=== PATIENT | female | born 1930 | race Caucasian/White ===

== ENCOUNTER 2017-06-13 07:33 | Inpatient (IN) | payer MEDICARE ==
[~2017-06-13] VITALS: Ht 144.8 cm; Wt 52.4 kg
[2017-06-13] VITALS (9 sets, daily range): BP systolic 106–204; BP diastolic 58–97
--- NOTE | 2017-06-13 07:41 | PHYS DOC ---
Adult General Chief Complaint Chief Complaint: short of breath HPI HPI Patient is a 86 year old female who presents with shortness of breath. She states it started couple days ago is been getting worse. She states she intermittently has a productive cough but denies any fevers chills nausea or vomiting. She denies a history of COPD. She states she doesn't know the names of her medicines she takes. Based on these a paper those in her wallet she 's had coronary disease with a bypass and pneumothorax in the past. It appears she is taking Benicar, Norvasc, simvastatin in addition to omeprazole isosorbide , metoprolol, levothyroxine and alprazolam when necessary. She states she does wear oxygen just at nighttime when she sleeps. She does have a note specialist Dr. Garcia on [facility] in her primary care physician is Dr. Jenny Jiménez. Review of Systems Review of Systems Constitutional: Denies fever or chills [] Eyes: Denies change in visual acuity, redness, or eye pain [] HENT: Denies nasal congestion or sore throat [] Respiratory: Positive for cough and shortness of breath [] Cardiovascular: No additional information not addressed in HPI [] GI: Denies abdominal pain, nausea, vomiting, bloody stools or diarrhea [] : Denies dysuria or hematuria [] Musculoskeletal: Denies back pain or joint pain [] Integument: Denies rash or skin lesions [] Neurologic: Denies headache, focal weakness or sensory changes [] Endocrine: Denies polyuria or polydipsia [] Current Medications Current Medications Current Medications Medications (Trade) Dose Ordered Sig/Raheel Start Time Stop Time Status Last Admin Dose Admin Albuterol/ Ipratropium (Duoneb) 3 ml 1X ONCE 06/13/17 08:15 06/13/17 08:20 DC 06/13/17 08:15 3 ML Aspirin (Children'S Aspirin) 324 mg 1X ONCE 06/13/17 08:45 06/13/17 08:46 Diltiazem HCl (Cardizem) 10 mg 1X ONCE 06/13/17 08:15 06/13/17 08:16 Cancel Diltiazem HCl 125 mg/Dextrose 125 ml @ 0 mls/hr 1X ONCE 06/13/17 08:15 06/13/17 08:29 DC Methylprednisolone Sodium Succinate (SOLU-Medrol 125MG VIAL) 125 mg 1X ONCE 06/13/17 08:15 06/13/17 08:20 DC 06/13/17 08:22 125 MG Allergies Allergies Allergies Coded Allergies Type Severity Reaction Last Updated Verified Penicillins Allergy Intermediate 06/13/17 Yes Sulfa (Sulfonamide Antibiotics) Allergy Intermediate 06/13/17 Yes amoxicillin Allergy Intermediate 06/13/17 Yes clopidogrel Allergy Intermediate 06/13/17 Yes pantoprazole Allergy Intermediate 06/13/17 Yes Physical Exam Physical Exam Constitutional: Well developed, well nourished, no acute distress, non-toxic appearance. [] HENT: Normocephalic, atraumatic, bilateral external ears normal, oropharynx moist, no oral exudates, nose normal. [] Eyes: PERRLA, EOMI, conjunctiva normal, no discharge. [] Neck: Normal range of motion, no tenderness, supple, no stridor. [] Cardiovascular:Heart rate regular rhythm, no murmur [] Lungs & Thorax: Bilateral breath sounds decreased at the bases with moderate expiratory wheezes Abdomen: Bowel sounds normal, soft, no tenderness, no masses, no pulsatile masses. [] Skin: Warm, dry, no erythema, no rash. [] Back: No tenderness, no CVA tenderness. [] Extremities: No tenderness, no cyanosis, no clubbing, ROM intact, no edema. [] Neurologic: Alert and oriented X 3, normal motor function, normal sensory function, no focal deficits noted. [] Psychologic: Affect normal, judgement normal, mood normal. [] Current Patient Data Vital Signs Vital Signs Date Time Temp Pulse Resp B/P (MAP) Pulse Ox O2 Delivery O2 Flow Rate FiO2 06/13/17 08:31 128 177/102 06/13/17 08:14 97 Nasal Cannula 2.0 06/13/17 07:46 98.3 24 98.3 Lab Values Laboratory Tests Test 06/13/17 07:41 06/13/17 07:45 O2 Saturation 96 % (92-99) Arterial Blood pH 7.37 (7.35-7.45) Arterial Blood pCO2 at Patient Temp 45 mmHg (35-46) Arterial Blood pO2 at Patient Temp 84 mmHg (65-108) Arterial Blood HCO3 25 mmol/L (21-28) Arterial Blood Base Excess 0 mmol/L (-3-3) Oxyhemoglobin 95.4 % Methemoglobin 0.7 % (0.0-1.9) Carbon Monoxide, Quantitative 0.3 % (0.0-1.9) FiO2 .28 White Blood Count 14.5 x10^3/uL (4.0-11.0) H Red Blood Count 4.06 x10^6/uL (3.50-5.40) Hemoglobin 13.1 g/dL (12.0-15.5) Hematocrit 40.7 % (36.0-47.0) Mean Corpuscular Volume 100 fL (79-100) Mean Corpuscular Hemoglobin 32 pg (25-35) Mean Corpuscular Hemoglobin Concent 32 g/dL (31-37) Red Cell Distribution Width 15.2 % (11.5-14.5) H Platelet Count 241 x10^3/uL (140-400) Neutrophils (%) (Auto) 81 % (31-73) H Lymphocytes (%) (Auto) 4 % (24-48) L Monocytes (%) (Auto) 7 % (0-9) Eosinophils (%) (Auto) 7 % (0-3) H Basophils (%) (Auto) 1 % (0-3) Neutrophils # (Auto) 11.7 x10^3uL (1.8-7.7) H Lymphocytes # (Auto) 0.6 x10^3/uL (1.0-4.8) L Monocytes # (Auto) 1.1 x10^3/uL (0.0-1.1) Eosinophils # (Auto) 1.0 x10^3/uL (0.0-0.7) H Basophils # (Auto) 0.1 x10^3/uL (0.0-0.2) Platelet Estimate Pending Sodium Level 135 mmol/L (136-145) L Potassium Level 3.6 mmol/L (3.5-5.1) Chloride Level 97 mmol/L (98-107) L Carbon Dioxide Level 28 mmol/L (21-32) Anion Gap 10 (6-14) Blood Urea Nitrogen 16 mg/dL (7-20) Creatinine 1.3 mg/dL (0.6-1.0) H Estimated GFR (Cockcroft-Gault) 38.7 Glucose Level 138 mg/dL (70-99) H Lactic Acid Level 1.3 mmol/L (0.4-2.0) Calcium Level 9.7 mg/dL (8.5-10.1) Magnesium Level 1.9 mg/dL (1.8-2.4) Total Bilirubin 0.9 mg/dL (0.2-1.0) Direct Bilirubin 0.1 mg/dL (0.0-0.2) Aspartate Amino Transferase (AST) 51 U/L (15-37) H Alanine Aminotransferase (ALT) 59 U/L (14-59) Alkaline Phosphatase 122 U/L (46-116) H Creatine Kinase 276 U/L (26-192) H Creatine Kinase MB (Mass) 7.8 ng/mL (0.0-3.6) H Creatine Kinase MB Relative Index 2.8 % (0-4) Troponin I Quantitative 0.084 ng/mL (0.000-0.055) OV-Wwx-E-Type Natriuretic Peptide 2609 pg/mL (0-449) H Total Protein 8.0 g/dL (6.4-8.2) Albumin 3.9 g/dL (3.4-5.0) Lipase 135 U/L (73-393) Thyroid Stimulating Hormone (TSH) 0.505 uIU/mL (0.358-3.74) Laboratory Tests 06/13/17 07:45 Laboratory Tests 06/13/17 07:45 EKG EKG EKG shows A. fib with rate of [address] elevations, no T-wave inversions appreciated, QTC 403 ms, left axis deviation noted, as interpreted by me. Radiology/Procedures Radiology/Procedures [facility] [address] [place] [address] IMAGING REPORT Signed PATIENT: KIRAN JOHNSON ACCOUNT: [id number] : 1930 LOCATION: ER AGE: 86 SEX: F EXAM STATUS: PRE ER ORD. PHYSICIAN: JEFFERY URIARTE MD REASON: soa PROCEDURE: PORTABLE CHEST 1V Indication shortness of air. A single view of the chest was obtained. Comparison is made to an examination just over 7 years earlier. Postoperative changes are noted. Heart size is within normal limits and unchanged. There is no consolidated pneumonia. There is some minimal volume loss at the left costophrenic angle which may reflect atelectasis and a small amount of pleural fluid. There is no pneumothorax. IMPRESSION: No definite acute finding in the chest. Minimal volume loss at the left costophrenic angle. DICTATED and SIGNED BY: JULY DENT MD DATE: 06/13/17 0807 CC: JEFFERY URIARTE MD ~ Impressions: A. fib with RVR Dyspnea Elevated troponin Course & Med Decision Making Course & Med Decision Making Pertinent Labs and Imaging studies reviewed. (See chart for details) EKG shows A. fib with RVR, chest x-ray is nonfocal with COPD findings. Her BNP is elevated addition to her troponin at 0.08. She was given aspirin. She started on a Cardizem bolus and then a drip to slow her heart rate down. She is receiving breathing treatments. She is in stable condition being admitted to the [facility] on a Cardene drip with cardiology and pulmonary consultations. Interim orders have been written. Critical care time 45 minutes of critical care time was used on this patient excluding procedures. Dragon Disclaimer Dragon Disclaimer This electronic medical record was generated, in whole or in part, using a voice recognition dictation system. Departure Departure Impression: Primary Impression: Atrial fibrillation with RVR Disposition: ADMITTED INPATIENT Admitting Physician: Nicole Robbins Condition: GUARDED JEFFERY URIARTE MD Jun 13, 2017 07:41
[2017-06-13 08:04] LABS: CALCIUM 9.7 mg/dL (8.5-10.1); CREATININE 1.3 mg/dL (0.6-1.0); GFR 38.7; POTASSIUM 3.6 mmol/L (3.5-5.1)
[2017-06-13 08:10] LABS: ALBUMIN 3.9 g/dL (3.4-5.0); DIRECT BILIRUBIN 0.1 mg/dL (0.0-0.2); MAGNESIUM 1.9 mg/dL (1.8-2.4); TOTAL BILIRUBIN 0.9 mg/dL (0.2-1.0)
[2017-06-13] MEDS ORDERED: IPRATRPIUM/ALBUTEROL 0.5/2.5MG 3 ML NEBU. ONE (08:12)
--- NOTE | 2017-06-13 08:12 | RAD ---
Indication shortness of air. A single view of the chest was obtained. Comparison is made to an examination just over 7 years earlier. Postoperative changes are noted. Heart size is within normal limits and unchanged. There is no consolidated pneumonia. There is some minimal volume loss at the left costophrenic angle which may reflect atelectasis and a small amount of pleural fluid. There is no pneumothorax. IMPRESSION: No definite acute finding in the chest. Minimal volume loss at the left costophrenic angle.
[2017-06-13] MEDS ORDERED: IPRATRPIUM/ALBUTEROL 0.5/2.5MG 3 ML NEBU. NEB ONE (08:15)
[2017-06-13] MEDS ORDERED: dilTIAZem IV PUSH 25 MG/5 ML VIAL IVP ONE ×2 (08:15)
[2017-06-13] MEDS ORDERED: methylPREDNISolone SOD SUCC PF 125 MG/2 ML VIAL. IV ONE (08:15)
[2017-06-13 08:18] LABS: CKMB MASS 7.8 ng/mL (0.0-3.6)
[2017-06-13 08:18] LABS: BASE EXCESS COOX 0 mmol/L (-3-3); CARBON MONOXIDE 0.3 % (0.0-1.9); HCO3 COOX 25 mmol/L (21-28); METHEMOGLOBIN 0.7 % (0.0-1.9); OXYHEMOGLOBIN 95.4 %; PCO2 COOX 45 mmHg (35-46); PH COOX 7.37 (7.35-7.45); PO2 COOX 84 mmHg (65-108); SAT O2 COOX 96 % (92-99); TOTAL HEMOGLOBIN 13.9 g/dL
[2017-06-13 08:19] LABS: BASO # 0.1 x10^3/uL (0.0-0.2); BASO % 1 % (0-3); EOS % 7 % (0-3); HEMATOCRIT 40.7 % (36.0-47.0); HEMOGLOBIN 13.1 g/dL (12.0-15.5); LYMPH # 0.6 x10^3/uL (1.0-4.8); LYMPH % 4 % (24-48); MEAN CORPUSCULAR HEMOGLOBIN 32 pg (25-35); MEAN CORPUSCULAR HGB CONC 32 g/dL (31-37); MEAN CORPUSCULAR VOLUME 100 fL (79-100); MONO % 7 % (0-9); NEUT % 81 % (31-73); PLATELET COUNT 241 x10^3/uL (140-400); RED BLOOD COUNT 4.06 x10^6/uL (3.50-5.40); RED CELL DISTRIBUTION WIDTH 15.2 % (11.5-14.5); WHITE BLOOD COUNT 14.5 x10^3/uL (4.0-11.0)
--- NOTE | 2017-06-13 08:33 | EKG ---
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
[2017-06-13 08:42] LABS: INR 0.9 (0.8-1.1); PROTHROMBIN TIME PATIENT 11.8 SEC (11.7-14.0)
[2017-06-13] MEDS ORDERED: ASPIRIN CHEWABLE 81 MG TABLET. PO ONE (08:45)
[2017-06-13] MEDS ORDERED: ONDANSETRON PF 4 MG/2 ML VIAL. IV PRN ×2 (08:45→10:30)
[2017-06-13 08:55] LABS: BILIRUBIN,URINE NEGATIVE (NEG); GLUCOSE,URINE NEGATIVE (NEG); PROTEIN,URINE >=300 mg/dL (NEG-TRACE)
[2017-06-13 08:56] LABS: BACTERIA,URINE 0 /HPF (0-FEW); NITRITE,URINE NEGATIVE (NEG); UROBILINOGEN,URINE 0.2 mg/dL (0.2 mg/dL); WBC,URINE 0 /HPF (0-4)
[2017-06-13] MEDS: guaiFENesin DM 200MG/20MG 10 ML SYRUP PO PRN ×2 (10:08→17:46)
[2017-06-13] MEDS ORDERED: FUROSEMIDE 20 MG/2 ML VIAL. IVP ONE ×2 (10:15→20:00)
[2017-06-13] MEDS ORDERED: ACETAMINOPHEN 500 MG TABLET PO PRN (10:30)
[2017-06-13] MEDS ORDERED: DIGOXIN IV 500 MCG/2 ML AMPUL. IV ONE (10:30)
--- NOTE | 2017-06-13 10:33 | PDOC2 ---
CARDIAC CONSULT DATE OF CONSULT Date of Consult DATE: 06/13/17 TIME: 10:01 REASON FOR CONSULT Reason for Consult: AFIB RVR REFERRING PHYSICIAN Referring Physician: Claudia SOURCE Source: Chart review, Patient HISTORY OF PRESENT ILLNESS HISTORY OF PRESENT ILLNESS This is a pleasant 86 yo female admitted for complains of SOA. Reports that she has been having white mucousy sputum more than usual. Reports no fever or chills. She has been coughing more. Positive for orthopnea and noted her legs were more swollen yesterday but better today. Reports palpitations but no dizziness or syncope. No CP but positive for palpitations. Notable for bloating and decreased appetite. Duration of symptoms about 2-3 days. No prior exposure to somebody who has respiratory infections. She has been using oxygen at hs but mainly for her comfort and denies any COPD, KRYSTLE, second hand chronic exposure. She is positive for CAD but no CVA, VTE, falls or any recent injury or any GI bleed. Upon admission she was noted with AFIB RVR which does not have a history of. PAST MEDICAL HISTORY Cardiovascular: CAD, HTN, Hyperlipidemia Pulmonary: COPD (uses O2 at hs), Other (pneumothorax) CENTRAL NERVOUS SYSTEM: Other (No pertinent history) GI: No pertinent hx Heme/Onc: No pertinent hx, Cancer (breast?) Hepatobiliary: No pertinent hx Psych: Anxiety Musculoskeletal: Osteoarthritis Rheumatologic: No pertinent hx Infectious disease: No pertinent hx ENT: Other ([place]) Renal/: Chronic renal insuff Endocrine: Hypothyroidism Dermatology: No pertinent hx PAST SURGICAL HISTORY Past Surgical History: CABG, Mastectomy (right), Total knee replacement (right) , Other (PCI/stents; right hip repair from fall 5 yrs ago) FAMILY HISTORY Family History: Coronary Artery Disease SOCIAL HISTORY Smoke: No ALCOHOL: none Drugs: None Lives: Alone CURRENT MEDICATIONS CURRENT MEDICATIONS Current Medications Medications (Trade) Dose Ordered Sig/Raheel Route PRN Reason Start Time Stop Time Status Last Admin Dose Admin Albuterol/ Ipratropium (Duoneb) 3 ml 1X ONCE NEB 06/13/17 08:15 06/13/17 08:20 DC 06/13/17 08:15 Methylprednisolone Sodium Succinate (SOLU-Medrol 125MG VIAL) 125 mg 1X ONCE IV 06/13/17 08:15 06/13/17 08:20 DC 06/13/17 08:22 Diltiazem HCl (Cardizem) 10 mg 1X ONCE IVP 06/13/17 08:15 06/13/17 08:29 DC 06/13/17 08:31 Diltiazem HCl 125 mg/Dextrose 125 ml @ 0 mls/hr 1X ONCE IV 06/13/17 08:15 06/13/17 08:29 DC 06/13/17 08:43 Aspirin (Children'S Aspirin) 324 mg 1X ONCE PO 06/13/17 08:45 06/13/17 08:46 DC 06/13/17 08:47 ALLERGIES ALLERGIES: Coded Allergies: Penicillins (Verified Allergy, Intermediate, 06/13/17) Sulfa (Sulfonamide Antibiotics) (Verified Allergy, Intermediate, 06/13/17) amoxicillin (Verified Allergy, Intermediate, 06/13/17) clopidogrel (Verified Allergy, Intermediate, 06/13/17) pantoprazole (Verified Allergy, Intermediate, 06/13/17) ROS Review of System 14 point ROS evaluated with pertinent positives noted per HPI PHYSICAL EXAM General: Alert, Oriented X3, Cooperative, No acute distress HEENT: Atraumatic, Mucous membr. moist/pink Lungs: Other (diffuse wheeze) Heart: Other (AFIB RVR; 2/6 systolic murmur to LLS border) Abdomen: Soft, No tenderness Extremities: No cyanosis, Other (trace LE edema) Skin: No breakdown, No significant lesion Neuro: Normal speech, Sensation intact Psych/Mental Status: Mental status NL, Mood NL MUSCULOSKELETAL: Osteoarthritic changes both hands VITALS VITALS Vital Signs Date Time Temp Pulse Resp B/P (MAP) Pulse Ox O2 Delivery O2 Flow Rate FiO2 06/13/17 09:00 97.9 114 20 175/80 (111) 96 Nasal Cannula 2.0 97.9 LABS Lab: Laboratory Tests Test 06/13/17 07:41 06/13/17 07:45 06/13/17 08:44 O2 Saturation 96 % (92-99) Arterial Blood pH 7.37 (7.35-7.45) Arterial Blood pCO2 at Patient Temp 45 mmHg (35-46) Arterial Blood pO2 at Patient Temp 84 mmHg (65-108) Arterial Blood HCO3 25 mmol/L (21-28) Arterial Blood Base Excess 0 mmol/L (-3-3) Oxyhemoglobin 95.4 % Methemoglobin 0.7 % (0.0-1.9) Carbon Monoxide, Quantitative 0.3 % (0.0-1.9) FiO2 .28 White Blood Count 14.5 x10^3/uL (4.0-11.0) Red Blood Count 4.06 x10^6/uL (3.50-5.40) Hemoglobin 13.1 g/dL (12.0-15.5) Hematocrit 40.7 % (36.0-47.0) Mean Corpuscular Volume 100 fL (79-100) Mean Corpuscular Hemoglobin 32 pg (25-35) Mean Corpuscular Hemoglobin Concent 32 g/dL (31-37) Red Cell Distribution Width 15.2 % (11.5-14.5) Platelet Count 241 x10^3/uL (140-400) Neutrophils (%) (Auto) 81 % (31-73) Lymphocytes (%) (Auto) 4 % (24-48) Monocytes (%) (Auto) 7 % (0-9) Eosinophils (%) (Auto) 7 % (0-3) Basophils (%) (Auto) 1 % (0-3) Neutrophils # (Auto) 11.7 x10^3uL (1.8-7.7) Lymphocytes # (Auto) 0.6 x10^3/uL (1.0-4.8) Monocytes # (Auto) 1.1 x10^3/uL (0.0-1.1) Eosinophils # (Auto) 1.0 x10^3/uL (0.0-0.7) Basophils # (Auto) 0.1 x10^3/uL (0.0-0.2) Prothrombin Time 11.8 SEC (11.7-14.0) Prothromb Time International Ratio 0.9 (0.8-1.1) Sodium Level 135 mmol/L (136-145) Potassium Level 3.6 mmol/L (3.5-5.1) Chloride Level 97 mmol/L (98-107) Carbon Dioxide Level 28 mmol/L (21-32) Anion Gap 10 (6-14) Blood Urea Nitrogen 16 mg/dL (7-20) Creatinine 1.3 mg/dL (0.6-1.0) Estimated GFR (Cockcroft-Gault) 38.7 Glucose Level 138 mg/dL (70-99) Lactic Acid Level 1.3 mmol/L (0.4-2.0) Calcium Level 9.7 mg/dL (8.5-10.1) Magnesium Level 1.9 mg/dL (1.8-2.4) Total Bilirubin 0.9 mg/dL (0.2-1.0) Direct Bilirubin 0.1 mg/dL (0.0-0.2) Aspartate Amino Transf (AST/SGOT) 51 U/L (15-37) Alanine Aminotransferase (ALT/SGPT) 59 U/L (14-59) Alkaline Phosphatase 122 U/L (46-116) Creatine Kinase 276 U/L (26-192) Creatine Kinase MB (Mass) 7.8 ng/mL (0.0-3.6) Creatine Kinase MB Relative Index 2.8 % (0-4) Troponin I Quantitative 0.084 ng/mL (0.000-0.055) BD-Trp-O-Type Natriuretic Peptide 2609 pg/mL (0-449) Total Protein 8.0 g/dL (6.4-8.2) Albumin 3.9 g/dL (3.4-5.0) Lipase 135 U/L (73-393) Thyroid Stimulating Hormone (TSH) 0.505 uIU/mL (0.358-3.74) Urine Collection Type U cath Urine Color Straw Urine Clarity Clear Urine pH 7.0 Urine Specific [place] 1.025 Urine Protein >=300 mg/dL (NEG-TRACE) Urine Glucose (UA) Negative mg/dL (NEG) Urine Ketones (Stick) Negative mg/dL (NEG) Urine Blood Small (NEG) Urine Nitrite Negative (NEG) Urine Bilirubin Negative (NEG) Urine Urobilinogen Dipstick 0.2 mg/dL (0.2 mg/dL) Urine Leukocyte Esterase Negative (NEG) Urine RBC 1-2 /HPF (0-2) Urine WBC 0 /HPF (0-4) Urine Bacteria 0 /HPF (0-FEW) ASSESSMENT/PLAN ASSESSMENT/PLAN 1. AFIB RVR: new onset. 2. Acute on chronic diastolic CHF 3. Dyspnea: likely from above. no known COPD, tobaccoism, KRYSTLE. Uses O2 at hs mainly for comfort as reported. 4. CAD: CABG in 1980s and C with 3 stents with last PCI 5 yrs ago. CP free. 5. Hx of pneumonia: 03/2017 6. HTN: labile 7. HLP 8. Hypothyroidism: TSH on goal Recommendations 1. Obtain records from Dr. Nelson at [facility]. 2. TTE, lipid panel 3. Continue with cardizem upritrate per response. x1 Dig. ASA for now will reevaluate for NOAC once records are obtained. 4. Will obtain home med list and will resume cardiac meds as appropriate 5. 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
[2017-06-13] MEDS ORDERED: GABA-585 PO (10:49)
[2017-06-13] MEDS ORDERED: FAMO-63 PO (10:49)
[2017-06-13] MEDS ORDERED: ALPR0.25 PO (10:49)
[2017-06-13] MEDS ORDERED: FURO20TA3 PO (10:49)
[2017-06-13] MEDS ORDERED: ASPI-482 PO (10:49)
[2017-06-13] MEDS ORDERED: ALLO300T PO (10:49)
[2017-06-13] MEDS ORDERED: HYDR500C16 PO (10:49)
[2017-06-13] MEDS ORDERED: LEVO75TA5 PO (10:49)
[2017-06-13] MEDS: ASPIRIN ENTERIC COATED 81 MG TABLET.DR. PO SCH (11:03)
[2017-06-13 11:10] LABS: CHOLESTEROL/HDL RATIO 2.3
--- NOTE | 2017-06-13 11:42 | ACF ---
Admit Criteria Forms Admit Criteria Forms Admit Criteria Forms ATRIAL FIBRILLATION Clinical Indications for Admission to Inpatient Care ([place]/check or initial the applicable condition/criteria) Admission is indicated for ANY ONE of the following(1)(2)(3)(4)(5)(6)(7)(8): [ ]I. Myocardial ischemia that persists despite outpatient and observation care treatment (13) [ ]II. Myocardial infarction [ ]III. Hemodynamic instability [ ]IV. Heart failure (e.g., pulmonary edema) (14) [ ]V. Altered mental status that is severe or persistent complications secondary to comorbidities (eg, symptomatic heart failure) [ ]. Syncope [ ]VII. Patient has implantable cardioverter defibrillator that has fired more than once within past 24hror needs immediate adjustment of settings that cannot be done other than in inpatient setting. (15) [ ]VIII. Suspected accessory pathway (e.g., Zmmwg-Okbjwrcbn-Aezfi syndrome) on ECG [ ]IX. Medication toxicity (e.g., digitalis) causing arrhythmia(16) [ ]X. Underlying medical condition that necessitates inpatient care(e.g., thyrotoxicosis, pneumonia)(17) [ ]XI. Continuous ECG monitoring is required for condition causing arrhythmia (e.g., severe hyperkalemia, hypokalemia, acid-base disturbance)(18)(19)(20) [ ]XII. Initiation of antiarrhythmic drug therapy is needed in patient at high risk of adverse effects as indicated by ANY ONE of the following: [ ]a) Significant structural heart disease (e.g., reduced ejection fraction, congenital heart disease, valvular heart disease) [ ]b) Prolonged QT interval [ ]c) Underlying sinus node or atrioventricular conduction disturbances [ ]d) Need for treatment with antiarrhythmic drugs that have significant proarrhythmic potential (e.g., dofetilide, sotalol, procainamide) [ ]e) Patient whose sinus rhythm has never been observed on ECG [X]XIII. Persistent symptomatic tachycardia (rate > 100 bpm) despite outpatient and observation level of care (eg, rate cannot be sufficiently controlled [ ]XIV. Elective or urgent cardioversion that cannot be performed on outpatient basis or during observation care. [A] (Use also A Fib: Observation Care ) as appropriate.(21)(22)(23) Extended stay beyond goal length of stay may be needed for (1)(43)(44): [ ]a) Unstable comorbidities (eg, heart failure, COPD, renal insuffciency) [ ]b) Persistently uncontrolled atrial fibrillation or other arrhythmias (45) [ ]c) Acute thromboembolic event (e.g., stroke, limb ischemia) [ ]d) Need for inpatient attainment of full anticoagulation(28)(46)(47) The original [facility] content created by [facility] [employer] has been revised. The portions of the content which have been revised are identified through the use of italic text, and [facility] has neither reviewed nor approved the modified material. All other unmodified content is copyright [facility] [employer]. Please see references footnoted in the original [facility] MD.Voice edition 2014 SYBIL VOGT Jun 13, 2017 11:41
[2017-06-13] MEDS ORDERED: ALPRAZolam 0.5 MG TABLET PO PRN (11:45)
--- NOTE | 2017-06-13 11:50 | CARD ---
APPROVED REPORT EXAM: Two-dimensional and M-mode echocardiogram with Doppler and color Doppler. INDICATION Atrial Fibrillation 2D DIMENSIONS RVDd2.5 (2.9-3.5cm)Left Atrium(2D)2.6 (1.6-4.0cm) IVSd1.0 (0.7-1.1cm)Aortic Root(2D)2.4 (2.0-3.7cm) LVDd3.4 (3.9-5.9cm)LVOT Diameter1.9 (1.8-2.4cm) PWd1.0 (0.7-1.1cm)LVDs2.1 (2.5-4.0cm) FS (%) 30.0 %SV35.2 ml LVEF(%)60.0 (>50%) Aortic Valve AoV Peak Benito.96.1cm/Beena Peak GR.3.7mmHg Mitral Valve MV E Vaatwcaq712.9cm/sMV DECEL [id number] MV A Awcazflu69.4cm/sE/A Ratio1.3 TDI Lateral E' P. V8.17cm/sMedial E' P. V4.83cm/s E/Lateral E'14.4E/Medial E'24.4 Pulmonary Vein S1 Eevnntgl57.1cm/sS2 Oypxcply09.16cm/s D2 Rbsvrtdb24.2cm/s LEFT VENTRICLE The left ventricle is normal size. There is normal left ventricular wall thickness. The left ventricu lar systolic function is normal and the ejection fraction is within normal range. The Ejection Fracti on is 55-60%. Technically difficult images preclude accurate wall motion assessment but grossly karissa l wall motion. Tissue Doppler imaging reveals mild left ventricular diastolic dysfunction. RIGHT VENTRICLE The right ventricle is normal size. The right ventricular systolic function is normal. ATRIA The left atrium size is normal. The right atrium size is normal. The interatrial septum is intact wit h no evidence for an atrial septal defect or patent foramen ovale as noted on 2-D or Doppler imaging. AORTIC VALVE The aortic valve is mildly thickened. Doppler and Color Flow revealed no significant aortic regurgita tion. There is no significant aortic valvular stenosis. MITRAL VALVE The mitral valve is calcified but opens well. There is no evidence of mitral valve prolapse. There is no mitral valve stenosis. Doppler and Color-flow revealed trace to mild mitral regurgitation. TRICUSPID VALVE The tricuspid valve is normal in structure and function. Doppler and Color Flow revealed mild tricusp id regurgitation. There is no tricuspid valve stenosis. PULMONIC VALVE Doppler and Color Flow revealed trace to mild pulmonic valvular regurgitation. There is no pulmonic v alvular stenosis. GREAT VESSELS The aortic root is normal in size. The ascending aorta is normal in size. The IVC was not visualized. PERICARDIAL EFFUSION There is no evidence of significant pericardial effusion. Critical Notification Critical Value: No <Conclusion> The left ventricular systolic function is normal and the ejection fraction is within normal range. Th e Ejection Fraction is 55-60%. Technically difficult images preclude accurate wall motion assessment but grossly normal wall motion.
[2017-06-13] MEDS: IPRATRPIUM/ALBUTEROL 0.5/2.5MG 3 ML NEBU. NEB SCH ×3 (11:54→19:57)
[2017-06-13 11:57] LABS: % EOS 10 % (0-5); PLT ESTIMATE ADEQUATE (ADEQUATE)
[2017-06-13] MEDS ORDERED: INFLUENZA VAX SCREEN BY RX. MC ONE (13:15)
[2017-06-13] MEDS ORDERED: UBIQ75CA PO (13:57)
[2017-06-13] MEDS ORDERED: ISOS60TA2 PO (13:57)
[2017-06-13] MEDS ORDERED: CHOL100016 PO (13:57)
[2017-06-13] MEDS ORDERED: OMEG100T PO (13:57)
--- NOTE | 2017-06-13 14:12 | PDOC1 ---
History and Physical Date of Admission Date of Admission DATE: 06/13/17 TIME: 14:07 Identification/Chief Complaint Chief Complaint SOA Problems: Source Source: Caregiver, Chart review, Patient History of Present Illness History of Present Illness 66 y.o Female accompanied by family today,. SOA, NO weight gain, no leg edema, claims hx stents in past, Found to be in atrial fib RVR needing cardziem gtt at CVC, heart rate now at rest 10mcg is 100 bpm, denies presyncopal sxs or CP, NOn smoker, non drinker, LAbs BNP 7K, CXR trace pleural effusion. Admitted with cards on board, Hx hypothyroidism, anxiety, gout? 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 and neuropathy on gabapentin Past Medical History Cardiovascular: CAD, HTN, Hyperlipidemia Pulmonary: COPD (uses O2 at hs), Other (pneumothorax) CENTRAL NERVOUS SYSTEM: Other (No pertinent history) GI: No pertinent hx Heme/Onc: No pertinent hx, Cancer (breast?) Hepatobiliary: No pertinent hx Psych: Anxiety Musculoskeletal: Osteoarthritis Rheumatologic: No pertinent hx Infectious disease: No pertinent hx ENT: Other ([place]) Renal/: Chronic renal insuff Endocrine: Hypothyroidism Dermatology: No pertinent hx Past Surgical History Past Surgical History: CABG, Mastectomy (right), Total knee replacement (right) , Other (PCI/stents; right hip repair from fall 5 yrs ago) Family History Family History: Coronary Artery Disease Social History Smoke: No ALCOHOL: none Drugs: None Current Problem List Problem List Problems Medical Problems: (1) Atrial fibrillation with RVR Status: Acute Problems: Current Medications Current Medications Current Medications Albuterol/ Ipratropium (Duoneb) 3 ml STK-MED ONCE .ROUTE ; Start 06/13/17 at 08: 12; Stop 06/13/17 at 08:13; Status DC Albuterol/ Ipratropium (Duoneb) 3 ml 1X ONCE NEB Last administered on 08:15; Start 06/13/17 at 08:15; Stop 06/13/17 at 08:20; Status DC Methylprednisolone Sodium Succinate (SOLU-Medrol 125MG VIAL) 125 mg 1X ONCE IV Last administered on 06/13/17 08:22; Start 06/13/17 at 08:15; Stop 06/13/17 at 08:20; Status DC Diltiazem HCl (Cardizem) 10 mg 1X ONCE IVP Last administered on 06/13/17 08: 31; Start 06/13/17 at 08:15; Stop 06/13/17 at 08:29; Status DC Diltiazem HCl (Cardizem) 10 mg 1X ONCE IVP ; Start 06/13/17 at 08:15; Stop at 08:16; Status Cancel Diltiazem HCl 125 mg/Dextrose 125 ml @ 0 mls/hr 1X ONCE IV Last administered on 06/13/17 08:43; Start 06/13/17 at 08:15; Stop 06/13/17 at 08:29; Status DC Aspirin (Children'S Aspirin) 324 mg 1X ONCE PO Last administered on 06/13/17 08:47; Start 06/13/17 at 08:45; Stop 06/13/17 at 08:46; Status DC Ondansetron HCl (Zofran) 4 mg PRN Q8HRS PRN IV NAUSEA/VOMITING; Start 06/13/17 at 08:45; Stop 06/13/17 at 10:18; Status DC Guaifenesin (Robitussin Dm) 10 ml PRN Q6HRS PRN PO COUGH Last administered on 10:08; Start 06/13/17 at 10:00 Albuterol/ Ipratropium (Duoneb) 3 ml RTQID NEB Last administered on 06/13/17 11:54; Start 06/13/17 at 12:00 Ondansetron HCl (Zofran) 4 mg PRN Q6HRS PRN IV NAUSEA/VOMITING; Start 06/13/17 at 10:30; Stop 06/14/17 at 10:29 Acetaminophen (Tylenol) 500 mg PRN Q6HRS PRN PO MILD PAIN / TEMP; Start at 10:30 Furosemide (Lasix) 20 mg 1X ONCE IVP Last administered on 06/13/17 11:03; Start 06/13/17 at 10:15; Stop 06/13/17 at 10:22; Status DC Digoxin (Lanoxin) 250 mcg 1X ONCE IV Last administered on 06/13/17 11:03; Start 06/13/17 at 10:30; Stop 9/15/17 at 10:31; Status DC Aspirin (Ecotrin) 81 mg DAILYWBKFT PO Last administered on 06/13/17 11:03; Start 06/13/17 at 12:00 Alprazolam (Xanax) 0.5 mg PRN Q8HRS PRN PO ANXIETY / AGITATION Last administered on 06/13/17 11:47; Start 06/13/17 at 11:45 Info (Do NOT chart on this placeholder) 1 each 1X ONCE MC ; Start 06/13/17 at 13:15; Stop 06/13/17 at 13:16; Status UNV Active Scripts Active Reported Ultra Coq10 (Ubiquinone) 75 Mg Capsule 100 Mg PO DAILY [place]-3 ([place]-3 Fatty Acids) 100 Mg Tab.chew 350 Mg PO HS Isosorbide Mononitrate Er (Isosorbide Mononitrate) 60 Mg Tab.er.24h 1 Tab PO DAILY Vitamin D3 (Cholecalciferol (Vitamin D3)) 1,000 Unit Tab.chew 1,000 Unit PO DAILY Aspir 81 (Aspirin) 81 Mg Tablet.dr 1 Tab PO DAILY Xanax (Alprazolam) 0.25 Mg Tablet 1 Tab PO TID PRN Allopurinol 300 Mg Tablet 1 Tab PO QODAY Pepcid (Famotidine) 20 Mg Tablet 20 Mg PO DAILY Levothyroxine Sodium 75 Mcg Tablet 1 Tab PO DAILY Hydroxyurea 500 Mg Capsule 500 Mg PO QODAY Gabapentin 100 Mg Capsule 100 Mg PO TID Furosemide 20 Mg Tablet 1 Tab PO DAILY Allergies Allergies: Coded Allergies: Penicillins (Verified Allergy, Intermediate, 06/13/17) Sulfa (Sulfonamide Antibiotics) (Verified Allergy, Intermediate, 06/13/17) amoxicillin (Verified Allergy, Intermediate, 06/13/17) clopidogrel (Verified Allergy, Intermediate, 06/13/17) pantoprazole (Verified Allergy, Intermediate, 06/13/17) ROS Review of System as per HPI, only SOA Physical Exam General: Alert, Oriented X3, Cooperative, No acute distress HEENT: Atraumatic, PERRLA Lungs: Clear to auscultation Heart: S1S2, no thrills, no rubs, no jug vein distention, irregularly irregular Breasts: Normal, Rt breast nml w/o mass, Lt breast nml w/o mass, Nipples normal Abdomen: Normal bowel sounds, Soft, No tenderness, No hepatosplenomegaly, No masses Rectal Exam: not examined PELVIC: Nml ext genitalia Extremities: No clubbing, No cyanosis, No edema, Normal pulses, No tenderness/ swelling Skin: No rashes, No breakdown, No significant lesion Neuro: Normal gait, Normal speech, Strength at 5/5 X4 ext, Normal tone, Sensation intact, Cranial nerves 3-12 NL, Reflexes 2+ Psych/Mental Status: Mental status NL, Mood NL Vitals Vitals Vital Signs Date Time Temp Pulse Resp B/P (MAP) Pulse Ox O2 Delivery O2 Flow Rate FiO2 06/13/17 11:57 98 Nasal Cannula 2.0 06/13/17 11:03 96 149/59 06/13/17 11:00 97.1 20 97.1 Labs Labs Laboratory Tests Test 06/13/17 07:41 06/13/17 07:45 06/13/17 08:44 06/13/17 10:51 O2 Saturation 96 % (92-99) Arterial Blood pH 7.37 (7.35-7.45) Arterial Blood pCO2 at Patient Temp 45 mmHg (35-46) Arterial Blood pO2 at Patient Temp 84 mmHg (65-108) Arterial Blood HCO3 25 mmol/L (21-28) Arterial Blood Base Excess 0 mmol/L (-3-3) Oxyhemoglobin 95.4 % Methemoglobin 0.7 % (0.0-1.9) Carbon Monoxide, Quantitative 0.3 % (0.0-1.9) FiO2 .28 White Blood Count 14.5 x10^3/uL (4.0-11.0) Red Blood Count 4.06 x10^6/uL (3.50-5.40) Hemoglobin 13.1 g/dL (12.0-15.5) Hematocrit 40.7 % (36.0-47.0) Mean Corpuscular Volume 100 fL (79-100) Mean Corpuscular Hemoglobin 32 pg (25-35) Mean Corpuscular Hemoglobin Concent 32 g/dL (31-37) Red Cell Distribution Width 15.2 % (11.5-14.5) Platelet Count 241 x10^3/uL (140-400) Neutrophils (%) (Auto) 81 % (31-73) Lymphocytes (%) (Auto) 4 % (24-48) Monocytes (%) (Auto) 7 % (0-9) Eosinophils (%) (Auto) 7 % (0-3) Basophils (%) (Auto) 1 % (0-3) Neutrophils # (Auto) 11.7 x10^3uL (1.8-7.7) Lymphocytes # (Auto) 0.6 x10^3/uL (1.0-4.8) Monocytes # (Auto) 1.1 x10^3/uL (0.0-1.1) Eosinophils # (Auto) 1.0 x10^3/uL (0.0-0.7) Basophils # (Auto) 0.1 x10^3/uL (0.0-0.2) Segmented Neutrophils % 77 % (35-66) Lymphocytes % 4 % (24-48) Monocytes % 9 % (0-10) Eosinophils % 10 % (0-5) Platelet Estimate Adequate (ADEQUATE) Prothrombin Time 11.8 SEC (11.7-14.0) Prothromb Time International Ratio 0.9 (0.8-1.1) Sodium Level 135 mmol/L (136-145) Potassium Level 3.6 mmol/L (3.5-5.1) Chloride Level 97 mmol/L (98-107) Carbon Dioxide Level 28 mmol/L (21-32) Anion Gap 10 (6-14) Blood Urea Nitrogen 16 mg/dL (7-20) Creatinine 1.3 mg/dL (0.6-1.0) Estimated GFR (Cockcroft-Gault) 38.7 Glucose Level 138 mg/dL (70-99) Lactic Acid Level 1.3 mmol/L (0.4-2.0) Calcium Level 9.7 mg/dL (8.5-10.1) Magnesium Level 1.9 mg/dL (1.8-2.4) Total Bilirubin 0.9 mg/dL (0.2-1.0) Direct Bilirubin 0.1 mg/dL (0.0-0.2) Aspartate Amino Transf (AST/SGOT) 51 U/L (15-37) Alanine Aminotransferase (ALT/SGPT) 59 U/L (14-59) Alkaline Phosphatase 122 U/L (46-116) Creatine Kinase 276 U/L (26-192) Creatine Kinase MB (Mass) 7.8 ng/mL (0.0-3.6) Creatine Kinase MB Relative Index 2.8 % (0-4) Troponin I Quantitative 0.084 ng/mL (0.000-0.055) 0.076 ng/mL (0.000-0.055) DJ-Ztv-A-Type Natriuretic Peptide 2609 pg/mL (0-449) Total Protein 8.0 g/dL (6.4-8.2) Albumin 3.9 g/dL (3.4-5.0) Triglycerides Level 78 mg/dL (0-150) Cholesterol Level 229 mg/dL (0-200) LDL Cholesterol, Calculated 113 mg/dL (0-100) VLDL Cholesterol, Calculated 16 mg/dL (0-40) Non-HDL Cholesterol Calculated 129 mg/dL (0-129) HDL Cholesterol 100 mg/dL (40-60) Cholesterol/HDL Ratio 2.3 Lipase 135 U/L (73-393) Thyroid Stimulating Hormone (TSH) 0.505 uIU/mL (0.358-3.74) Urine Collection Type U cath Urine Color Straw Urine Clarity Clear Urine pH 7.0 Urine Specific [place] 1.025 Urine Protein >=300 mg/dL (NEG-TRACE) Urine Glucose (UA) Negative mg/dL (NEG) Urine Ketones (Stick) Negative mg/dL (NEG) Urine Blood Small (NEG) Urine Nitrite Negative (NEG) Urine Bilirubin Negative (NEG) Urine Urobilinogen Dipstick 0.2 mg/dL (0.2 mg/dL) Urine Leukocyte Esterase Negative (NEG) Urine RBC 1-2 /HPF (0-2) Urine WBC 0 /HPF (0-4) Urine Bacteria 0 /HPF (0-FEW) Laboratory Tests Test 06/13/17 07:41 06/13/17 07:45 06/13/17 08:44 06/13/17 10:51 O2 Saturation 96 % (92-99) Arterial Blood pH 7.37 (7.35-7.45) Arterial Blood pCO2 at Patient Temp 45 mmHg (35-46) Arterial Blood pO2 at Patient Temp 84 mmHg (65-108) Arterial Blood HCO3 25 mmol/L (21-28) Arterial Blood Base Excess 0 mmol/L (-3-3) Oxyhemoglobin 95.4 % Methemoglobin 0.7 % (0.0-1.9) Carbon Monoxide, Quantitative 0.3 % (0.0-1.9) FiO2 .28 White Blood Count 14.5 x10^3/uL (4.0-11.0) Red Blood Count 4.06 x10^6/uL (3.50-5.40) Hemoglobin 13.1 g/dL (12.0-15.5) Hematocrit 40.7 % (36.0-47.0) Mean Corpuscular Volume 100 fL (79-100) Mean Corpuscular Hemoglobin 32 pg (25-35) Mean Corpuscular Hemoglobin Concent 32 g/dL (31-37) Red Cell Distribution Width 15.2 % (11.5-14.5) Platelet Count 241 x10^3/uL (140-400) Neutrophils (%) (Auto) 81 % (31-73) Lymphocytes (%) (Auto) 4 % (24-48) Monocytes (%) (Auto) 7 % (0-9) Eosinophils (%) (Auto) 7 % (0-3) Basophils (%) (Auto) 1 % (0-3) Neutrophils # (Auto) 11.7 x10^3uL (1.8-7.7) Lymphocytes # (Auto) 0.6 x10^3/uL (1.0-4.8) Monocytes # (Auto) 1.1 x10^3/uL (0.0-1.1) Eosinophils # (Auto) 1.0 x10^3/uL (0.0-0.7) Basophils # (Auto) 0.1 x10^3/uL (0.0-0.2) Segmented Neutrophils % 77 % (35-66) Lymphocytes % 4 % (24-48) Monocytes % 9 % (0-10) Eosinophils % 10 % (0-5) Platelet Estimate Adequate (ADEQUATE) Prothrombin Time 11.8 SEC (11.7-14.0) Prothromb Time International Ratio 0.9 (0.8-1.1) Sodium Level 135 mmol/L (136-145) Potassium Level 3.6 mmol/L (3.5-5.1) Chloride Level 97 mmol/L (98-107) Carbon Dioxide Level 28 mmol/L (21-32) Anion Gap 10 (6-14) Blood Urea Nitrogen 16 mg/dL (7-20) Creatinine 1.3 mg/dL (0.6-1.0) Estimated GFR (Cockcroft-Gault) 38.7 Glucose Level 138 mg/dL (70-99) Lactic Acid Level 1.3 mmol/L (0.4-2.0) Calcium Level 9.7 mg/dL (8.5-10.1) Magnesium Level 1.9 mg/dL (1.8-2.4) Total Bilirubin 0.9 mg/dL (0.2-1.0) Direct Bilirubin 0.1 mg/dL (0.0-0.2) Aspartate Amino Transf (AST/SGOT) 51 U/L (15-37) Alanine Aminotransferase (ALT/SGPT) 59 U/L (14-59) Alkaline Phosphatase 122 U/L (46-116) Creatine Kinase 276 U/L (26-192) Creatine Kinase MB (Mass) 7.8 ng/mL (0.0-3.6) Creatine Kinase MB Relative Index 2.8 % (0-4) Troponin I Quantitative 0.084 ng/mL (0.000-0.055) 0.076 ng/mL (0.000-0.055) QK-Wym-U-Type Natriuretic Peptide 2609 pg/mL (0-449) Total Protein 8.0 g/dL (6.4-8.2) Albumin 3.9 g/dL (3.4-5.0) Triglycerides Level 78 mg/dL (0-150) Cholesterol Level 229 mg/dL (0-200) LDL Cholesterol, Calculated 113 mg/dL (0-100) VLDL Cholesterol, Calculated 16 mg/dL (0-40) Non-HDL Cholesterol Calculated 129 mg/dL (0-129) HDL Cholesterol 100 mg/dL (40-60) Cholesterol/HDL Ratio 2.3 Lipase 135 U/L (73-393) Thyroid Stimulating Hormone (TSH) 0.505 uIU/mL (0.358-3.74) Urine Collection Type U cath Urine Color Straw Urine Clarity Clear Urine pH 7.0 Urine Specific [place] 1.025 Urine Protein >=300 mg/dL (NEG-TRACE) Urine Glucose (UA) Negative mg/dL (NEG) Urine Ketones (Stick) Negative mg/dL (NEG) Urine Blood Small (NEG) Urine Nitrite Negative (NEG) Urine Bilirubin Negative (NEG) Urine Urobilinogen Dipstick 0.2 mg/dL (0.2 mg/dL) Urine Leukocyte Esterase Negative (NEG) Urine RBC 1-2 /HPF (0-2) Urine WBC 0 /HPF (0-4) Urine Bacteria 0 /HPF (0-FEW) VTE Prophylaxis Ordered VTE Prophylaxis Devices: Yes VTE Pharmacological Prophylaxi: Yes Assessment/Plan Assessment/Plan 1. New onset atrial fib RVR 2. Hx CAD, HTN 3, Hx elevated uric acid 4, Hypothryodism on synthroid 5. Anxiety NOS PLAN: CVC admit RAte control CHADS - 2 - will defer AC to cards if needed PT.OT Check TSH and T3 T4 Supprotive meds COnt home meds Cycle CE Cards consult - likely echo Dw family REESE ZEPEDA Y Jun 13, 2017 14:12
[2017-06-13] MEDS ORDERED: ALPRAZolam 0.25 MG TABLET PO PRN (14:15)
[2017-06-13] MEDS: GABAPENTIN 100 MG CAPSULE. PO SCH ×2 (16:02→21:00)
[2017-06-13] MEDS: METOPROLOL TART IMMED RELEASE 50 MG TABLET. PO SCH ×2 (16:03→21:00)
[2017-06-13] MEDS ORDERED: FLU VACC QS2017-18 (36MOS+)/PF 0.5 ML SYRINGE. VAX IM ONE (17:00)
[2017-06-13] MEDS ORDERED: ALBUTEROL SULFATE 2.5 MG/3 ML NEBU. NEB PRN (18:15)
--- NOTE | 2017-06-13 18:22 | PDOC ---
PULMONARY PROGRESS NOTES Vitals Vital Signs Date Time Temp Pulse Resp B/P (MAP) Pulse Ox O2 Delivery O2 Flow Rate FiO2 06/13/17 16:03 91 159/79 06/13/17 15:48 99 Nasal Cannula 2.0 06/13/17 15:00 98.2 18 98.2 Labs Laboratory Tests Test 06/13/17 07:41 06/13/17 07:45 06/13/17 08:44 06/13/17 10:51 O2 Saturation 96 % (92-99) Arterial Blood pH 7.37 (7.35-7.45) Arterial Blood pCO2 at Patient Temp 45 mmHg (35-46) Arterial Blood pO2 at Patient Temp 84 mmHg (65-108) Arterial Blood HCO3 25 mmol/L (21-28) Arterial Blood Base Excess 0 mmol/L (-3-3) Oxyhemoglobin 95.4 % Methemoglobin 0.7 % (0.0-1.9) Carbon Monoxide, Quantitative 0.3 % (0.0-1.9) FiO2 .28 White Blood Count 14.5 x10^3/uL (4.0-11.0) Red Blood Count 4.06 x10^6/uL (3.50-5.40) Hemoglobin 13.1 g/dL (12.0-15.5) Hematocrit 40.7 % (36.0-47.0) Mean Corpuscular Volume 100 fL (79-100) Mean Corpuscular Hemoglobin 32 pg (25-35) Mean Corpuscular Hemoglobin Concent 32 g/dL (31-37) Red Cell Distribution Width 15.2 % (11.5-14.5) Platelet Count 241 x10^3/uL (140-400) Neutrophils (%) (Auto) 81 % (31-73) Lymphocytes (%) (Auto) 4 % (24-48) Monocytes (%) (Auto) 7 % (0-9) Eosinophils (%) (Auto) 7 % (0-3) Basophils (%) (Auto) 1 % (0-3) Neutrophils # (Auto) 11.7 x10^3uL (1.8-7.7) Lymphocytes # (Auto) 0.6 x10^3/uL (1.0-4.8) Monocytes # (Auto) 1.1 x10^3/uL (0.0-1.1) Eosinophils # (Auto) 1.0 x10^3/uL (0.0-0.7) Basophils # (Auto) 0.1 x10^3/uL (0.0-0.2) Segmented Neutrophils % 77 % (35-66) Lymphocytes % 4 % (24-48) Monocytes % 9 % (0-10) Eosinophils % 10 % (0-5) Platelet Estimate Adequate (ADEQUATE) Prothrombin Time 11.8 SEC (11.7-14.0) Prothromb Time International Ratio 0.9 (0.8-1.1) Sodium Level 135 mmol/L (136-145) Potassium Level 3.6 mmol/L (3.5-5.1) Chloride Level 97 mmol/L (98-107) Carbon Dioxide Level 28 mmol/L (21-32) Anion Gap 10 (6-14) Blood Urea Nitrogen 16 mg/dL (7-20) Creatinine 1.3 mg/dL (0.6-1.0) Estimated GFR (Cockcroft-Gault) 38.7 Glucose Level 138 mg/dL (70-99) Lactic Acid Level 1.3 mmol/L (0.4-2.0) Calcium Level 9.7 mg/dL (8.5-10.1) Magnesium Level 1.9 mg/dL (1.8-2.4) Total Bilirubin 0.9 mg/dL (0.2-1.0) Direct Bilirubin 0.1 mg/dL (0.0-0.2) Aspartate Amino Transf (AST/SGOT) 51 U/L (15-37) Alanine Aminotransferase (ALT/SGPT) 59 U/L (14-59) Alkaline Phosphatase 122 U/L (46-116) Creatine Kinase 276 U/L (26-192) Creatine Kinase MB (Mass) 7.8 ng/mL (0.0-3.6) Creatine Kinase MB Relative Index 2.8 % (0-4) Troponin I Quantitative 0.084 ng/mL (0.000-0.055) 0.076 ng/mL (0.000-0.055) MQ-Unq-Y-Type Natriuretic Peptide 2609 pg/mL (0-449) Total Protein 8.0 g/dL (6.4-8.2) Albumin 3.9 g/dL (3.4-5.0) Triglycerides Level 78 mg/dL (0-150) Cholesterol Level 229 mg/dL (0-200) LDL Cholesterol, Calculated 113 mg/dL (0-100) VLDL Cholesterol, Calculated 16 mg/dL (0-40) Non-HDL Cholesterol Calculated 129 mg/dL (0-129) HDL Cholesterol 100 mg/dL (40-60) Cholesterol/HDL Ratio 2.3 Lipase 135 U/L (73-393) Thyroid Stimulating Hormone (TSH) 0.505 uIU/mL (0.358-3.74) Urine Collection Type U cath Urine Color Straw Urine Clarity Clear Urine pH 7.0 Urine Specific [place] 1.025 Urine Protein >=300 mg/dL (NEG-TRACE) Urine Glucose (UA) Negative mg/dL (NEG) Urine Ketones (Stick) Negative mg/dL (NEG) Urine Blood Small (NEG) Urine Nitrite Negative (NEG) Urine Bilirubin Negative (NEG) Urine Urobilinogen Dipstick 0.2 mg/dL (0.2 mg/dL) Urine Leukocyte Esterase Negative (NEG) Urine RBC 1-2 /HPF (0-2) Urine WBC 0 /HPF (0-4) Urine Bacteria 0 /HPF (0-FEW) Test 06/13/17 14:40 Troponin I Quantitative 0.089 ng/mL (0.000-0.055) Laboratory Tests Test 06/13/17 07:41 06/13/17 07:45 06/13/17 08:44 06/13/17 10:51 O2 Saturation 96 % (92-99) Arterial Blood pH 7.37 (7.35-7.45) Arterial Blood pCO2 at Patient Temp 45 mmHg (35-46) Arterial Blood pO2 at Patient Temp 84 mmHg (65-108) Arterial Blood HCO3 25 mmol/L (21-28) Arterial Blood Base Excess 0 mmol/L (-3-3) Oxyhemoglobin 95.4 % Methemoglobin 0.7 % (0.0-1.9) Carbon Monoxide, Quantitative 0.3 % (0.0-1.9) FiO2 .28 White Blood Count 14.5 x10^3/uL (4.0-11.0) Red Blood Count 4.06 x10^6/uL (3.50-5.40) Hemoglobin 13.1 g/dL (12.0-15.5) Hematocrit 40.7 % (36.0-47.0) Mean Corpuscular Volume 100 fL (79-100) Mean Corpuscular Hemoglobin 32 pg (25-35) Mean Corpuscular Hemoglobin Concent 32 g/dL (31-37) Red Cell Distribution Width 15.2 % (11.5-14.5) Platelet Count 241 x10^3/uL (140-400) Neutrophils (%) (Auto) 81 % (31-73) Lymphocytes (%) (Auto) 4 % (24-48) Monocytes (%) (Auto) 7 % (0-9) Eosinophils (%) (Auto) 7 % (0-3) Basophils (%) (Auto) 1 % (0-3) Neutrophils # (Auto) 11.7 x10^3uL (1.8-7.7) Lymphocytes # (Auto) 0.6 x10^3/uL (1.0-4.8) Monocytes # (Auto) 1.1 x10^3/uL (0.0-1.1) Eosinophils # (Auto) 1.0 x10^3/uL (0.0-0.7) Basophils # (Auto) 0.1 x10^3/uL (0.0-0.2) Segmented Neutrophils % 77 % (35-66) Lymphocytes % 4 % (24-48) Monocytes % 9 % (0-10) Eosinophils % 10 % (0-5) Platelet Estimate Adequate (ADEQUATE) Prothrombin Time 11.8 SEC (11.7-14.0) Prothromb Time International Ratio 0.9 (0.8-1.1) Sodium Level 135 mmol/L (136-145) Potassium Level 3.6 mmol/L (3.5-5.1) Chloride Level 97 mmol/L (98-107) Carbon Dioxide Level 28 mmol/L (21-32) Anion Gap 10 (6-14) Blood Urea Nitrogen 16 mg/dL (7-20) Creatinine 1.3 mg/dL (0.6-1.0) Estimated GFR (Cockcroft-Gault) 38.7 Glucose Level 138 mg/dL (70-99) Lactic Acid Level 1.3 mmol/L (0.4-2.0) Calcium Level 9.7 mg/dL (8.5-10.1) Magnesium Level 1.9 mg/dL (1.8-2.4) Total Bilirubin 0.9 mg/dL (0.2-1.0) Direct Bilirubin 0.1 mg/dL (0.0-0.2) Aspartate Amino Transf (AST/SGOT) 51 U/L (15-37) Alanine Aminotransferase (ALT/SGPT) 59 U/L (14-59) Alkaline Phosphatase 122 U/L (46-116) Creatine Kinase 276 U/L (26-192) Creatine Kinase MB (Mass) 7.8 ng/mL (0.0-3.6) Creatine Kinase MB Relative Index 2.8 % (0-4) Troponin I Quantitative 0.084 ng/mL (0.000-0.055) 0.076 ng/mL (0.000-0.055) NH-Lbe-M-Type Natriuretic Peptide 2609 pg/mL (0-449) Total Protein 8.0 g/dL (6.4-8.2) Albumin 3.9 g/dL (3.4-5.0) Triglycerides Level 78 mg/dL (0-150) Cholesterol Level 229 mg/dL (0-200) LDL Cholesterol, Calculated 113 mg/dL (0-100) VLDL Cholesterol, Calculated 16 mg/dL (0-40) Non-HDL Cholesterol Calculated 129 mg/dL (0-129) HDL Cholesterol 100 mg/dL (40-60) Cholesterol/HDL Ratio 2.3 Lipase 135 U/L (73-393) Thyroid Stimulating Hormone (TSH) 0.505 uIU/mL (0.358-3.74) Urine Collection Type U cath Urine Color Straw Urine Clarity Clear Urine pH 7.0 Urine Specific [place] 1.025 Urine Protein >=300 mg/dL (NEG-TRACE) Urine Glucose (UA) Negative mg/dL (NEG) Urine Ketones (Stick) Negative mg/dL (NEG) Urine Blood Small (NEG) Urine Nitrite Negative (NEG) Urine Bilirubin Negative (NEG) Urine Urobilinogen Dipstick 0.2 mg/dL (0.2 mg/dL) Urine Leukocyte Esterase Negative (NEG) Urine RBC 1-2 /HPF (0-2) Urine WBC 0 /HPF (0-4) Urine Bacteria 0 /HPF (0-FEW) Test 06/13/17 14:40 Troponin I Quantitative 0.089 ng/mL (0.000-0.055) Medications Active Scripts Medications Dose Route/Sig Max Daily Dose Days Date Category Ultra Coq10 (Ubiquinone) 75 Mg Capsule 100 Mg PO DAILY 06/13/17 Reported [place]-3 ([place]-3 Fatty Acids) 100 Mg Tab.chew 350 Mg PO HS 06/13/17 Reported Isosorbide Mononitrate Er (Isosorbide Mononitrate) 60 Mg Tab.er.24h 1 Tab PO DAILY 06/13/17 Reported Vitamin D3 (Cholecalciferol (Vitamin D3)) 1,000 Unit Tab.chew 1,000 Unit PO DAILY 06/13/17 Reported Aspir 81 (Aspirin) 81 Mg Tablet.dr 1 Tab PO DAILY 06/13/17 Reported Xanax (Alprazolam) 0.25 Mg Tablet 1 Tab PO TID PRN 06/13/17 Reported Allopurinol 300 Mg Tablet 1 Tab PO QODAY 06/13/17 Reported Pepcid (Famotidine) 20 Mg Tablet 20 Mg PO DAILY 06/13/17 Reported Levothyroxine Sodium 75 Mcg Tablet 1 Tab PO DAILY 06/13/17 Reported Hydroxyurea 500 Mg Capsule 500 Mg PO QODAY 06/13/17 Reported Gabapentin 100 Mg Capsule 100 Mg PO TID 06/13/17 Reported Furosemide 20 Mg Tablet 1 Tab PO DAILY 06/13/17 Reported Impression . CONSULT DICTATED SEE ORDERS DYSPNEA MULTIFACTORIAL POSSIBLE SILENT ASPIRATION, AECOPD/ ANXIETY COUGH MULTIFACTORIAL THANKS KRISTAL AVILEZ MD Jun 13, 2017 18:22
[2017-06-13] MEDS: LABETALOL 20 MG/4 ML DISP.SYRIN. IVP PRN (18:40)
--- NOTE | 2017-06-13 19:14 | EKG ---
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
[2017-06-13] MEDS: BENZONATATE 100 MG CAPSULE. PO SCH (21:00)
[2017-06-13] MEDS: OMEGA-3 FATTY ACIDS/FISH OIL 1,000 MG CAPSULE. PO SCH (21:00)
[2017-06-13 22:40] LABS: HCO3 ABG 30 mmol/L (21-28); PH ABG 7.26 (7.35-7.45); PO2 ABG 76 mmHg (65-108); SAT O2 ABG 93 % (92-99)
[2017-06-13 22:42] LABS: FIO2 ABG 40; PCO2 ABG 67 mmHg (35-46)
[2017-06-14] VITALS (25 sets, daily range): BP systolic 99–198; BP diastolic 44–110
--- NOTE | 2017-06-14 00:04 | CONS ---
DATE OF CONSULTATION: 06/13/2017 ATTENDING PHYSICIAN: Dr. Nicole Robbins. REASON FOR CONSULTATION: The patient is seen in pulmonary consultation at the request of Dr. Robbins for cough and wheeze. HISTORY OF PRESENT ILLNESS: The patient is an 86-year-old that lives with family. She was hospitalized at [facility] 3 weeks ago. She tells me that she was treated for pneumonia. She presents with shortness of breath and cough, mostly nonproductive. She has been short of breath now for 2 weeks. She normally does not utilize metered dose inhalers at home. She is a lifetime nonsmoker, though COPD is listed as one of her diagnosis. She underwent chest x-ray, which I personally reviewed. There was some left lower lobe volume loss, but there was no significant consolidation. The patient denies fever or chills. No hemoptysis. I specifically asked the patient if she thought that some of her dyspnea may be related to anxiety, she states yes. PAST MEDICAL HISTORY: Otherwise remarkable for coronary artery disease with previous coronary artery bypass grafting, hypertension, hyperlipidemia, suspected COPD, breast cancer status post mastectomy. She has also had some diverticulitis, chronic renal insufficiency. She has generalized anxiety. PAST SURGICAL HISTORY: Status post coronary artery bypass grafting, right mastectomy, total knee replacement, previous stent placement. FAMILY HISTORY: Coronary artery disease. SOCIAL HISTORY: She denies any alcohol or tobacco. ALLERGIES: LISTED TO PENICILLIN, SULFA, AMOXICILLIN, CLOPIDOGREL AND PANTOPRAZOLE. REVIEW OF SYSTEMS: As indicated above. Otherwise, a 10-point system was reviewed and negative. CURRENT MEDICATION: List was reviewed. PHYSICAL EXAMINATION: VITAL SIGNS: Stable. O2 saturation was greater than 92% on 2 liters. HEENT: Eyes: The sclerae were nonicteric. NECK: Jugular venous distention was not elevated. No lymphadenopathy. CHEST: Full expansion. LUNGS: She had expiratory wheeze, mostly from upper airway, is almost as if she had some bronchomalacia. The lung parenchyma itself was not wheezing. CARDIOVASCULAR: Regular rate and rhythm with S1 and S2, no S3. ABDOMEN: Significant abdominal distention related to hernia or the patient states diverticulosis. EXTREMITIES: No clubbing, cyanosis or pitting edema. NEUROLOGIC: The patient was awake, alert, following commands, appeared to be anxious. LABORATORY DATA: Reviewed. White count is slightly elevated. Hemoglobin and hematocrit were noted. Electrolytes were noted. Troponin was elevated. Arterial blood gas; pH of 7.37, PaCO2 of 45, pO2 of 84 on 28%. IMPRESSION: 1. Acute on chronic respiratory failure, multifactorial. 2. Acute exacerbation of chronic obstructive pulmonary disease in a patient who has never smoked, but certainly gives the impression that she has some sort of obstructive lung disease. 3. Acute nonspecific bronchitis. 4. New onset atrial fibrillation with rapid ventricular response. 5. Coronary artery disease. 6. Hyperthyroidism. 7. Generalized anxiety. 8. Suspect silent aspiration leading to cough. PLAN: 1. See orders, I discussed the case with the nurse she had her Xanax increased. 2. Speech evaluation. 3. P.r.n. albuterol. 4. Lortab for pain. I do appreciate the privilege in sharing in this woman's care. KRISTAL AVILEZ MD DR: ALLIE/eusebia JOB#: [id number] / [id number]
[2017-06-14] MEDS: HALOPERIDOL LACTATE 5 MG/ML VIAL. IVP PRN ×2 (04:19→14:09)
[2017-06-14 05:16] LABS: BASO % 0 % (0-3); EOS % 0 % (0-3); HEMATOCRIT 37.8 % (36.0-47.0); HEMOGLOBIN 12.8 g/dL (12.0-15.5); LYMPH # 0.4 x10^3/uL (1.0-4.8); LYMPH % 5 % (24-48); MEAN CORPUSCULAR HEMOGLOBIN 33 pg (25-35); MEAN CORPUSCULAR HGB CONC 34 g/dL (31-37); MEAN CORPUSCULAR VOLUME 99 fL (79-100); MONO % 7 % (0-9); NEUT % 88 % (31-73); PLATELET COUNT 205 x10^3/uL (140-400); RED BLOOD COUNT 3.83 x10^6/uL (3.50-5.40); WHITE BLOOD COUNT 7.7 x10^3/uL (4.0-11.0)
[2017-06-14 06:10] LABS: CALCIUM 9.2 mg/dL (8.5-10.1); CREATININE 1.3 mg/dL (0.6-1.0); GFR 38.7; POTASSIUM 4.3 mmol/L (3.5-5.1)
[2017-06-14] MEDS: LEVOTHYROXINE 75 MCG TABLET PO SCH (07:00)
[2017-06-14] MEDS: LABETALOL 20 MG/4 ML DISP.SYRIN. IVP PRN (07:19)
[2017-06-14] MEDS: IPRATRPIUM/ALBUTEROL 0.5/2.5MG 3 ML NEBU. NEB SCH ×4 (07:22→20:31)
[2017-06-14 07:29] LABS: HCO3 ABG 28 mmol/L (21-28); PO2 ABG 75 mmHg (65-108); SAT O2 ABG 94 % (92-99)
[2017-06-14 07:59] LABS: PCO2 ABG 58 mmHg (35-46)
[2017-06-14 08:00] LABS: FIO2 ABG 40
[2017-06-14] MEDS ORDERED: ASPIRIN ENTERIC COATED 81 MG TABLET.DR. PO SCH (08:00)
[2017-06-14] MEDS: ASPIRIN ENTERIC COATED 81 MG TABLET.DR. PO SCH (08:00)
--- NOTE | 2017-06-14 08:11 | PDOC ---
PULMONARY PROGRESS NOTES Subjective transfered to icu, on bipap, had ativan, not following commands. bf ativan she was agitated. Vitals Vital Signs Date Time Temp Pulse Resp B/P (MAP) Pulse Ox O2 Delivery O2 Flow Rate FiO2 06/14/17 07:38 Bi-pap 06/14/17 07:22 95 06/14/17 07:19 110 202/84 06/14/17 06:00 20 06/14/17 04:00 99.4 99.4 06/13/17 19:10 15.0 Comments ros, as mentioned as above, discussed w rn, other sys otherwise neg HEENT: Other (nc at perrl, bipap mask on, neck, no lap, thyromegaly) Lungs: Wheezing Cardiovascular: S1, S2 Abdomen: Soft, Non-tender, Other (no mass) Extremities: No Edema Skin: Warm Labs Laboratory Tests Test 06/13/17 07:41 06/13/17 07:45 06/13/17 08:44 06/13/17 10:51 O2 Saturation 96 % (92-99) Arterial Blood pH 7.37 (7.35-7.45) Arterial Blood pCO2 at Patient Temp 45 mmHg (35-46) Arterial Blood pO2 at Patient Temp 84 mmHg (65-108) Arterial Blood HCO3 25 mmol/L (21-28) Arterial Blood Base Excess 0 mmol/L (-3-3) Oxyhemoglobin 95.4 % Methemoglobin 0.7 % (0.0-1.9) Carbon Monoxide, Quantitative 0.3 % (0.0-1.9) FiO2 .28 White Blood Count 14.5 x10^3/uL (4.0-11.0) Red Blood Count 4.06 x10^6/uL (3.50-5.40) Hemoglobin 13.1 g/dL (12.0-15.5) Hematocrit 40.7 % (36.0-47.0) Mean Corpuscular Volume 100 fL (79-100) Mean Corpuscular Hemoglobin 32 pg (25-35) Mean Corpuscular Hemoglobin Concent 32 g/dL (31-37) Red Cell Distribution Width 15.2 % (11.5-14.5) Platelet Count 241 x10^3/uL (140-400) Neutrophils (%) (Auto) 81 % (31-73) Lymphocytes (%) (Auto) 4 % (24-48) Monocytes (%) (Auto) 7 % (0-9) Eosinophils (%) (Auto) 7 % (0-3) Basophils (%) (Auto) 1 % (0-3) Neutrophils # (Auto) 11.7 x10^3uL (1.8-7.7) Lymphocytes # (Auto) 0.6 x10^3/uL (1.0-4.8) Monocytes # (Auto) 1.1 x10^3/uL (0.0-1.1) Eosinophils # (Auto) 1.0 x10^3/uL (0.0-0.7) Basophils # (Auto) 0.1 x10^3/uL (0.0-0.2) Segmented Neutrophils % 77 % (35-66) Lymphocytes % 4 % (24-48) Monocytes % 9 % (0-10) Eosinophils % 10 % (0-5) Platelet Estimate Adequate (ADEQUATE) Prothrombin Time 11.8 SEC (11.7-14.0) Prothromb Time International Ratio 0.9 (0.8-1.1) Sodium Level 135 mmol/L (136-145) Potassium Level 3.6 mmol/L (3.5-5.1) Chloride Level 97 mmol/L (98-107) Carbon Dioxide Level 28 mmol/L (21-32) Anion Gap 10 (6-14) Blood Urea Nitrogen 16 mg/dL (7-20) Creatinine 1.3 mg/dL (0.6-1.0) Estimated GFR (Cockcroft-Gault) 38.7 Glucose Level 138 mg/dL (70-99) Lactic Acid Level 1.3 mmol/L (0.4-2.0) Calcium Level 9.7 mg/dL (8.5-10.1) Magnesium Level 1.9 mg/dL (1.8-2.4) Total Bilirubin 0.9 mg/dL (0.2-1.0) Direct Bilirubin 0.1 mg/dL (0.0-0.2) Aspartate Amino Transf (AST/SGOT) 51 U/L (15-37) Alanine Aminotransferase (ALT/SGPT) 59 U/L (14-59) Alkaline Phosphatase 122 U/L (46-116) Creatine Kinase 276 U/L (26-192) Creatine Kinase MB (Mass) 7.8 ng/mL (0.0-3.6) Creatine Kinase MB Relative Index 2.8 % (0-4) Troponin I Quantitative 0.084 ng/mL (0.000-0.055) 0.076 ng/mL (0.000-0.055) BF-Nud-H-Type Natriuretic Peptide 2609 pg/mL (0-449) Total Protein 8.0 g/dL (6.4-8.2) Albumin 3.9 g/dL (3.4-5.0) Triglycerides Level 78 mg/dL (0-150) Cholesterol Level 229 mg/dL (0-200) LDL Cholesterol, Calculated 113 mg/dL (0-100) VLDL Cholesterol, Calculated 16 mg/dL (0-40) Non-HDL Cholesterol Calculated 129 mg/dL (0-129) HDL Cholesterol 100 mg/dL (40-60) Cholesterol/HDL Ratio 2.3 Lipase 135 U/L (73-393) Thyroid Stimulating Hormone (TSH) 0.505 uIU/mL (0.358-3.74) Urine Collection Type U cath Urine Color Straw Urine Clarity Clear Urine pH 7.0 Urine Specific Royal 1.025 Urine Protein >=300 mg/dL (NEG-TRACE) Urine Glucose (UA) Negative mg/dL (NEG) Urine Ketones (Stick) Negative mg/dL (NEG) Urine Blood Small (NEG) Urine Nitrite Negative (NEG) Urine Bilirubin Negative (NEG) Urine Urobilinogen Dipstick 0.2 mg/dL (0.2 mg/dL) Urine Leukocyte Esterase Negative (NEG) Urine RBC 1-2 /HPF (0-2) Urine WBC 0 /HPF (0-4) Urine Bacteria 0 /HPF (0-FEW) Test 06/13/17 14:40 06/13/17 19:03 06/14/17 04:45 06/14/17 07:25 Troponin I Quantitative 0.089 ng/mL (0.000-0.055) 0.049 ng/mL (0.000-0.055) O2 Saturation 93 % (92-99) 94 % (92-99) Arterial Blood pH 7.26 (7.35-7.45) 7.30 (7.35-7.45) Arterial Blood pCO2 at Patient Temp 67 mmHg (35-46) 58 mmHg (35-46) Arterial Blood pO2 at Patient Temp 76 mmHg (65-108) 75 mmHg (65-108) Arterial Blood HCO3 30 mmol/L (21-28) 28 mmol/L (21-28) Arterial Blood Base Excess 1 mmol/L (-3-3) 0 mmol/L (-3-3) FiO2 40 40 White Blood Count 7.7 x10^3/uL (4.0-11.0) Red Blood Count 3.83 x10^6/uL (3.50-5.40) Hemoglobin 12.8 g/dL (12.0-15.5) Hematocrit 37.8 % (36.0-47.0) Mean Corpuscular Volume 99 fL (79-100) Mean Corpuscular Hemoglobin 33 pg (25-35) Mean Corpuscular Hemoglobin Concent 34 g/dL (31-37) Red Cell Distribution Width 15.0 % (11.5-14.5) Platelet Count 205 x10^3/uL (140-400) Neutrophils (%) (Auto) 88 % (31-73) Lymphocytes (%) (Auto) 5 % (24-48) Monocytes (%) (Auto) 7 % (0-9) Eosinophils (%) (Auto) 0 % (0-3) Basophils (%) (Auto) 0 % (0-3) Neutrophils # (Auto) 6.7 x10^3uL (1.8-7.7) Lymphocytes # (Auto) 0.4 x10^3/uL (1.0-4.8) Monocytes # (Auto) 0.5 x10^3/uL (0.0-1.1) Eosinophils # (Auto) 0.0 x10^3/uL (0.0-0.7) Basophils # (Auto) 0.0 x10^3/uL (0.0-0.2) Sodium Level 131 mmol/L (136-145) Potassium Level 4.3 mmol/L (3.5-5.1) Chloride Level 95 mmol/L (98-107) Carbon Dioxide Level 25 mmol/L (21-32) Anion Gap 11 (6-14) Blood Urea Nitrogen 26 mg/dL (7-20) Creatinine 1.3 mg/dL (0.6-1.0) Estimated GFR (Cockcroft-Gault) 38.7 Glucose Level 155 mg/dL (70-99) Calcium Level 9.2 mg/dL (8.5-10.1) Magnesium Level 1.9 mg/dL (1.8-2.4) Laboratory Tests Test 06/13/17 08:44 06/13/17 10:51 06/13/17 14:40 06/13/17 19:03 Urine Collection Type U cath Urine Color Straw Urine Clarity Clear Urine pH 7.0 Urine Specific Royal 1.025 Urine Protein >=300 mg/dL (NEG-TRACE) Urine Glucose (UA) Negative mg/dL (NEG) Urine Ketones (Stick) Negative mg/dL (NEG) Urine Blood Small (NEG) Urine Nitrite Negative (NEG) Urine Bilirubin Negative (NEG) Urine Urobilinogen Dipstick 0.2 mg/dL (0.2 mg/dL) Urine Leukocyte Esterase Negative (NEG) Urine RBC 1-2 /HPF (0-2) Urine WBC 0 /HPF (0-4) Urine Bacteria 0 /HPF (0-FEW) Troponin I Quantitative 0.076 ng/mL (0.000-0.055) 0.089 ng/mL (0.000-0.055) O2 Saturation 93 % (92-99) Arterial Blood pH 7.26 (7.35-7.45) Arterial Blood pCO2 at Patient Temp 67 mmHg (35-46) Arterial Blood pO2 at Patient Temp 76 mmHg (65-108) Arterial Blood HCO3 30 mmol/L (21-28) Arterial Blood Base Excess 1 mmol/L (-3-3) FiO2 40 Test 06/14/17 04:45 06/14/17 07:25 White Blood Count 7.7 x10^3/uL (4.0-11.0) Red Blood Count 3.83 x10^6/uL (3.50-5.40) Hemoglobin 12.8 g/dL (12.0-15.5) Hematocrit 37.8 % (36.0-47.0) Mean Corpuscular Volume 99 fL (79-100) Mean Corpuscular Hemoglobin 33 pg (25-35) Mean Corpuscular Hemoglobin Concent 34 g/dL (31-37) Red Cell Distribution Width 15.0 % (11.5-14.5) Platelet Count 205 x10^3/uL (140-400) Neutrophils (%) (Auto) 88 % (31-73) Lymphocytes (%) (Auto) 5 % (24-48) Monocytes (%) (Auto) 7 % (0-9) Eosinophils (%) (Auto) 0 % (0-3) Basophils (%) (Auto) 0 % (0-3) Neutrophils # (Auto) 6.7 x10^3uL (1.8-7.7) Lymphocytes # (Auto) 0.4 x10^3/uL (1.0-4.8) Monocytes # (Auto) 0.5 x10^3/uL (0.0-1.1) Eosinophils # (Auto) 0.0 x10^3/uL (0.0-0.7) Basophils # (Auto) 0.0 x10^3/uL (0.0-0.2) Sodium Level 131 mmol/L (136-145) Potassium Level 4.3 mmol/L (3.5-5.1) Chloride Level 95 mmol/L (98-107) Carbon Dioxide Level 25 mmol/L (21-32) Anion Gap 11 (6-14) Blood Urea Nitrogen 26 mg/dL (7-20) Creatinine 1.3 mg/dL (0.6-1.0) Estimated GFR (Cockcroft-Gault) 38.7 Glucose Level 155 mg/dL (70-99) Calcium Level 9.2 mg/dL (8.5-10.1) Magnesium Level 1.9 mg/dL (1.8-2.4) Troponin I Quantitative 0.049 ng/mL (0.000-0.055) O2 Saturation 94 % (92-99) Arterial Blood pH 7.30 (7.35-7.45) Arterial Blood pCO2 at Patient Temp 58 mmHg (35-46) Arterial Blood pO2 at Patient Temp 75 mmHg (65-108) Arterial Blood HCO3 28 mmol/L (21-28) Arterial Blood Base Excess 0 mmol/L (-3-3) FiO2 40 Medications Active Scripts Medications Dose Route/Sig Max Daily Dose Days Date Category Ultra Coq10 (Ubiquinone) 75 Mg Capsule 100 Mg PO DAILY 06/13/17 Reported Thurmond-3 (Thurmond-3 Fatty Acids) 100 Mg Tab.chew 350 Mg PO HS 06/13/17 Reported Isosorbide Mononitrate Er (Isosorbide Mononitrate) 60 Mg Tab.er.24h 1 Tab PO DAILY 06/13/17 Reported Vitamin D3 (Cholecalciferol (Vitamin D3)) 1,000 Unit Tab.chew 1,000 Unit PO DAILY 06/13/17 Reported Aspir 81 (Aspirin) 81 Mg Tablet.dr 1 Tab PO DAILY 06/13/17 Reported Xanax (Alprazolam) 0.25 Mg Tablet 1 Tab PO TID PRN 06/13/17 Reported Allopurinol 300 Mg Tablet 1 Tab PO QODAY 06/13/17 Reported Pepcid (Famotidine) 20 Mg Tablet 20 Mg PO DAILY 06/13/17 Reported Levothyroxine Sodium 75 Mcg Tablet 1 Tab PO DAILY 06/13/17 Reported Hydroxyurea 500 Mg Capsule 500 Mg PO QODAY 06/13/17 Reported Gabapentin 100 Mg Capsule 100 Mg PO TID 06/13/17 Reported Furosemide 20 Mg Tablet 1 Tab PO DAILY 06/13/17 Reported Comments cxr reviewed, atelectasis Impression . 1. Acute on chronic respiratory failure, multifactorial. 2. Acute exacerbation of chronic obstructive pulmonary disease in a patient who has never smoked, but certainly gives the impression that she has some sort of obstructive lung disease. 3. Acute nonspecific bronchitis. 4. New onset atrial fibrillation with rapid ventricular response, no in sr. 5. Coronary artery disease. 6. Hyperthyroidism. 7. Generalized anxiety. 8. Suspect silent aspiration leading to cough. Plan . PLAN: 1. cxr done reviewed, add steroid, add pulmicort, cont bipap, setting reviewed , titrate fio2 to keep sat 91% 2. Speech evaluation when resp status more stable. 3. cont bronchodilators. 4. avoid over sedation discussed w rn, rt JODIE HERNANDEZ MD Jun 14, 2017 08:11
[2017-06-14] MEDS: methylPREDNISolone SOD SUCC PF 40 MG/ML VIAL. IV SCH ×3 (08:46→21:30)
[2017-06-14] MEDS: BUDESONIDE 0.5 MG/2 ML NEBU. NEB SCH ×2 (08:46→20:30)
[2017-06-14] MEDS: CHOLECALCIFEROL (VITAMIN D3) 1,000 UNIT TABLET PO SCH (09:00)
[2017-06-14] MEDS: FAMOTIDINE 20 MG TABLET. PO SCH (09:00)
[2017-06-14] MEDS: BENZONATATE 100 MG CAPSULE. PO SCH ×3 (09:00→21:00)
[2017-06-14] MEDS: METOPROLOL TART IMMED RELEASE 50 MG TABLET. PO SCH ×2 (09:00→21:00)
[2017-06-14] MEDS ORDERED: FUROSEMIDE 20 MG TABLET PO SCH (09:00)
[2017-06-14] MEDS: ALLOPURINOL 300 MG TABLET. PO SCH (09:00)
[2017-06-14] MEDS ORDERED: UBIQUINONE 100 MG PO SCH (09:00)
[2017-06-14] MEDS: HYDROXYUREA 500 MG CAPSULE PO SCH (09:00)
[2017-06-14] MEDS: GABAPENTIN 100 MG CAPSULE. PO SCH ×3 (09:00→21:00)
[2017-06-14] MEDS ORDERED: ISOSORBIDE MONONITRATE ER 30 MG TAB.ER.24H PO SCH ×2 (09:00)
--- NOTE | 2017-06-14 09:45 | PDOC ---
CARDIO Progress Notes Date and Time Date of Service 06/14/2017 Time of Evaluation 0920 Subjective Subjective: Other (drowsy) Vitals Vitals Vital Signs Date Time Temp Pulse Resp B/P (MAP) Pulse Ox O2 Delivery O2 Flow Rate FiO2 06/14/17 09:07 91 BiPAP/CPAP 06/14/17 07:19 110 202/84 06/14/17 06:00 20 06/14/17 04:00 99.4 99.4 06/13/17 19:10 15.0 Weight Weight [ ] Laboratory Labs Laboratory Tests Test 06/13/17 10:51 06/13/17 14:40 06/13/17 19:03 06/14/17 04:45 Troponin I Quantitative 0.076 ng/mL (0.000-0.055) 0.089 ng/mL (0.000-0.055) 0.049 ng/mL (0.000-0.055) O2 Saturation 93 % (92-99) Arterial Blood pH 7.26 (7.35-7.45) Arterial Blood pCO2 at Patient Temp 67 mmHg (35-46) Arterial Blood pO2 at Patient Temp 76 mmHg (65-108) Arterial Blood HCO3 30 mmol/L (21-28) Arterial Blood Base Excess 1 mmol/L (-3-3) FiO2 40 White Blood Count 7.7 x10^3/uL (4.0-11.0) Red Blood Count 3.83 x10^6/uL (3.50-5.40) Hemoglobin 12.8 g/dL (12.0-15.5) Hematocrit 37.8 % (36.0-47.0) Mean Corpuscular Volume 99 fL (79-100) Mean Corpuscular Hemoglobin 33 pg (25-35) Mean Corpuscular Hemoglobin Concent 34 g/dL (31-37) Red Cell Distribution Width 15.0 % (11.5-14.5) Platelet Count 205 x10^3/uL (140-400) Neutrophils (%) (Auto) 88 % (31-73) Lymphocytes (%) (Auto) 5 % (24-48) Monocytes (%) (Auto) 7 % (0-9) Eosinophils (%) (Auto) 0 % (0-3) Basophils (%) (Auto) 0 % (0-3) Neutrophils # (Auto) 6.7 x10^3uL (1.8-7.7) Lymphocytes # (Auto) 0.4 x10^3/uL (1.0-4.8) Monocytes # (Auto) 0.5 x10^3/uL (0.0-1.1) Eosinophils # (Auto) 0.0 x10^3/uL (0.0-0.7) Basophils # (Auto) 0.0 x10^3/uL (0.0-0.2) Sodium Level 131 mmol/L (136-145) Potassium Level 4.3 mmol/L (3.5-5.1) Chloride Level 95 mmol/L (98-107) Carbon Dioxide Level 25 mmol/L (21-32) Anion Gap 11 (6-14) Blood Urea Nitrogen 26 mg/dL (7-20) Creatinine 1.3 mg/dL (0.6-1.0) Estimated GFR (Cockcroft-Gault) 38.7 Glucose Level 155 mg/dL (70-99) Calcium Level 9.2 mg/dL (8.5-10.1) Magnesium Level 1.9 mg/dL (1.8-2.4) Test 06/14/17 07:25 O2 Saturation 94 % (92-99) Arterial Blood pH 7.30 (7.35-7.45) Arterial Blood pCO2 at Patient Temp 58 mmHg (35-46) Arterial Blood pO2 at Patient Temp 75 mmHg (65-108) Arterial Blood HCO3 28 mmol/L (21-28) Arterial Blood Base Excess 0 mmol/L (-3-3) FiO2 40 Physical Exam HEENT: Neck Supple W Full Motion Chest: Symmetric LUNGS: Other (basilar crackles; with diffuse wheeze; bipap) Heart: S1S2, no thrills, no rubs, no jug vein distention, irregularly irregular Abdomen: Soft N/T Extremities: No Calf Tenderness, Other (trace LE edema) Neurology: other (drowsy recently with haldol) Assessment Assessment 1. AFIB RVR: new onset. Now on SR. 2. Acute on chronic diastolic CHF 3. Acute respiratory failure: transferred to ICU with noted restlessness, anxiety, agitation and SOA. pulmonary following 4. CAD: CABG in 1980s and LHC with 3 stents with last PCI 5 yrs ago. CP free. 5. Hx of pneumonia: 03/2017 6. HTN: likely lability from anxiety 7. HLP 8. Hypothyroidism: TSH on goal 9. Significant anxiety Recommendations 1. [facility] records pending and will review when available 2. Continue wth Bipap 3. Continue with metoprolol. If PO is not possible then will convert to IV. 4. Will obtain home med list and will resume cardiac meds as appropriate 5. Overall good diurese overnight, lasix PRN. 6. Continue with ASA, will reevaluate for NOAC once records from [facility] is reviewed, likely a poor candidate. 7. MPI when respiratory status is better. Likely Friday. YESSI WISE APRN Jun 14, 2017 09:45
--- NOTE | 2017-06-14 09:54 | RAD ---
Chest radiograph 06/14/2017 10:07 AM Indication: Respiratory failure Comparison: Chest radiograph 06/13/2017, 07/06/2007 Technique: Single portable upright frontal view of the chest is provided. Findings: Median sternotomy changes are identified. Vertebral spinal augmentation changes are identified in the mid to upper thoracic spine. Cardiomediastinal silhouette is within normal limits. Similar appearance of left basilar subsegmental atelectasis and volume loss. Possible trace left pleural effusion. No pulmonary vascular congestion or pneumothorax. Impression: No significant interval change involving the chest.
--- NOTE | 2017-06-14 12:09 | PDOC ---
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 Pt fatigued which limited the exam Vitals Vitals Vital Signs Date Time Temp Pulse Resp B/P (MAP) Pulse Ox O2 Delivery O2 Flow Rate FiO2 06/14/17 11:41 97 BiPAP/CPAP 06/14/17 07:19 110 202/84 06/14/17 06:00 20 06/14/17 04:00 99.4 99.4 06/13/17 19:10 15.0 Physical Exam General: No acute distress, Other (Fatigued) Heart: Other (AFIB RVR; 2/6 systolic murmur to LLS border) Lungs: Wheezing, Other (No acute distress noted) Abdomen: Normal bowel sounds, Soft, No tenderness, No hepatosplenomegaly, No masses Extremities: No clubbing, No cyanosis, No edema, Normal pulses, No tenderness/ swelling Skin: No rashes, No breakdown, No significant lesion Labs LABS Laboratory Tests Test 06/13/17 14:40 06/13/17 19:03 06/14/17 04:45 06/14/17 07:25 Troponin I Quantitative 0.089 ng/mL (0.000-0.055) 0.049 ng/mL (0.000-0.055) O2 Saturation 93 % (92-99) 94 % (92-99) Arterial Blood pH 7.26 (7.35-7.45) 7.30 (7.35-7.45) Arterial Blood pCO2 at Patient Temp 67 mmHg (35-46) 58 mmHg (35-46) Arterial Blood pO2 at Patient Temp 76 mmHg (65-108) 75 mmHg (65-108) Arterial Blood HCO3 30 mmol/L (21-28) 28 mmol/L (21-28) Arterial Blood Base Excess 1 mmol/L (-3-3) 0 mmol/L (-3-3) FiO2 40 40 White Blood Count 7.7 x10^3/uL (4.0-11.0) Red Blood Count 3.83 x10^6/uL (3.50-5.40) Hemoglobin 12.8 g/dL (12.0-15.5) Hematocrit 37.8 % (36.0-47.0) Mean Corpuscular Volume 99 fL (79-100) Mean Corpuscular Hemoglobin 33 pg (25-35) Mean Corpuscular Hemoglobin Concent 34 g/dL (31-37) Red Cell Distribution Width 15.0 % (11.5-14.5) Platelet Count 205 x10^3/uL (140-400) Neutrophils (%) (Auto) 88 % (31-73) Lymphocytes (%) (Auto) 5 % (24-48) Monocytes (%) (Auto) 7 % (0-9) Eosinophils (%) (Auto) 0 % (0-3) Basophils (%) (Auto) 0 % (0-3) Neutrophils # (Auto) 6.7 x10^3uL (1.8-7.7) Lymphocytes # (Auto) 0.4 x10^3/uL (1.0-4.8) Monocytes # (Auto) 0.5 x10^3/uL (0.0-1.1) Eosinophils # (Auto) 0.0 x10^3/uL (0.0-0.7) Basophils # (Auto) 0.0 x10^3/uL (0.0-0.2) Sodium Level 131 mmol/L (136-145) Potassium Level 4.3 mmol/L (3.5-5.1) Chloride Level 95 mmol/L (98-107) Carbon Dioxide Level 25 mmol/L (21-32) Anion Gap 11 (6-14) Blood Urea Nitrogen 26 mg/dL (7-20) Creatinine 1.3 mg/dL (0.6-1.0) Estimated GFR (Cockcroft-Gault) 38.7 Glucose Level 155 mg/dL (70-99) Calcium Level 9.2 mg/dL (8.5-10.1) Magnesium Level 1.9 mg/dL (1.8-2.4) Review of Systems Review of Systems Exam limited due to pt fatigue Assessment and Plan Assessmemt and Plan Pt seen in ICU Vent settings: AC//40% 97% sat PEEP: 5 New onset A-fb RVR Hx CAD, HTN Hx elevated uric acid 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 Labs Laboratory Tests Test 06/13/17 07:41 06/13/17 07:45 06/13/17 08:44 06/13/17 10:51 O2 Saturation 96 % (92-99) Arterial Blood pH 7.37 (7.35-7.45) Arterial Blood pCO2 at Patient Temp 45 mmHg (35-46) Arterial Blood pO2 at Patient Temp 84 mmHg (65-108) Arterial Blood HCO3 25 mmol/L (21-28) Arterial Blood Base Excess 0 mmol/L (-3-3) Oxyhemoglobin 95.4 % Methemoglobin 0.7 % (0.0-1.9) Carbon Monoxide, Quantitative 0.3 % (0.0-1.9) FiO2 .28 White Blood Count 14.5 x10^3/uL (4.0-11.0) Red Blood Count 4.06 x10^6/uL (3.50-5.40) Hemoglobin 13.1 g/dL (12.0-15.5) Hematocrit 40.7 % (36.0-47.0) Mean Corpuscular Volume 100 fL (79-100) Mean Corpuscular Hemoglobin 32 pg (25-35) Mean Corpuscular Hemoglobin Concent 32 g/dL (31-37) Red Cell Distribution Width 15.2 % (11.5-14.5) Platelet Count 241 x10^3/uL (140-400) Neutrophils (%) (Auto) 81 % (31-73) Lymphocytes (%) (Auto) 4 % (24-48) Monocytes (%) (Auto) 7 % (0-9) Eosinophils (%) (Auto) 7 % (0-3) Basophils (%) (Auto) 1 % (0-3) Neutrophils # (Auto) 11.7 x10^3uL (1.8-7.7) Lymphocytes # (Auto) 0.6 x10^3/uL (1.0-4.8) Monocytes # (Auto) 1.1 x10^3/uL (0.0-1.1) Eosinophils # (Auto) 1.0 x10^3/uL (0.0-0.7) Basophils # (Auto) 0.1 x10^3/uL (0.0-0.2) Segmented Neutrophils % 77 % (35-66) Lymphocytes % 4 % (24-48) Monocytes % 9 % (0-10) Eosinophils % 10 % (0-5) Platelet Estimate Adequate (ADEQUATE) Prothrombin Time 11.8 SEC (11.7-14.0) Prothromb Time International Ratio 0.9 (0.8-1.1) Sodium Level 135 mmol/L (136-145) Potassium Level 3.6 mmol/L (3.5-5.1) Chloride Level 97 mmol/L (98-107) Carbon Dioxide Level 28 mmol/L (21-32) Anion Gap 10 (6-14) Blood Urea Nitrogen 16 mg/dL (7-20) Creatinine 1.3 mg/dL (0.6-1.0) Estimated GFR (Cockcroft-Gault) 38.7 Glucose Level 138 mg/dL (70-99) Lactic Acid Level 1.3 mmol/L (0.4-2.0) Calcium Level 9.7 mg/dL (8.5-10.1) Magnesium Level 1.9 mg/dL (1.8-2.4) Total Bilirubin 0.9 mg/dL (0.2-1.0) Direct Bilirubin 0.1 mg/dL (0.0-0.2) Aspartate Amino Transf (AST/SGOT) 51 U/L (15-37) Alanine Aminotransferase (ALT/SGPT) 59 U/L (14-59) Alkaline Phosphatase 122 U/L (46-116) Creatine Kinase 276 U/L (26-192) Creatine Kinase MB (Mass) 7.8 ng/mL (0.0-3.6) Creatine Kinase MB Relative Index 2.8 % (0-4) Troponin I Quantitative 0.084 ng/mL (0.000-0.055) 0.076 ng/mL (0.000-0.055) RM-Luy-U-Type Natriuretic Peptide 2609 pg/mL (0-449) Total Protein 8.0 g/dL (6.4-8.2) Albumin 3.9 g/dL (3.4-5.0) Triglycerides Level 78 mg/dL (0-150) Cholesterol Level 229 mg/dL (0-200) LDL Cholesterol, Calculated 113 mg/dL (0-100) VLDL Cholesterol, Calculated 16 mg/dL (0-40) Non-HDL Cholesterol Calculated 129 mg/dL (0-129) HDL Cholesterol 100 mg/dL (40-60) Cholesterol/HDL Ratio 2.3 Lipase 135 U/L (73-393) Thyroid Stimulating Hormone (TSH) 0.505 uIU/mL (0.358-3.74) Urine Collection Type U cath Urine Color Straw Urine Clarity Clear Urine pH 7.0 Urine Specific [place] 1.025 Urine Protein >=300 mg/dL (NEG-TRACE) Urine Glucose (UA) Negative mg/dL (NEG) Urine Ketones (Stick) Negative mg/dL (NEG) Urine Blood Small (NEG) Urine Nitrite Negative (NEG) Urine Bilirubin Negative (NEG) Urine Urobilinogen Dipstick 0.2 mg/dL (0.2 mg/dL) Urine Leukocyte Esterase Negative (NEG) Urine RBC 1-2 /HPF (0-2) Urine WBC 0 /HPF (0-4) Urine Bacteria 0 /HPF (0-FEW) Test 06/13/17 14:40 06/13/17 19:03 06/14/17 04:45 06/14/17 07:25 Troponin I Quantitative 0.089 ng/mL (0.000-0.055) 0.049 ng/mL (0.000-0.055) O2 Saturation 93 % (92-99) 94 % (92-99) Arterial Blood pH 7.26 (7.35-7.45) 7.30 (7.35-7.45) Arterial Blood pCO2 at Patient Temp 67 mmHg (35-46) 58 mmHg (35-46) Arterial Blood pO2 at Patient Temp 76 mmHg (65-108) 75 mmHg (65-108) Arterial Blood HCO3 30 mmol/L (21-28) 28 mmol/L (21-28) Arterial Blood Base Excess 1 mmol/L (-3-3) 0 mmol/L (-3-3) FiO2 40 40 White Blood Count 7.7 x10^3/uL (4.0-11.0) Red Blood Count 3.83 x10^6/uL (3.50-5.40) Hemoglobin 12.8 g/dL (12.0-15.5) Hematocrit 37.8 % (36.0-47.0) Mean Corpuscular Volume 99 fL (79-100) Mean Corpuscular Hemoglobin 33 pg (25-35) Mean Corpuscular Hemoglobin Concent 34 g/dL (31-37) Red Cell Distribution Width 15.0 % (11.5-14.5) Platelet Count 205 x10^3/uL (140-400) Neutrophils (%) (Auto) 88 % (31-73) Lymphocytes (%) (Auto) 5 % (24-48) Monocytes (%) (Auto) 7 % (0-9) Eosinophils (%) (Auto) 0 % (0-3) Basophils (%) (Auto) 0 % (0-3) Neutrophils # (Auto) 6.7 x10^3uL (1.8-7.7) Lymphocytes # (Auto) 0.4 x10^3/uL (1.0-4.8) Monocytes # (Auto) 0.5 x10^3/uL (0.0-1.1) Eosinophils # (Auto) 0.0 x10^3/uL (0.0-0.7) Basophils # (Auto) 0.0 x10^3/uL (0.0-0.2) Sodium Level 131 mmol/L (136-145) Potassium Level 4.3 mmol/L (3.5-5.1) Chloride Level 95 mmol/L (98-107) Carbon Dioxide Level 25 mmol/L (21-32) Anion Gap 11 (6-14) Blood Urea Nitrogen 26 mg/dL (7-20) Creatinine 1.3 mg/dL (0.6-1.0) Estimated GFR (Cockcroft-Gault) 38.7 Glucose Level 155 mg/dL (70-99) Calcium Level 9.2 mg/dL (8.5-10.1) Magnesium Level 1.9 mg/dL (1.8-2.4) Laboratory Tests Test 06/13/17 14:40 06/13/17 19:03 06/14/17 04:45 06/14/17 07:25 Troponin I Quantitative 0.089 ng/mL (0.000-0.055) 0.049 ng/mL (0.000-0.055) O2 Saturation 93 % (92-99) 94 % (92-99) Arterial Blood pH 7.26 (7.35-7.45) 7.30 (7.35-7.45) Arterial Blood pCO2 at Patient Temp 67 mmHg (35-46) 58 mmHg (35-46) Arterial Blood pO2 at Patient Temp 76 mmHg (65-108) 75 mmHg (65-108) Arterial Blood HCO3 30 mmol/L (21-28) 28 mmol/L (21-28) Arterial Blood Base Excess 1 mmol/L (-3-3) 0 mmol/L (-3-3) FiO2 40 40 White Blood Count 7.7 x10^3/uL (4.0-11.0) Red Blood Count 3.83 x10^6/uL (3.50-5.40) Hemoglobin 12.8 g/dL (12.0-15.5) Hematocrit 37.8 % (36.0-47.0) Mean Corpuscular Volume 99 fL (79-100) Mean Corpuscular Hemoglobin 33 pg (25-35) Mean Corpuscular Hemoglobin Concent 34 g/dL (31-37) Red Cell Distribution Width 15.0 % (11.5-14.5) Platelet Count 205 x10^3/uL (140-400) Neutrophils (%) (Auto) 88 % (31-73) Lymphocytes (%) (Auto) 5 % (24-48) Monocytes (%) (Auto) 7 % (0-9) Eosinophils (%) (Auto) 0 % (0-3) Basophils (%) (Auto) 0 % (0-3) Neutrophils # (Auto) 6.7 x10^3uL (1.8-7.7) Lymphocytes # (Auto) 0.4 x10^3/uL (1.0-4.8) Monocytes # (Auto) 0.5 x10^3/uL (0.0-1.1) Eosinophils # (Auto) 0.0 x10^3/uL (0.0-0.7) Basophils # (Auto) 0.0 x10^3/uL (0.0-0.2) Sodium Level 131 mmol/L (136-145) Potassium Level 4.3 mmol/L (3.5-5.1) Chloride Level 95 mmol/L (98-107) Carbon Dioxide Level 25 mmol/L (21-32) Anion Gap 11 (6-14) Blood Urea Nitrogen 26 mg/dL (7-20) Creatinine 1.3 mg/dL (0.6-1.0) Estimated GFR (Cockcroft-Gault) 38.7 Glucose Level 155 mg/dL (70-99) Calcium Level 9.2 mg/dL (8.5-10.1) Magnesium Level 1.9 mg/dL (1.8-2.4) Medications Current Medications Albuterol/ Ipratropium (Duoneb) 3 ml STK-MED ONCE .ROUTE ; Start 06/13/17 at 08: 12; Stop 06/13/17 at 08:13; Status DC Albuterol/ Ipratropium (Duoneb) 3 ml 1X ONCE NEB Last administered on 08:15; Start 06/13/17 at 08:15; Stop 06/13/17 at 08:20; Status DC Methylprednisolone Sodium Succinate (SOLU-Medrol 125MG VIAL) 125 mg 1X ONCE IV Last administered on 06/13/17 08:22; Start 06/13/17 at 08:15; Stop 06/13/17 at 08:20; Status DC Diltiazem HCl (Cardizem) 10 mg 1X ONCE IVP Last administered on 06/13/17 08: 31; Start 06/13/17 at 08:15; Stop 06/13/17 at 08:29; Status DC Diltiazem HCl (Cardizem) 10 mg 1X ONCE IVP ; Start 06/13/17 at 08:15; Stop at 08:16; Status Cancel Diltiazem HCl 125 mg/Dextrose 125 ml @ 0 mls/hr 1X ONCE IV Last administered on 06/13/17 08:43; Start 06/13/17 at 08:15; Stop 06/13/17 at 14:48; Status DC Aspirin (Children'S Aspirin) 324 mg 1X ONCE PO Last administered on 06/13/17 08:47; Start 06/13/17 at 08:45; Stop 06/13/17 at 08:46; Status DC Ondansetron HCl (Zofran) 4 mg PRN Q8HRS PRN IV NAUSEA/VOMITING; Start 06/13/17 at 08:45; Stop 06/13/17 at 10:18; Status DC Guaifenesin (Robitussin Dm) 10 ml PRN Q6HRS PRN PO COUGH Last administered on 17:46; Start 06/13/17 at 10:00 Albuterol/ Ipratropium (Duoneb) 3 ml RTQID NEB Last administered on 06/14/17 11:41; Start 06/13/17 at 12:00 Ondansetron HCl (Zofran) 4 mg PRN Q6HRS PRN IV NAUSEA/VOMITING Last administered on 06/13/17 17:45; Start 06/13/17 at 10:30; Stop 06/14/17 at 10:29 ; Status DC Acetaminophen (Tylenol) 500 mg PRN Q6HRS PRN PO MILD PAIN / TEMP Last administered on 06/13/17 16:02; Start 06/13/17 at 10:30 Furosemide (Lasix) 20 mg 1X ONCE IVP Last administered on 06/13/17 11:03; Start 06/13/17 at 10:15; Stop 06/13/17 at 10:22; Status DC Digoxin (Lanoxin) 250 mcg 1X ONCE IV Last administered on 06/13/17 11:03; Start 06/13/17 at 10:30; Stop 06/13/17 at 10:31; Status DC Aspirin (Ecotrin) 81 mg DAILYWBKFT PO Last administered on 06/13/17 11:03; Start 06/13/17 at 12:00 Alprazolam (Xanax) 0.5 mg PRN Q8HRS PRN PO ANXIETY / AGITATION Last administered on 06/13/17 11:47; Start 06/13/17 at 11:45 Info (Do NOT chart on this placeholder) 1 each 1X ONCE MC ; Start 06/13/17 at 13:15; Stop 06/13/17 at 13:16; Status UNV Allopurinol (Zyloprim) 300 mg QODAY PO ; Start 06/14/17 at 09:00 Alprazolam (Xanax) 0.25 mg TID PRN PO ANXIETY / AGITATION; Start 06/13/17 at 14 :15; Status UNV Aspirin (Ecotrin) 81 mg DAILYWBKFT PO ; Start 06/14/17 at 08:00; Status UNV Famotidine (Pepcid) 20 mg DAILY PO ; Start 06/14/17 at 09:00 Furosemide (Lasix) 20 mg DAILY PO ; Start 06/14/17 at 09:00; Stop 06/14/17 at 09 :00; Status DC Gabapentin (Neurontin) 100 mg TID PO Last administered on 06/13/17 16:02; Start 06/13/17 at 15:30 Hydroxyurea (Hydrea) 500 mg QODAY PO ; Start 06/14/17 at 09:00 Levothyroxine Sodium (Synthroid) 75 mcg DAILY07 PO ; Start 06/14/17 at 07:00 Vitamin D (Vitamin D3) 1,000 unit DAILY PO ; Start 06/14/17 at 09:00 Isosorbide Mononitrate (Imdur) 60 mg DAILY PO ; Start 06/14/17 at 09:00; Stop at 09:00; Status DC Fish Oil (Fish Oil) 1,000 mg QHS PO ; Start 06/13/17 at 21:00 Non-Formulary Medication 100 mg DAILY PO ; Start 06/14/17 at 09:00; Status UNV Metoprolol Tartrate (Lopressor) 50 mg BID PO Last administered on 06/13/17 16: 03; Start 06/13/17 at 16:00 Isosorbide Mononitrate (Imdur) 30 mg DAILY PO ; Start 06/14/17 at 09:00 Labetalol HCl (Normodyne) 20 mg PRN Q2HR PRN IVP HYPERTENSION, SEE COMMENTS Last administered on 06/14/17 07:19; Start 06/13/17 at 17:45 Benzonatate (Tessalon Perle) 100 mg [id number] PO ; Start 06/13/17 at 21:00 Albuterol Sulfate (Ventolin Neb Soln) 2.5 mg PRN Q2HR PRN NEB [id number] Last administered on 06/13/17 20:05; Start 06/13/17 at 18:15 Acetaminophen/ Hydrocodone Bitart (Lortab 5/325) 1 tab PRN Q4HRS PRN PO MODERATE - SEVERE PAIN; Start 06/13/17 at 18:15 Furosemide (Lasix) 20 mg 1X ONCE IVP Last administered on 06/13/17 20:10; Start 06/13/17 at 20:00; Stop 06/13/17 at 20:02; Status DC Lorazepam (Ativan) 1 mg PRN Q4HRS PRN IV ANXIETY / AGITATION Last administered on 06/14/17 11:43; Start 06/13/17 at 20:00 Lorazepam (Ativan) 2 mg PRN Q4HRS PRN IV ANXIETY / AGITATION Last administered on 06/14/17 06:51; Start 06/13/17 at 20:00 Morphine Sulfate 2 mg PRN Q2HR PRN IV SEVERE PAIN; Start 06/14/17 at 04:15 Haloperidol Lactate (Haldol) 5 mg PRN Q6HRS PRN IVP AGITATION Last administered on 06/14/17 04:19; Start 06/14/17 at 04:15 Methylprednisolone Sodium Succinate (SOLU-Medrol 40MG VIAL) 40 mg Q8HRS IV Last administered on 06/14/17 08:46; Start 06/14/17 at 08:15 Budesonide (Pulmicort) 0.5 mg RTBID NEB Last administered on 06/14/17 08:46; Start 06/14/17 at 09:00 Atorvastatin Calcium (Lipitor) 20 mg QHS PO ; Start 06/14/17 at 21:00 Active Scripts Active Reported Ultra Coq10 (Ubiquinone) 75 Mg Capsule 100 Mg PO DAILY Upham-3 (Upham-3 Fatty Acids) 100 Mg Tab.chew 350 Mg PO HS Isosorbide Mononitrate Er (Isosorbide Mononitrate) 60 Mg Tab.er.24h 1 Tab PO DAILY Vitamin D3 (Cholecalciferol (Vitamin D3)) 1,000 Unit Tab.chew 1,000 Unit PO DAILY Aspir 81 (Aspirin) 81 Mg Tablet.dr 1 Tab PO DAILY Xanax (Alprazolam) 0.25 Mg Tablet 1 Tab PO TID PRN Allopurinol 300 Mg Tablet 1 Tab PO QODAY Pepcid (Famotidine) 20 Mg Tablet 20 Mg PO DAILY Levothyroxine Sodium 75 Mcg Tablet 1 Tab PO DAILY Hydroxyurea 500 Mg Capsule 500 Mg PO QODAY Gabapentin 100 Mg Capsule 100 Mg PO TID Furosemide 20 Mg Tablet 1 Tab PO DAILY Vitals/I & O Vital Sign - Last 24 Hours 06/13/17 06/13/17 06/13/17 06/13/17 15:00 15:48 16:03 18:40 Temp 98.2 98.2 Pulse 89 91 72 Resp 18 B/P (MAP) 199/97 (131) 159/79 194/77 Pulse Ox 99 99 O2 Delivery Nasal Cannula Nasal Cannula O2 Flow Rate 2.0 2.0 06/13/17 06/13/17 06/13/17 06/13/17 18:43 19:10 19:54 20:00 Temp 98.1 98.1 Pulse 74 Resp 24 B/P (MAP) 194/77 (116) Pulse Ox 95 99 O2 Delivery Nasal Cannula NonRebreather Mask BiPAP/CPAP Bi-pap O2 Flow Rate 4.0 15.0 06/13/17 06/13/17 06/13/17 06/13/17 20:04 20:40 21:00 21:00 Temp 97.8 97.8 Pulse 76 60 60 Resp 26 20 B/P (MAP) 204/82 (122) 108/60 106/58 (74) Pulse Ox 99 97 100 O2 Delivery BiPAP/CPAP BiPAP/CPAP BiPAP/CPAP 06/13/17 06/13/17 06/13/17 06/13/17 21:30 22:00 22:44 23:00 Pulse 70 71 72 Resp 20 20 20 B/P (MAP) 140/60 (86) 139/70 (93) 138/71 (93) Pulse Ox 100 99 99 100 O2 Delivery BiPAP/CPAP BiPAP/CPAP BiPAP/CPAP BiPAP/CPAP 06/14/17 06/14/17 06/14/17 06/14/17 00:00 00:01 01:00 01:42 Temp 98.1 98.1 Pulse 88 85 Resp 22 20 B/P (MAP) 122/71 (88) 112/70 (84) Pulse Ox 98 98 97 O2 Delivery Bi-pap BiPAP/CPAP BiPAP/CPAP BiPAP/CPAP 06/14/17 06/14/17 06/14/17 06/14/17 02:00 03:00 03:33 04:00 Temp 99.4 99.4 Pulse 85 89 110 Resp 20 20 30 B/P (MAP) 105/67 (80) 110/67 (81) 180/110 (133) Pulse Ox 98 98 97 94 O2 Delivery BiPAP/CPAP BiPAP/CPAP BiPAP/CPAP BiPAP/CPAP 06/14/17 06/14/17 06/14/1717 04:00 04:27 05:00 05:40 Pulse 99 95 Resp 24 22 B/P (MAP) 160/59 (92) 110/66 (81) Pulse Ox 97 97 97 O2 Delivery Bi-pap BiPAP/CPAP BiPAP/CPAP BiPAP/CPAP 06/14/17 06/14/17 06/14/17 06/14/17 06:00 07:19 07:22 07:38 Pulse 85 110 Resp 20 B/P (MAP) 99/49 (66) 202/84 Pulse Ox 98 95 O2 Delivery BiPAP/CPAP BiPAP/CPAP Bi-pap 06/14/17 06/14/17 09:07 11:41 Pulse Ox 91 97 O2 Delivery BiPAP/CPAP BiPAP/CPAP BLANCA GENAO III DO Jun 14, 2017 12:09
[2017-06-14] MEDS: MORPHINE SULFATE 2 MG/ML DISP.SYRIN. IV PRN ×2 (20:14→22:51)
[2017-06-14] MEDS: ATORVASTATIN CALCIUM 20 MG TABLET PO SCH (21:00)
[2017-06-14] MEDS: OMEGA-3 FATTY ACIDS/FISH OIL 1,000 MG CAPSULE. PO SCH (21:00)
[2017-06-15] VITALS (28 sets, daily range): BP systolic 107–222; BP diastolic 46–110
[2017-06-15] MEDS: MORPHINE SULFATE 2 MG/ML DISP.SYRIN. IV PRN ×3 (02:37→19:06)
[2017-06-15] MEDS: methylPREDNISolone SOD SUCC PF 40 MG/ML VIAL. IV SCH ×3 (05:39→21:56)
[2017-06-15 05:50] LABS: CALCIUM 9.6 mg/dL (8.5-10.1); CREATININE 1.1 mg/dL (0.6-1.0); POTASSIUM 4.4 mmol/L (3.5-5.1)
[2017-06-15] MEDS: LEVOTHYROXINE 75 MCG TABLET PO SCH (07:00)
[2017-06-15] MEDS: LABETALOL 20 MG/4 ML DISP.SYRIN. IVP PRN ×2 (07:17→19:06)
[2017-06-15] MEDS: ASPIRIN ENTERIC COATED 81 MG TABLET.DR. PO SCH (08:00)
--- NOTE | 2017-06-15 08:20 | PDOC ---
PULMONARY PROGRESS NOTES Subjective on bipap, agitated, has cough Vitals Vital Signs Date Time Temp Pulse Resp B/P (MAP) Pulse Ox O2 Delivery O2 Flow Rate FiO2 06/15/17 07:17 106 217/107 06/15/17 06:28 23 97 BiPAP/CPAP 06/15/17 04:00 97.0 97.0 06/15/17 04:00 4.0 Comments ros, as mentioned as above, discussed w rn, other sys otherwise neg HEENT: Other (nc at perrl, bipap mask on, neck, no lap, thyromegaly) Lungs: Wheezing, Other (No acute distress noted) Cardiovascular: S1, S2 Abdomen: Soft, Non-tender, Other (no mass) Extremities: No Edema Skin: Warm Labs Laboratory Tests Test 06/13/17 08:44 06/13/17 10:51 06/13/17 14:40 06/13/17 19:03 Urine Collection Type U cath Urine Color Straw Urine Clarity Clear Urine pH 7.0 Urine Specific [place] 1.025 Urine Protein >=300 mg/dL (NEG-TRACE) Urine Glucose (UA) Negative mg/dL (NEG) Urine Ketones (Stick) Negative mg/dL (NEG) Urine Blood Small (NEG) Urine Nitrite Negative (NEG) Urine Bilirubin Negative (NEG) Urine Urobilinogen Dipstick 0.2 mg/dL (0.2 mg/dL) Urine Leukocyte Esterase Negative (NEG) Urine RBC 1-2 /HPF (0-2) Urine WBC 0 /HPF (0-4) Urine Bacteria 0 /HPF (0-FEW) Troponin I Quantitative 0.076 ng/mL (0.000-0.055) 0.089 ng/mL (0.000-0.055) O2 Saturation 93 % (92-99) Arterial Blood pH 7.26 (7.35-7.45) Arterial Blood pCO2 at Patient Temp 67 mmHg (35-46) Arterial Blood pO2 at Patient Temp 76 mmHg (65-108) Arterial Blood HCO3 30 mmol/L (21-28) Arterial Blood Base Excess 1 mmol/L (-3-3) FiO2 40 Test 06/13/17 22:00 06/14/17 04:45 06/14/17 07:25 06/15/17 04:00 Nasal Screen MRSA (PCR) Positive (Negative) White Blood Count 7.7 x10^3/uL (4.0-11.0) Red Blood Count 3.83 x10^6/uL (3.50-5.40) Hemoglobin 12.8 g/dL (12.0-15.5) Hematocrit 37.8 % (36.0-47.0) Mean Corpuscular Volume 99 fL (79-100) Mean Corpuscular Hemoglobin 33 pg (25-35) Mean Corpuscular Hemoglobin Concent 34 g/dL (31-37) Red Cell Distribution Width 15.0 % (11.5-14.5) Platelet Count 205 x10^3/uL (140-400) Neutrophils (%) (Auto) 88 % (31-73) Lymphocytes (%) (Auto) 5 % (24-48) Monocytes (%) (Auto) 7 % (0-9) Eosinophils (%) (Auto) 0 % (0-3) Basophils (%) (Auto) 0 % (0-3) Neutrophils # (Auto) 6.7 x10^3uL (1.8-7.7) Lymphocytes # (Auto) 0.4 x10^3/uL (1.0-4.8) Monocytes # (Auto) 0.5 x10^3/uL (0.0-1.1) Eosinophils # (Auto) 0.0 x10^3/uL (0.0-0.7) Basophils # (Auto) 0.0 x10^3/uL (0.0-0.2) Sodium Level 131 mmol/L (136-145) 137 mmol/L (136-145) Potassium Level 4.3 mmol/L (3.5-5.1) 4.4 mmol/L (3.5-5.1) Chloride Level 95 mmol/L (98-107) 99 mmol/L (98-107) Carbon Dioxide Level 25 mmol/L (21-32) 29 mmol/L (21-32) Anion Gap 11 (6-14) 9 (6-14) Blood Urea Nitrogen 26 mg/dL (7-20) 38 mg/dL (7-20) Creatinine 1.3 mg/dL (0.6-1.0) 1.1 mg/dL (0.6-1.0) Estimated GFR (Cockcroft-Gault) 38.7 47.0 Glucose Level 155 mg/dL (70-99) 130 mg/dL (70-99) Calcium Level 9.2 mg/dL (8.5-10.1) 9.6 mg/dL (8.5-10.1) Magnesium Level 1.9 mg/dL (1.8-2.4) Troponin I Quantitative 0.049 ng/mL (0.000-0.055) O2 Saturation 94 % (92-99) Arterial Blood pH 7.30 (7.35-7.45) Arterial Blood pCO2 at Patient Temp 58 mmHg (35-46) Arterial Blood pO2 at Patient Temp 75 mmHg (65-108) Arterial Blood HCO3 28 mmol/L (21-28) Arterial Blood Base Excess 0 mmol/L (-3-3) FiO2 40 Laboratory Tests Test 06/15/17 04:00 Sodium Level 137 mmol/L (136-145) Potassium Level 4.4 mmol/L (3.5-5.1) Chloride Level 99 mmol/L (98-107) Carbon Dioxide Level 29 mmol/L (21-32) Anion Gap 9 (6-14) Blood Urea Nitrogen 38 mg/dL (7-20) Creatinine 1.1 mg/dL (0.6-1.0) Estimated GFR (Cockcroft-Gault) 47.0 Glucose Level 130 mg/dL (70-99) Calcium Level 9.6 mg/dL (8.5-10.1) Medications Active Scripts Medications Dose Route/Sig Max Daily Dose Days Date Category Ultra Coq10 (Ubiquinone) 75 Mg Capsule 100 Mg PO DAILY 06/13/17 Reported Crimora-3 (Crimora-3 Fatty Acids) 100 Mg Tab.chew 350 Mg PO HS 06/13/17 Reported Isosorbide Mononitrate Er (Isosorbide Mononitrate) 60 Mg Tab.er.24h 1 Tab PO DAILY 06/13/17 Reported Vitamin D3 (Cholecalciferol (Vitamin D3)) 1,000 Unit Tab.chew 1,000 Unit PO DAILY 06/13/17 Reported Aspir 81 (Aspirin) 81 Mg Tablet.dr 1 Tab PO DAILY 06/13/17 Reported Xanax (Alprazolam) 0.25 Mg Tablet 1 Tab PO TID PRN 06/13/17 Reported Allopurinol 300 Mg Tablet 1 Tab PO QODAY 06/13/17 Reported Pepcid (Famotidine) 20 Mg Tablet 20 Mg PO DAILY 06/13/17 Reported Levothyroxine Sodium 75 Mcg Tablet 1 Tab PO DAILY 06/13/17 Reported Hydroxyurea 500 Mg Capsule 500 Mg PO QODAY 06/13/17 Reported Gabapentin 100 Mg Capsule 100 Mg PO TID 06/13/17 Reported Furosemide 20 Mg Tablet 1 Tab PO DAILY 06/13/17 Reported Comments cxr reviewed, atelectasis Impression . 1. Acute on chronic respiratory failure, multifactorial. 2. Acute exacerbation of chronic obstructive pulmonary disease in a patient who has never smoked, but certainly gives the impression that she has some sort of obstructive lung disease. 3. Acute nonspecific bronchitis. 4. New onset atrial fibrillation with rapid ventricular response, no in sr. 5. Coronary artery disease. 6. Hyperthyroidism. 7. Generalized anxiety. 8. Suspect silent aspiration leading to cough. Plan . PLAN: 1. cont steroid no dose change, cont pulmicort, cont bipap, setting reviewed, titrate fio2 to keep sat 91%, abg reviewed, try to give her short bipap break, monitor resp status closely 2. Speech evaluation when resp status more stable. 3. cont bronchodilators. 4. avoid over sedation discussed w rn, rt JODIE HERNANDEZ MD Jun 15, 2017 08:20
[2017-06-15] MEDS: IPRATRPIUM/ALBUTEROL 0.5/2.5MG 3 ML NEBU. NEB SCH ×4 (08:27→19:29)
[2017-06-15] MEDS: BUDESONIDE 0.5 MG/2 ML NEBU. NEB SCH ×2 (08:27→19:29)
[2017-06-15 08:32] LABS: BASO % 0 % (0-3); EOS % 0 % (0-3); HEMATOCRIT 47.8 % (36.0-47.0); HEMOGLOBIN 15.4 g/dL (12.0-15.5); LYMPH # 0.4 x10^3/uL (1.0-4.8); LYMPH % 3 % (24-48); MEAN CORPUSCULAR HEMOGLOBIN 33 pg (25-35); MEAN CORPUSCULAR HGB CONC 32 g/dL (31-37); MEAN CORPUSCULAR VOLUME 102 fL (79-100); MONO % 6 % (0-9); NEUT % 91 % (31-73); PLATELET COUNT 240 x10^3/uL (140-400); RED CELL DISTRIBUTION WIDTH 15.4 % (11.5-14.5); WHITE BLOOD COUNT 15.5 x10^3/uL (4.0-11.0)
[2017-06-15 08:39] LABS: HCO3 ABG 26 mmol/L (21-28); PCO2 ABG 48 mmHg (35-46); PH ABG 7.36 (7.35-7.45); PO2 ABG 68 mmHg (65-108); SAT O2 ABG 93 % (92-99)
[2017-06-15 08:42] LABS: FIO2 ABG 25
[2017-06-15] MEDS: FAMOTIDINE 20 MG TABLET. PO SCH (09:00)
[2017-06-15] MEDS: BENZONATATE 100 MG CAPSULE. PO SCH ×3 (09:00→21:00)
[2017-06-15] MEDS: CHOLECALCIFEROL (VITAMIN D3) 1,000 UNIT TABLET PO SCH (09:00)
[2017-06-15] MEDS: GABAPENTIN 100 MG CAPSULE. PO SCH ×3 (09:00→21:00)
[2017-06-15] MEDS: METOPROLOL TART IMMED RELEASE 50 MG TABLET. PO SCH ×2 (09:00→21:00)
[2017-06-15] MEDS: amLODIPine BESYLATE 5 MG TABLET PO SCH (09:45)
--- NOTE | 2017-06-15 09:45 | PDOC ---
PROGRESS NOTES Subjective Subjective The patient remains short of breath. Objective Objective Vital Signs Date Time Temp Pulse Resp B/P (MAP) Pulse Ox O2 Delivery O2 Flow Rate FiO2 06/15/17 08:28 97 BiPAP/CPAP 06/15/17 07:17 106 217/107 06/15/17 06:28 23 06/15/17 04:00 97.0 97.0 06/15/17 04:00 4.0 Physical Exam Abdomen: Normal bowel sounds Heart: Regular rate General: mild distress Lungs: Other (decreased breath sounds) Assessment Assessment Problems Medical Problems: (1) Atrial fibrillation with RVR Status: Acute Assessment 1. AFIB RVR: new onset. Now on SR. 2. Acute on chronic diastolic CHF. Continuing medical treatment. Better control of hypertension. 3. Acute respiratory failure: Continue short of breath but somewhat improved. pulmonary following 4. CAD: CABG in 1980s and C with 3 stents with last PCI 5 yrs ago. CP free. Future ischemia testing. 5. Hx of pneumonia: 03/2017 6. HTN: Increasing medications. - 7. HLP 8. Hypothyroidism: TSH on goal 9. Significant anxiety Comment Review of Relevant I have reviewed the following items viktor (where applicable) has been applied. 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) Test 06/14/17 04:45 06/14/17 07:25 06/15/17 04:00 06/15/17 08:00 White Blood Count 7.7 x10^3/uL (4.0-11.0) 15.5 x10^3/uL (4.0-11.0) Red Blood Count 3.83 x10^6/uL (3.50-5.40) 4.70 x10^6/uL (3.50-5.40) Hemoglobin 12.8 g/dL (12.0-15.5) 15.4 g/dL (12.0-15.5) Hematocrit 37.8 % (36.0-47.0) 47.8 % (36.0-47.0) Mean Corpuscular Volume 99 fL (79-100) 102 fL (79-100) Mean Corpuscular Hemoglobin 33 pg (25-35) 33 pg (25-35) Mean Corpuscular Hemoglobin Concent 34 g/dL (31-37) 32 g/dL (31-37) Red Cell Distribution Width 15.0 % (11.5-14.5) 15.4 % (11.5-14.5) Platelet Count 205 x10^3/uL (140-400) 240 x10^3/uL (140-400) Neutrophils (%) (Auto) 88 % (31-73) 91 % (31-73) Lymphocytes (%) (Auto) 5 % (24-48) 3 % (24-48) Monocytes (%) (Auto) 7 % (0-9) 6 % (0-9) Eosinophils (%) (Auto) 0 % (0-3) 0 % (0-3) Basophils (%) (Auto) 0 % (0-3) 0 % (0-3) Neutrophils # (Auto) 6.7 x10^3uL (1.8-7.7) 14.1 x10^3uL (1.8-7.7) Lymphocytes # (Auto) 0.4 x10^3/uL (1.0-4.8) 0.4 x10^3/uL (1.0-4.8) Monocytes # (Auto) 0.5 x10^3/uL (0.0-1.1) 0.9 x10^3/uL (0.0-1.1) Eosinophils # (Auto) 0.0 x10^3/uL (0.0-0.7) 0.0 x10^3/uL (0.0-0.7) Basophils # (Auto) 0.0 x10^3/uL (0.0-0.2) 0.0 x10^3/uL (0.0-0.2) Sodium Level 131 mmol/L (136-145) 137 mmol/L (136-145) Potassium Level 4.3 mmol/L (3.5-5.1) 4.4 mmol/L (3.5-5.1) Chloride Level 95 mmol/L (98-107) 99 mmol/L (98-107) Carbon Dioxide Level 25 mmol/L (21-32) 29 mmol/L (21-32) Anion Gap 11 (6-14) 9 (6-14) Blood Urea Nitrogen 26 mg/dL (7-20) 38 mg/dL (7-20) Creatinine 1.3 mg/dL (0.6-1.0) 1.1 mg/dL (0.6-1.0) Estimated GFR (Cockcroft-Gault) 38.7 47.0 Glucose Level 155 mg/dL (70-99) 130 mg/dL (70-99) Calcium Level 9.2 mg/dL (8.5-10.1) 9.6 mg/dL (8.5-10.1) Magnesium Level 1.9 mg/dL (1.8-2.4) Troponin I Quantitative 0.049 ng/mL (0.000-0.055) O2 Saturation 94 % (92-99) 93 % (92-99) Arterial Blood pH 7.30 (7.35-7.45) 7.36 (7.35-7.45) Arterial Blood pCO2 at Patient Temp 58 mmHg (35-46) 48 mmHg (35-46) Arterial Blood pO2 at Patient Temp 75 mmHg (65-108) 68 mmHg (65-108) Arterial Blood HCO3 28 mmol/L (21-28) 26 mmol/L (21-28) Arterial Blood Base Excess 0 mmol/L (-3-3) 0 mmol/L (-3-3) FiO2 40 25 Laboratory Tests Test 06/15/17 04:00 06/15/17 08:00 Sodium Level 137 mmol/L (136-145) Potassium Level 4.4 mmol/L (3.5-5.1) Chloride Level 99 mmol/L (98-107) Carbon Dioxide Level 29 mmol/L (21-32) Anion Gap 9 (6-14) Blood Urea Nitrogen 38 mg/dL (7-20) Creatinine 1.1 mg/dL (0.6-1.0) Estimated GFR (Cockcroft-Gault) 47.0 Glucose Level 130 mg/dL (70-99) Calcium Level 9.6 mg/dL (8.5-10.1) White Blood Count 15.5 x10^3/uL (4.0-11.0) Red Blood Count 4.70 x10^6/uL (3.50-5.40) Hemoglobin 15.4 g/dL (12.0-15.5) Hematocrit 47.8 % (36.0-47.0) Mean Corpuscular Volume 102 fL (79-100) Mean Corpuscular Hemoglobin 33 pg (25-35) Mean Corpuscular Hemoglobin Concent 32 g/dL (31-37) Red Cell Distribution Width 15.4 % (11.5-14.5) Platelet Count 240 x10^3/uL (140-400) Neutrophils (%) (Auto) 91 % (31-73) Lymphocytes (%) (Auto) 3 % (24-48) Monocytes (%) (Auto) 6 % (0-9) Eosinophils (%) (Auto) 0 % (0-3) Basophils (%) (Auto) 0 % (0-3) Neutrophils # (Auto) 14.1 x10^3uL (1.8-7.7) Lymphocytes # (Auto) 0.4 x10^3/uL (1.0-4.8) Monocytes # (Auto) 0.9 x10^3/uL (0.0-1.1) Eosinophils # (Auto) 0.0 x10^3/uL (0.0-0.7) Basophils # (Auto) 0.0 x10^3/uL (0.0-0.2) O2 Saturation 93 % (92-99) Arterial Blood pH 7.36 (7.35-7.45) Arterial Blood pCO2 at Patient Temp 48 mmHg (35-46) Arterial Blood pO2 at Patient Temp 68 mmHg (65-108) Arterial Blood HCO3 26 mmol/L (21-28) Arterial Blood Base Excess 0 mmol/L (-3-3) FiO2 25 Medications Current Medications Albuterol/ Ipratropium (Duoneb) 3 ml Q-Layer-MED ONCE .ROUTE ; Start 06/13/17 at 08: 12; Stop 06/13/17 at 08:13; Status DC Albuterol/ Ipratropium (Duoneb) 3 ml 1X ONCE NEB Last administered on 08:15; Start 06/13/17 at 08:15; Stop 06/13/17 at 08:20; Status DC Methylprednisolone Sodium Succinate (SOLU-Medrol 125MG VIAL) 125 mg 1X ONCE IV Last administered on 06/13/17 08:22; Start 06/13/17 at 08:15; Stop 06/13/17 at 08:20; Status DC Diltiazem HCl (Cardizem) 10 mg 1X ONCE IVP Last administered on 06/13/17 08: 31; Start 06/13/17 at 08:15; Stop 06/13/17 at 08:29; Status DC Diltiazem HCl (Cardizem) 10 mg 1X ONCE IVP ; Start 06/13/17 at 08:15; Stop at 08:16; Status Cancel Diltiazem HCl 125 mg/Dextrose 125 ml @ 0 mls/hr 1X ONCE IV Last administered on 06/13/17 08:43; Start 06/13/17 at 08:15; Stop 06/13/17 at 14:48; Status DC Aspirin (Children'S Aspirin) 324 mg 1X ONCE PO Last administered on 06/13/17 08:47; Start 06/13/17 at 08:45; Stop 06/13/17 at 08:46; Status DC Ondansetron HCl (Zofran) 4 mg PRN Q8HRS PRN IV NAUSEA/VOMITING; Start 06/13/17 at 08:45; Stop 06/13/17 at 10:18; Status DC Guaifenesin (Robitussin Dm) 10 ml PRN Q6HRS PRN PO COUGH Last administered on 17:46; Start 06/13/17 at 10:00 Albuterol/ Ipratropium (Duoneb) 3 ml RTQID NEB Last administered on 06/15/17 08:27; Start 06/13/17 at 12:00 Ondansetron HCl (Zofran) 4 mg PRN Q6HRS PRN IV NAUSEA/VOMITING Last administered on 06/13/17 17:45; Start 06/13/17 at 10:30; Stop 06/14/17 at 10:29 ; Status DC Acetaminophen (Tylenol) 500 mg PRN Q6HRS PRN PO MILD PAIN / TEMP Last administered on 06/13/17 16:02; Start 06/13/17 at 10:30 Furosemide (Lasix) 20 mg 1X ONCE IVP Last administered on 06/13/17 11:03; Start 06/13/17 at 10:15; Stop 06/13/17 at 10:22; Status DC Digoxin (Lanoxin) 250 mcg 1X ONCE IV Last administered on 06/13/17 11:03; Start 06/13/17 at 10:30; Stop 06/13/17 at 10:31; Status DC Aspirin (Ecotrin) 81 mg DAILYWBKFT PO Last administered on 06/13/17 11:03; Start 06/13/17 at 12:00 Alprazolam (Xanax) 0.5 mg PRN Q8HRS PRN PO ANXIETY / AGITATION Last administered on 06/13/17 11:47; Start 06/13/17 at 11:45 Info (Do NOT chart on this placeholder) 1 each 1X ONCE MC ; Start 06/13/17 at 13:15; Stop 06/13/17 at 13:16; Status UNV Allopurinol (Zyloprim) 300 mg QODAY PO ; Start 06/14/17 at 09:00 Alprazolam (Xanax) 0.25 mg TID PRN PO ANXIETY / AGITATION; Start 06/13/17 at 14 :15; Status UNV Aspirin (Ecotrin) 81 mg DAILYWBKFT PO ; Start 06/14/17 at 08:00; Status UNV Famotidine (Pepcid) 20 mg DAILY PO ; Start 06/14/17 at 09:00 Furosemide (Lasix) 20 mg DAILY PO ; Start 06/14/17 at 09:00; Stop 06/14/17 at 09 :00; Status DC Gabapentin (Neurontin) 100 mg TID PO Last administered on 06/13/17 16:02; Start 06/13/17 at 15:30 Hydroxyurea (Hydrea) 500 mg QODAY PO ; Start 06/14/17 at 09:00 Levothyroxine Sodium (Synthroid) 75 mcg DAILY07 PO ; Start 06/14/17 at 07:00 Vitamin D (Vitamin D3) 1,000 unit DAILY PO ; Start 06/14/17 at 09:00 Isosorbide Mononitrate (Imdur) 60 mg DAILY PO ; Start 06/14/17 at 09:00; Stop at 09:00; Status DC Fish Oil (Fish Oil) 1,000 mg QHS PO ; Start 06/13/17 at 21:00 Non-Formulary Medication 100 mg DAILY PO ; Start 06/14/17 at 09:00; Status UNV Metoprolol Tartrate (Lopressor) 50 mg BID PO Last administered on 06/13/17 16: 03; Start 06/13/17 at 16:00 Isosorbide Mononitrate (Imdur) 30 mg DAILY PO ; Start 06/14/17 at 09:00 Labetalol HCl (Normodyne) 20 mg PRN Q2HR PRN IVP HYPERTENSION, SEE COMMENTS Last administered on 06/15/17 07:17; Start 06/13/17 at 17:45 Benzonatate (Tessalon Perle) 100 mg [id number] PO ; Start 06/13/17 at 21:00 Albuterol Sulfate (Ventolin Neb Soln) 2.5 mg PRN Q2HR PRN NEB [id number] Last administered on 06/13/17 20:05; Start 06/13/17 at 18:15 Acetaminophen/ Hydrocodone Bitart (Lortab 5/325) 1 tab PRN Q4HRS PRN PO MODERATE - SEVERE PAIN; Start 06/13/17 at 18:15 Furosemide (Lasix) 20 mg 1X ONCE IVP Last administered on 06/13/17 20:10; Start 06/13/17 at 20:00; Stop 06/13/17 at 20:02; Status DC Lorazepam (Ativan) 1 mg PRN Q4HRS PRN IV ANXIETY / AGITATION Last administered on 06/14/17 11:43; Start 06/13/17 at 20:00 Lorazepam (Ativan) 2 mg PRN Q4HRS PRN IV ANXIETY / AGITATION Last administered on 06/15/17 04:07; Start 06/13/17 at 20:00 Morphine Sulfate 2 mg PRN Q2HR PRN IV SEVERE PAIN Last administered on 06:28; Start 06/14/17 at 04:15 Haloperidol Lactate (Haldol) 5 mg PRN Q6HRS PRN IVP AGITATION Last administered on 06/14/17 14:09; Start 06/14/17 at 04:15 Methylprednisolone Sodium Succinate (SOLU-Medrol 40MG VIAL) 40 mg Q8HRS IV Last administered on 06/15/17 05:39; Start 06/14/17 at 08:15 Budesonide (Pulmicort) 0.5 mg RTBID NEB Last administered on 06/15/17 08:27; Start 06/14/17 at 09:00 Atorvastatin Calcium (Lipitor) 20 mg QHS PO ; Start 06/14/17 at 21:00 Active Scripts Active Reported Ultra Coq10 (Ubiquinone) 75 Mg Capsule 100 Mg PO DAILY [place]-3 ([place]-3 Fatty Acids) 100 Mg Tab.chew 350 Mg PO HS Isosorbide Mononitrate Er (Isosorbide Mononitrate) 60 Mg Tab.er.24h 1 Tab PO DAILY Vitamin D3 (Cholecalciferol (Vitamin D3)) 1,000 Unit Tab.chew 1,000 Unit PO DAILY Aspir 81 (Aspirin) 81 Mg Tablet.dr 1 Tab PO DAILY Xanax (Alprazolam) 0.25 Mg Tablet 1 Tab PO TID PRN Allopurinol 300 Mg Tablet 1 Tab PO QODAY Pepcid (Famotidine) 20 Mg Tablet 20 Mg PO DAILY Levothyroxine Sodium 75 Mcg Tablet 1 Tab PO DAILY Hydroxyurea 500 Mg Capsule 500 Mg PO QODAY Gabapentin 100 Mg Capsule 100 Mg PO TID Furosemide 20 Mg Tablet 1 Tab PO DAILY Vitals/I & O Vital Sign - Last 24 Hours 06/14/17 06/14/17 06/14/17 06/14/17 10:00 11:00 11:41 12:00 Temp 98.1 98.1 Pulse 96 104 100 Resp 23 25 23 B/P (MAP) 140/59 (86) 173/84 (113) 156/75 (102) Pulse Ox 94 93 97 97 O2 Delivery BiPAP/CPAP BiPAP/CPAP BiPAP/CPAP BiPAP/CPAP 06/14/17 06/14/17 06/14/17 06/14/17 12:00 12:56 13:00 14:00 Pulse 102 99 Resp 23 21 B/P (MAP) 139/56 (83) 159/87 (111) Pulse Ox 96 94 99 O2 Delivery Bi-pap BiPAP/CPAP BiPAP/CPAP Nasal Cannula O2 Flow Rate 4.0 06/14/17 06/14/17 06/14/17 06/14/17 15:00 15:11 16:00 16:00 Temp 98.5 98.5 Pulse 99 100 Resp 24 22 B/P (MAP) 119/49 (72) 145/64 (91) Pulse Ox 95 93 96 O2 Delivery Nasal Cannula Nasal Cannula Nasal Cannula Nasal Cannula O2 Flow Rate 4.0 5.0 4.0 4.0 06/14/17 06/14/17 06/14/17 06/14/17 17:00 17:19 18:00 19:00 Pulse 102 110 106 Resp 20 22 29 B/P (MAP) 135/56 (82) 156/73 (100) 120/55 (76) Pulse Ox 96 93 98 98 O2 Delivery BiPAP/CPAP BiPAP/CPAP BiPAP/CPAP BiPAP/CPAP 06/14/17 06/14/17 06/14/17 06/14/17 20:00 20:00 20:14 20:31 Temp 97.6 97.6 Pulse 123 Resp 29 38 B/P (MAP) 147/74 (98) Pulse Ox 98 94 93 O2 Delivery BiPAP/CPAP Bi-pap BiPAP/CPAP BiPAP/CPAP 06/14/17 06/14/17 06/14/17 06/14/17 21:00 21:37 22:00 22:51 Pulse 97 99 Resp 31 20 26 B/P (MAP) 104/49 (67) 111/51 (71) Pulse Ox 98 100 98 21 O2 Delivery BiPAP/CPAP BiPAP/CPAP BiPAP/CPAP BiPAP/CPAP 06/14/17 06/14/17 06/15/17 06/15/17 23:00 23:50 00:00 00:00 Temp 97.6 97.6 Pulse 94 94 Resp 20 19 B/P (MAP) 142/58 (86) 107/46 (66) Pulse Ox 100 99 98 O2 Delivery BiPAP/CPAP BiPAP/CPAP Bi-pap BiPAP/CPAP 06/15/17 06/15/17 06/15/17 06/15/17 01:00 01:45 02:00 02:30 Pulse 87 89 Resp 20 20 B/P (MAP) 122/55 (77) 123/51 (75) Pulse Ox 100 99 100 O2 Delivery BiPAP/CPAP BiPAP/CPAP BiPAP/CPAP Bi-pap 06/15/17 06/15/17 06/15/17 06/15/17 02:37 03:00 03:07 03:40 Pulse 101 Resp 21 29 19 B/P (MAP) 172/60 (97) Pulse Ox 93 100 99 99 O2 Delivery BiPAP/CPAP BiPAP/CPAP BiPAP/CPAP BiPAP/CPAP 06/15/17 06/15/17 06/15/17 06/15/17 04:00 04:00 05:00 06:00 Temp 97.0 97.0 Pulse 102 98 129 Resp 20 20 30 B/P (MAP) 196/91 (126) 154/65 (94) 222/79 (126) Pulse Ox 99 97 97 O2 Delivery BiPAP/CPAP BiPAP/CPAP BiPAP/CPAP O2 Flow Rate 4.0 06/15/17 06/15/17 06/15/17 06/15/17 06:17 06:28 07:17 08:28 Pulse 106 Resp 23 B/P (MAP) 217/107 Pulse Ox 97 97 97 O2 Delivery BiPAP/CPAP BiPAP/CPAP BiPAP/CPAP TEE TAMAYO MD Jun 15, 2017 09:45
[2017-06-15] MEDS: NITROGLYCERIN OINT 1 GM PACKET. TP SCH ×2 (12:00→18:05)
--- NOTE | 2017-06-15 16:01 | PDOC ---
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 Pt sedated, on bipap. PICC being placed Vitals Vitals Vital Signs Date Time Temp Pulse Resp B/P (MAP) Pulse Ox O2 Delivery O2 Flow Rate FiO2 06/15/17 15:34 98 BiPAP/CPAP 06/15/17 12:00 97.7 104 22 191/89 (123) 97.7 06/15/17 04:00 4.0 Physical Exam General: mild distress Heart: Regular rate Lungs: Wheezing, Other (No acute distress noted) Abdomen: Normal bowel sounds Extremities: No clubbing, No cyanosis, No edema, Normal pulses, No tenderness/ swelling Skin: No rashes, No breakdown, No significant lesion Labs LABS Laboratory Tests Test 06/15/17 04:00 06/15/17 08:00 Sodium Level 137 mmol/L (136-145) Potassium Level 4.4 mmol/L (3.5-5.1) Chloride Level 99 mmol/L (98-107) Carbon Dioxide Level 29 mmol/L (21-32) Anion Gap 9 (6-14) Blood Urea Nitrogen 38 mg/dL (7-20) Creatinine 1.1 mg/dL (0.6-1.0) Estimated GFR (Cockcroft-Gault) 47.0 Glucose Level 130 mg/dL (70-99) Calcium Level 9.6 mg/dL (8.5-10.1) White Blood Count 15.5 x10^3/uL (4.0-11.0) Red Blood Count 4.70 x10^6/uL (3.50-5.40) Hemoglobin 15.4 g/dL (12.0-15.5) Hematocrit 47.8 % (36.0-47.0) Mean Corpuscular Volume 102 fL (79-100) Mean Corpuscular Hemoglobin 33 pg (25-35) Mean Corpuscular Hemoglobin Concent 32 g/dL (31-37) Red Cell Distribution Width 15.4 % (11.5-14.5) Platelet Count 240 x10^3/uL (140-400) Neutrophils (%) (Auto) 91 % (31-73) Lymphocytes (%) (Auto) 3 % (24-48) Monocytes (%) (Auto) 6 % (0-9) Eosinophils (%) (Auto) 0 % (0-3) Basophils (%) (Auto) 0 % (0-3) Neutrophils # (Auto) 14.1 x10^3uL (1.8-7.7) Lymphocytes # (Auto) 0.4 x10^3/uL (1.0-4.8) Monocytes # (Auto) 0.9 x10^3/uL (0.0-1.1) Eosinophils # (Auto) 0.0 x10^3/uL (0.0-0.7) Basophils # (Auto) 0.0 x10^3/uL (0.0-0.2) O2 Saturation 93 % (92-99) Arterial Blood pH 7.36 (7.35-7.45) Arterial Blood pCO2 at Patient Temp 48 mmHg (35-46) Arterial Blood pO2 at Patient Temp 68 mmHg (65-108) Arterial Blood HCO3 26 mmol/L (21-28) Arterial Blood Base Excess 0 mmol/L (-3-3) FiO2 25 Review of Systems Review of Systems Pt sedated, unable to obtain ROS Assessment and Plan Assessmemt and Plan Problems Medical Problems: (1) Atrial fibrillation with RVR Status: Acute New onset A-fb RVR Hx CAD, HTN Hx elevated uric acid 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 Supportive meds 3. Cont home meds 4. Continue to monitor labs 5. Continue to follow subspecialty input & plan Problems: Comment Review of Relevant I have reviewed the following items viktor (where applicable) has been applied. Labs Laboratory Tests Test 06/13/17 19:03 06/13/17 22:00 06/14/17 04:45 06/14/17 07:25 O2 Saturation 93 % (92-99) 94 % (92-99) Arterial Blood pH 7.26 (7.35-7.45) 7.30 (7.35-7.45) Arterial Blood pCO2 at Patient Temp 67 mmHg (35-46) 58 mmHg (35-46) Arterial Blood pO2 at Patient Temp 76 mmHg (65-108) 75 mmHg (65-108) Arterial Blood HCO3 30 mmol/L (21-28) 28 mmol/L (21-28) Arterial Blood Base Excess 1 mmol/L (-3-3) 0 mmol/L (-3-3) FiO2 40 40 Nasal Screen MRSA (PCR) Positive (Negative) White Blood Count 7.7 x10^3/uL (4.0-11.0) Red Blood Count 3.83 x10^6/uL (3.50-5.40) Hemoglobin 12.8 g/dL (12.0-15.5) Hematocrit 37.8 % (36.0-47.0) Mean Corpuscular Volume 99 fL (79-100) Mean Corpuscular Hemoglobin 33 pg (25-35) Mean Corpuscular Hemoglobin Concent 34 g/dL (31-37) Red Cell Distribution Width 15.0 % (11.5-14.5) Platelet Count 205 x10^3/uL (140-400) Neutrophils (%) (Auto) 88 % (31-73) Lymphocytes (%) (Auto) 5 % (24-48) Monocytes (%) (Auto) 7 % (0-9) Eosinophils (%) (Auto) 0 % (0-3) Basophils (%) (Auto) 0 % (0-3) Neutrophils # (Auto) 6.7 x10^3uL (1.8-7.7) Lymphocytes # (Auto) 0.4 x10^3/uL (1.0-4.8) Monocytes # (Auto) 0.5 x10^3/uL (0.0-1.1) Eosinophils # (Auto) 0.0 x10^3/uL (0.0-0.7) Basophils # (Auto) 0.0 x10^3/uL (0.0-0.2) Sodium Level 131 mmol/L (136-145) Potassium Level 4.3 mmol/L (3.5-5.1) Chloride Level 95 mmol/L (98-107) Carbon Dioxide Level 25 mmol/L (21-32) Anion Gap 11 (6-14) Blood Urea Nitrogen 26 mg/dL (7-20) Creatinine 1.3 mg/dL (0.6-1.0) Estimated GFR (Cockcroft-Gault) 38.7 Glucose Level 155 mg/dL (70-99) Calcium Level 9.2 mg/dL (8.5-10.1) Magnesium Level 1.9 mg/dL (1.8-2.4) Troponin I Quantitative 0.049 ng/mL (0.000-0.055) Test 06/15/17 04:00 06/15/17 08:00 Sodium Level 137 mmol/L (136-145) Potassium Level 4.4 mmol/L (3.5-5.1) Chloride Level 99 mmol/L (98-107) Carbon Dioxide Level 29 mmol/L (21-32) Anion Gap 9 (6-14) Blood Urea Nitrogen 38 mg/dL (7-20) Creatinine 1.1 mg/dL (0.6-1.0) Estimated GFR (Cockcroft-Gault) 47.0 Glucose Level 130 mg/dL (70-99) Calcium Level 9.6 mg/dL (8.5-10.1) White Blood Count 15.5 x10^3/uL (4.0-11.0) Red Blood Count 4.70 x10^6/uL (3.50-5.40) Hemoglobin 15.4 g/dL (12.0-15.5) Hematocrit 47.8 % (36.0-47.0) Mean Corpuscular Volume 102 fL (79-100) Mean Corpuscular Hemoglobin 33 pg (25-35) Mean Corpuscular Hemoglobin Concent 32 g/dL (31-37) Red Cell Distribution Width 15.4 % (11.5-14.5) Platelet Count 240 x10^3/uL (140-400) Neutrophils (%) (Auto) 91 % (31-73) Lymphocytes (%) (Auto) 3 % (24-48) Monocytes (%) (Auto) 6 % (0-9) Eosinophils (%) (Auto) 0 % (0-3) Basophils (%) (Auto) 0 % (0-3) Neutrophils # (Auto) 14.1 x10^3uL (1.8-7.7) Lymphocytes # (Auto) 0.4 x10^3/uL (1.0-4.8) Monocytes # (Auto) 0.9 x10^3/uL (0.0-1.1) Eosinophils # (Auto) 0.0 x10^3/uL (0.0-0.7) Basophils # (Auto) 0.0 x10^3/uL (0.0-0.2) O2 Saturation 93 % (92-99) Arterial Blood pH 7.36 (7.35-7.45) Arterial Blood pCO2 at Patient Temp 48 mmHg (35-46) Arterial Blood pO2 at Patient Temp 68 mmHg (65-108) Arterial Blood HCO3 26 mmol/L (21-28) Arterial Blood Base Excess 0 mmol/L (-3-3) FiO2 25 Laboratory Tests Test 06/15/17 04:00 06/15/17 08:00 Sodium Level 137 mmol/L (136-145) Potassium Level 4.4 mmol/L (3.5-5.1) Chloride Level 99 mmol/L (98-107) Carbon Dioxide Level 29 mmol/L (21-32) Anion Gap 9 (6-14) Blood Urea Nitrogen 38 mg/dL (7-20) Creatinine 1.1 mg/dL (0.6-1.0) Estimated GFR (Cockcroft-Gault) 47.0 Glucose Level 130 mg/dL (70-99) Calcium Level 9.6 mg/dL (8.5-10.1) White Blood Count 15.5 x10^3/uL (4.0-11.0) Red Blood Count 4.70 x10^6/uL (3.50-5.40) Hemoglobin 15.4 g/dL (12.0-15.5) Hematocrit 47.8 % (36.0-47.0) Mean Corpuscular Volume 102 fL (79-100) Mean Corpuscular Hemoglobin 33 pg (25-35) Mean Corpuscular Hemoglobin Concent 32 g/dL (31-37) Red Cell Distribution Width 15.4 % (11.5-14.5) Platelet Count 240 x10^3/uL (140-400) Neutrophils (%) (Auto) 91 % (31-73) Lymphocytes (%) (Auto) 3 % (24-48) Monocytes (%) (Auto) 6 % (0-9) Eosinophils (%) (Auto) 0 % (0-3) Basophils (%) (Auto) 0 % (0-3) Neutrophils # (Auto) 14.1 x10^3uL (1.8-7.7) Lymphocytes # (Auto) 0.4 x10^3/uL (1.0-4.8) Monocytes # (Auto) 0.9 x10^3/uL (0.0-1.1) Eosinophils # (Auto) 0.0 x10^3/uL (0.0-0.7) Basophils # (Auto) 0.0 x10^3/uL (0.0-0.2) O2 Saturation 93 % (92-99) Arterial Blood pH 7.36 (7.35-7.45) Arterial Blood pCO2 at Patient Temp 48 mmHg (35-46) Arterial Blood pO2 at Patient Temp 68 mmHg (65-108) Arterial Blood HCO3 26 mmol/L (21-28) Arterial Blood Base Excess 0 mmol/L (-3-3) FiO2 25 Medications Current Medications Albuterol/ Ipratropium (Duoneb) 3 ml STK-MED ONCE .ROUTE ; Start 06/13/17 at 08: 12; Stop 06/13/17 at 08:13; Status DC Albuterol/ Ipratropium (Duoneb) 3 ml 1X ONCE NEB Last administered on 08:15; Start 06/13/17 at 08:15; Stop 06/13/17 at 08:20; Status DC Methylprednisolone Sodium Succinate (SOLU-Medrol 125MG VIAL) 125 mg 1X ONCE IV Last administered on 06/13/17 08:22; Start 06/13/17 at 08:15; Stop 06/13/17 at 08:20; Status DC Diltiazem HCl (Cardizem) 10 mg 1X ONCE IVP Last administered on 06/13/17 08: 31; Start 06/13/17 at 08:15; Stop 06/13/17 at 08:29; Status DC Diltiazem HCl (Cardizem) 10 mg 1X ONCE IVP ; Start 06/13/17 at 08:15; Stop at 08:16; Status Cancel Diltiazem HCl 125 mg/Dextrose 125 ml @ 0 mls/hr 1X ONCE IV Last administered on 06/13/17 08:43; Start 06/13/17 at 08:15; Stop 06/13/17 at 14:48; Status DC Aspirin (Children'S Aspirin) 324 mg 1X ONCE PO Last administered on 06/13/17 08:47; Start 06/13/17 at 08:45; Stop 06/13/17 at 08:46; Status DC Ondansetron HCl (Zofran) 4 mg PRN Q8HRS PRN IV NAUSEA/VOMITING; Start 06/13/17 at 08:45; Stop 06/13/17 at 10:18; Status DC Guaifenesin (Robitussin Dm) 10 ml PRN Q6HRS PRN PO COUGH Last administered on 17:46; Start 06/13/17 at 10:00 Albuterol/ Ipratropium (Duoneb) 3 ml RTQID NEB Last administered on 06/15/17 15:34; Start 06/13/17 at 12:00 Ondansetron HCl (Zofran) 4 mg PRN Q6HRS PRN IV NAUSEA/VOMITING Last administered on 06/13/17 17:45; Start 06/13/17 at 10:30; Stop 06/14/17 at 10:29 ; Status DC Acetaminophen (Tylenol) 500 mg PRN Q6HRS PRN PO MILD PAIN / TEMP Last administered on 06/13/17 16:02; Start 06/13/17 at 10:30 Furosemide (Lasix) 20 mg 1X ONCE IVP Last administered on 06/13/17 11:03; Start 06/13/17 at 10:15; Stop 06/13/17 at 10:22; Status DC Digoxin (Lanoxin) 250 mcg 1X ONCE IV Last administered on 06/13/17 11:03; Start 06/13/17 at 10:30; Stop 06/13/17 at 10:31; Status DC Aspirin (Ecotrin) 81 mg DAILYWBKFT PO Last administered on 06/13/17 11:03; Start 06/13/17 at 12:00 Alprazolam (Xanax) 0.5 mg PRN Q8HRS PRN PO ANXIETY / AGITATION Last administered on 06/13/17 11:47; Start 06/13/17 at 11:45 Info (Do NOT chart on this placeholder) 1 each 1X ONCE MC ; Start 06/13/17 at 13:15; Stop 06/13/17 at 13:16; Status UNV Allopurinol (Zyloprim) 300 mg QODAY PO ; Start 06/14/17 at 09:00 Alprazolam (Xanax) 0.25 mg TID PRN PO ANXIETY / AGITATION; Start 06/13/17 at 14 :15; Status UNV Aspirin (Ecotrin) 81 mg DAILYWBKFT PO ; Start 06/14/17 at 08:00; Status UNV Famotidine (Pepcid) 20 mg DAILY PO ; Start 06/14/17 at 09:00 Furosemide (Lasix) 20 mg DAILY PO ; Start 06/14/17 at 09:00; Stop 06/14/17 at 09 :00; Status DC Gabapentin (Neurontin) 100 mg TID PO Last administered on 06/13/17 16:02; Start 06/13/17 at 15:30 Hydroxyurea (Hydrea) 500 mg QODAY PO ; Start 06/14/17 at 09:00 Levothyroxine Sodium (Synthroid) 75 mcg DAILY07 PO ; Start 06/14/17 at 07:00 Vitamin D (Vitamin D3) 1,000 unit DAILY PO ; Start 06/14/17 at 09:00 Isosorbide Mononitrate (Imdur) 60 mg DAILY PO ; Start 06/14/17 at 09:00; Stop at 09:00; Status DC Fish Oil (Fish Oil) 1,000 mg QHS PO ; Start 06/13/17 at 21:00 Non-Formulary Medication 100 mg DAILY PO ; Start 06/14/17 at 09:00; Status UNV Metoprolol Tartrate (Lopressor) 50 mg BID PO Last administered on 06/13/17 16: 03; Start 06/13/17 at 16:00 Isosorbide Mononitrate (Imdur) 30 mg DAILY PO ; Start 06/14/17 at 09:00; Stop at 09:48; Status DC Labetalol HCl (Normodyne) 20 mg PRN Q2HR PRN IVP HYPERTENSION, SEE COMMENTS Last administered on 06/15/17 07:17; Start 06/13/17 at 17:45 Benzonatate (Tessalon Perle) 100 mg [id number] PO ; Start 06/13/17 at 21:00 Albuterol Sulfate (Ventolin Neb Soln) 2.5 mg PRN Q2HR PRN NEB [id number] Last administered on 06/13/17 20:05; Start 06/13/17 at 18:15 Acetaminophen/ Hydrocodone Bitart (Lortab 5/325) 1 tab PRN Q4HRS PRN PO MODERATE - SEVERE PAIN; Start 06/13/17 at 18:15 Furosemide (Lasix) 20 mg 1X ONCE IVP Last administered on 06/13/17 20:10; Start 06/13/17 at 20:00; Stop 06/13/17 at 20:02; Status DC Lorazepam (Ativan) 1 mg PRN Q4HRS PRN IV ANXIETY / AGITATION Last administered on 06/14/17 11:43; Start 06/13/17 at 20:00 Lorazepam (Ativan) 2 mg PRN Q4HRS PRN IV ANXIETY / AGITATION Last administered on 06/15/17 04:07; Start 06/13/17 at 20:00 Morphine Sulfate 2 mg PRN Q2HR PRN IV SEVERE PAIN Last administered on 06:28; Start 06/14/17 at 04:15 Haloperidol Lactate (Haldol) 5 mg PRN Q6HRS PRN IVP AGITATION Last administered on 06/14/17 14:09; Start 06/14/17 at 04:15 Methylprednisolone Sodium Succinate (SOLU-Medrol 40MG VIAL) 40 mg Q8HRS IV Last administered on 06/15/17 05:39; Start 06/14/17 at 08:15 Budesonide (Pulmicort) 0.5 mg RTBID NEB Last administered on 06/15/17 08:27; Start 06/14/17 at 09:00 Atorvastatin Calcium (Lipitor) 20 mg QHS PO ; Start 06/14/17 at 21:00 Isosorbide Mononitrate (Imdur) 60 mg DAILY PO ; Start 06/16/17 at 09:00; Stop at 09:00; Status DC Amlodipine Besylate (Norvasc) 5 mg DAILY PO ; Start 06/15/17 at 09:45 Nitroglycerin (Nitro-Bid Oint) 1 inch Q6HRS TP ; Start 06/15/17 at 12:00 Active Scripts Active Reported Ultra Coq10 (Ubiquinone) 75 Mg Capsule 100 Mg PO DAILY [place]-3 ([place]-3 Fatty Acids) 100 Mg Tab.chew 350 Mg PO HS Isosorbide Mononitrate Er (Isosorbide Mononitrate) 60 Mg Tab.er.24h 1 Tab PO DAILY Vitamin D3 (Cholecalciferol (Vitamin D3)) 1,000 Unit Tab.chew 1,000 Unit PO DAILY Aspir 81 (Aspirin) 81 Mg Tablet.dr 1 Tab PO DAILY Xanax (Alprazolam) 0.25 Mg Tablet 1 Tab PO TID PRN Allopurinol 300 Mg Tablet 1 Tab PO QODAY Pepcid (Famotidine) 20 Mg Tablet 20 Mg PO DAILY Levothyroxine Sodium 75 Mcg Tablet 1 Tab PO DAILY Hydroxyurea 500 Mg Capsule 500 Mg PO QODAY Gabapentin 100 Mg Capsule 100 Mg PO TID Furosemide 20 Mg Tablet 1 Tab PO DAILY Vitals/I & O Vital Sign - Last 24 Hours 06/14/17 06/14/17 06/14/17 06/14/17 16:00 16:00 17:00 17:19 Temp 98.5 98.5 Pulse 100 102 Resp 22 20 B/P (MAP) 145/64 (91) 135/56 (82) Pulse Ox 96 96 93 O2 Delivery Nasal Cannula Nasal Cannula BiPAP/CPAP BiPAP/CPAP O2 Flow Rate 4.0 4.0 06/14/17 06/14/17 06/14/17 06/14/17 18:00 19:00 20:00 20:00 Temp 97.6 97.6 Pulse 110 106 123 Resp 22 29 29 B/P (MAP) 156/73 (100) 120/55 (76) 147/74 (98) Pulse Ox 98 98 98 O2 Delivery BiPAP/CPAP BiPAP/CPAP BiPAP/CPAP Bi-pap 06/14/17 06/14/17 06/14/17 06/14/17 20:14 20:31 21:00 21:37 Pulse 97 Resp 38 31 B/P (MAP) 104/49 (67) Pulse Ox 94 93 98 100 O2 Delivery BiPAP/CPAP BiPAP/CPAP BiPAP/CPAP BiPAP/CPAP 06/14/17 06/14/17 06/14/17 06/14/17 22:00 22:51 23:00 23:50 Pulse 99 94 Resp 20 26 20 B/P (MAP) 111/51 (71) 142/58 (86) Pulse Ox 98 21 100 99 O2 Delivery BiPAP/CPAP BiPAP/CPAP BiPAP/CPAP BiPAP/CPAP 906/15/17 06/15/17 06/15/17 00:00 00:00 01:00 01:45 Temp 97.6 97.6 Pulse 94 87 Resp 19 20 B/P (MAP) 107/46 (66) 122/55 (77) Pulse Ox 98 100 99 O2 Delivery Bi-pap BiPAP/CPAP BiPAP/CPAP BiPAP/CPAP 06/15/17 06/15/17 06/15/17 06/15/17 02:00 02:30 02:37 03:00 Pulse 89 101 Resp 20 21 29 B/P (MAP) 123/51 (75) 172/60 (97) Pulse Ox 100 93 100 O2 Delivery BiPAP/CPAP Bi-pap BiPAP/CPAP BiPAP/CPAP 06/15/17 06/15/17 06/15/17 06/15/17 03:07 03:40 04:00 04:00 Temp 97.0 97.0 Pulse 102 Resp 19 20 B/P (MAP) 196/91 (126) Pulse Ox 99 99 99 O2 Delivery BiPAP/CPAP BiPAP/CPAP BiPAP/CPAP O2 Flow Rate 4.0 06/15/17 06/15/17 06/15/17 06/15/17 05:00 06:00 06:17 06:28 Pulse 98 129 Resp 20 30 23 B/P (MAP) 154/65 (94) 222/79 (126) Pulse Ox 97 97 97 97 O2 Delivery BiPAP/CPAP BiPAP/CPAP BiPAP/CPAP BiPAP/CPAP 06/15/17 06/15/17 06/15/17 06/15/17 07:00 07:17 07:30 08:00 Pulse 116 106 96 Resp 28 21 B/P (MAP) 217/107 (143) 217/107 157/75 (102) Pulse Ox 98 98 O2 Delivery BiPAP/CPAP BiPAP/CPAP Bi-pap 06/15/17 06/15/17 06/15/17 06/15/17 08:00 08:28 09:00 10:00 Temp 97.6 97.6 Pulse 100 104 94 Resp 22 31 31 B/P (MAP) 204/92 (129) 211/95 (133) 150/75 (100) Pulse Ox 97 97 93 97 O2 Delivery BiPAP/CPAP BiPAP/CPAP BiPAP/CPAP BiPAP/CPAP 06/15/17 06/15/17 06/15/17 06/15/17 10:07 11:00 11:30 12:00 Pulse 93 Resp 18 B/P (MAP) 140/60 (86) Pulse Ox 97 100 97 O2 Delivery BiPAP/CPAP BiPAP/CPAP BiPAP/CPAP Bi-pap 06/15/17 06/15/17 12:00 15:34 Temp 97.7 97.7 Pulse 104 Resp 22 B/P (MAP) 191/89 (123) Pulse Ox 100 98 O2 Delivery BiPAP/CPAP BiPAP/CPAP Intake and Output 06/15/17 06/15/17 06/16/17 15:00 23:00 07:00 Output Total 250 ml Balance -250 ml BLANCA GENAO III DO Jun 15, 2017 16:01
--- NOTE | 2017-06-15 16:25 | PDOC4 ---
PROCEDURE Procedure PROCEDURE NOTE I WAS CALLED BY THE RN THAT THEY NEEDED IV ACCESS WITH A CENTRAL LINE FOR THIS PT IN THE ICU. MULTIPLE PEOPLE HAD TRIED FOR IV ACCESS AND A PICC LINE BUT UNABLE TO GET A LINE IN. THE OTHER ATTENDINGS IN THE CASE OKAYED FOR INSERTION OF A CENTRAL LINE. CONSENT WAS OBTAINED FROM THE FAMILY OVER THE PHONE BY RN. USING POWER REGULATOR. AND WITH A SELDINGER APPROACH A TRIPLE LUMEN CATHETER WAS INSERTED IN THE LEFT SUBCLAVIAN VEIN. ALL 3 LUMENS ASPIRATE AND FLUSH WELL. CXR WAS CHECKED AND THE LINE IS IN GOOD POSITION, NO PNEUMOTHORAX SEEN. PT TOLERATED THE PROCEDURE WELL. THIS WAS DONE IN THE ICU AT THE BEDSIDE. KENTRELL HAMMOND MD Jun 15, 2017 16:25
--- NOTE | 2017-06-15 16:30 | RAD ---
Chest radiograph 06/15/2017 3:59 PM Indication: Central line placement Comparison: Chest radiograph 06/14/2017 Technique: Single portable upright frontal view of the chest is provided. Findings: A left subclavian approach central venous catheter is identified with the distal tip projecting over the superior vena cava, curved cephalad, likely within the azygos vein. Median sternotomy changes are present. Cardiomediastinal silhouette is similar in appearance. There is a left basilar airspace disease, unchanged. Possible trace right pleural effusion. No pulmonary vascular congestion or pneumothorax. Impression: Left subclavian approach central venous catheter is identified with the distal tip projecting over the superior vena cava, curved and likely within the azygos vein. No pneumothorax. Critical results were discussed with Dr. Henry on 06/15/2017 at 4:27 PM.
[2017-06-15] MEDS: OMEGA-3 FATTY ACIDS/FISH OIL 1,000 MG CAPSULE. PO SCH (21:00)
[2017-06-15] MEDS: ATORVASTATIN CALCIUM 20 MG TABLET PO SCH (21:00)
[2017-06-15] MEDS: HALOPERIDOL LACTATE 5 MG/ML VIAL. IVP PRN (21:55)
[2017-06-16] VITALS (23 sets, daily range): BP systolic 90–163; BP diastolic 55–95
[2017-06-16] MEDS: methylPREDNISolone SOD SUCC PF 40 MG/ML VIAL. IV SCH (05:08)
[2017-06-16 05:30] LABS: BASO % 0 % (0-3); EOS % 0 % (0-3); HEMATOCRIT 38.2 % (36.0-47.0); HEMOGLOBIN 12.9 g/dL (12.0-15.5); LYMPH # 0.5 x10^3/uL (1.0-4.8); LYMPH % 4 % (24-48); MEAN CORPUSCULAR HEMOGLOBIN 33 pg (25-35); MEAN CORPUSCULAR HGB CONC 34 g/dL (31-37); MEAN CORPUSCULAR VOLUME 98 fL (79-100); MONO % 7 % (0-9); NEUT % 89 % (31-73); PLATELET COUNT 270 x10^3/uL (140-400); RED BLOOD COUNT 3.88 x10^6/uL (3.50-5.40); RED CELL DISTRIBUTION WIDTH 15.2 % (11.5-14.5); WHITE BLOOD COUNT 12.4 x10^3/uL (4.0-11.0)
[2017-06-16 05:52] LABS: CALCIUM 9.8 mg/dL (8.5-10.1); CREATININE 1.1 mg/dL (0.6-1.0); POTASSIUM 3.8 mmol/L (3.5-5.1)
[2017-06-16] MEDS: LEVOTHYROXINE 75 MCG TABLET PO SCH (06:12)
[2017-06-16] MEDS: ASPIRIN ENTERIC COATED 81 MG TABLET.DR. PO SCH (08:00)
[2017-06-16] MEDS: ALLOPURINOL 300 MG TABLET. PO SCH (08:29)
[2017-06-16] MEDS: HYDROXYUREA 500 MG CAPSULE PO SCH (08:29)
[2017-06-16] MEDS: amLODIPine BESYLATE 5 MG TABLET PO SCH (08:29)
[2017-06-16] MEDS: METOPROLOL TART IMMED RELEASE 50 MG TABLET. PO SCH ×2 (08:29→20:56)
[2017-06-16] MEDS: FAMOTIDINE 20 MG TABLET. PO SCH (08:29)
[2017-06-16] MEDS: CHOLECALCIFEROL (VITAMIN D3) 1,000 UNIT TABLET PO SCH (08:29)
[2017-06-16] MEDS: GABAPENTIN 100 MG CAPSULE. PO SCH ×3 (08:29→20:56)
[2017-06-16] MEDS: BENZONATATE 100 MG CAPSULE. PO SCH ×3 (08:29→20:56)
[2017-06-16] MEDS: BUDESONIDE 0.5 MG/2 ML NEBU. NEB SCH ×2 (08:53→19:05)
[2017-06-16] MEDS: IPRATRPIUM/ALBUTEROL 0.5/2.5MG 3 ML NEBU. NEB SCH ×4 (08:53→19:04)
[2017-06-16] MEDS ORDERED: ISOSORBIDE MONONITRATE ER 30 MG TAB.ER.24H PO SCH (09:00)
[2017-06-16 09:08] LABS: HCO3 ABG 24 mmol/L (21-28); PCO2 ABG 37 mmHg (35-46); PH ABG 7.43 (7.35-7.45); PO2 ABG 63 mmHg (65-108); SAT O2 ABG 92 % (92-99)
--- NOTE | 2017-06-16 11:13 | PDOC ---
PULMONARY PROGRESS NOTES Subjective off BIPAP lethargic, arousable Vitals Vital Signs Date Time Temp Pulse Resp B/P (MAP) Pulse Ox O2 Delivery O2 Flow Rate FiO2 06/16/17 09:00 96 Nasal Cannula 3.0 06/16/17 06:00 106 22 127/70 (89) 06/16/17 05:20 98.0 98.0 Comments ros, as mentioned as above, discussed w rn, other sys otherwise neg General: Lethargic HEENT: Other (nc at perrl, bipap mask on, neck, no lap, thyromegaly) Lungs: Other (clear) Cardiovascular: S1, S2 Abdomen: Soft, Non-tender, Other (no mass) Extremities: No Edema Skin: Warm Labs Laboratory Tests Test 06/15/17 04:00 06/15/17 08:00 06/16/17 05:20 06/16/17 09:00 Sodium Level 137 mmol/L (136-145) 140 mmol/L (136-145) Potassium Level 4.4 mmol/L (3.5-5.1) 3.8 mmol/L (3.5-5.1) Chloride Level 99 mmol/L (98-107) 103 mmol/L (98-107) Carbon Dioxide Level 29 mmol/L (21-32) 27 mmol/L (21-32) Anion Gap 9 (6-14) 10 (6-14) Blood Urea Nitrogen 38 mg/dL (7-20) 53 mg/dL (7-20) Creatinine 1.1 mg/dL (0.6-1.0) 1.1 mg/dL (0.6-1.0) Estimated GFR (Cockcroft-Gault) 47.0 47.0 Glucose Level 130 mg/dL (70-99) 166 mg/dL (70-99) Calcium Level 9.6 mg/dL (8.5-10.1) 9.8 mg/dL (8.5-10.1) White Blood Count 15.5 x10^3/uL (4.0-11.0) 12.4 x10^3/uL (4.0-11.0) Red Blood Count 4.70 x10^6/uL (3.50-5.40) 3.88 x10^6/uL (3.50-5.40) Hemoglobin 15.4 g/dL (12.0-15.5) 12.9 g/dL (12.0-15.5) Hematocrit 47.8 % (36.0-47.0) 38.2 % (36.0-47.0) Mean Corpuscular Volume 102 fL (79-100) 98 fL (79-100) Mean Corpuscular Hemoglobin 33 pg (25-35) 33 pg (25-35) Mean Corpuscular Hemoglobin Concent 32 g/dL (31-37) 34 g/dL (31-37) Red Cell Distribution Width 15.4 % (11.5-14.5) 15.2 % (11.5-14.5) Platelet Count 240 x10^3/uL (140-400) 270 x10^3/uL (140-400) Neutrophils (%) (Auto) 91 % (31-73) 89 % (31-73) Lymphocytes (%) (Auto) 3 % (24-48) 4 % (24-48) Monocytes (%) (Auto) 6 % (0-9) 7 % (0-9) Eosinophils (%) (Auto) 0 % (0-3) 0 % (0-3) Basophils (%) (Auto) 0 % (0-3) 0 % (0-3) Neutrophils # (Auto) 14.1 x10^3uL (1.8-7.7) 11.0 x10^3uL (1.8-7.7) Lymphocytes # (Auto) 0.4 x10^3/uL (1.0-4.8) 0.5 x10^3/uL (1.0-4.8) Monocytes # (Auto) 0.9 x10^3/uL (0.0-1.1) 0.9 x10^3/uL (0.0-1.1) Eosinophils # (Auto) 0.0 x10^3/uL (0.0-0.7) 0.0 x10^3/uL (0.0-0.7) Basophils # (Auto) 0.0 x10^3/uL (0.0-0.2) 0.0 x10^3/uL (0.0-0.2) O2 Saturation 93 % (92-99) 92 % (92-99) Arterial Blood pH 7.36 (7.35-7.45) 7.43 (7.35-7.45) Arterial Blood pCO2 at Patient Temp 48 mmHg (35-46) 37 mmHg (35-46) Arterial Blood pO2 at Patient Temp 68 mmHg (65-108) 63 mmHg (65-108) Arterial Blood HCO3 26 mmol/L (21-28) 24 mmol/L (21-28) Arterial Blood Base Excess 0 mmol/L (-3-3) 0 mmol/L (-3-3) FiO2 25 3 lpm nc Magnesium Level 2.4 mg/dL (1.8-2.4) Laboratory Tests Test 06/16/17 05:20 06/16/17 09:00 White Blood Count 12.4 x10^3/uL (4.0-11.0) Red Blood Count 3.88 x10^6/uL (3.50-5.40) Hemoglobin 12.9 g/dL (12.0-15.5) Hematocrit 38.2 % (36.0-47.0) Mean Corpuscular Volume 98 fL (79-100) Mean Corpuscular Hemoglobin 33 pg (25-35) Mean Corpuscular Hemoglobin Concent 34 g/dL (31-37) Red Cell Distribution Width 15.2 % (11.5-14.5) Platelet Count 270 x10^3/uL (140-400) Neutrophils (%) (Auto) 89 % (31-73) Lymphocytes (%) (Auto) 4 % (24-48) Monocytes (%) (Auto) 7 % (0-9) Eosinophils (%) (Auto) 0 % (0-3) Basophils (%) (Auto) 0 % (0-3) Neutrophils # (Auto) 11.0 x10^3uL (1.8-7.7) Lymphocytes # (Auto) 0.5 x10^3/uL (1.0-4.8) Monocytes # (Auto) 0.9 x10^3/uL (0.0-1.1) Eosinophils # (Auto) 0.0 x10^3/uL (0.0-0.7) Basophils # (Auto) 0.0 x10^3/uL (0.0-0.2) Sodium Level 140 mmol/L (136-145) Potassium Level 3.8 mmol/L (3.5-5.1) Chloride Level 103 mmol/L (98-107) Carbon Dioxide Level 27 mmol/L (21-32) Anion Gap 10 (6-14) Blood Urea Nitrogen 53 mg/dL (7-20) Creatinine 1.1 mg/dL (0.6-1.0) Estimated GFR (Cockcroft-Gault) 47.0 Glucose Level 166 mg/dL (70-99) Calcium Level 9.8 mg/dL (8.5-10.1) Magnesium Level 2.4 mg/dL (1.8-2.4) O2 Saturation 92 % (92-99) Arterial Blood pH 7.43 (7.35-7.45) Arterial Blood pCO2 at Patient Temp 37 mmHg (35-46) Arterial Blood pO2 at Patient Temp 63 mmHg (65-108) Arterial Blood HCO3 24 mmol/L (21-28) Arterial Blood Base Excess 0 mmol/L (-3-3) FiO2 3 lpm nc Medications Active Scripts Medications Dose Route/Sig Max Daily Dose Days Date Category Ultra Coq10 (Ubiquinone) 75 Mg Capsule 100 Mg PO DAILY 06/13/17 Reported [place]-3 ([place]-3 Fatty Acids) 100 Mg Tab.chew 350 Mg PO HS 06/13/17 Reported Isosorbide Mononitrate Er (Isosorbide Mononitrate) 60 Mg Tab.er.24h 1 Tab PO DAILY 06/13/17 Reported Vitamin D3 (Cholecalciferol (Vitamin D3)) 1,000 Unit Tab.chew 1,000 Unit PO DAILY 06/13/17 Reported Aspir 81 (Aspirin) 81 Mg Tablet.dr 1 Tab PO DAILY 06/13/17 Reported Xanax (Alprazolam) 0.25 Mg Tablet 1 Tab PO TID PRN 06/13/17 Reported Allopurinol 300 Mg Tablet 1 Tab PO QODAY 06/13/17 Reported Pepcid (Famotidine) 20 Mg Tablet 20 Mg PO DAILY 06/13/17 Reported Levothyroxine Sodium 75 Mcg Tablet 1 Tab PO DAILY 06/13/17 Reported Hydroxyurea 500 Mg Capsule 500 Mg PO QODAY 06/13/17 Reported Gabapentin 100 Mg Capsule 100 Mg PO TID 06/13/17 Reported Furosemide 20 Mg Tablet 1 Tab PO DAILY 06/13/17 Reported Comments cxr reviewed, atelectasis Impression . 1. Acute hypercapnic respiratory failure, multifactorial. 2. Acute exacerbation of chronic obstructive pulmonary disease in a patient who has never smoked, 3. Acute nonspecific bronchitis. 4. New onset atrial fibrillation with rapid ventricular response, 5. Coronary artery disease. 6. Hyperthyroidism. 7. Generalized anxiety. 8. Suspect silent aspiration leading to cough. 9. Abnormal CXR with left subclavian catheter in azygous vein, Dr Henry aware Plan . 1. d/w daughter. she attributes her confusion to steroids. will dc today.not wheezing 2. prn BIPAP 3. Mionimize sedatives and narcotics 4. start enteral nutrition, not able to eat. azotemia increased 5. Speech evaluation when resp status more stable. 6. cont bronchodilators. 7. monitor cxr as needed 8. f/u BUN/ IVF today 9. discussed w RN/daughter CORNELLENRIQUE VASQUEZPEDRO Bishop MD Jun 16, 2017 11:13
[2017-06-16] MEDS ORDERED: IV NORMAL SALINE 500ML BAG 500 ML IV ONE (11:45)
--- NOTE | 2017-06-16 12:02 | PDOC ---
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 Triple lumen catheter present in left subclavian vein. SCD present on R leg. Blood pressure cuff on left thigh because of bruising in left arm. Patient occasionally moves arms but is not otherwise communicative. Vitals Vitals Vital Signs Date Time Temp Pulse Resp B/P (MAP) Pulse Ox O2 Delivery O2 Flow Rate FiO2 06/16/17 11:30 96 Nasal Cannula 3.0 06/16/17 06:00 106 22 127/70 (89) 06/16/17 05:20 98.0 98.0 Physical Exam General: No acute distress, mild distress Heart: Regular rate Lungs: Other (clear) Abdomen: Normal bowel sounds Extremities: No clubbing, No cyanosis, No edema, Normal pulses, No tenderness/ swelling Skin: No rashes, No breakdown, No significant lesion Labs LABS Laboratory Tests Test 06/16/17 05:20 06/16/17 09:00 White Blood Count 12.4 x10^3/uL (4.0-11.0) Red Blood Count 3.88 x10^6/uL (3.50-5.40) Hemoglobin 12.9 g/dL (12.0-15.5) Hematocrit 38.2 % (36.0-47.0) Mean Corpuscular Volume 98 fL (79-100) Mean Corpuscular Hemoglobin 33 pg (25-35) Mean Corpuscular Hemoglobin Concent 34 g/dL (31-37) Red Cell Distribution Width 15.2 % (11.5-14.5) Platelet Count 270 x10^3/uL (140-400) Neutrophils (%) (Auto) 89 % (31-73) Lymphocytes (%) (Auto) 4 % (24-48) Monocytes (%) (Auto) 7 % (0-9) Eosinophils (%) (Auto) 0 % (0-3) Basophils (%) (Auto) 0 % (0-3) Neutrophils # (Auto) 11.0 x10^3uL (1.8-7.7) Lymphocytes # (Auto) 0.5 x10^3/uL (1.0-4.8) Monocytes # (Auto) 0.9 x10^3/uL (0.0-1.1) Eosinophils # (Auto) 0.0 x10^3/uL (0.0-0.7) Basophils # (Auto) 0.0 x10^3/uL (0.0-0.2) Sodium Level 140 mmol/L (136-145) Potassium Level 3.8 mmol/L (3.5-5.1) Chloride Level 103 mmol/L (98-107) Carbon Dioxide Level 27 mmol/L (21-32) Anion Gap 10 (6-14) Blood Urea Nitrogen 53 mg/dL (7-20) Creatinine 1.1 mg/dL (0.6-1.0) Estimated GFR (Cockcroft-Gault) 47.0 Glucose Level 166 mg/dL (70-99) Calcium Level 9.8 mg/dL (8.5-10.1) Magnesium Level 2.4 mg/dL (1.8-2.4) O2 Saturation 92 % (92-99) Arterial Blood pH 7.43 (7.35-7.45) Arterial Blood pCO2 at Patient Temp 37 mmHg (35-46) Arterial Blood pO2 at Patient Temp 63 mmHg (65-108) Arterial Blood HCO3 24 mmol/L (21-28) Arterial Blood Base Excess 0 mmol/L (-3-3) FiO2 3 lpm nc Review of Systems Review of Systems ROS unable to be obtained because of patients altered mental status. 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 Continue with hand mitts 2. begin procalamine 50cc/hr 3. begin IV metoprolol 4. Consult palliative care 5. monitor left arm for resolution of bruising Problems: Comment Review of Relevant I have reviewed the following items viktor (where applicable) has been applied. Labs Laboratory Tests Test 06/15/17 04:00 06/15/17 08:00 06/16/17 05:20 06/16/17 09:00 Sodium Level 137 mmol/L (136-145) 140 mmol/L (136-145) Potassium Level 4.4 mmol/L (3.5-5.1) 3.8 mmol/L (3.5-5.1) Chloride Level 99 mmol/L (98-107) 103 mmol/L (98-107) Carbon Dioxide Level 29 mmol/L (21-32) 27 mmol/L (21-32) Anion Gap 9 (6-14) 10 (6-14) Blood Urea Nitrogen 38 mg/dL (7-20) 53 mg/dL (7-20) Creatinine 1.1 mg/dL (0.6-1.0) 1.1 mg/dL (0.6-1.0) Estimated GFR (Cockcroft-Gault) 47.0 47.0 Glucose Level 130 mg/dL (70-99) 166 mg/dL (70-99) Calcium Level 9.6 mg/dL (8.5-10.1) 9.8 mg/dL (8.5-10.1) White Blood Count 15.5 x10^3/uL (4.0-11.0) 12.4 x10^3/uL (4.0-11.0) Red Blood Count 4.70 x10^6/uL (3.50-5.40) 3.88 x10^6/uL (3.50-5.40) Hemoglobin 15.4 g/dL (12.0-15.5) 12.9 g/dL (12.0-15.5) Hematocrit 47.8 % (36.0-47.0) 38.2 % (36.0-47.0) Mean Corpuscular Volume 102 fL (79-100) 98 fL (79-100) Mean Corpuscular Hemoglobin 33 pg (25-35) 33 pg (25-35) Mean Corpuscular Hemoglobin Concent 32 g/dL (31-37) 34 g/dL (31-37) Red Cell Distribution Width 15.4 % (11.5-14.5) 15.2 % (11.5-14.5) Platelet Count 240 x10^3/uL (140-400) 270 x10^3/uL (140-400) Neutrophils (%) (Auto) 91 % (31-73) 89 % (31-73) Lymphocytes (%) (Auto) 3 % (24-48) 4 % (24-48) Monocytes (%) (Auto) 6 % (0-9) 7 % (0-9) Eosinophils (%) (Auto) 0 % (0-3) 0 % (0-3) Basophils (%) (Auto) 0 % (0-3) 0 % (0-3) Neutrophils # (Auto) 14.1 x10^3uL (1.8-7.7) 11.0 x10^3uL (1.8-7.7) Lymphocytes # (Auto) 0.4 x10^3/uL (1.0-4.8) 0.5 x10^3/uL (1.0-4.8) Monocytes # (Auto) 0.9 x10^3/uL (0.0-1.1) 0.9 x10^3/uL (0.0-1.1) Eosinophils # (Auto) 0.0 x10^3/uL (0.0-0.7) 0.0 x10^3/uL (0.0-0.7) Basophils # (Auto) 0.0 x10^3/uL (0.0-0.2) 0.0 x10^3/uL (0.0-0.2) O2 Saturation 93 % (92-99) 92 % (92-99) Arterial Blood pH 7.36 (7.35-7.45) 7.43 (7.35-7.45) Arterial Blood pCO2 at Patient Temp 48 mmHg (35-46) 37 mmHg (35-46) Arterial Blood pO2 at Patient Temp 68 mmHg (65-108) 63 mmHg (65-108) Arterial Blood HCO3 26 mmol/L (21-28) 24 mmol/L (21-28) Arterial Blood Base Excess 0 mmol/L (-3-3) 0 mmol/L (-3-3) FiO2 25 3 lpm nc Magnesium Level 2.4 mg/dL (1.8-2.4) Laboratory Tests Test 06/16/17 05:20 06/16/17 09:00 White Blood Count 12.4 x10^3/uL (4.0-11.0) Red Blood Count 3.88 x10^6/uL (3.50-5.40) Hemoglobin 12.9 g/dL (12.0-15.5) Hematocrit 38.2 % (36.0-47.0) Mean Corpuscular Volume 98 fL (79-100) Mean Corpuscular Hemoglobin 33 pg (25-35) Mean Corpuscular Hemoglobin Concent 34 g/dL (31-37) Red Cell Distribution Width 15.2 % (11.5-14.5) Platelet Count 270 x10^3/uL (140-400) Neutrophils (%) (Auto) 89 % (31-73) Lymphocytes (%) (Auto) 4 % (24-48) Monocytes (%) (Auto) 7 % (0-9) Eosinophils (%) (Auto) 0 % (0-3) Basophils (%) (Auto) 0 % (0-3) Neutrophils # (Auto) 11.0 x10^3uL (1.8-7.7) Lymphocytes # (Auto) 0.5 x10^3/uL (1.0-4.8) Monocytes # (Auto) 0.9 x10^3/uL (0.0-1.1) Eosinophils # (Auto) 0.0 x10^3/uL (0.0-0.7) Basophils # (Auto) 0.0 x10^3/uL (0.0-0.2) Sodium Level 140 mmol/L (136-145) Potassium Level 3.8 mmol/L (3.5-5.1) Chloride Level 103 mmol/L (98-107) Carbon Dioxide Level 27 mmol/L (21-32) Anion Gap 10 (6-14) Blood Urea Nitrogen 53 mg/dL (7-20) Creatinine 1.1 mg/dL (0.6-1.0) Estimated GFR (Cockcroft-Gault) 47.0 Glucose Level 166 mg/dL (70-99) Calcium Level 9.8 mg/dL (8.5-10.1) Magnesium Level 2.4 mg/dL (1.8-2.4) O2 Saturation 92 % (92-99) Arterial Blood pH 7.43 (7.35-7.45) Arterial Blood pCO2 at Patient Temp 37 mmHg (35-46) Arterial Blood pO2 at Patient Temp 63 mmHg (65-108) Arterial Blood HCO3 24 mmol/L (21-28) Arterial Blood Base Excess 0 mmol/L (-3-3) FiO2 3 lpm nc Medications Current Medications Albuterol/ Ipratropium (Duoneb) 3 ml STK-MED ONCE .ROUTE ; Start 9/15/17 at 08: 12; Stop 06/13/17 at 08:13; Status DC Albuterol/ Ipratropium (Duoneb) 3 ml 1X ONCE NEB Last administered on 08:15; Start 06/13/17 at 08:15; Stop 06/13/17 at 08:20; Status DC Methylprednisolone Sodium Succinate (SOLU-Medrol 125MG VIAL) 125 mg 1X ONCE IV Last administered on 06/13/17 08:22; Start 06/13/17 at 08:15; Stop 06/13/17 at 08:20; Status DC Diltiazem HCl (Cardizem) 10 mg 1X ONCE IVP Last administered on 06/13/17 08: 31; Start 06/13/17 at 08:15; Stop 06/13/17 at 08:29; Status DC Diltiazem HCl (Cardizem) 10 mg 1X ONCE IVP ; Start 06/13/17 at 08:15; Stop at 08:16; Status Cancel Diltiazem HCl 125 mg/Dextrose 125 ml @ 0 mls/hr 1X ONCE IV Last administered on 06/13/17 08:43; Start 06/13/17 at 08:15; Stop 06/13/17 at 14:48; Status DC Aspirin (Children'S Aspirin) 324 mg 1X ONCE PO Last administered on 06/13/17 08:47; Start 06/13/17 at 08:45; Stop 06/13/17 at 08:46; Status DC Ondansetron HCl (Zofran) 4 mg PRN Q8HRS PRN IV NAUSEA/VOMITING; Start 06/13/17 at 08:45; Stop 06/13/17 at 10:18; Status DC Guaifenesin (Robitussin Dm) 10 ml PRN Q6HRS PRN PO COUGH Last administered on 17:46; Start 06/13/17 at 10:00 Albuterol/ Ipratropium (Duoneb) 3 ml RTQID NEB Last administered on 06/16/17 11:23; Start 06/13/17 at 12:00 Ondansetron HCl (Zofran) 4 mg PRN Q6HRS PRN IV NAUSEA/VOMITING Last administered on 06/13/17 17:45; Start 06/13/17 at 10:30; Stop 06/14/17 at 10:29 ; Status DC Acetaminophen (Tylenol) 500 mg PRN Q6HRS PRN PO MILD PAIN / TEMP Last administered on 06/13/17 16:02; Start 06/13/17 at 10:30 Furosemide (Lasix) 20 mg 1X ONCE IVP Last administered on 06/13/17 11:03; Start 06/13/17 at 10:15; Stop 06/13/17 at 10:22; Status DC Digoxin (Lanoxin) 250 mcg 1X ONCE IV Last administered on 06/13/17 11:03; Start 06/13/17 at 10:30; Stop 06/13/17 at 10:31; Status DC Aspirin (Ecotrin) 81 mg DAILYWBKFT PO Last administered on 06/13/17 11:03; Start 06/13/17 at 12:00 Alprazolam (Xanax) 0.5 mg PRN Q8HRS PRN PO ANXIETY / AGITATION Last administered on 06/13/17 11:47; Start 06/13/17 at 11:45 Info (Do NOT chart on this placeholder) 1 each 1X ONCE MC ; Start 06/13/17 at 13:15; Stop 06/13/17 at 13:16; Status UNV Allopurinol (Zyloprim) 300 mg QODAY PO ; Start 06/14/17 at 09:00 Alprazolam (Xanax) 0.25 mg TID PRN PO ANXIETY / AGITATION; Start 06/13/17 at 14 :15; Status UNV Aspirin (Ecotrin) 81 mg DAILYWBKFT PO ; Start 06/14/17 at 08:00; Status UNV Famotidine (Pepcid) 20 mg DAILY PO ; Start 06/14/17 at 09:00 Furosemide (Lasix) 20 mg DAILY PO ; Start 06/14/17 at 09:00; Stop 06/14/17 at 09 :00; Status DC Gabapentin (Neurontin) 100 mg TID PO Last administered on 06/13/17 16:02; Start 06/13/17 at 15:30 Hydroxyurea (Hydrea) 500 mg QODAY PO ; Start 06/14/17 at 09:00 Levothyroxine Sodium (Synthroid) 75 mcg DAILY07 PO ; Start 06/14/17 at 07:00 Vitamin D (Vitamin D3) 1,000 unit DAILY PO ; Start 06/14/17 at 09:00 Isosorbide Mononitrate (Imdur) 60 mg DAILY PO ; Start 06/14/17 at 09:00; Stop at 09:00; Status DC Fish Oil (Fish Oil) 1,000 mg QHS PO ; Start 06/13/17 at 21:00 Non-Formulary Medication 100 mg DAILY PO ; Start 06/14/17 at 09:00; Status UNV Metoprolol Tartrate (Lopressor) 50 mg BID PO Last administered on 06/13/17 16: 03; Start 06/13/17 at 16:00 Isosorbide Mononitrate (Imdur) 30 mg DAILY PO ; Start 06/14/17 at 09:00; Stop at 09:48; Status DC Labetalol HCl (Normodyne) 20 mg PRN Q2HR PRN IVP HYPERTENSION, SEE COMMENTS Last administered on 06/15/17 19:06; Start 06/13/17 at 17:45 Benzonatate (Tessalon Perle) 100 mg [id number] PO ; Start 06/13/17 at 21:00 Albuterol Sulfate (Ventolin Neb Soln) 2.5 mg PRN Q2HR PRN NEB [id number] Last administered on 06/13/17 20:05; Start 06/13/17 at 18:15 Acetaminophen/ Hydrocodone Bitart (Lortab 5/325) 1 tab PRN Q4HRS PRN PO MODERATE - SEVERE PAIN; Start 06/13/17 at 18:15 Furosemide (Lasix) 20 mg 1X ONCE IVP Last administered on 06/13/17 20:10; Start 06/13/17 at 20:00; Stop 06/13/17 at 20:02; Status DC Lorazepam (Ativan) 1 mg PRN Q4HRS PRN IV ANXIETY / AGITATION Last administered on 06/14/17 11:43; Start 06/13/17 at 20:00 Lorazepam (Ativan) 2 mg PRN Q4HRS PRN IV ANXIETY / AGITATION Last administered on 06/16/17 05:08; Start 06/13/17 at 20:00 Morphine Sulfate 2 mg PRN Q2HR PRN IV SEVERE PAIN Last administered on 19:06; Start 06/14/17 at 04:15 Haloperidol Lactate (Haldol) 5 mg PRN Q6HRS PRN IVP AGITATION Last administered on 06/15/17 21:55; Start 06/14/17 at 04:15 Methylprednisolone Sodium Succinate (SOLU-Medrol 40MG VIAL) 40 mg Q8HRS IV Last administered on 06/16/17 05:08; Start 06/14/17 at 08:15 Budesonide (Pulmicort) 0.5 mg RTBID NEB Last administered on 06/16/17 08:53; Start 06/14/17 at 09:00 Atorvastatin Calcium (Lipitor) 20 mg QHS PO ; Start 06/14/17 at 21:00 Isosorbide Mononitrate (Imdur) 60 mg DAILY PO ; Start 06/16/17 at 09:00; Stop at 09:00; Status DC Amlodipine Besylate (Norvasc) 5 mg DAILY PO ; Start 06/15/17 at 09:45 Nitroglycerin (Nitro-Bid Oint) 1 inch Q6HRS TP Last administered on 06/15/17 18:05; Start 06/15/17 at 12:00; Stop 06/15/17 at 22:56; Status DC Nicardipine HCl 50 mg/Sodium Chloride 270 ml @ 0 mls/hr CONT PRN IV SEE I/O RECORD Last administered on 06/16/17 08:32; Start 06/15/17 at 19:45 Sodium Chloride 500 ml @ 500 mls/hr 1X ONCE IV Last administered on 11:45; Start 06/16/17 at 11:45; Stop 06/16/17 at 12:44 Active Scripts Active Reported Ultra Coq10 (Ubiquinone) 75 Mg Capsule 100 Mg PO DAILY Kellogg-3 (Kellogg-3 Fatty Acids) 100 Mg Tab.chew 350 Mg PO HS Isosorbide Mononitrate Er (Isosorbide Mononitrate) 60 Mg Tab.er.24h 1 Tab PO DAILY Vitamin D3 (Cholecalciferol (Vitamin D3)) 1,000 Unit Tab.chew 1,000 Unit PO DAILY Aspir 81 (Aspirin) 81 Mg Tablet. 1 Tab PO DAILY Xanax (Alprazolam) 0.25 Mg Tablet 1 Tab PO TID PRN Allopurinol 300 Mg Tablet 1 Tab PO QODAY Pepcid (Famotidine) 20 Mg Tablet 20 Mg PO DAILY Levothyroxine Sodium 75 Mcg Tablet 1 Tab PO DAILY Hydroxyurea 500 Mg Capsule 500 Mg PO QODAY Gabapentin 100 Mg Capsule 100 Mg PO TID Furosemide 20 Mg Tablet 1 Tab PO DAILY Vitals/I & O Vital Sign - Last 24 Hours 06/15/17 06/15/17 06/15/17 06/15/17 12:00 12:00 13:00 14:00 Temp 97.7 97.7 Pulse 104 114 120 Resp 22 25 28 B/P (MAP) 191/89 (123) 194/91 (125) 201/99 (133) Pulse Ox 100 97 97 O2 Delivery Bi-pap BiPAP/CPAP BiPAP/CPAP BiPAP/CPAP 06/15/17 06/15/17 06/15/17 06/15/17 15:00 15:34 16:00 16:00 Temp 97.6 97.6 Pulse 112 122 Resp 19 24 B/P (MAP) 190/87 (121) 212/99 (136) Pulse Ox 97 98 97 O2 Delivery BiPAP/CPAP BiPAP/CPAP BiPAP/CPAP Bi-pap 06/15/17 06/15/17 06/15/17 06/15/17 16:30 17:00 17:52 18:00 Pulse 106 106 120 Resp 19 20 24 B/P (MAP) 147/67 (93) 169/93 (118) 217/89 (131) Pulse Ox 97 98 97 97 O2 Delivery BiPAP/CPAP BiPAP/CPAP BiPAP/CPAP BiPAP/CPAP 06/15/17 06/15/17 06/15/17 06/15/17 18:05 18:30 19:00 19:06 Pulse 123 120 100 128 Resp 28 22 B/P (MAP) 223/97 146/67 (93) 218/110 (146) 218/126 Pulse Ox 98 99 O2 Delivery BiPAP/CPAP BiPAP/CPAP 06/15/17 06/15/17 06/15/17 06/15/17 19:06 19:31 19:36 19:59 Resp 24 22 Pulse Ox 96 O2 Delivery BiPAP/CPAP BiPAP/CPAP BiPAP/CPAP Bi-pap 06/15/17 06/15/17 06/15/17 06/15/17 20:00 20:42 22:00 22:36 Temp 97.0 97.0 Pulse 91 94 103 Resp 22 20 20 B/P (MAP) 146/67 (93) 137/67 (90) 186/89 (121) Pulse Ox 98 98 98 93 O2 Delivery BiPAP/CPAP BiPAP/CPAP BiPAP/CPAP BiPAP/CPAP 06/15/17 06/15/17 06/15/17 06/16/17 23:00 23:56 23:58 00:32 Temp 97.5 97.5 Pulse 96 93 Resp 20 20 B/P (MAP) 123/72 (89) 145/77 (99) Pulse Ox 98 98 94 O2 Delivery BiPAP/CPAP Bi-pap BiPAP/CPAP BiPAP/CPAP 06/16/17 06/16/17 06/16/17 06/16/17 01:00 02:00 02:31 03:00 Pulse 89 118 98 Resp 20 26 24 B/P (MAP) 110/72 (85) 139/72 (94) 132/70 (90) Pulse Ox 98 94 93 95 O2 Delivery BiPAP/CPAP BiPAP/CPAP BiPAP/CPAP BiPAP/CPAP 06/16/17 06/16/17 06/16/17 06/16/17 03:57 03:58 05:12 05:20 Temp 98.0 98.0 Pulse 107 122 Resp 24 24 B/P (MAP) 136/70 (92) 137/70 (92) Pulse Ox 95 95 95 O2 Delivery Bi-pap BiPAP/CPAP BiPAP/CPAP BiPAP/CPAP 06/16/17 06/16/17 06/16/17 06:00 09:00 11:30 Pulse 106 Resp 22 B/P (MAP) 127/70 (89) Pulse Ox 96 96 96 O2 Delivery BiPAP/CPAP Nasal Cannula Nasal Cannula O2 Flow Rate 3.0 3.0 Intake and Output 06/16/17 06/16/17 06/17/17 15:00 23:00 07:00 Output Total 150 ml Balance -150 ml CASTLE,NIAL K III DO Jun 16, 2017 12:02
--- NOTE | 2017-06-16 14:55 | PDOC ---
CARDIO Progress Notes Date and Time Date of Service 06/16/2017 Time of Evaluation 1250 Subjective Subjective: No Palpitations, Other (drowsy) Vitals Vitals Vital Signs Date Time Temp Pulse Resp B/P (MAP) Pulse Ox O2 Delivery O2 Flow Rate FiO2 06/16/17 11:30 96 Nasal Cannula 3.0 06/16/17 06:00 106 22 127/70 (89) 06/16/17 05:20 98.0 98.0 Weight Weight [ ] Input and Output Intake and Output Intake and Output 06/17/17 07:00 Output Total 150 ml Balance -150 ml Output Urine Total 150 ml Laboratory Labs Laboratory Tests Test 06/16/17 05:20 06/16/17 09:00 White Blood Count 12.4 x10^3/uL (4.0-11.0) Red Blood Count 3.88 x10^6/uL (3.50-5.40) Hemoglobin 12.9 g/dL (12.0-15.5) Hematocrit 38.2 % (36.0-47.0) Mean Corpuscular Volume 98 fL (79-100) Mean Corpuscular Hemoglobin 33 pg (25-35) Mean Corpuscular Hemoglobin Concent 34 g/dL (31-37) Red Cell Distribution Width 15.2 % (11.5-14.5) Platelet Count 270 x10^3/uL (140-400) Neutrophils (%) (Auto) 89 % (31-73) Lymphocytes (%) (Auto) 4 % (24-48) Monocytes (%) (Auto) 7 % (0-9) Eosinophils (%) (Auto) 0 % (0-3) Basophils (%) (Auto) 0 % (0-3) Neutrophils # (Auto) 11.0 x10^3uL (1.8-7.7) Lymphocytes # (Auto) 0.5 x10^3/uL (1.0-4.8) Monocytes # (Auto) 0.9 x10^3/uL (0.0-1.1) Eosinophils # (Auto) 0.0 x10^3/uL (0.0-0.7) Basophils # (Auto) 0.0 x10^3/uL (0.0-0.2) Sodium Level 140 mmol/L (136-145) Potassium Level 3.8 mmol/L (3.5-5.1) Chloride Level 103 mmol/L (98-107) Carbon Dioxide Level 27 mmol/L (21-32) Anion Gap 10 (6-14) Blood Urea Nitrogen 53 mg/dL (7-20) Creatinine 1.1 mg/dL (0.6-1.0) Estimated GFR (Cockcroft-Gault) 47.0 Glucose Level 166 mg/dL (70-99) Calcium Level 9.8 mg/dL (8.5-10.1) Magnesium Level 2.4 mg/dL (1.8-2.4) O2 Saturation 92 % (92-99) Arterial Blood pH 7.43 (7.35-7.45) Arterial Blood pCO2 at Patient Temp 37 mmHg (35-46) Arterial Blood pO2 at Patient Temp 63 mmHg (65-108) Arterial Blood HCO3 24 mmol/L (21-28) Arterial Blood Base Excess 0 mmol/L (-3-3) FiO2 3 lpm nc Physical Exam HEENT: Neck Supple W Full Motion Chest: Symmetric LUNGS: Other (basilar crackles) Heart: S1S2, irregularly irregular (AFIB) Abdomen: Soft N/T Extremities: No Calf Tenderness, Other (trace LE edema) Neurology: other (drowsy) Assessment Assessment 1. AFIB RVR: new onset. Was Sr and reverted back to AFIB RVR 2. Acute on chronic diastolic CHF 3. Acute respiratory failure: off bipap, presently on NC. Pulmonary following 4. CAD: CABG in 1980s and C with 3 stents with last PCI 5 yrs ago. CP free. 5. Hx of pneumonia: 03/2017 6. HTN: improved 7. HLP 8. Hypothyroidism: TSH on goal 9. Significant anxiety: post ativan Recommendations 1. Bipap PRN 2. Change cardene to cardizem 3. Presently NPO with potential aspiration. Will hold off lopressor for now while on cardizem gtt. 4. DC norvasc. labetolol IV PRN, lasix PRN 5. Overall good diurese overnight, lasix PRN. 6. Continue with ASA, Will consider for NOAC once po is allowed. 7. Will consider for MPI once acute issues are better and able to swallow. YESSI [employer] Jun 16, 2017 14:55
--- NOTE | 2017-06-16 15:13 | RAD ---
Portable abdomen, 06/16/2017: History: Check Dobbhoff tube placement A supine view the upper abdomen demonstrates a Dobbhoff tube doubled back upon itself in the distal esophagus. There is a moderate amount of gas in large and small bowel loops in the abdomen and pelvis. The gas appears to extend down to the rectal level. Extensive arterial calcifications are present. The lung bases appear clear. An internal fixation device is present in the left hip. IMPRESSION: 1. 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 The tube should be advanced. 2. Increased large and small bowel gas may reflect a generalized ileus or atonic colon.
[2017-06-16] MEDS: AMINO AC 3%/ELECTROLYTE/GLYCER 1,000 ML IV SCH (15:59)
[2017-06-16] MEDS: OMEGA-3 FATTY ACIDS/FISH OIL 1,000 MG CAPSULE. PO SCH (20:55)
[2017-06-16] MEDS: ATORVASTATIN CALCIUM 20 MG TABLET PO SCH (20:56)
[2017-06-17] VITALS (29 sets, daily range): BP systolic 101–198; BP diastolic 59–121
[2017-06-17 06:20] LABS: BASO % 0 % (0-3); EOS % 0 % (0-3); HEMATOCRIT 35.7 % (36.0-47.0); LYMPH # 0.4 x10^3/uL (1.0-4.8); LYMPH % 3 % (24-48); MEAN CORPUSCULAR HEMOGLOBIN 33 pg (25-35); MEAN CORPUSCULAR HGB CONC 34 g/dL (31-37); MEAN CORPUSCULAR VOLUME 98 fL (79-100); MONO % 13 % (0-9); NEUT % 84 % (31-73); PLATELET COUNT 243 x10^3/uL (140-400); RED BLOOD COUNT 3.63 x10^6/uL (3.50-5.40); RED CELL DISTRIBUTION WIDTH 15.6 % (11.5-14.5); WHITE BLOOD COUNT 14.4 x10^3/uL (4.0-11.0)
[2017-06-17 06:35] LABS: CALCIUM 10.1 mg/dL (8.5-10.1); CREATININE 0.9 mg/dL (0.6-1.0); GFR 59.2; POTASSIUM 3.4 mmol/L (3.5-5.1)
[2017-06-17] MEDS: LEVOTHYROXINE 75 MCG TABLET PO SCH (07:00)
[2017-06-17] MEDS: ASPIRIN ENTERIC COATED 81 MG TABLET.DR. PO SCH (08:00)
[2017-06-17] MEDS: IPRATRPIUM/ALBUTEROL 0.5/2.5MG 3 ML NEBU. NEB SCH ×4 (08:47→19:34)
[2017-06-17] MEDS: BUDESONIDE 0.5 MG/2 ML NEBU. NEB SCH ×2 (08:47→19:34)
[2017-06-17] MEDS: FAMOTIDINE 20 MG TABLET. PO SCH (09:00)
[2017-06-17] MEDS: GABAPENTIN 100 MG CAPSULE. PO SCH ×3 (09:00→21:00)
[2017-06-17] MEDS: METOPROLOL TART IMMED RELEASE 50 MG TABLET. PO SCH ×2 (09:00→21:00)
[2017-06-17] MEDS: CHOLECALCIFEROL (VITAMIN D3) 1,000 UNIT TABLET PO SCH (09:00)
[2017-06-17] MEDS: BENZONATATE 100 MG CAPSULE. PO SCH ×3 (09:00→21:00)
[2017-06-17 09:08] LABS: HCO3 ABG 26 mmol/L (21-28); PCO2 ABG 35 mmHg (35-46); PH ABG 7.49 (7.35-7.45); PO2 ABG 59 mmHg (65-108); SAT O2 ABG 91 % (92-99)
[2017-06-17 09:11] LABS: FIO2 ABG 30
[2017-06-17] MEDS: AMINO AC 3%/ELECTROLYTE/GLYCER 1,000 ML IV SCH (10:28)
--- NOTE | 2017-06-17 11:04 | PDOC ---
PULMONARY PROGRESS NOTES Subjective off BIPAP lethargic, arousable . ABG adequate had agitation last night, received ativan Vitals Vital Signs Date Time Temp Pulse Resp B/P (MAP) Pulse Ox O2 Delivery O2 Flow Rate FiO2 06/17/17 08:46 93 BiPAP/CPAP 06/17/17 06:00 94 29 153/85 (107) 06/17/17 05:00 3.0 06/17/17 04:00 98.3 98.3 Comments ros, as mentioned as above, discussed w rn, other sys otherwise neg General: Lethargic HEENT: Other (nc at perrl, bipap mask on, neck, no lap, thyromegaly) Lungs: Other (rhonchi LLL/rub) Cardiovascular: S1, S2 Abdomen: Soft, Non-tender, Other (no mass) Extremities: No Edema Skin: Warm Labs Laboratory Tests Test 06/16/17 05:20 06/16/17 09:00 06/17/17 06:00 06/17/17 08:46 White Blood Count 12.4 x10^3/uL (4.0-11.0) 14.4 x10^3/uL (4.0-11.0) Red Blood Count 3.88 x10^6/uL (3.50-5.40) 3.63 x10^6/uL (3.50-5.40) Hemoglobin 12.9 g/dL (12.0-15.5) 12.0 g/dL (12.0-15.5) Hematocrit 38.2 % (36.0-47.0) 35.7 % (36.0-47.0) Mean Corpuscular Volume 98 fL (79-100) 98 fL (79-100) Mean Corpuscular Hemoglobin 33 pg (25-35) 33 pg (25-35) Mean Corpuscular Hemoglobin Concent 34 g/dL (31-37) 34 g/dL (31-37) Red Cell Distribution Width 15.2 % (11.5-14.5) 15.6 % (11.5-14.5) Platelet Count 270 x10^3/uL (140-400) 243 x10^3/uL (140-400) Neutrophils (%) (Auto) 89 % (31-73) 84 % (31-73) Lymphocytes (%) (Auto) 4 % (24-48) 3 % (24-48) Monocytes (%) (Auto) 7 % (0-9) 13 % (0-9) Eosinophils (%) (Auto) 0 % (0-3) 0 % (0-3) Basophils (%) (Auto) 0 % (0-3) 0 % (0-3) Neutrophils # (Auto) 11.0 x10^3uL (1.8-7.7) 12.2 x10^3uL (1.8-7.7) Lymphocytes # (Auto) 0.5 x10^3/uL (1.0-4.8) 0.4 x10^3/uL (1.0-4.8) Monocytes # (Auto) 0.9 x10^3/uL (0.0-1.1) 1.8 x10^3/uL (0.0-1.1) Eosinophils # (Auto) 0.0 x10^3/uL (0.0-0.7) 0.0 x10^3/uL (0.0-0.7) Basophils # (Auto) 0.0 x10^3/uL (0.0-0.2) 0.0 x10^3/uL (0.0-0.2) Sodium Level 140 mmol/L (136-145) 146 mmol/L (136-145) Potassium Level 3.8 mmol/L (3.5-5.1) 3.4 mmol/L (3.5-5.1) Chloride Level 103 mmol/L (98-107) 109 mmol/L (98-107) Carbon Dioxide Level 27 mmol/L (21-32) 28 mmol/L (21-32) Anion Gap 10 (6-14) 9 (6-14) Blood Urea Nitrogen 53 mg/dL (7-20) 50 mg/dL (7-20) Creatinine 1.1 mg/dL (0.6-1.0) 0.9 mg/dL (0.6-1.0) Estimated GFR (Cockcroft-Gault) 47.0 59.2 Glucose Level 166 mg/dL (70-99) 164 mg/dL (70-99) Calcium Level 9.8 mg/dL (8.5-10.1) 10.1 mg/dL (8.5-10.1) Magnesium Level 2.4 mg/dL (1.8-2.4) O2 Saturation 92 % (92-99) 91 % (92-99) Arterial Blood pH 7.43 (7.35-7.45) 7.49 (7.35-7.45) Arterial Blood pCO2 at Patient Temp 37 mmHg (35-46) 35 mmHg (35-46) Arterial Blood pO2 at Patient Temp 63 mmHg (65-108) 59 mmHg (65-108) Arterial Blood HCO3 24 mmol/L (21-28) 26 mmol/L (21-28) Arterial Blood Base Excess 0 mmol/L (-3-3) 3 mmol/L (-3-3) FiO2 3 lpm nc 30 Laboratory Tests Test 06/17/17 06:00 06/17/17 08:46 White Blood Count 14.4 x10^3/uL (4.0-11.0) Red Blood Count 3.63 x10^6/uL (3.50-5.40) Hemoglobin 12.0 g/dL (12.0-15.5) Hematocrit 35.7 % (36.0-47.0) Mean Corpuscular Volume 98 fL (79-100) Mean Corpuscular Hemoglobin 33 pg (25-35) Mean Corpuscular Hemoglobin Concent 34 g/dL (31-37) Red Cell Distribution Width 15.6 % (11.5-14.5) Platelet Count 243 x10^3/uL (140-400) Neutrophils (%) (Auto) 84 % (31-73) Lymphocytes (%) (Auto) 3 % (24-48) Monocytes (%) (Auto) 13 % (0-9) Eosinophils (%) (Auto) 0 % (0-3) Basophils (%) (Auto) 0 % (0-3) Neutrophils # (Auto) 12.2 x10^3uL (1.8-7.7) Lymphocytes # (Auto) 0.4 x10^3/uL (1.0-4.8) Monocytes # (Auto) 1.8 x10^3/uL (0.0-1.1) Eosinophils # (Auto) 0.0 x10^3/uL (0.0-0.7) Basophils # (Auto) 0.0 x10^3/uL (0.0-0.2) Sodium Level 146 mmol/L (136-145) Potassium Level 3.4 mmol/L (3.5-5.1) Chloride Level 109 mmol/L (98-107) Carbon Dioxide Level 28 mmol/L (21-32) Anion Gap 9 (6-14) Blood Urea Nitrogen 50 mg/dL (7-20) Creatinine 0.9 mg/dL (0.6-1.0) Estimated GFR (Cockcroft-Gault) 59.2 Glucose Level 164 mg/dL (70-99) Calcium Level 10.1 mg/dL (8.5-10.1) O2 Saturation 91 % (92-99) Arterial Blood pH 7.49 (7.35-7.45) Arterial Blood pCO2 at Patient Temp 35 mmHg (35-46) Arterial Blood pO2 at Patient Temp 59 mmHg (65-108) Arterial Blood HCO3 26 mmol/L (21-28) Arterial Blood Base Excess 3 mmol/L (-3-3) FiO2 30 Medications Active Scripts Medications Dose Route/Sig Max Daily Dose Days Date Category Ultra Coq10 (Ubiquinone) 75 Mg Capsule 100 Mg PO DAILY 06/13/17 Reported [place]-3 ([place]-3 Fatty Acids) 100 Mg Tab.chew 350 Mg PO HS 06/13/17 Reported Isosorbide Mononitrate Er (Isosorbide Mononitrate) 60 Mg Tab.er.24h 1 Tab PO DAILY 06/13/17 Reported Vitamin D3 (Cholecalciferol (Vitamin D3)) 1,000 Unit Tab.chew 1,000 Unit PO DAILY 06/13/17 Reported Aspir 81 (Aspirin) 81 Mg Tablet.dr 1 Tab PO DAILY 06/13/17 Reported Xanax (Alprazolam) 0.25 Mg Tablet 1 Tab PO TID PRN 06/13/17 Reported Allopurinol 300 Mg Tablet 1 Tab PO QODAY 06/13/17 Reported Pepcid (Famotidine) 20 Mg Tablet 20 Mg PO DAILY 06/13/17 Reported Levothyroxine Sodium 75 Mcg Tablet 1 Tab PO DAILY 06/13/17 Reported Hydroxyurea 500 Mg Capsule 500 Mg PO QODAY 06/13/17 Reported Gabapentin 100 Mg Capsule 100 Mg PO TID 06/13/17 Reported Furosemide 20 Mg Tablet 1 Tab PO DAILY 06/13/17 Reported Comments cxr reviewed, atelectasis Impression . 1. Acute hypercapnic respiratory failure, multifactorial. 2. Acute exacerbation of chronic obstructive pulmonary disease 3. Acute nonspecific bronchitis. 4. New onset atrial fibrillation with rapid ventricular response, 5. Coronary artery disease. 6. Hyperthyroidism. 7. Generalized anxiety. 8. Suspect silent aspiration leading to cough. 9. Abnormal CXR with left subclavian catheter in azygous vein, Dr Henry aware 10. suspect ICU delirium Plan . 1. steroids dc. 2. prn BIPAP 3. Mionimize sedatives and narcotics 4. PPN 5. Speech evaluation when resp status more stable. 6. cont bronchodilators. 7. cxr today 8. f/u BUN/ IVF prn 9. discussed w ANNEMARIE SERNA MD Jun 17, 2017 11:04
--- NOTE | 2017-06-17 12:13 | PDOC ---
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 Triple lumen catheter present in left subclavian vein. SCD present on R leg. Blood pressure cuff on left thigh because of bruising in left arm. Bruising also present in right arm. Patient minimally responsive to physical and verbal stimulation. Patient placed on bipap overnight. Daughter expressed concern about patient's altered mental status. Per daughter's request steroids were discontinued. Focal rhonchi present in left lung sounds. Rhonchi absent on neck auscultation. Discussed rhonchi with [employer] specialist. Prognosis is guarded. Vitals Vitals Vital Signs Date Time Temp Pulse Resp B/P (MAP) Pulse Ox O2 Delivery O2 Flow Rate FiO2 06/17/17 08:46 93 BiPAP/CPAP 06/17/17 06:00 94 29 153/85 (107) 06/17/17 05:00 3.0 06/17/17 04:00 98.3 98.3 Physical Exam General: No acute distress, mild distress Heart: Regular rate Lungs: Other (rhonchi LLL/rub; no concerning sounds with neck auscultation. ) Abdomen: Normal bowel sounds Extremities: No clubbing, No cyanosis, No edema, Normal pulses, No tenderness/ swelling Skin: No rashes, No breakdown, No significant lesion Labs LABS Laboratory Tests Test 06/17/17 06:00 06/17/17 08:46 White Blood Count 14.4 x10^3/uL (4.0-11.0) Red Blood Count 3.63 x10^6/uL (3.50-5.40) Hemoglobin 12.0 g/dL (12.0-15.5) Hematocrit 35.7 % (36.0-47.0) Mean Corpuscular Volume 98 fL (79-100) Mean Corpuscular Hemoglobin 33 pg (25-35) Mean Corpuscular Hemoglobin Concent 34 g/dL (31-37) Red Cell Distribution Width 15.6 % (11.5-14.5) Platelet Count 243 x10^3/uL (140-400) Neutrophils (%) (Auto) 84 % (31-73) Lymphocytes (%) (Auto) 3 % (24-48) Monocytes (%) (Auto) 13 % (0-9) Eosinophils (%) (Auto) 0 % (0-3) Basophils (%) (Auto) 0 % (0-3) Neutrophils # (Auto) 12.2 x10^3uL (1.8-7.7) Lymphocytes # (Auto) 0.4 x10^3/uL (1.0-4.8) Monocytes # (Auto) 1.8 x10^3/uL (0.0-1.1) Eosinophils # (Auto) 0.0 x10^3/uL (0.0-0.7) Basophils # (Auto) 0.0 x10^3/uL (0.0-0.2) Sodium Level 146 mmol/L (136-145) Potassium Level 3.4 mmol/L (3.5-5.1) Chloride Level 109 mmol/L (98-107) Carbon Dioxide Level 28 mmol/L (21-32) Anion Gap 9 (6-14) Blood Urea Nitrogen 50 mg/dL (7-20) Creatinine 0.9 mg/dL (0.6-1.0) Estimated GFR (Cockcroft-Gault) 59.2 Glucose Level 164 mg/dL (70-99) Calcium Level 10.1 mg/dL (8.5-10.1) O2 Saturation 91 % (92-99) Arterial Blood pH 7.49 (7.35-7.45) Arterial Blood pCO2 at Patient Temp 35 mmHg (35-46) Arterial Blood pO2 at Patient Temp 59 mmHg (65-108) Arterial Blood HCO3 26 mmol/L (21-28) Arterial Blood Base Excess 3 mmol/L (-3-3) FiO2 30 Review of Systems Review of Systems skin: bilateral bruising on both arms. Neuro: patient minimally responsive to verbal and physical stimulation. Patient lethargic. 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 Continue ICU monitoring 2. Recheck labs. 3. Continue procalamine nutrition 4. Continue with SCDs 5. Monitor upper extremities for resolution of bruising. Problems: Comment Review of Relevant I have reviewed the following items viktor (where applicable) has been applied. Labs Laboratory Tests Test 06/16/17 05:20 06/16/17 09:00 06/17/17 06:00 06/17/17 08:46 White Blood Count 12.4 x10^3/uL (4.0-11.0) 14.4 x10^3/uL (4.0-11.0) Red Blood Count 3.88 x10^6/uL (3.50-5.40) 3.63 x10^6/uL (3.50-5.40) Hemoglobin 12.9 g/dL (12.0-15.5) 12.0 g/dL (12.0-15.5) Hematocrit 38.2 % (36.0-47.0) 35.7 % (36.0-47.0) Mean Corpuscular Volume 98 fL (79-100) 98 fL (79-100) Mean Corpuscular Hemoglobin 33 pg (25-35) 33 pg (25-35) Mean Corpuscular Hemoglobin Concent 34 g/dL (31-37) 34 g/dL (31-37) Red Cell Distribution Width 15.2 % (11.5-14.5) 15.6 % (11.5-14.5) Platelet Count 270 x10^3/uL (140-400) 243 x10^3/uL (140-400) Neutrophils (%) (Auto) 89 % (31-73) 84 % (31-73) Lymphocytes (%) (Auto) 4 % (24-48) 3 % (24-48) Monocytes (%) (Auto) 7 % (0-9) 13 % (0-9) Eosinophils (%) (Auto) 0 % (0-3) 0 % (0-3) Basophils (%) (Auto) 0 % (0-3) 0 % (0-3) Neutrophils # (Auto) 11.0 x10^3uL (1.8-7.7) 12.2 x10^3uL (1.8-7.7) Lymphocytes # (Auto) 0.5 x10^3/uL (1.0-4.8) 0.4 x10^3/uL (1.0-4.8) Monocytes # (Auto) 0.9 x10^3/uL (0.0-1.1) 1.8 x10^3/uL (0.0-1.1) Eosinophils # (Auto) 0.0 x10^3/uL (0.0-0.7) 0.0 x10^3/uL (0.0-0.7) Basophils # (Auto) 0.0 x10^3/uL (0.0-0.2) 0.0 x10^3/uL (0.0-0.2) Sodium Level 140 mmol/L (136-145) 146 mmol/L (136-145) Potassium Level 3.8 mmol/L (3.5-5.1) 3.4 mmol/L (3.5-5.1) Chloride Level 103 mmol/L (98-107) 109 mmol/L (98-107) Carbon Dioxide Level 27 mmol/L (21-32) 28 mmol/L (21-32) Anion Gap 10 (6-14) 9 (6-14) Blood Urea Nitrogen 53 mg/dL (7-20) 50 mg/dL (7-20) Creatinine 1.1 mg/dL (0.6-1.0) 0.9 mg/dL (0.6-1.0) Estimated GFR (Cockcroft-Gault) 47.0 59.2 Glucose Level 166 mg/dL (70-99) 164 mg/dL (70-99) Calcium Level 9.8 mg/dL (8.5-10.1) 10.1 mg/dL (8.5-10.1) Magnesium Level 2.4 mg/dL (1.8-2.4) O2 Saturation 92 % (92-99) 91 % (92-99) Arterial Blood pH 7.43 (7.35-7.45) 7.49 (7.35-7.45) Arterial Blood pCO2 at Patient Temp 37 mmHg (35-46) 35 mmHg (35-46) Arterial Blood pO2 at Patient Temp 63 mmHg (65-108) 59 mmHg (65-108) Arterial Blood HCO3 24 mmol/L (21-28) 26 mmol/L (21-28) Arterial Blood Base Excess 0 mmol/L (-3-3) 3 mmol/L (-3-3) FiO2 3 lpm nc 30 Laboratory Tests Test 06/17/17 06:00 06/17/17 08:46 White Blood Count 14.4 x10^3/uL (4.0-11.0) Red Blood Count 3.63 x10^6/uL (3.50-5.40) Hemoglobin 12.0 g/dL (12.0-15.5) Hematocrit 35.7 % (36.0-47.0) Mean Corpuscular Volume 98 fL (79-100) Mean Corpuscular Hemoglobin 33 pg (25-35) Mean Corpuscular Hemoglobin Concent 34 g/dL (31-37) Red Cell Distribution Width 15.6 % (11.5-14.5) Platelet Count 243 x10^3/uL (140-400) Neutrophils (%) (Auto) 84 % (31-73) Lymphocytes (%) (Auto) 3 % (24-48) Monocytes (%) (Auto) 13 % (0-9) Eosinophils (%) (Auto) 0 % (0-3) Basophils (%) (Auto) 0 % (0-3) Neutrophils # (Auto) 12.2 x10^3uL (1.8-7.7) Lymphocytes # (Auto) 0.4 x10^3/uL (1.0-4.8) Monocytes # (Auto) 1.8 x10^3/uL (0.0-1.1) Eosinophils # (Auto) 0.0 x10^3/uL (0.0-0.7) Basophils # (Auto) 0.0 x10^3/uL (0.0-0.2) Sodium Level 146 mmol/L (136-145) Potassium Level 3.4 mmol/L (3.5-5.1) Chloride Level 109 mmol/L (98-107) Carbon Dioxide Level 28 mmol/L (21-32) Anion Gap 9 (6-14) Blood Urea Nitrogen 50 mg/dL (7-20) Creatinine 0.9 mg/dL (0.6-1.0) Estimated GFR (Cockcroft-Gault) 59.2 Glucose Level 164 mg/dL (70-99) Calcium Level 10.1 mg/dL (8.5-10.1) O2 Saturation 91 % (92-99) Arterial Blood pH 7.49 (7.35-7.45) Arterial Blood pCO2 at Patient Temp 35 mmHg (35-46) Arterial Blood pO2 at Patient Temp 59 mmHg (65-108) Arterial Blood HCO3 26 mmol/L (21-28) Arterial Blood Base Excess 3 mmol/L (-3-3) FiO2 30 Medications Current Medications Albuterol/ Ipratropium (Duoneb) 3 ml STK-MED ONCE .ROUTE ; Start 06/13/17 at 08: 12; Stop 06/13/17 at 08:13; Status DC Albuterol/ Ipratropium (Duoneb) 3 ml 1X ONCE NEB Last administered on 08:15; Start 06/13/17 at 08:15; Stop 06/13/17 at 08:20; Status DC Methylprednisolone Sodium Succinate (SOLU-Medrol 125MG VIAL) 125 mg 1X ONCE IV Last administered on 06/13/17 08:22; Start 06/13/17 at 08:15; Stop 06/13/17 at 08:20; Status DC Diltiazem HCl (Cardizem) 10 mg 1X ONCE IVP Last administered on 06/13/17 08: 31; Start 06/13/17 at 08:15; Stop 06/13/17 at 08:29; Status DC Diltiazem HCl (Cardizem) 10 mg 1X ONCE IVP ; Start 06/13/17 at 08:15; Stop at 08:16; Status Cancel Diltiazem HCl 125 mg/Dextrose 125 ml @ 0 mls/hr 1X ONCE IV Last administered on 06/13/17 08:43; Start 06/13/17 at 08:15; Stop 06/13/17 at 14:48; Status DC Aspirin (Children'S Aspirin) 324 mg 1X ONCE PO Last administered on 06/13/17 08:47; Start 06/13/17 at 08:45; Stop 06/13/17 at 08:46; Status DC Ondansetron HCl (Zofran) 4 mg PRN Q8HRS PRN IV NAUSEA/VOMITING; Start 06/13/17 at 08:45; Stop 06/13/17 at 10:18; Status DC Guaifenesin (Robitussin Dm) 10 ml PRN Q6HRS PRN PO COUGH Last administered on 17:46; Start 06/13/17 at 10:00 Albuterol/ Ipratropium (Duoneb) 3 ml RTQID NEB Last administered on 06/17/17 08:47; Start 06/13/17 at 12:00 Ondansetron HCl (Zofran) 4 mg PRN Q6HRS PRN IV NAUSEA/VOMITING Last administered on 06/13/17 17:45; Start 06/13/17 at 10:30; Stop 06/14/17 at 10:29 ; Status DC Acetaminophen (Tylenol) 500 mg PRN Q6HRS PRN PO MILD PAIN / TEMP Last administered on 06/13/17 16:02; Start 06/13/17 at 10:30 Furosemide (Lasix) 20 mg 1X ONCE IVP Last administered on 06/13/17 11:03; Start 06/13/17 at 10:15; Stop 06/13/17 at 10:22; Status DC Digoxin (Lanoxin) 250 mcg 1X ONCE IV Last administered on 06/13/17 11:03; Start 06/13/17 at 10:30; Stop 06/13/17 at 10:31; Status DC Aspirin (Ecotrin) 81 mg DAILYWBKFT PO Last administered on 06/13/17 11:03; Start 06/13/17 at 12:00 Alprazolam (Xanax) 0.5 mg PRN Q8HRS PRN PO ANXIETY / AGITATION Last administered on 06/13/17 11:47; Start 06/13/17 at 11:45 Info (Do NOT chart on this placeholder) 1 each 1X ONCE MC ; Start 06/13/17 at 13:15; Stop 06/13/17 at 13:16; Status UNV Allopurinol (Zyloprim) 300 mg QODAY PO ; Start 06/14/17 at 09:00 Alprazolam (Xanax) 0.25 mg TID PRN PO ANXIETY / AGITATION; Start 06/13/17 at 14 :15; Status UNV Aspirin (Ecotrin) 81 mg DAILYWBKFT PO ; Start 06/14/17 at 08:00; Status UNV Famotidine (Pepcid) 20 mg DAILY PO ; Start 06/14/17 at 09:00 Furosemide (Lasix) 20 mg DAILY PO ; Start 06/14/17 at 09:00; Stop 06/14/17 at 09 :00; Status DC Gabapentin (Neurontin) 100 mg TID PO Last administered on 06/13/17 16:02; Start 06/13/17 at 15:30 Hydroxyurea (Hydrea) 500 mg QODAY PO ; Start 06/14/17 at 09:00 Levothyroxine Sodium (Synthroid) 75 mcg DAILY07 PO ; Start 06/14/17 at 07:00 Vitamin D (Vitamin D3) 1,000 unit DAILY PO ; Start 06/14/17 at 09:00 Isosorbide Mononitrate (Imdur) 60 mg DAILY PO ; Start 06/14/17 at 09:00; Stop at 09:00; Status DC Fish Oil (Fish Oil) 1,000 mg QHS PO ; Start 06/13/17 at 21:00 Non-Formulary Medication 100 mg DAILY PO ; Start 06/14/17 at 09:00; Status UNV Metoprolol Tartrate (Lopressor) 50 mg BID PO Last administered on 06/13/17 16: 03; Start 06/13/17 at 16:00 Isosorbide Mononitrate (Imdur) 30 mg DAILY PO ; Start 06/14/17 at 09:00; Stop at 09:48; Status DC Labetalol HCl (Normodyne) 20 mg PRN Q2HR PRN IVP HYPERTENSION, SEE COMMENTS Last administered on 06/15/17 19:06; Start 06/13/17 at 17:45 Benzonatate (Tessalon Perle) 100 mg [id number] PO ; Start 06/13/17 at 21:00 Albuterol Sulfate (Ventolin Neb Soln) 2.5 mg PRN Q2HR PRN NEB [id number] Last administered on 06/13/17 20:05; Start 06/13/17 at 18:15 Acetaminophen/ Hydrocodone Bitart (Lortab 5/325) 1 tab PRN Q4HRS PRN PO MODERATE - SEVERE PAIN; Start 06/13/17 at 18:15 Furosemide (Lasix) 20 mg 1X ONCE IVP Last administered on 06/13/17 20:10; Start 06/13/17 at 20:00; Stop 06/13/17 at 20:02; Status DC Lorazepam (Ativan) 1 mg PRN Q4HRS PRN IV ANXIETY / AGITATION Last administered on 06/16/17 22:39; Start 06/13/17 at 20:00 Lorazepam (Ativan) 2 mg PRN Q4HRS PRN IV ANXIETY / AGITATION Last administered on 06/17/17 03:48; Start 06/13/17 at 20:00 Morphine Sulfate 2 mg PRN Q2HR PRN IV SEVERE PAIN Last administered on 19:06; Start 06/14/17 at 04:15 Haloperidol Lactate (Haldol) 5 mg PRN Q6HRS PRN IVP AGITATION Last administered on 06/15/17 21:55; Start 06/14/17 at 04:15 Methylprednisolone Sodium Succinate (SOLU-Medrol 40MG VIAL) 40 mg Q8HRS IV Last administered on 06/16/17 05:08; Start 06/14/17 at 08:15; Stop 06/16/17 at 14:13; Status DC Budesonide (Pulmicort) 0.5 mg RTBID NEB Last administered on 06/17/17 08:47; Start 06/14/17 at 09:00 Atorvastatin Calcium (Lipitor) 20 mg QHS PO ; Start 06/14/17 at 21:00 Isosorbide Mononitrate (Imdur) 60 mg DAILY PO ; Start 06/16/17 at 09:00; Stop at 09:00; Status DC Amlodipine Besylate (Norvasc) 5 mg DAILY PO ; Start 06/15/17 at 09:45; Stop at 14:52; Status DC Nitroglycerin (Nitro-Bid Oint) 1 inch Q6HRS TP Last administered on 06/15/17 18:05; Start 06/15/17 at 12:00; Stop 06/15/17 at 22:56; Status DC Nicardipine HCl 50 mg/Sodium Chloride 270 ml @ 0 mls/hr CONT PRN IV SEE I/O RECORD Last administered on 06/16/17 08:32; Start 06/15/17 at 19:45; Stop 06/16 at 14:25; Status DC Sodium Chloride 500 ml @ 500 mls/hr 1X ONCE IV Last administered on 11:45; Start 06/16/17 at 11:45; Stop 06/16/17 at 12:44; Status DC Amino Acids/ Glycerin/ Electrolytes 1,000 ml @ 50 mls/hr Q20H IV Last administered on 06/17/17 10:28; Start 06/16/17 at 12:30 Diltiazem HCl 125 mg/Dextrose 125 ml @ 0 mls/hr CONT PRN IV SEE I/O RECORD Last administered on 06/17/17 01:19; Start 06/16/17 at 14:30 Active Scripts Active Reported Ultra Coq10 (Ubiquinone) 75 Mg Capsule 100 Mg PO DAILY [place]-3 ([place]-3 Fatty Acids) 100 Mg Tab.chew 350 Mg PO HS Isosorbide Mononitrate Er (Isosorbide Mononitrate) 60 Mg Tab.er.24h 1 Tab PO DAILY Vitamin D3 (Cholecalciferol (Vitamin D3)) 1,000 Unit Tab.chew 1,000 Unit PO DAILY Aspir 81 (Aspirin) 81 Mg Tablet.dr 1 Tab PO DAILY Xanax (Alprazolam) 0.25 Mg Tablet 1 Tab PO TID PRN Allopurinol 300 Mg Tablet 1 Tab PO QODAY Pepcid (Famotidine) 20 Mg Tablet 20 Mg PO DAILY Levothyroxine Sodium 75 Mcg Tablet 1 Tab PO DAILY Hydroxyurea 500 Mg Capsule 500 Mg PO QODAY Gabapentin 100 Mg Capsule 100 Mg PO TID Furosemide 20 Mg Tablet 1 Tab PO DAILY Vitals/I & O Vital Sign - Last 24 Hours 06/16/17 06/16/17 06/16/17 06/16/17 13:00 14:00 15:00 15:14 Pulse 126 122 134 Resp 26 30 33 B/P (MAP) 119/77 (91) 134/60 (84) 159/76 (103) Pulse Ox 94 94 94 95 O2 Delivery Nasal Cannula Nasal Cannula Nasal Cannula BiPAP/CPAP O2 Flow Rate 3.0 3.0 3.0 06/16/17 06/16/17 06/16/17 06/16/17 16:00 16:00 17:00 18:00 Temp 98.2 98.2 Pulse 114 94 112 Resp 34 26 33 B/P (MAP) 136/88 (104) 153/69 (97) 136/79 (98) Pulse Ox 94 97 93 O2 Delivery Nasal Cannula Nasal Cannula Nasal Cannula Nasal Cannula O2 Flow Rate 3.0 3.0 3.0 3.0 06/16/17 06/16/17 06/16/17 06/16/17 19:00 19:05 20:00 20:00 Temp 98.1 98.1 Pulse 101 105 Resp 26 29 B/P (MAP) 146/81 (102) 159/61 (93) Pulse Ox 93 94 93 O2 Delivery Nasal Cannula Nasal Cannula Nasal Cannula Nasal Cannula O2 Flow Rate 3.0 3.0 3.0 3.0 06/16/17 06/16/17 06/16/17 06/16/17 20:00 20:56 21:00 22:00 Pulse 106 100 95 Resp 28 35 B/P (MAP) 123/80 135/78 (97) 152/80 (104) Pulse Ox 92 88 O2 Delivery Nasal Cannula Nasal Cannula O2 Flow Rate 3.0 3.0 3.0 06/16/17 06/16/17 06/17/17 06/17/17 23:00 23:40 00:00 00:01 Temp 98.5 98.5 Pulse 98 79 Resp 33 28 B/P (MAP) 131/88 (102) 156/59 (91) Pulse Ox 90 91 94 O2 Delivery BiPAP/CPAP BiPAP/CPAP Bi-pap BiPAP/CPAP 06/17/17 06/17/17 06/17/17 06/17/17 01:00 01:25 02:00 03:00 Pulse 87 104 73 Resp 27 35 25 B/P (MAP) 170/71 (104) 159/93 (115) 120/67 (84) Pulse Ox 91 91 92 94 O2 Delivery BiPAP/CPAP BiPAP/CPAP BiPAP/CPAP BiPAP/CPAP 06/17/17 06/17/17 06/17/17 06/17/17 03:45 04:00 04:00 05:00 Temp 98.3 98.3 Pulse 84 85 Resp 33 34 B/P (MAP) 135/91 (106) 134/95 (108) Pulse Ox 94 93 95 O2 Delivery BiPAP/CPAP BiPAP/CPAP Bi-pap Nasal Cannula O2 Flow Rate 3.0 06/17/17 06/17/17 06:00 08:46 Pulse 94 Resp 29 B/P (MAP) 153/85 (107) Pulse Ox 94 93 O2 Delivery BiPAP/CPAP BiPAP/CPAP CASTLE,NIAL K III DO Jun 17, 2017 12:13
--- NOTE | 2017-06-17 13:06 | PDOC ---
CARDIO Progress Notes Date and Time Date of Service 06/17/2017 Time of Evaluation 1200 Subjective Subjective: Other (opens eyes but does not speak, lethargic) Vitals Vitals Vital Signs Date Time Temp Pulse Resp B/P (MAP) Pulse Ox O2 Delivery O2 Flow Rate FiO2 06/17/17 12:23 95 Nasal Cannula 4.0 06/17/17 06:00 94 29 153/85 (107) 06/17/17 04:00 98.3 98.3 Weight Weight [ ] Laboratory Labs Laboratory Tests Test 06/17/17 06:00 06/17/17 08:46 White Blood Count 14.4 x10^3/uL (4.0-11.0) Red Blood Count 3.63 x10^6/uL (3.50-5.40) Hemoglobin 12.0 g/dL (12.0-15.5) Hematocrit 35.7 % (36.0-47.0) Mean Corpuscular Volume 98 fL (79-100) Mean Corpuscular Hemoglobin 33 pg (25-35) Mean Corpuscular Hemoglobin Concent 34 g/dL (31-37) Red Cell Distribution Width 15.6 % (11.5-14.5) Platelet Count 243 x10^3/uL (140-400) Neutrophils (%) (Auto) 84 % (31-73) Lymphocytes (%) (Auto) 3 % (24-48) Monocytes (%) (Auto) 13 % (0-9) Eosinophils (%) (Auto) 0 % (0-3) Basophils (%) (Auto) 0 % (0-3) Neutrophils # (Auto) 12.2 x10^3uL (1.8-7.7) Lymphocytes # (Auto) 0.4 x10^3/uL (1.0-4.8) Monocytes # (Auto) 1.8 x10^3/uL (0.0-1.1) Eosinophils # (Auto) 0.0 x10^3/uL (0.0-0.7) Basophils # (Auto) 0.0 x10^3/uL (0.0-0.2) Sodium Level 146 mmol/L (136-145) Potassium Level 3.4 mmol/L (3.5-5.1) Chloride Level 109 mmol/L (98-107) Carbon Dioxide Level 28 mmol/L (21-32) Anion Gap 9 (6-14) Blood Urea Nitrogen 50 mg/dL (7-20) Creatinine 0.9 mg/dL (0.6-1.0) Estimated GFR (Cockcroft-Gault) 59.2 Glucose Level 164 mg/dL (70-99) Calcium Level 10.1 mg/dL (8.5-10.1) O2 Saturation 91 % (92-99) Arterial Blood pH 7.49 (7.35-7.45) Arterial Blood pCO2 at Patient Temp 35 mmHg (35-46) Arterial Blood pO2 at Patient Temp 59 mmHg (65-108) Arterial Blood HCO3 26 mmol/L (21-28) Arterial Blood Base Excess 3 mmol/L (-3-3) FiO2 30 Physical Exam HEENT: Neck Supple W Full Motion Chest: Symmetric LUNGS: Other (basilar crackles) Heart: S1S2, RRR (SR) Abdomen: Soft N/T Extremities: No Edema Neurology: other (drowsy) Assessment Assessment 1. PAFIB RVR: new onset. Now SR/ST. EF and wall motion normal. 2. Acute on chronic diastolic CHF: appears compensated 3. Acute respiratory failure: off bipap, presently on NC. Pulmonary following 4. CAD: CABG in 1980s and [facility] with 3 stents with last PCI 5 yrs ago. stable 5. Hx of pneumonia: 03/2017 6. HTN: improved 7. HLP 8. Hypothyroidism: TSH on goal 9. Generalized anxiety disorder 10. Encephalopathy: has been getting haldol and ativan Recommendations 1. Bipap PRN 2. Continue cardizem drip and titrate as warranted. Once PO allowed resume PO lopressor 3. Labetolol IV PRN, lasix PRN 4. Rectal ASA for now till po route is established 5. Pt will likely be a poor candidate for anticoagulation, will reevaluate once mental status is better, 6. Will consider for MPI once acute issues are better and able to swallow. 7. Supportive care at this time. YESSI WISE APRN Jun 17, 2017 13:06
--- NOTE | 2017-06-17 13:16 | RAD ---
Indication cough. A single view of the chest was obtained. Comparison is made to a study 2 days previously. There is now, in contrast to the previous examination, volume loss in the left lower lobe compatible with atelectasis and pleural fluid. Underlying pneumonia is not excluded. The right lung is clear. Extensive vascular calcification is noted. A left Port-A-Cath is again noted, unchanged in position, as well as postoperative changes. Heart and pulmonary vessels are similar. IMPRESSION: New volume loss in the left lower lobe compatible with atelectasis and pleural fluid. Underlying pneumonia is not excluded.
[2017-06-17] MEDS: ASPIRIN 300 MG SUPP.RECT PR SCH (15:45)
[2017-06-17] MEDS ORDERED: BISACODYL 10 MG SUPP.RECT. PR PRN (19:15)
[2017-06-17] MEDS: POTASSIUM CHLORIDE 20MEQ 50 ML IV SCH ×2 (19:47→22:02)
[2017-06-17] MEDS: ATORVASTATIN CALCIUM 20 MG TABLET PO SCH (21:00)
[2017-06-17] MEDS: OMEGA-3 FATTY ACIDS/FISH OIL 1,000 MG CAPSULE. PO SCH (21:00)
[2017-06-17] MEDS: LABETALOL 20 MG/4 ML DISP.SYRIN. IVP PRN (22:13)
[2017-06-18] VITALS (16 sets, daily range): BP systolic 142–206; BP diastolic 49–93
[2017-06-18] MEDS: LABETALOL 20 MG/4 ML DISP.SYRIN. IVP PRN ×2 (03:18→11:06)
[2017-06-18] MEDS: AMINO AC 3%/ELECTROLYTE/GLYCER 1,000 ML IV SCH (05:07)
[2017-06-18] MEDS: MORPHINE SULFATE 2 MG/ML DISP.SYRIN. IV PRN ×5 (05:08→23:14)
[2017-06-18 06:02] LABS: CALCIUM 9.5 mg/dL (8.5-10.1); CREATININE 0.8 mg/dL (0.6-1.0); GFR 67.8; POTASSIUM 4.2 mmol/L (3.5-5.1)
[2017-06-18 06:07] LABS: BASO % 0 % (0-3); EOS % 0 % (0-3); HEMATOCRIT 32.9 % (36.0-47.0); HEMOGLOBIN 11.1 g/dL (12.0-15.5); LYMPH # 0.9 x10^3/uL (1.0-4.8); LYMPH % 5 % (24-48); MEAN CORPUSCULAR HEMOGLOBIN 33 pg (25-35); MEAN CORPUSCULAR HGB CONC 34 g/dL (31-37); MEAN CORPUSCULAR VOLUME 99 fL (79-100); MONO % 13 % (0-9); NEUT % 82 % (31-73); PLATELET COUNT 187 x10^3/uL (140-400); RED BLOOD COUNT 3.33 x10^6/uL (3.50-5.40); RED CELL DISTRIBUTION WIDTH 15.3 % (11.5-14.5); WHITE BLOOD COUNT 17.7 x10^3/uL (4.0-11.0)
[2017-06-18] MEDS: LEVOTHYROXINE 75 MCG TABLET PO SCH (06:29)
[2017-06-18] MEDS: IPRATRPIUM/ALBUTEROL 0.5/2.5MG 3 ML NEBU. NEB SCH ×4 (07:39→19:44)
[2017-06-18] MEDS: BUDESONIDE 0.5 MG/2 ML NEBU. NEB SCH ×2 (07:39→19:44)
[2017-06-18] MEDS: ASPIRIN ENTERIC COATED 81 MG TABLET.DR. PO SCH (08:00)
[2017-06-18] MEDS: METOPROLOL TART IMMED RELEASE 50 MG TABLET. PO SCH (08:10)
[2017-06-18] MEDS: HYDROXYUREA 500 MG CAPSULE PO SCH (08:10)
[2017-06-18] MEDS: GABAPENTIN 100 MG CAPSULE. PO SCH ×3 (08:10→20:53)
[2017-06-18] MEDS: FAMOTIDINE 20 MG TABLET. PO SCH (08:10)
[2017-06-18] MEDS: CHOLECALCIFEROL (VITAMIN D3) 1,000 UNIT TABLET PO SCH (08:10)
[2017-06-18] MEDS: BENZONATATE 100 MG CAPSULE. PO SCH ×3 (08:10→20:53)
[2017-06-18] MEDS: ALLOPURINOL 300 MG TABLET. PO SCH (08:11)
[2017-06-18] MEDS: ASPIRIN 300 MG SUPP.RECT PR SCH (10:31)
--- NOTE | 2017-06-18 11:39 | PDOC ---
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 Triple lumen catheter present in left subclavian vein. SCD present on R leg. Blood pressure cuff on left thigh because of bruising in left arm. Bruising also present in right arm. Patient minimally responsive to physical and verbal stimulation. She is currently reaching her arms toward the fritz. Patient placed on bipap overnight. D/w RN, prognosis is guarded. Vitals Vitals Vital Signs Date Time Temp Pulse Resp B/P (MAP) Pulse Ox O2 Delivery O2 Flow Rate FiO2 06/18/17 11:14 96 Nasal Cannula 2.0 06/18/17 11:06 87 215/71 06/18/17 10:12 27 06/18/17 08:00 98.0 98.0 Physical Exam General: No acute distress, mild distress Heart: Regular rate Lungs: Other (rhonchi LLL/rub; no concerning sounds with neck auscultation. ) Abdomen: Normal bowel sounds Extremities: No clubbing, No cyanosis, No edema, Normal pulses, No tenderness/ swelling Skin: No rashes, No breakdown, No significant lesion Labs LABS Laboratory Tests Test 06/18/17 05:30 White Blood Count 17.7 x10^3/uL (4.0-11.0) Red Blood Count 3.33 x10^6/uL (3.50-5.40) Hemoglobin 11.1 g/dL (12.0-15.5) Hematocrit 32.9 % (36.0-47.0) Mean Corpuscular Volume 99 fL (79-100) Mean Corpuscular Hemoglobin 33 pg (25-35) Mean Corpuscular Hemoglobin Concent 34 g/dL (31-37) Red Cell Distribution Width 15.3 % (11.5-14.5) Platelet Count 187 x10^3/uL (140-400) Neutrophils (%) (Auto) 82 % (31-73) Lymphocytes (%) (Auto) 5 % (24-48) Monocytes (%) (Auto) 13 % (0-9) Eosinophils (%) (Auto) 0 % (0-3) Basophils (%) (Auto) 0 % (0-3) Neutrophils # (Auto) 14.4 x10^3uL (1.8-7.7) Lymphocytes # (Auto) 0.9 x10^3/uL (1.0-4.8) Monocytes # (Auto) 2.4 x10^3/uL (0.0-1.1) Eosinophils # (Auto) 0.0 x10^3/uL (0.0-0.7) Basophils # (Auto) 0.0 x10^3/uL (0.0-0.2) Sodium Level 149 mmol/L (136-145) Potassium Level 4.2 mmol/L (3.5-5.1) Chloride Level 115 mmol/L (98-107) Carbon Dioxide Level 28 mmol/L (21-32) Anion Gap 6 (6-14) Blood Urea Nitrogen 38 mg/dL (7-20) Creatinine 0.8 mg/dL (0.6-1.0) Estimated GFR (Cockcroft-Gault) 67.8 Glucose Level 118 mg/dL (70-99) Calcium Level 9.5 mg/dL (8.5-10.1) Review of Systems Review of Systems ROS is unattainable secondary to AMS Assessment and Plan Assessmemt and Plan Problems Medical Problems: (1) Atrial fibrillation with RVR Status: Acute Assessment: -New onset A-fb RVR -Hx CAD, HTN -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 Rothman (pulm) in the ICU - D/w COMPUTER ARCHITECT, prognosis is gaurded Problems: Comment Review of Relevant I have reviewed the following items viktor (where applicable) has been applied. Labs Laboratory Tests Test 06/17/17 06:00 06/17/17 08:46 06/18/17 05:30 White Blood Count 14.4 x10^3/uL (4.0-11.0) 17.7 x10^3/uL (4.0-11.0) Red Blood Count 3.63 x10^6/uL (3.50-5.40) 3.33 x10^6/uL (3.50-5.40) Hemoglobin 12.0 g/dL (12.0-15.5) 11.1 g/dL (12.0-15.5) Hematocrit 35.7 % (36.0-47.0) 32.9 % (36.0-47.0) Mean Corpuscular Volume 98 fL (79-100) 99 fL (79-100) Mean Corpuscular Hemoglobin 33 pg (25-35) 33 pg (25-35) Mean Corpuscular Hemoglobin Concent 34 g/dL (31-37) 34 g/dL (31-37) Red Cell Distribution Width 15.6 % (11.5-14.5) 15.3 % (11.5-14.5) Platelet Count 243 x10^3/uL (140-400) 187 x10^3/uL (140-400) Neutrophils (%) (Auto) 84 % (31-73) 82 % (31-73) Lymphocytes (%) (Auto) 3 % (24-48) 5 % (24-48) Monocytes (%) (Auto) 13 % (0-9) 13 % (0-9) Eosinophils (%) (Auto) 0 % (0-3) 0 % (0-3) Basophils (%) (Auto) 0 % (0-3) 0 % (0-3) Neutrophils # (Auto) 12.2 x10^3uL (1.8-7.7) 14.4 x10^3uL (1.8-7.7) Lymphocytes # (Auto) 0.4 x10^3/uL (1.0-4.8) 0.9 x10^3/uL (1.0-4.8) Monocytes # (Auto) 1.8 x10^3/uL (0.0-1.1) 2.4 x10^3/uL (0.0-1.1) Eosinophils # (Auto) 0.0 x10^3/uL (0.0-0.7) 0.0 x10^3/uL (0.0-0.7) Basophils # (Auto) 0.0 x10^3/uL (0.0-0.2) 0.0 x10^3/uL (0.0-0.2) Sodium Level 146 mmol/L (136-145) 149 mmol/L (136-145) Potassium Level 3.4 mmol/L (3.5-5.1) 4.2 mmol/L (3.5-5.1) Chloride Level 109 mmol/L (98-107) 115 mmol/L (98-107) Carbon Dioxide Level 28 mmol/L (21-32) 28 mmol/L (21-32) Anion Gap 9 (6-14) 6 (6-14) Blood Urea Nitrogen 50 mg/dL (7-20) 38 mg/dL (7-20) Creatinine 0.9 mg/dL (0.6-1.0) 0.8 mg/dL (0.6-1.0) Estimated GFR (Cockcroft-Gault) 59.2 67.8 Glucose Level 164 mg/dL (70-99) 118 mg/dL (70-99) Calcium Level 10.1 mg/dL (8.5-10.1) 9.5 mg/dL (8.5-10.1) O2 Saturation 91 % (92-99) Arterial Blood pH 7.49 (7.35-7.45) Arterial Blood pCO2 at Patient Temp 35 mmHg (35-46) Arterial Blood pO2 at Patient Temp 59 mmHg (65-108) Arterial Blood HCO3 26 mmol/L (21-28) Arterial Blood Base Excess 3 mmol/L (-3-3) FiO2 30 Laboratory Tests Test 06/18/17 05:30 White Blood Count 17.7 x10^3/uL (4.0-11.0) Red Blood Count 3.33 x10^6/uL (3.50-5.40) Hemoglobin 11.1 g/dL (12.0-15.5) Hematocrit 32.9 % (36.0-47.0) Mean Corpuscular Volume 99 fL (79-100) Mean Corpuscular Hemoglobin 33 pg (25-35) Mean Corpuscular Hemoglobin Concent 34 g/dL (31-37) Red Cell Distribution Width 15.3 % (11.5-14.5) Platelet Count 187 x10^3/uL (140-400) Neutrophils (%) (Auto) 82 % (31-73) Lymphocytes (%) (Auto) 5 % (24-48) Monocytes (%) (Auto) 13 % (0-9) Eosinophils (%) (Auto) 0 % (0-3) Basophils (%) (Auto) 0 % (0-3) Neutrophils # (Auto) 14.4 x10^3uL (1.8-7.7) Lymphocytes # (Auto) 0.9 x10^3/uL (1.0-4.8) Monocytes # (Auto) 2.4 x10^3/uL (0.0-1.1) Eosinophils # (Auto) 0.0 x10^3/uL (0.0-0.7) Basophils # (Auto) 0.0 x10^3/uL (0.0-0.2) Sodium Level 149 mmol/L (136-145) Potassium Level 4.2 mmol/L (3.5-5.1) Chloride Level 115 mmol/L (98-107) Carbon Dioxide Level 28 mmol/L (21-32) Anion Gap 6 (6-14) Blood Urea Nitrogen 38 mg/dL (7-20) Creatinine 0.8 mg/dL (0.6-1.0) Estimated GFR (Cockcroft-Gault) 67.8 Glucose Level 118 mg/dL (70-99) Calcium Level 9.5 mg/dL (8.5-10.1) Medications Current Medications Albuterol/ Ipratropium (Duoneb) 3 ml STK-MED ONCE .ROUTE ; Start 06/13/17 at 08: 12; Stop 06/13/17 at 08:13; Status DC Albuterol/ Ipratropium (Duoneb) 3 ml 1X ONCE NEB Last administered on 08:15; Start 06/13/17 at 08:15; Stop 06/13/17 at 08:20; Status DC Methylprednisolone Sodium Succinate (SOLU-Medrol 125MG VIAL) 125 mg 1X ONCE IV Last administered on 06/13/17 08:22; Start 06/13/17 at 08:15; Stop 06/13/17 at 08:20; Status DC Diltiazem HCl (Cardizem) 10 mg 1X ONCE IVP Last administered on 06/13/17 08: 31; Start 06/13/17 at 08:15; Stop 06/13/17 at 08:29; Status DC Diltiazem HCl (Cardizem) 10 mg 1X ONCE IVP ; Start 06/13/17 at 08:15; Stop at 08:16; Status Cancel Diltiazem HCl 125 mg/Dextrose 125 ml @ 0 mls/hr 1X ONCE IV Last administered on 06/13/17 08:43; Start 06/13/17 at 08:15; Stop 06/13/17 at 14:48; Status DC Aspirin (Children'S Aspirin) 324 mg 1X ONCE PO Last administered on 06/13/17 08:47; Start 06/13/17 at 08:45; Stop 06/13/17 at 08:46; Status DC Ondansetron HCl (Zofran) 4 mg PRN Q8HRS PRN IV NAUSEA/VOMITING; Start 06/13/17 at 08:45; Stop 06/13/17 at 10:18; Status DC Guaifenesin (Robitussin Dm) 10 ml PRN Q6HRS PRN PO COUGH Last administered on 17:46; Start 06/13/17 at 10:00 Albuterol/ Ipratropium (Duoneb) 3 ml RTQID NEB Last administered on 06/18/17 11:13; Start 06/13/17 at 12:00 Ondansetron HCl (Zofran) 4 mg PRN Q6HRS PRN IV NAUSEA/VOMITING Last administered on 06/13/17 17:45; Start 06/13/17 at 10:30; Stop 06/14/17 at 10:29 ; Status DC Acetaminophen (Tylenol) 500 mg PRN Q6HRS PRN PO MILD PAIN / TEMP Last administered on 06/13/17 16:02; Start 06/13/17 at 10:30 Furosemide (Lasix) 20 mg 1X ONCE IVP Last administered on 06/13/17 11:03; Start 06/13/17 at 10:15; Stop 06/13/17 at 10:22; Status DC Digoxin (Lanoxin) 250 mcg 1X ONCE IV Last administered on 06/13/17 11:03; Start 06/13/17 at 10:30; Stop 06/13/17 at 10:31; Status DC Aspirin (Ecotrin) 81 mg DAILYWBKFT PO Last administered on 06/13/17 11:03; Start 06/13/17 at 12:00 Alprazolam (Xanax) 0.5 mg PRN Q8HRS PRN PO ANXIETY / AGITATION Last administered on 06/13/17 11:47; Start 06/13/17 at 11:45 Info (Do NOT chart on this placeholder) 1 each 1X ONCE MC ; Start 06/13/17 at 13:15; Stop 06/13/17 at 13:16; Status UNV Allopurinol (Zyloprim) 300 mg QODAY PO ; Start 06/14/17 at 09:00 Alprazolam (Xanax) 0.25 mg TID PRN PO ANXIETY / AGITATION; Start 06/13/17 at 14 :15; Status UNV Aspirin (Ecotrin) 81 mg DAILYWBKFT PO ; Start 06/14/17 at 08:00; Status UNV Famotidine (Pepcid) 20 mg DAILY PO ; Start 06/14/17 at 09:00 Furosemide (Lasix) 20 mg DAILY PO ; Start 06/14/17 at 09:00; Stop 06/14/17 at 09 :00; Status DC Gabapentin (Neurontin) 100 mg TID PO Last administered on 06/13/17 16:02; Start 06/13/17 at 15:30 Hydroxyurea (Hydrea) 500 mg QODAY PO ; Start 06/14/17 at 09:00 Levothyroxine Sodium (Synthroid) 75 mcg DAILY07 PO ; Start 06/14/17 at 07:00 Vitamin D (Vitamin D3) 1,000 unit DAILY PO ; Start 06/14/17 at 09:00 Isosorbide Mononitrate (Imdur) 60 mg DAILY PO ; Start 06/14/17 at 09:00; Stop at 09:00; Status DC Fish Oil (Fish Oil) 1,000 mg QHS PO ; Start 06/13/17 at 21:00 Non-Formulary Medication 100 mg DAILY PO ; Start 06/14/17 at 09:00; Status UNV Metoprolol Tartrate (Lopressor) 50 mg BID PO Last administered on 06/13/17 16: 03; Start 06/13/17 at 16:00 Isosorbide Mononitrate (Imdur) 30 mg DAILY PO ; Start 06/14/17 at 09:00; Stop at 09:48; Status DC Labetalol HCl (Normodyne) 20 mg PRN Q2HR PRN IVP HYPERTENSION, SEE COMMENTS Last administered on 06/18/17 11:06; Start 06/13/17 at 17:45 Benzonatate (Tessalon Perle) 100 mg [id number] PO ; Start 06/13/17 at 21:00 Albuterol Sulfate (Ventolin Neb Soln) 2.5 mg PRN Q2HR PRN NEB DYSPNEA Last administered on 06/13/17 20:05; Start 06/13/17 at 18:15 Acetaminophen/ Hydrocodone Bitart (Lortab 5/325) 1 tab PRN Q4HRS PRN PO MODERATE - SEVERE PAIN; Start 06/13/17 at 18:15 Furosemide (Lasix) 20 mg 1X ONCE IVP Last administered on 06/13/17 20:10; Start 06/13/17 at 20:00; Stop 06/13/17 at 20:02; Status DC Lorazepam (Ativan) 1 mg PRN Q4HRS PRN IV ANXIETY / AGITATION Last administered on 06/16/17 22:39; Start 06/13/17 at 20:00 Lorazepam (Ativan) 2 mg PRN Q4HRS PRN IV ANXIETY / AGITATION Last administered on 06/17/17 03:48; Start 06/13/17 at 20:00 Morphine Sulfate 2 mg PRN Q2HR PRN IV SEVERE PAIN Last administered on 09:47; Start 06/14/17 at 04:15 Haloperidol Lactate (Haldol) 5 mg PRN Q6HRS PRN IVP AGITATION Last administered on 06/15/17 21:55; Start 06/14/17 at 04:15 Methylprednisolone Sodium Succinate (SOLU-Medrol 40MG VIAL) 40 mg Q8HRS IV Last administered on 06/16/17 05:08; Start 06/14/17 at 08:15; Stop 06/16/17 at 14:13; Status DC Budesonide (Pulmicort) 0.5 mg RTBID NEB Last administered on 06/18/17 07:39; Start 06/14/17 at 09:00 Atorvastatin Calcium (Lipitor) 20 mg QHS PO ; Start 06/14/17 at 21:00 Isosorbide Mononitrate (Imdur) 60 mg DAILY PO ; Start 06/16/17 at 09:00; Stop at 09:00; Status DC Amlodipine Besylate (Norvasc) 5 mg DAILY PO ; Start 06/15/17 at 09:45; Stop at 14:52; Status DC Nitroglycerin (Nitro-Bid Oint) 1 inch Q6HRS TP Last administered on 06/15/17 18:05; Start 06/15/17 at 12:00; Stop 06/15/17 at 22:56; Status DC Nicardipine HCl 50 mg/Sodium Chloride 270 ml @ 0 mls/hr CONT PRN IV SEE I/O RECORD Last administered on 06/16/17 08:32; Start 06/15/17 at 19:45; Stop 06/16 at 14:25; Status DC Sodium Chloride 500 ml @ 500 mls/hr 1X ONCE IV Last administered on 11:45; Start 06/16/17 at 11:45; Stop 06/16/17 at 12:44; Status DC Amino Acids/ Glycerin/ Electrolytes 1,000 ml @ 50 mls/hr Q20H IV Last administered on 06/18/17 05:07; Start 06/16/17 at 12:30 Diltiazem HCl 125 mg/Dextrose 125 ml @ 0 mls/hr CONT PRN IV SEE I/O RECORD Last administered on 06/18/17 03:18; Start 06/16/17 at 14:30 Aspirin (Aspirin) 150 mg DAILY [place] Last administered on 06/18/17 10:31; Start 06/17/17 at 15:45 Potassium Chloride 50 ml @ 25 mls/hr Q2H IV Last administered on 06/17/17 22: 02; Start 06/17/17 at 19:30; Stop 06/17/17 at 23:29; Status DC Bisacodyl (Dulcolax Supp) 10 mg PRN DAILY PRN [place] CONSTIPATION Last administered on 06/17/17 19:47; Start 06/17/17 at 19:15 Active Scripts Active Reported Ultra Coq10 (Ubiquinone) 75 Mg Capsule 100 Mg PO DAILY [place]-3 ([place]-3 Fatty Acids) 100 Mg Tab.chew 350 Mg PO HS Isosorbide Mononitrate Er (Isosorbide Mononitrate) 60 Mg Tab.er.24h 1 Tab PO DAILY Vitamin D3 (Cholecalciferol (Vitamin D3)) 1,000 Unit Tab.chew 1,000 Unit PO DAILY Aspir 81 (Aspirin) 81 Mg Tablet.dr 1 Tab PO DAILY Xanax (Alprazolam) 0.25 Mg Tablet 1 Tab PO TID PRN Allopurinol 300 Mg Tablet 1 Tab PO QODAY Pepcid (Famotidine) 20 Mg Tablet 20 Mg PO DAILY Levothyroxine Sodium 75 Mcg Tablet 1 Tab PO DAILY Hydroxyurea 500 Mg Capsule 500 Mg PO QODAY Gabapentin 100 Mg Capsule 100 Mg PO TID Furosemide 20 Mg Tablet 1 Tab PO DAILY Vitals/I & O Vital Sign - Last 24 Hours 06/17/17 06/17/17 06/17/17 06/17/17 12:00 12:00 12:23 13:00 Temp 98.0 98.0 Pulse 104 108 Resp 36 36 B/P (MAP) 101/61 (74) 186/121 (142) Pulse Ox 94 95 94 O2 Delivery Nasal Cannula Nasal Cannula Nasal Cannula Nasal Cannula O2 Flow Rate 3.0 3.0 4.0 3.0 06/17/17 06/17/17 06/17/17 06/17/17 13:30 14:00 15:00 15:30 Pulse 106 104 104 102 Resp 32 37 30 32 B/P (MAP) 142/98 (113) 179/98 (125) 180/66 (104) 172/75 (107) Pulse Ox 92 94 97 98 O2 Delivery Nasal Cannula Nasal Cannula Nasal Cannula Nasal Cannula O2 Flow Rate 3.0 3.0 3.0 3.0 06/17/17 06/17/17 06/17/17 06/17/17 16:00 16:00 16:30 17:00 Temp 98.2 98.2 Pulse 102 100 102 Resp 30 30 30 B/P (MAP) 193/114 (140) 128/63 (84) 171/66 (101) Pulse Ox 98 98 100 O2 Delivery Nasal Cannula Nasal Cannula Nasal Cannula Nasal Cannula O2 Flow Rate 3.0 3.0 3.0 3.0 06/17/17 06/17/17 06/17/17 06/17/17 17:12 18:00 19:00 19:34 Pulse 100 103 Resp 26 30 B/P (MAP) 143/88 (106) 167/79 (108) Pulse Ox 98 97 97 95 O2 Delivery Nasal Cannula Nasal Cannula Nasal Cannula Nasal Cannula O2 Flow Rate 4.0 3.0 3.0 4.0 06/17/17 06/17/17 06/17/17 06/17/17 19:36 20:00 20:00 21:00 Temp 99.1 99.1 Pulse 84 99 Resp 28 30 B/P (MAP) 142/67 (92) 158/59 (92) Pulse Ox 100 97 O2 Delivery Nasal Cannula Nasal Cannula Nasal Cannula Nasal Cannula O2 Flow Rate 4.0 3.0 3.0 3.0 06/17/17 06/17/17 06/17/17 06/17/17 22:00 22:13 22:30 22:45 Pulse 102 103 Resp 32 B/P (MAP) 198/68 (111) 198/68 148/62 (90) Pulse Ox 97 96 O2 Delivery Nasal Cannula BiPAP/CPAP O2 Flow Rate 3.0 06/17/17 06/17/17 06/18/17 06/18/17 23:00 23:47 00:00 01:00 Temp 98.8 98.8 Pulse 67 74 76 Resp 29 32 30 B/P (MAP) 162/66 (98) 154/62 (92) 168/68 (101) Pulse Ox 97 97 97 O2 Delivery BiPAP/CPAP Bi-pap BiPAP/CPAP Nasal Cannula O2 Flow Rate 3.0 06/18/17 06/18/17 06/18/17 06/18/17 02:00 03:00 03:18 03:50 Pulse 80 88 87 Resp 32 28 B/P (MAP) 167/69 (101) 204/78 (120) 204/78 Pulse Ox 98 98 O2 Delivery Nasal Cannula Nasal Cannula Nasal Cannula O2 Flow Rate 3.0 3.0 3.0 06/18/17 06/18/17 06/18/17 06/18/17 04:00 04:30 05:00 05:08 Temp 99.1 99.1 Pulse 66 59 Resp 34 24 45 B/P (MAP) 171/72 (105) 156/93 (114) 160/65 (96) Pulse Ox 97 100 95 O2 Delivery Nasal Cannula Nasal Cannula Nasal Cannula O2 Flow Rate 3.0 3.0 3.0 06/18/17 06/18/17 06/18/17 06/18/17 05:38 06:00 06:19 07:40 Pulse 56 Resp 28 22 B/P (MAP) 178/49 (92) 167/59 (95) Pulse Ox 100 100 100 O2 Delivery Nasal Cannula Nasal Cannula Nasal Cannula O2 Flow Rate 3.0 3.0 3.0 06/18/17 06/18/17 06/18/17 06/18/17 08:00 08:00 09:00 09:47 Temp 98.0 98.0 Pulse 76 83 Resp 23 24 35 B/P (MAP) 142/90 (107) 206/81 (122) Pulse Ox 100 98 98 O2 Delivery Nasal Cannula Nasal Cannula Nasal Cannula Nasal Cannula O2 Flow Rate 3.0 3.0 3.0 3.0 06/18/17 06/18/17 06/18/17 10:12 11:06 11:14 Pulse 79 87 Resp 27 B/P (MAP) 154/64 (94) 215/71 Pulse Ox 100 96 O2 Delivery Nasal Cannula Nasal Cannula O2 Flow Rate 3.0 2.0 Intake and Output 06/18/17 06/18/17 06/19/17 15:00 23:00 07:00 Output Total 430 ml Balance -430 ml BLANCA GENAO III DO Jun 18, 2017 11:39
[2017-06-18] MEDS: METOPROLOL TARTRATE 5 MG/5 ML VIAL. IVP SCH ×3 (13:20→23:39)
[2017-06-18] MEDS: NITROGLYCERIN OINT 1 GM PACKET. TP SCH ×3 (13:22→23:40)
--- NOTE | 2017-06-18 15:10 | PDOC2 ---
PALLIATIVE CARE Palliative Care Note Palliative Care Consult requested by Dr. Casillas to address goals of care. Diagnosis: At fib-new onset; CHF; Respiratory Failure--on BiPap intermittently ; Encephalopathy; HTN; Swallow evaluation order pending; Aspiration ? Spoke with daughter Plan: family meeting tomorrow at 1030 AMINAH VELAZQUEZ Jun 18, 2017 15:10
[2017-06-18] MEDS: ATORVASTATIN CALCIUM 20 MG TABLET PO SCH (20:53)
[2017-06-18] MEDS: OMEGA-3 FATTY ACIDS/FISH OIL 1,000 MG CAPSULE. PO SCH (20:53)
[2017-06-19] VITALS (7 sets, daily range): BP systolic 107–202; BP diastolic 50–94
[2017-06-19] MEDS: AMINO AC 3%/ELECTROLYTE/GLYCER 1,000 ML IV SCH ×2 (00:38→20:40)
[2017-06-19] MEDS: HALOPERIDOL LACTATE 5 MG/ML VIAL. IVP PRN (00:50)
[2017-06-19] MEDS: METOPROLOL TARTRATE 5 MG/5 ML VIAL. IVP SCH ×3 (06:19→18:15)
[2017-06-19] MEDS: NITROGLYCERIN OINT 1 GM PACKET. TP SCH ×3 (06:20→18:16)
[2017-06-19 06:30] LABS: CALCIUM 9.5 mg/dL (8.5-10.1); CREATININE 0.8 mg/dL (0.6-1.0); GFR 67.8; POTASSIUM 4.4 mmol/L (3.5-5.1)
[2017-06-19] MEDS: LEVOTHYROXINE 75 MCG TABLET PO SCH (06:38)
[2017-06-19 06:45] LABS: BASO # 0.1 x10^3/uL (0.0-0.2); BASO % 0 % (0-3); EOS % 1 % (0-3); HEMATOCRIT 38.2 % (36.0-47.0); HEMOGLOBIN 12.3 g/dL (12.0-15.5); LYMPH # 1.7 x10^3/uL (1.0-4.8); LYMPH % 7 % (24-48); MEAN CORPUSCULAR HEMOGLOBIN 33 pg (25-35); MEAN CORPUSCULAR HGB CONC 32 g/dL (31-37); MEAN CORPUSCULAR VOLUME 102 fL (79-100); MONO % 9 % (0-9); NEUT % 84 % (31-73); PLATELET COUNT 204 x10^3/uL (140-400); RED BLOOD COUNT 3.77 x10^6/uL (3.50-5.40); RED CELL DISTRIBUTION WIDTH 15.7 % (11.5-14.5); WHITE BLOOD COUNT 25.3 x10^3/uL (4.0-11.0)
[2017-06-19] MEDS: BUDESONIDE 0.5 MG/2 ML NEBU. NEB SCH ×2 (07:17→19:32)
[2017-06-19] MEDS: IPRATRPIUM/ALBUTEROL 0.5/2.5MG 3 ML NEBU. NEB SCH ×4 (07:17→19:32)
[2017-06-19] MEDS: ASPIRIN ENTERIC COATED 81 MG TABLET.DR. PO SCH (08:00)
[2017-06-19] MEDS ORDERED: HALOPERIDOL LACTATE 5 MG/ML VIAL. IVP PRN (08:45)
[2017-06-19] MEDS: GABAPENTIN 100 MG CAPSULE. PO SCH ×3 (09:00→20:34)
[2017-06-19] MEDS: BENZONATATE 100 MG CAPSULE. PO SCH ×3 (09:00→20:34)
[2017-06-19] MEDS: ASPIRIN 300 MG SUPP.RECT PR SCH (09:00)
[2017-06-19] MEDS: CHOLECALCIFEROL (VITAMIN D3) 1,000 UNIT TABLET PO SCH (09:00)
--- NOTE | 2017-06-19 10:43 | PDOC ---
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 HTN UNCOntrolled Hx elevated uric acid Hypothryodism Anxiety NOS HLD leukocytosis, reactive to solumedrol? dysphagia, 2/2 encephalopathy plan: fu with card PAT family meeting today at 10am DNR pt is very confused and somelent, not follow any commands except tells her name on NC2L ,OFF BIPAP change meds to iv if could on metoprolol iv qid, may need more htn iv meds if BP cont high change PPN to TPN CHECK UA, UCX, BCX, CXR given WBC cont higher poor prognosis gi ppx dvt ppx check head CT History of Present Illness History of Present Illness pt is very confused and somelent, not follow any commands except tells her name failed swallow study 2 times, npo on PPN now on NC2L ROS: no fever, chills or chest pain Vitals Vitals Vital Signs Date Time Temp Pulse Resp B/P (MAP) Pulse Ox O2 Delivery O2 Flow Rate FiO2 06/19/17 08:51 76 18 176/68 (104) 97 Nasal Cannula 2.0 06/19/17 07:00 97.8 97.8 Physical Exam Physical Exam [email or web address] General: No acute distress, mild distress Heart: Regular rate Lungs: Other (bl coarse bs) Abdomen: Normal bowel sounds Extremities: No clubbing, No cyanosis, No edema, Normal pulses, No tenderness/ swelling Skin: No rashes, No breakdown, No significant lesion Labs LABS Laboratory Tests Test 06/19/17 06:05 White Blood Count 25.3 x10^3/uL (4.0-11.0) Red Blood Count 3.77 x10^6/uL (3.50-5.40) Hemoglobin 12.3 g/dL (12.0-15.5) Hematocrit 38.2 % (36.0-47.0) Mean Corpuscular Volume 102 fL (79-100) Mean Corpuscular Hemoglobin 33 pg (25-35) Mean Corpuscular Hemoglobin Concent 32 g/dL (31-37) Red Cell Distribution Width 15.7 % (11.5-14.5) Platelet Count 204 x10^3/uL (140-400) Neutrophils (%) (Auto) 84 % (31-73) Lymphocytes (%) (Auto) 7 % (24-48) Monocytes (%) (Auto) 9 % (0-9) Eosinophils (%) (Auto) 1 % (0-3) Basophils (%) (Auto) 0 % (0-3) Neutrophils # (Auto) 21.1 x10^3uL (1.8-7.7) Lymphocytes # (Auto) 1.7 x10^3/uL (1.0-4.8) Monocytes # (Auto) 2.2 x10^3/uL (0.0-1.1) Eosinophils # (Auto) 0.2 x10^3/uL (0.0-0.7) Basophils # (Auto) 0.1 x10^3/uL (0.0-0.2) Sodium Level 144 mmol/L (136-145) Potassium Level 4.4 mmol/L (3.5-5.1) Chloride Level 110 mmol/L (98-107) Carbon Dioxide Level 30 mmol/L (21-32) Anion Gap 4 (6-14) Blood Urea Nitrogen 41 mg/dL (7-20) Creatinine 0.8 mg/dL (0.6-1.0) Estimated GFR (Cockcroft-Gault) 67.8 Glucose Level 105 mg/dL (70-99) Calcium Level 9.5 mg/dL (8.5-10.1) Assessment and Plan Assessmemt and Plan Problems Medical Problems: (1) Atrial fibrillation with RVR Status: Acute Problems: Comment Review of Relevant I have reviewed the following items viktor (where applicable) has been applied. Labs Laboratory Tests Test 06/18/17 05:30 06/19/17 06:05 White Blood Count 17.7 x10^3/uL (4.0-11.0) 25.3 x10^3/uL (4.0-11.0) Red Blood Count 3.33 x10^6/uL (3.50-5.40) 3.77 x10^6/uL (3.50-5.40) Hemoglobin 11.1 g/dL (12.0-15.5) 12.3 g/dL (12.0-15.5) Hematocrit 32.9 % (36.0-47.0) 38.2 % (36.0-47.0) Mean Corpuscular Volume 99 fL (79-100) 102 fL (79-100) Mean Corpuscular Hemoglobin 33 pg (25-35) 33 pg (25-35) Mean Corpuscular Hemoglobin Concent 34 g/dL (31-37) 32 g/dL (31-37) Red Cell Distribution Width 15.3 % (11.5-14.5) 15.7 % (11.5-14.5) Platelet Count 187 x10^3/uL (140-400) 204 x10^3/uL (140-400) Neutrophils (%) (Auto) 82 % (31-73) 84 % (31-73) Lymphocytes (%) (Auto) 5 % (24-48) 7 % (24-48) Monocytes (%) (Auto) 13 % (0-9) 9 % (0-9) Eosinophils (%) (Auto) 0 % (0-3) 1 % (0-3) Basophils (%) (Auto) 0 % (0-3) 0 % (0-3) Neutrophils # (Auto) 14.4 x10^3uL (1.8-7.7) 21.1 x10^3uL (1.8-7.7) Lymphocytes # (Auto) 0.9 x10^3/uL (1.0-4.8) 1.7 x10^3/uL (1.0-4.8) Monocytes # (Auto) 2.4 x10^3/uL (0.0-1.1) 2.2 x10^3/uL (0.0-1.1) Eosinophils # (Auto) 0.0 x10^3/uL (0.0-0.7) 0.2 x10^3/uL (0.0-0.7) Basophils # (Auto) 0.0 x10^3/uL (0.0-0.2) 0.1 x10^3/uL (0.0-0.2) Sodium Level 149 mmol/L (136-145) 144 mmol/L (136-145) Potassium Level 4.2 mmol/L (3.5-5.1) 4.4 mmol/L (3.5-5.1) Chloride Level 115 mmol/L (98-107) 110 mmol/L (98-107) Carbon Dioxide Level 28 mmol/L (21-32) 30 mmol/L (21-32) Anion Gap 6 (6-14) 4 (6-14) Blood Urea Nitrogen 38 mg/dL (7-20) 41 mg/dL (7-20) Creatinine 0.8 mg/dL (0.6-1.0) 0.8 mg/dL (0.6-1.0) Estimated GFR (Cockcroft-Gault) 67.8 67.8 Glucose Level 118 mg/dL (70-99) 105 mg/dL (70-99) Calcium Level 9.5 mg/dL (8.5-10.1) 9.5 mg/dL (8.5-10.1) Laboratory Tests Test 06/19/17 06:05 White Blood Count 25.3 x10^3/uL (4.0-11.0) Red Blood Count 3.77 x10^6/uL (3.50-5.40) Hemoglobin 12.3 g/dL (12.0-15.5) Hematocrit 38.2 % (36.0-47.0) Mean Corpuscular Volume 102 fL (79-100) Mean Corpuscular Hemoglobin 33 pg (25-35) Mean Corpuscular Hemoglobin Concent 32 g/dL (31-37) Red Cell Distribution Width 15.7 % (11.5-14.5) Platelet Count 204 x10^3/uL (140-400) Neutrophils (%) (Auto) 84 % (31-73) Lymphocytes (%) (Auto) 7 % (24-48) Monocytes (%) (Auto) 9 % (0-9) Eosinophils (%) (Auto) 1 % (0-3) Basophils (%) (Auto) 0 % (0-3) Neutrophils # (Auto) 21.1 x10^3uL (1.8-7.7) Lymphocytes # (Auto) 1.7 x10^3/uL (1.0-4.8) Monocytes # (Auto) 2.2 x10^3/uL (0.0-1.1) Eosinophils # (Auto) 0.2 x10^3/uL (0.0-0.7) Basophils # (Auto) 0.1 x10^3/uL (0.0-0.2) Sodium Level 144 mmol/L (136-145) Potassium Level 4.4 mmol/L (3.5-5.1) Chloride Level 110 mmol/L (98-107) Carbon Dioxide Level 30 mmol/L (21-32) Anion Gap 4 (6-14) Blood Urea Nitrogen 41 mg/dL (7-20) Creatinine 0.8 mg/dL (0.6-1.0) Estimated GFR (Cockcroft-Gault) 67.8 Glucose Level 105 mg/dL (70-99) Calcium Level 9.5 mg/dL (8.5-10.1) Medications Current Medications Albuterol/ Ipratropium (Duoneb) 3 ml STK-MED ONCE .ROUTE ; Start 06/13/17 at 08: 12; Stop 06/13/17 at 08:13; Status DC Albuterol/ Ipratropium (Duoneb) 3 ml 1X ONCE NEB Last administered on 08:15; Start 06/13/17 at 08:15; Stop 06/13/17 at 08:20; Status DC Methylprednisolone Sodium Succinate (SOLU-Medrol 125MG VIAL) 125 mg 1X ONCE IV Last administered on 06/13/17 08:22; Start 06/13/17 at 08:15; Stop 06/13/17 at 08:20; Status DC Diltiazem HCl (Cardizem) 10 mg 1X ONCE IVP Last administered on 06/13/17 08: 31; Start 06/13/17 at 08:15; Stop 06/13/17 at 08:29; Status DC Diltiazem HCl (Cardizem) 10 mg 1X ONCE IVP ; Start 06/13/17 at 08:15; Stop at 08:16; Status Cancel Diltiazem HCl 125 mg/Dextrose 125 ml @ 0 mls/hr 1X ONCE IV Last administered on 06/13/17 08:43; Start 06/13/17 at 08:15; Stop 06/13/17 at 14:48; Status DC Aspirin (Children'S Aspirin) 324 mg 1X ONCE PO Last administered on 06/13/17 08:47; Start 06/13/17 at 08:45; Stop 06/13/17 at 08:46; Status DC Ondansetron HCl (Zofran) 4 mg PRN Q8HRS PRN IV NAUSEA/VOMITING; Start 06/13/17 at 08:45; Stop 06/13/17 at 10:18; Status DC Guaifenesin (Robitussin Dm) 10 ml PRN Q6HRS PRN PO COUGH Last administered on 17:46; Start 06/13/17 at 10:00 Albuterol/ Ipratropium (Duoneb) 3 ml RTQID NEB Last administered on 06/19/17 07:17; Start 06/13/17 at 12:00 Ondansetron HCl (Zofran) 4 mg PRN Q6HRS PRN IV NAUSEA/VOMITING Last administered on 06/13/17 17:45; Start 06/13/17 at 10:30; Stop 06/14/17 at 10:29 ; Status DC Acetaminophen (Tylenol) 500 mg PRN Q6HRS PRN PO MILD PAIN / TEMP Last administered on 06/13/17 16:02; Start 06/13/17 at 10:30 Furosemide (Lasix) 20 mg 1X ONCE IVP Last administered on 06/13/17 11:03; Start 06/13/17 at 10:15; Stop 06/13/17 at 10:22; Status DC Digoxin (Lanoxin) 250 mcg 1X ONCE IV Last administered on 06/13/17 11:03; Start 06/13/17 at 10:30; Stop 06/13/17 at 10:31; Status DC Aspirin (Ecotrin) 81 mg DAILYWBKFT PO Last administered on 06/13/17 11:03; Start 06/13/17 at 12:00 Alprazolam (Xanax) 0.5 mg PRN Q8HRS PRN PO ANXIETY / AGITATION Last administered on 06/13/17 11:47; Start 06/13/17 at 11:45 Info (Do NOT chart on this placeholder) 1 each 1X ONCE MC ; Start 06/13/17 at 13:15; Stop 06/13/17 at 13:16; Status UNV Allopurinol (Zyloprim) 300 mg QODAY PO ; Start 06/14/17 at 09:00 Alprazolam (Xanax) 0.25 mg TID PRN PO ANXIETY / AGITATION; Start 06/13/17 at 14 :15; Status UNV Aspirin (Ecotrin) 81 mg DAILYWBKFT PO ; Start 06/14/17 at 08:00; Status UNV Famotidine (Pepcid) 20 mg DAILY PO ; Start 06/14/17 at 09:00; Stop 06/19/17 at 08:44; Status DC Furosemide (Lasix) 20 mg DAILY PO ; Start 06/14/17 at 09:00; Stop 06/14/17 at 09 :00; Status DC Gabapentin (Neurontin) 100 mg TID PO Last administered on 06/13/17 16:02; Start 06/13/17 at 15:30 Hydroxyurea (Hydrea) 500 mg QODAY PO ; Start 06/14/17 at 09:00 Levothyroxine Sodium (Synthroid) 75 mcg DAILY07 PO ; Start 06/14/17 at 07:00; Stop 06/19/17 at 08:44; Status DC Vitamin D (Vitamin D3) 1,000 unit DAILY PO ; Start 06/14/17 at 09:00 Isosorbide Mononitrate (Imdur) 60 mg DAILY PO ; Start 06/14/17 at 09:00; Stop at 09:00; Status DC Fish Oil (Fish Oil) 1,000 mg QHS PO ; Start 06/13/17 at 21:00 Non-Formulary Medication 100 mg DAILY PO ; Start 06/14/17 at 09:00; Status UNV Metoprolol Tartrate (Lopressor) 50 mg BID PO Last administered on 06/13/17 16: 03; Start 06/13/17 at 16:00; Stop 06/18/17 at 12:50; Status DC Isosorbide Mononitrate (Imdur) 30 mg DAILY PO ; Start 06/14/17 at 09:00; Stop at 09:48; Status DC Labetalol HCl (Normodyne) 20 mg PRN Q2HR PRN IVP HYPERTENSION, SEE COMMENTS Last administered on 06/18/17 11:06; Start 06/13/17 at 17:45 Benzonatate (Tessalon Perle) 100 mg LCQ703 PO ; Start 06/13/17 at 21:00 Albuterol Sulfate (Ventolin Neb Soln) 2.5 mg PRN Q2HR PRN NEB DYSPNEA Last administered on 06/13/17 20:05; Start 06/13/17 at 18:15 Acetaminophen/ Hydrocodone Bitart (Lortab 5/325) 1 tab PRN Q4HRS PRN PO MODERATE - SEVERE PAIN; Start 06/13/17 at 18:15 Furosemide (Lasix) 20 mg 1X ONCE IVP Last administered on 06/13/17 20:10; Start 06/13/17 at 20:00; Stop 06/13/17 at 20:02; Status DC Lorazepam (Ativan) 1 mg PRN Q4HRS PRN IV ANXIETY / AGITATION Last administered on 06/16/17 22:39; Start 06/13/17 at 20:00 Lorazepam (Ativan) 2 mg PRN Q4HRS PRN IV ANXIETY / AGITATION Last administered on 06/17/17 03:48; Start 06/13/17 at 20:00 Morphine Sulfate 2 mg PRN Q2HR PRN IV SEVERE PAIN Last administered on 23:14; Start 06/14/17 at 04:15 Haloperidol Lactate (Haldol) 5 mg PRN Q6HRS PRN IVP AGITATION Last administered on 06/19/17 00:50; Start 06/14/17 at 04:15; Stop 06/19/17 at 08:44 ; Status DC Methylprednisolone Sodium Succinate (SOLU-Medrol 40MG VIAL) 40 mg Q8HRS IV Last administered on 06/16/17 05:08; Start 06/14/17 at 08:15; Stop 06/16/17 at 14:13; Status DC Budesonide (Pulmicort) 0.5 mg RTBID NEB Last administered on 06/19/17 07:17; Start 06/14/17 at 09:00 Atorvastatin Calcium (Lipitor) 20 mg QHS PO ; Start 06/14/17 at 21:00 Isosorbide Mononitrate (Imdur) 60 mg DAILY PO ; Start 06/16/17 at 09:00; Stop at 09:00; Status DC Amlodipine Besylate (Norvasc) 5 mg DAILY PO ; Start 06/15/17 at 09:45; Stop at 14:52; Status DC Nitroglycerin (Nitro-Bid Oint) 1 inch Q6HRS TP Last administered on 06/15/17 18:05; Start 06/15/17 at 12:00; Stop 06/15/17 at 22:56; Status DC Nicardipine HCl 50 mg/Sodium Chloride 270 ml @ 0 mls/hr CONT PRN IV SEE I/O RECORD Last administered on 06/16/17 08:32; Start 06/15/17 at 19:45; Stop 06/16 at 14:25; Status DC Sodium Chloride 500 ml @ 500 mls/hr 1X ONCE IV Last administered on 11:45; Start 06/16/17 at 11:45; Stop 06/16/17 at 12:44; Status DC Amino Acids/ Glycerin/ Electrolytes 1,000 ml @ 50 mls/hr Q20H IV Last administered on 06/19/17 00:38; Start 06/16/17 at 12:30 Diltiazem HCl 125 mg/Dextrose 125 ml @ 0 mls/hr CONT PRN IV SEE I/O RECORD Last administered on 06/18/17 03:18; Start 06/16/17 at 14:30; Stop 06/19/17 at 08:44; Status DC Aspirin (Aspirin) 150 mg DAILY SC Last administered on 06/18/17 10:31; Start 06/17/17 at 15:45 Potassium Chloride 50 ml @ 25 mls/hr Q2H IV Last administered on 06/17/17 22: 02; Start 06/17/17 at 19:30; Stop 06/17/17 at 23:29; Status DC Bisacodyl (Dulcolax Supp) 10 mg PRN DAILY PRN SC CONSTIPATION Last administered on 06/17/17 19:47; Start 06/17/17 at 19:15 Metoprolol Tartrate (Lopressor) 5 mg Q6HRS IVP Last administered on 06/19/17 06:19; Start 06/18/17 at 13:00 Nitroglycerin (Nitro-Bid Oint) 1 inch Q6HRS TP Last administered on 06/19/17 06:20; Start 06/18/17 at 13:00 Haloperidol Lactate (Haldol) 2 mg PRN Q6HRS PRN IVP AGITATION; Start 06/19/17 at 08:45 Famotidine (Pepcid) 20 mg QHS IVP ; Start 06/19/17 at 21:00 Levothyroxine Sodium 40 mcg/ Sodium Chloride 5 ml @ 100 mls/hr DAILY IVP ; Start 06/19/17 at 09:00 Active Scripts Active Reported Ultra Coq10 (Ubiquinone) 75 Mg Capsule 100 Mg PO DAILY [place]-3 ([place]-3 Fatty Acids) 100 Mg Tab.chew 350 Mg PO HS Isosorbide Mononitrate Er (Isosorbide Mononitrate) 60 Mg Tab.er.24h 1 Tab PO DAILY Vitamin D3 (Cholecalciferol (Vitamin D3)) 1,000 Unit Tab.chew 1,000 Unit PO DAILY Aspir 81 (Aspirin) 81 Mg Tablet.dr 1 Tab PO DAILY Xanax (Alprazolam) 0.25 Mg Tablet 1 Tab PO TID PRN Allopurinol 300 Mg Tablet 1 Tab PO QODAY Pepcid (Famotidine) 20 Mg Tablet 20 Mg PO DAILY Levothyroxine Sodium 75 Mcg Tablet 1 Tab PO DAILY Hydroxyurea 500 Mg Capsule 500 Mg PO QODAY Gabapentin 100 Mg Capsule 100 Mg PO TID Furosemide 20 Mg Tablet 1 Tab PO DAILY Vitals/I & O Vital Sign - Last 24 Hours 06/18/17 06/18/17 06/18/17 06/18/17 11:00 11:06 11:14 11:28 Pulse 74 87 67 Resp 17 17 B/P (MAP) 203/77 (119) 215/71 182/68 (106) Pulse Ox 100 96 100 O2 Delivery Nasal Cannula Nasal Cannula Nasal Cannula O2 Flow Rate 3.0 2.0 3.0 06/18/17 06/18/17 06/18/17 06/18/17 12:00 13:20 13:20 13:22 Pulse 63 68 Resp 20 B/P (MAP) 155/82 155/82 Pulse Ox 98 O2 Delivery Nasal Cannula Nasal Cannula O2 Flow Rate 3.0 3.0 06/18/17 06/18/17 06/18/17 06/18/17 15:36 15:45 17:34 17:36 Pulse 77 77 B/P (MAP) 158/72 158/72 Pulse Ox 100 O2 Delivery Nasal Cannula Nasal Cannula O2 Flow Rate 3.0 2.0 9/20/17 9/20/17 9/20/17 9/20/17 18:20 19:05 19:43 20:00 Temp 97.4 97.4 Pulse 77 Resp 21 B/P (MAP) 182/82 (115) Pulse Ox 98 99 100 O2 Delivery Nasal Cannula Nasal Cannula Nasal Cannula Nasal Cannula O2 Flow Rate 2.0 3.0 2.0 2.0 06/18/17 06/18/17 06/18/17 06/18/17 23:05 23:14 23:39 23:40 Temp 97.6 97.6 Pulse 86 84 80 Resp 20 B/P (MAP) 191/92 (125) 191/92 191/92 Pulse Ox 99 100 O2 Delivery Nasal Cannula Nasal Cannula O2 Flow Rate 3.0 2.0 06/18/17 06/19/17 06/19/17 06/19/17 23:51 03:26 06:19 06:20 Temp 97.8 97.8 Pulse 64 85 88 Resp 20 B/P (MAP) 131/63 (85) 196/102 196/102 Pulse Ox 98 99 O2 Delivery Nasal Cannula Nasal Cannula O2 Flow Rate 2.0 3.0 06/19/17 06/19/17 06/19/17 07:00 07:18 08:51 Temp 97.8 97.8 Pulse 87 76 Resp 19 18 B/P (MAP) 202/84 (123) 176/68 (104) Pulse Ox 99 99 97 O2 Delivery Nasal Cannula Nasal Cannula Nasal Cannula O2 Flow Rate 3.0 2.0 2.0 DA DESAI MD Jun 19, 2017 10:43
--- NOTE | 2017-06-19 10:45 | RAD ---
Portable chest, 06/19/2017: History: Pneumonia Comparison is made to a study from 06/17/2017. A left subclavian central venous catheter remains in place extending into the superior vena cava. The heart size and pulmonary vascularity are normal. There is extensive calcific plaquing of the aorta. The right chest remains clear. There is persistent obscuration of the left hemidiaphragm and the left lateral costophrenic angled, although improved since 06/17/2017. There are granulomatous calcifications in the left chest. IMPRESSION: 1. Improving left basilar opacity compatible with a small amount of pleural fluid and underlying atelectasis/infiltrate. 2. No new abnormality is detected.
[2017-06-19] MEDS: NORMAL SALINE IVP SCH (10:56)
[2017-06-19] MEDS: LEVOTHYROXINE SODIUM IVP SCH (10:56)
--- NOTE | 2017-06-19 12:40 | PDOC ---
PULMONARY PROGRESS NOTES Subjective SLOWLY IMPROVING Vitals Vital Signs Date Time Temp Pulse Resp B/P (MAP) Pulse Ox O2 Delivery O2 Flow Rate FiO2 06/19/17 11:56 81 187/94 06/19/17 11:45 97 Nasal Cannula 2.0 06/19/17 11:00 19 06/19/17 07:00 97.8 97.8 Comments ros, as mentioned as above, discussed w rn, other sys otherwise neg General: Alert HEENT: Other (nc at perrl, bipap mask on, neck, no lap, thyromegaly) Lungs: Other (decrease bs) Cardiovascular: S1, S2 Abdomen: Soft, Non-tender, Other (no mass) Neuro Exam: Alert Extremities: No Edema Skin: Warm Labs Laboratory Tests Test 06/18/17 05:30 06/19/17 06:05 White Blood Count 17.7 x10^3/uL (4.0-11.0) 25.3 x10^3/uL (4.0-11.0) Red Blood Count 3.33 x10^6/uL (3.50-5.40) 3.77 x10^6/uL (3.50-5.40) Hemoglobin 11.1 g/dL (12.0-15.5) 12.3 g/dL (12.0-15.5) Hematocrit 32.9 % (36.0-47.0) 38.2 % (36.0-47.0) Mean Corpuscular Volume 99 fL (79-100) 102 fL (79-100) Mean Corpuscular Hemoglobin 33 pg (25-35) 33 pg (25-35) Mean Corpuscular Hemoglobin Concent 34 g/dL (31-37) 32 g/dL (31-37) Red Cell Distribution Width 15.3 % (11.5-14.5) 15.7 % (11.5-14.5) Platelet Count 187 x10^3/uL (140-400) 204 x10^3/uL (140-400) Neutrophils (%) (Auto) 82 % (31-73) 84 % (31-73) Lymphocytes (%) (Auto) 5 % (24-48) 7 % (24-48) Monocytes (%) (Auto) 13 % (0-9) 9 % (0-9) Eosinophils (%) (Auto) 0 % (0-3) 1 % (0-3) Basophils (%) (Auto) 0 % (0-3) 0 % (0-3) Neutrophils # (Auto) 14.4 x10^3uL (1.8-7.7) 21.1 x10^3uL (1.8-7.7) Lymphocytes # (Auto) 0.9 x10^3/uL (1.0-4.8) 1.7 x10^3/uL (1.0-4.8) Monocytes # (Auto) 2.4 x10^3/uL (0.0-1.1) 2.2 x10^3/uL (0.0-1.1) Eosinophils # (Auto) 0.0 x10^3/uL (0.0-0.7) 0.2 x10^3/uL (0.0-0.7) Basophils # (Auto) 0.0 x10^3/uL (0.0-0.2) 0.1 x10^3/uL (0.0-0.2) Sodium Level 149 mmol/L (136-145) 144 mmol/L (136-145) Potassium Level 4.2 mmol/L (3.5-5.1) 4.4 mmol/L (3.5-5.1) Chloride Level 115 mmol/L (98-107) 110 mmol/L (98-107) Carbon Dioxide Level 28 mmol/L (21-32) 30 mmol/L (21-32) Anion Gap 6 (6-14) 4 (6-14) Blood Urea Nitrogen 38 mg/dL (7-20) 41 mg/dL (7-20) Creatinine 0.8 mg/dL (0.6-1.0) 0.8 mg/dL (0.6-1.0) Estimated GFR (Cockcroft-Gault) 67.8 67.8 Glucose Level 118 mg/dL (70-99) 105 mg/dL (70-99) Calcium Level 9.5 mg/dL (8.5-10.1) 9.5 mg/dL (8.5-10.1) Laboratory Tests Test 06/19/17 06:05 White Blood Count 25.3 x10^3/uL (4.0-11.0) Red Blood Count 3.77 x10^6/uL (3.50-5.40) Hemoglobin 12.3 g/dL (12.0-15.5) Hematocrit 38.2 % (36.0-47.0) Mean Corpuscular Volume 102 fL (79-100) Mean Corpuscular Hemoglobin 33 pg (25-35) Mean Corpuscular Hemoglobin Concent 32 g/dL (31-37) Red Cell Distribution Width 15.7 % (11.5-14.5) Platelet Count 204 x10^3/uL (140-400) Neutrophils (%) (Auto) 84 % (31-73) Lymphocytes (%) (Auto) 7 % (24-48) Monocytes (%) (Auto) 9 % (0-9) Eosinophils (%) (Auto) 1 % (0-3) Basophils (%) (Auto) 0 % (0-3) Neutrophils # (Auto) 21.1 x10^3uL (1.8-7.7) Lymphocytes # (Auto) 1.7 x10^3/uL (1.0-4.8) Monocytes # (Auto) 2.2 x10^3/uL (0.0-1.1) Eosinophils # (Auto) 0.2 x10^3/uL (0.0-0.7) Basophils # (Auto) 0.1 x10^3/uL (0.0-0.2) Sodium Level 144 mmol/L (136-145) Potassium Level 4.4 mmol/L (3.5-5.1) Chloride Level 110 mmol/L (98-107) Carbon Dioxide Level 30 mmol/L (21-32) Anion Gap 4 (6-14) Blood Urea Nitrogen 41 mg/dL (7-20) Creatinine 0.8 mg/dL (0.6-1.0) Estimated GFR (Cockcroft-Gault) 67.8 Glucose Level 105 mg/dL (70-99) Calcium Level 9.5 mg/dL (8.5-10.1) Medications Active Scripts Medications Dose Route/Sig Max Daily Dose Days Date Category Ultra Coq10 (Ubiquinone) 75 Mg Capsule 100 Mg PO DAILY 06/13/17 Reported [place]-3 ([place]-3 Fatty Acids) 100 Mg Tab.chew 350 Mg PO HS 06/13/17 Reported Isosorbide Mononitrate Er (Isosorbide Mononitrate) 60 Mg Tab.er.24h 1 Tab PO DAILY 06/13/17 Reported Vitamin D3 (Cholecalciferol (Vitamin D3)) 1,000 Unit Tab.chew 1,000 Unit PO DAILY 06/13/17 Reported Aspir 81 (Aspirin) 81 Mg Tablet. 1 Tab PO DAILY 06/13/17 Reported Xanax (Alprazolam) 0.25 Mg Tablet 1 Tab PO TID PRN 06/13/17 Reported Allopurinol 300 Mg Tablet 1 Tab PO QODAY 06/13/17 Reported Pepcid (Famotidine) 20 Mg Tablet 20 Mg PO DAILY 06/13/17 Reported Levothyroxine Sodium 75 Mcg Tablet 1 Tab PO DAILY 06/13/17 Reported Hydroxyurea 500 Mg Capsule 500 Mg PO QODAY 06/13/17 Reported Gabapentin 100 Mg Capsule 100 Mg PO TID 06/13/17 Reported Furosemide 20 Mg Tablet 1 Tab PO DAILY 06/13/17 Reported Comments cxr reviewed, atelectasis Impression . 1. Acute hypercapnic respiratory failure, multifactorial. 2. Acute exacerbation of chronic obstructive pulmonary disease 3. Acute nonspecific bronchitis. 4. New onset atrial fibrillation with rapid ventricular response, 5. Coronary artery disease. 6. Hyperthyroidism. 7. Generalized anxiety. 8. Suspect silent aspiration leading to cough. 9. Abnormal CXR with left subclavian catheter in azygous vein, Dr Henry aware 10. delirium ,improving 11. Dysphagia Plan . 1. off steroids 2. nasal canula 3. Mionimize sedatives and narcotics 4. dc PPN, start TPN. continue f/u with speech 6. cont bronchodilators. 7. cxr today with re saleem basal atelectasis 8. discussed w RN/ family ANNEMARIE CORNELL MD Jun 19, 2017 12:40
[2017-06-19 12:58] LABS: BILIRUBIN,URINE NEGATIVE (NEG); GLUCOSE,URINE NEGATIVE (NEG); NITRITE,URINE NEGATIVE (NEG); PROTEIN,URINE 30 mg/dL (NEG-TRACE)
[2017-06-19 13:11] LABS: BACTERIA,URINE MANY /HPF (0-FEW); RBC,URINE >40 /HPF (0-2)
--- NOTE | 2017-06-19 13:30 | PDOC2 ---
PALLIATIVE CARE Palliative Care Note Palliative Care Patient alert at times. Complains of being hungry and thirsty. Oral care provided. Not oriented to place and time Met with daughters Monet; Nisa and Ana Lilia per phone. Ash/son not able to attend Reviewed medical condition: At [facility] on admission treated with Cardizem--now SR; CHF diastolic EF 55-60%; Respiratory Failure now off BiPap; Encephalopathy -- some improvement; HTN treated with medications. Swallow evaluation --concerns about aspiration. elevated WBC--off steroids-- counts continue to rise; Prognosis guarded. Reviewed Labs and Imaging. More results pending. Patient lives with Monet. Wears oxygen at night. Macie important part of her life: [employer]ism Afraid of being a burden to family. Six weeks ago she was able to dress herself ; ambulated with walker/cane--going out to dinner with friends. good appetite; no recent falls; Patient had occ. cough. Sleeping on her side aggravated her cough. 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 She and her family are from [place]. Confirmed Code Status: DNR/DNI. Outside the Hospital DNR/DNI form signed by Monet. Patient apparently has AD. Unable to locate it at this time. Per Ana Lilia she is the DPOA. Patient would never want a feeding tube, If she were unable to return back to a reasonable quality of life she would be say "let me go" Discussed goals of care; Continue current treatment plan to see if she could improve vs comfort care vs full aggressive care. Family would like to continue treatment in hopes of finding reason for elevated WBC. DNR/DNI. TPN for nutrition; No Peg tube. Will continue follow patient. Mecca MONGE aware of plan. AMINAH VELAZQUEZ Jun 19, 2017 13:30
--- NOTE | 2017-06-19 13:38 | RAD ---
CT of the head without contrast, 06/19/2017: History: Altered mental status Comparison is made to a study from 09/04/2011. There is moderate cerebral atrophy. There are mild patchy lucencies in the deep white matter bilaterally compatible with chronic ischemic change. These lucencies have progressed since the previous exam. There is mild compensatory enlargement of the ventricles. There is no shift of the midline structures. There is no evidence of acute intracranial hemorrhage or mass effect. Calcific plaquing of the distal internal carotid and vertebral arteries is present. IMPRESSION: 1. Moderate cerebral atrophy. 2. Mild deep white matter lucencies have progressed slightly and suggest chronic ischemic change. 3. No acute intracranial abnormality is detected. PQRS Compliance Statement: One or more of the following individualized dose reduction techniques were utilized for this examination: 1. Automated exposure control 2. Adjustment of the mA and/or kV according to patient size 3. Use of iterative reconstruction technique
[2017-06-19] MEDS: OMEGA-3 FATTY ACIDS/FISH OIL 1,000 MG CAPSULE. PO SCH (20:33)
[2017-06-19] MEDS: ATORVASTATIN CALCIUM 20 MG TABLET PO SCH (20:34)
[2017-06-19] MEDS: FAMOTIDINE 20 MG/2 ML VIAL IVP SCH (20:39)
[2017-06-20] MEDS: METOPROLOL TARTRATE 5 MG/5 ML VIAL. IVP SCH ×5 (01:37→23:21)
[2017-06-20] MEDS: NITROGLYCERIN OINT 1 GM PACKET. TP SCH ×5 (01:37→23:21)
[2017-06-20 03:44] VITALS: BP 104/55
[2017-06-20 05:46] LABS: BASO # 0.1 x10^3/uL (0.0-0.2); BASO % 0 % (0-3); EOS % 5 % (0-3); HEMOGLOBIN 11.8 g/dL (12.0-15.5); LYMPH # 1.5 x10^3/uL (1.0-4.8); LYMPH % 8 % (24-48); MEAN CORPUSCULAR HEMOGLOBIN 33 pg (25-35); MEAN CORPUSCULAR HGB CONC 34 g/dL (31-37); MEAN CORPUSCULAR VOLUME 99 fL (79-100); MONO % 9 % (0-9); NEUT % 78 % (31-73); PLATELET COUNT 214 x10^3/uL (140-400); RED BLOOD COUNT 3.53 x10^6/uL (3.50-5.40); RED CELL DISTRIBUTION WIDTH 15.9 % (11.5-14.5); WHITE BLOOD COUNT 18.4 x10^3/uL (4.0-11.0)
[2017-06-20 06:06] LABS: CALCIUM 9.4 mg/dL (8.5-10.1); CREATININE 0.7 mg/dL (0.6-1.0); GFR 79.2; POTASSIUM 4.1 mmol/L (3.5-5.1)
[2017-06-20 07:18] VITALS: BP 115/62
[2017-06-20] MEDS: ASPIRIN ENTERIC COATED 81 MG TABLET.DR. PO SCH (07:28)
[2017-06-20] MEDS: BENZONATATE 100 MG CAPSULE. PO SCH ×3 (07:28→21:00)
[2017-06-20] MEDS: HYDROXYUREA 500 MG CAPSULE PO SCH (07:28)
[2017-06-20] MEDS: GABAPENTIN 100 MG CAPSULE. PO SCH ×3 (07:28→21:00)
[2017-06-20] MEDS: CHOLECALCIFEROL (VITAMIN D3) 1,000 UNIT TABLET PO SCH (07:29)
[2017-06-20] MEDS: ALLOPURINOL 300 MG TABLET. PO SCH (07:29)
[2017-06-20] MEDS: BUDESONIDE 0.5 MG/2 ML NEBU. NEB SCH ×2 (08:10→19:57)
[2017-06-20] MEDS: IPRATRPIUM/ALBUTEROL 0.5/2.5MG 3 ML NEBU. NEB SCH ×4 (08:10→19:57)
[2017-06-20] MEDS: ASPIRIN 300 MG SUPP.RECT PR SCH ×2 (08:56→08:59)
[2017-06-20] MEDS: NORMAL SALINE IVP SCH (08:56)
[2017-06-20] MEDS: LEVOTHYROXINE SODIUM IVP SCH (08:56)
[2017-06-20] MEDS: TPN PER PHARMACY MC PRN (10:18)
[2017-06-20 10:19] VITALS: BP 96/42
--- NOTE | 2017-06-20 10:54 | PDOC ---
PULMONARY PROGRESS NOTES Subjective SLOWLY IMPROVING Vitals Vital Signs Date Time Temp Pulse Resp B/P (MAP) Pulse Ox O2 Delivery O2 Flow Rate FiO2 06/20/17 10:19 97.8 64 20 96/42 (60) 98 Nasal Cannula 3.0 97.8 Comments ros, as mentioned as above, discussed w rn, other sys otherwise neg General: Alert HEENT: Other (nc at perrl, bipap mask on, neck, no lap, thyromegaly) Lungs: Other (decrease bs) Cardiovascular: S1, S2 Abdomen: Soft, Non-tender, Other (no mass) Neuro Exam: Alert Extremities: No Edema Skin: Warm Labs Laboratory Tests Test 06/19/17 06:05 06/19/17 11:15 06/20/17 05:30 White Blood Count 25.3 x10^3/uL (4.0-11.0) 18.4 x10^3/uL (4.0-11.0) Red Blood Count 3.77 x10^6/uL (3.50-5.40) 3.53 x10^6/uL (3.50-5.40) Hemoglobin 12.3 g/dL (12.0-15.5) 11.8 g/dL (12.0-15.5) Hematocrit 38.2 % (36.0-47.0) 35.0 % (36.0-47.0) Mean Corpuscular Volume 102 fL (79-100) 99 fL (79-100) Mean Corpuscular Hemoglobin 33 pg (25-35) 33 pg (25-35) Mean Corpuscular Hemoglobin Concent 32 g/dL (31-37) 34 g/dL (31-37) Red Cell Distribution Width 15.7 % (11.5-14.5) 15.9 % (11.5-14.5) Platelet Count 204 x10^3/uL (140-400) 214 x10^3/uL (140-400) Neutrophils (%) (Auto) 84 % (31-73) 78 % (31-73) Lymphocytes (%) (Auto) 7 % (24-48) 8 % (24-48) Monocytes (%) (Auto) 9 % (0-9) 9 % (0-9) Eosinophils (%) (Auto) 1 % (0-3) 5 % (0-3) Basophils (%) (Auto) 0 % (0-3) 0 % (0-3) Neutrophils # (Auto) 21.1 x10^3uL (1.8-7.7) 14.4 x10^3uL (1.8-7.7) Lymphocytes # (Auto) 1.7 x10^3/uL (1.0-4.8) 1.5 x10^3/uL (1.0-4.8) Monocytes # (Auto) 2.2 x10^3/uL (0.0-1.1) 1.6 x10^3/uL (0.0-1.1) Eosinophils # (Auto) 0.2 x10^3/uL (0.0-0.7) 0.9 x10^3/uL (0.0-0.7) Basophils # (Auto) 0.1 x10^3/uL (0.0-0.2) 0.1 x10^3/uL (0.0-0.2) Sodium Level 144 mmol/L (136-145) 142 mmol/L (136-145) Potassium Level 4.4 mmol/L (3.5-5.1) 4.1 mmol/L (3.5-5.1) Chloride Level 110 mmol/L (98-107) 109 mmol/L (98-107) Carbon Dioxide Level 30 mmol/L (21-32) 26 mmol/L (21-32) Anion Gap 4 (6-14) 7 (6-14) Blood Urea Nitrogen 41 mg/dL (7-20) 36 mg/dL (7-20) Creatinine 0.8 mg/dL (0.6-1.0) 0.7 mg/dL (0.6-1.0) Estimated GFR (Cockcroft-Gault) 67.8 79.2 Glucose Level 105 mg/dL (70-99) 103 mg/dL (70-99) Calcium Level 9.5 mg/dL (8.5-10.1) 9.4 mg/dL (8.5-10.1) Urine Collection Type Unknown Urine Color Yellow Urine Clarity Clear Urine pH 6.0 Urine Specific [place] 1.020 Urine Protein 30 mg/dL (NEG-TRACE) Urine Glucose (UA) Negative mg/dL (NEG) Urine Ketones (Stick) Negative mg/dL (NEG) Urine Blood Moderate (NEG) Urine Nitrite Negative (NEG) Urine Bilirubin Negative (NEG) Urine Urobilinogen Dipstick 1.0 mg/dL (0.2 mg/dL) Urine Leukocyte Esterase Small (NEG) Urine RBC >40 /HPF (0-2) Urine WBC 11-20 /HPF (0-4) Urine Bacteria Many /HPF (0-FEW) Urine Hyaline Casts Few /HPF Urine Granular Casts Occasional /HPF Urine Mucus Slight /LPF Laboratory Tests Test 06/19/17 11:15 06/20/17 05:30 Urine Collection Type Unknown Urine Color Yellow Urine Clarity Clear Urine pH 6.0 Urine Specific [place] 1.020 Urine Protein 30 mg/dL (NEG-TRACE) Urine Glucose (UA) Negative mg/dL (NEG) Urine Ketones (Stick) Negative mg/dL (NEG) Urine Blood Moderate (NEG) Urine Nitrite Negative (NEG) Urine Bilirubin Negative (NEG) Urine Urobilinogen Dipstick 1.0 mg/dL (0.2 mg/dL) Urine Leukocyte Esterase Small (NEG) Urine RBC >40 /HPF (0-2) Urine WBC 11-20 /HPF (0-4) Urine Bacteria Many /HPF (0-FEW) Urine Hyaline Casts Few /HPF Urine Granular Casts Occasional /HPF Urine Mucus Slight /LPF White Blood Count 18.4 x10^3/uL (4.0-11.0) Red Blood Count 3.53 x10^6/uL (3.50-5.40) Hemoglobin 11.8 g/dL (12.0-15.5) Hematocrit 35.0 % (36.0-47.0) Mean Corpuscular Volume 99 fL (79-100) Mean Corpuscular Hemoglobin 33 pg (25-35) Mean Corpuscular Hemoglobin Concent 34 g/dL (31-37) Red Cell Distribution Width 15.9 % (11.5-14.5) Platelet Count 214 x10^3/uL (140-400) Neutrophils (%) (Auto) 78 % (31-73) Lymphocytes (%) (Auto) 8 % (24-48) Monocytes (%) (Auto) 9 % (0-9) Eosinophils (%) (Auto) 5 % (0-3) Basophils (%) (Auto) 0 % (0-3) Neutrophils # (Auto) 14.4 x10^3uL (1.8-7.7) Lymphocytes # (Auto) 1.5 x10^3/uL (1.0-4.8) Monocytes # (Auto) 1.6 x10^3/uL (0.0-1.1) Eosinophils # (Auto) 0.9 x10^3/uL (0.0-0.7) Basophils # (Auto) 0.1 x10^3/uL (0.0-0.2) Sodium Level 142 mmol/L (136-145) Potassium Level 4.1 mmol/L (3.5-5.1) Chloride Level 109 mmol/L (98-107) Carbon Dioxide Level 26 mmol/L (21-32) Anion Gap 7 (6-14) Blood Urea Nitrogen 36 mg/dL (7-20) Creatinine 0.7 mg/dL (0.6-1.0) Estimated GFR (Cockcroft-Gault) 79.2 Glucose Level 103 mg/dL (70-99) Calcium Level 9.4 mg/dL (8.5-10.1) Medications Active Scripts Medications Dose Route/Sig Max Daily Dose Days Date Category Ultra Coq10 (Ubiquinone) 75 Mg Capsule 100 Mg PO DAILY 06/13/17 Reported [place]-3 ([place]-3 Fatty Acids) 100 Mg Tab.chew 350 Mg PO HS 06/13/17 Reported Isosorbide Mononitrate Er (Isosorbide Mononitrate) 60 Mg Tab.er.24h 1 Tab PO DAILY 06/13/17 Reported Vitamin D3 (Cholecalciferol (Vitamin D3)) 1,000 Unit Tab.chew 1,000 Unit PO DAILY 06/13/17 Reported Aspir 81 (Aspirin) 81 Mg Tablet.dr 1 Tab PO DAILY 06/13/17 Reported Xanax (Alprazolam) 0.25 Mg Tablet 1 Tab PO TID PRN 06/13/17 Reported Allopurinol 300 Mg Tablet 1 Tab PO QODAY 06/13/17 Reported Pepcid (Famotidine) 20 Mg Tablet 20 Mg PO DAILY 06/13/17 Reported Levothyroxine Sodium 75 Mcg Tablet 1 Tab PO DAILY 06/13/17 Reported Hydroxyurea 500 Mg Capsule 500 Mg PO QODAY 06/13/17 Reported Gabapentin 100 Mg Capsule 100 Mg PO TID 06/13/17 Reported Furosemide 20 Mg Tablet 1 Tab PO DAILY 06/13/17 Reported Comments cxr reviewed, atelectasis Impression . 1. Acute hypercapnic respiratory failure, multifactorial. 2. Acute exacerbation of chronic obstructive pulmonary disease 3. Acute nonspecific bronchitis. 4. New onset atrial fibrillation with rapid ventricular response, 5. Coronary artery disease. 6. Hyperthyroidism. 7. Generalized anxiety. 8. Suspect silent aspiration leading to cough. 10. delirium ,improving 11. Dysphagia Plan . 1. off steroids 2. nasal canula 3. Minimize sedatives and narcotics 4. TPN from today. continue f/u with speech 6. cont bronchodilators. 7. cxr 06/19 with improving left basal atelectasis 8. discussed w RN/ family ANNEMARIE CORNELL MD Jun 20, 2017 10:54
--- NOTE | 2017-06-20 11:04 | PDOC ---
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 HTN UNCOntrolled Hx elevated uric acid Hypothryodism Anxiety NOS HLD leukocytosis, reactive to solumedrol? dysphagia, 2/2 encephalopathy constipation plan: fu with card AMIN[facility] family meeting today at 10am DNR pt is very confused and somelent, not follow any commands except tells her name on NC2L ,OFF BIPAP change meds to iv if could on metoprolol iv qid, may need more htn iv meds if BP cont high change PPN to TPN CHECK UA, UCX, BCX, CXR given WBC cont higher . remove boland poor prognosis gi ppx dvt ppx check head CT neg. CHeck KUB, if no obstruction, can add stool softner. History of Present Illness History of Present Illness pt is very confused and somelent, slightly better, follow my commands by squeeze my hand very gently, not answer questions well. failed swallow study 2 times, npo on PPN now on NC2L ROS: no fever, chills or chest pain wbc slightly better Vitals Vitals Vital Signs Date Time Temp Pulse Resp B/P (MAP) Pulse Ox O2 Delivery O2 Flow Rate FiO2 06/20/17 10:19 97.8 64 20 96/42 (60) 98 Nasal Cannula 3.0 97.8 Physical Exam Physical Exam [email or web address] General: No acute distress, mild distress Heart: Regular rate Lungs: Other (decrease bs) Abdomen: Normal bowel sounds Extremities: No clubbing, No cyanosis, No edema, Normal pulses, No tenderness/ swelling Skin: No rashes, No breakdown, No significant lesion Labs LABS Laboratory Tests Test 06/19/17 11:15 06/20/17 05:30 Urine Collection Type Unknown Urine Color Yellow Urine Clarity Clear Urine pH 6.0 Urine Specific [place] 1.020 Urine Protein 30 mg/dL (NEG-TRACE) Urine Glucose (UA) Negative mg/dL (NEG) Urine Ketones (Stick) Negative mg/dL (NEG) Urine Blood Moderate (NEG) Urine Nitrite Negative (NEG) Urine Bilirubin Negative (NEG) Urine Urobilinogen Dipstick 1.0 mg/dL (0.2 mg/dL) Urine Leukocyte Esterase Small (NEG) Urine RBC >40 /HPF (0-2) Urine WBC 11-20 /HPF (0-4) Urine Bacteria Many /HPF (0-FEW) Urine Hyaline Casts Few /HPF Urine Granular Casts Occasional /HPF Urine Mucus Slight /LPF White Blood Count 18.4 x10^3/uL (4.0-11.0) Red Blood Count 3.53 x10^6/uL (3.50-5.40) Hemoglobin 11.8 g/dL (12.0-15.5) Hematocrit 35.0 % (36.0-47.0) Mean Corpuscular Volume 99 fL (79-100) Mean Corpuscular Hemoglobin 33 pg (25-35) Mean Corpuscular Hemoglobin Concent 34 g/dL (31-37) Red Cell Distribution Width 15.9 % (11.5-14.5) Platelet Count 214 x10^3/uL (140-400) Neutrophils (%) (Auto) 78 % (31-73) Lymphocytes (%) (Auto) 8 % (24-48) Monocytes (%) (Auto) 9 % (0-9) Eosinophils (%) (Auto) 5 % (0-3) Basophils (%) (Auto) 0 % (0-3) Neutrophils # (Auto) 14.4 x10^3uL (1.8-7.7) Lymphocytes # (Auto) 1.5 x10^3/uL (1.0-4.8) Monocytes # (Auto) 1.6 x10^3/uL (0.0-1.1) Eosinophils # (Auto) 0.9 x10^3/uL (0.0-0.7) Basophils # (Auto) 0.1 x10^3/uL (0.0-0.2) Sodium Level 142 mmol/L (136-145) Potassium Level 4.1 mmol/L (3.5-5.1) Chloride Level 109 mmol/L (98-107) Carbon Dioxide Level 26 mmol/L (21-32) Anion Gap 7 (6-14) Blood Urea Nitrogen 36 mg/dL (7-20) Creatinine 0.7 mg/dL (0.6-1.0) Estimated GFR (Cockcroft-Gault) 79.2 Glucose Level 103 mg/dL (70-99) Calcium Level 9.4 mg/dL (8.5-10.1) Assessment and Plan Assessmemt and Plan Problems Medical Problems: (1) Atrial fibrillation with RVR Status: Acute Problems: Comment Review of Relevant I have reviewed the following items viktor (where applicable) has been applied. Labs Laboratory Tests Test 06/19/17 06:05 06/19/17 11:15 06/20/17 05:30 White Blood Count 25.3 x10^3/uL (4.0-11.0) 18.4 x10^3/uL (4.0-11.0) Red Blood Count 3.77 x10^6/uL (3.50-5.40) 3.53 x10^6/uL (3.50-5.40) Hemoglobin 12.3 g/dL (12.0-15.5) 11.8 g/dL (12.0-15.5) Hematocrit 38.2 % (36.0-47.0) 35.0 % (36.0-47.0) Mean Corpuscular Volume 102 fL (79-100) 99 fL (79-100) Mean Corpuscular Hemoglobin 33 pg (25-35) 33 pg (25-35) Mean Corpuscular Hemoglobin Concent 32 g/dL (31-37) 34 g/dL (31-37) Red Cell Distribution Width 15.7 % (11.5-14.5) 15.9 % (11.5-14.5) Platelet Count 204 x10^3/uL (140-400) 214 x10^3/uL (140-400) Neutrophils (%) (Auto) 84 % (31-73) 78 % (31-73) Lymphocytes (%) (Auto) 7 % (24-48) 8 % (24-48) Monocytes (%) (Auto) 9 % (0-9) 9 % (0-9) Eosinophils (%) (Auto) 1 % (0-3) 5 % (0-3) Basophils (%) (Auto) 0 % (0-3) 0 % (0-3) Neutrophils # (Auto) 21.1 x10^3uL (1.8-7.7) 14.4 x10^3uL (1.8-7.7) Lymphocytes # (Auto) 1.7 x10^3/uL (1.0-4.8) 1.5 x10^3/uL (1.0-4.8) Monocytes # (Auto) 2.2 x10^3/uL (0.0-1.1) 1.6 x10^3/uL (0.0-1.1) Eosinophils # (Auto) 0.2 x10^3/uL (0.0-0.7) 0.9 x10^3/uL (0.0-0.7) Basophils # (Auto) 0.1 x10^3/uL (0.0-0.2) 0.1 x10^3/uL (0.0-0.2) Sodium Level 144 mmol/L (136-145) 142 mmol/L (136-145) Potassium Level 4.4 mmol/L (3.5-5.1) 4.1 mmol/L (3.5-5.1) Chloride Level 110 mmol/L (98-107) 109 mmol/L (98-107) Carbon Dioxide Level 30 mmol/L (21-32) 26 mmol/L (21-32) Anion Gap 4 (6-14) 7 (6-14) Blood Urea Nitrogen 41 mg/dL (7-20) 36 mg/dL (7-20) Creatinine 0.8 mg/dL (0.6-1.0) 0.7 mg/dL (0.6-1.0) Estimated GFR (Cockcroft-Gault) 67.8 79.2 Glucose Level 105 mg/dL (70-99) 103 mg/dL (70-99) Calcium Level 9.5 mg/dL (8.5-10.1) 9.4 mg/dL (8.5-10.1) Urine Collection Type Unknown Urine Color Yellow Urine Clarity Clear Urine pH 6.0 Urine Specific [place] 1.020 Urine Protein 30 mg/dL (NEG-TRACE) Urine Glucose (UA) Negative mg/dL (NEG) Urine Ketones (Stick) Negative mg/dL (NEG) Urine Blood Moderate (NEG) Urine Nitrite Negative (NEG) Urine Bilirubin Negative (NEG) Urine Urobilinogen Dipstick 1.0 mg/dL (0.2 mg/dL) Urine Leukocyte Esterase Small (NEG) Urine RBC >40 /HPF (0-2) Urine WBC 11-20 /HPF (0-4) Urine Bacteria Many /HPF (0-FEW) Urine Hyaline Casts Few /HPF Urine Granular Casts Occasional /HPF Urine Mucus Slight /LPF Laboratory Tests Test 06/19/17 11:15 06/20/17 05:30 Urine Collection Type Unknown Urine Color Yellow Urine Clarity Clear Urine pH 6.0 Urine Specific [place] 1.020 Urine Protein 30 mg/dL (NEG-TRACE) Urine Glucose (UA) Negative mg/dL (NEG) Urine Ketones (Stick) Negative mg/dL (NEG) Urine Blood Moderate (NEG) Urine Nitrite Negative (NEG) Urine Bilirubin Negative (NEG) Urine Urobilinogen Dipstick 1.0 mg/dL (0.2 mg/dL) Urine Leukocyte Esterase Small (NEG) Urine RBC >40 /HPF (0-2) Urine WBC 11-20 /HPF (0-4) Urine Bacteria Many /HPF (0-FEW) Urine Hyaline Casts Few /HPF Urine Granular Casts Occasional /HPF Urine Mucus Slight /LPF White Blood Count 18.4 x10^3/uL (4.0-11.0) Red Blood Count 3.53 x10^6/uL (3.50-5.40) Hemoglobin 11.8 g/dL (12.0-15.5) Hematocrit 35.0 % (36.0-47.0) Mean Corpuscular Volume 99 fL (79-100) Mean Corpuscular Hemoglobin 33 pg (25-35) Mean Corpuscular Hemoglobin Concent 34 g/dL (31-37) Red Cell Distribution Width 15.9 % (11.5-14.5) Platelet Count 214 x10^3/uL (140-400) Neutrophils (%) (Auto) 78 % (31-73) Lymphocytes (%) (Auto) 8 % (24-48) Monocytes (%) (Auto) 9 % (0-9) Eosinophils (%) (Auto) 5 % (0-3) Basophils (%) (Auto) 0 % (0-3) Neutrophils # (Auto) 14.4 x10^3uL (1.8-7.7) Lymphocytes # (Auto) 1.5 x10^3/uL (1.0-4.8) Monocytes # (Auto) 1.6 x10^3/uL (0.0-1.1) Eosinophils # (Auto) 0.9 x10^3/uL (0.0-0.7) Basophils # (Auto) 0.1 x10^3/uL (0.0-0.2) Sodium Level 142 mmol/L (136-145) Potassium Level 4.1 mmol/L (3.5-5.1) Chloride Level 109 mmol/L (98-107) Carbon Dioxide Level 26 mmol/L (21-32) Anion Gap 7 (6-14) Blood Urea Nitrogen 36 mg/dL (7-20) Creatinine 0.7 mg/dL (0.6-1.0) Estimated GFR (Cockcroft-Gault) 79.2 Glucose Level 103 mg/dL (70-99) Calcium Level 9.4 mg/dL (8.5-10.1) Medications Current Medications Albuterol/ Ipratropium (Duoneb) 3 ml STK-MED ONCE .ROUTE ; Start 06/13/17 at 08: 12; Stop 06/13/17 at 08:13; Status DC Albuterol/ Ipratropium (Duoneb) 3 ml 1X ONCE NEB Last administered on 08:15; Start 06/13/17 at 08:15; Stop 06/13/17 at 08:20; Status DC Methylprednisolone Sodium Succinate (SOLU-Medrol 125MG VIAL) 125 mg 1X ONCE IV Last administered on 06/13/17 08:22; Start 06/13/17 at 08:15; Stop 06/13/17 at 08:20; Status DC Diltiazem HCl (Cardizem) 10 mg 1X ONCE IVP Last administered on 06/13/17 08: 31; Start 06/13/17 at 08:15; Stop 06/13/17 at 08:29; Status DC Diltiazem HCl (Cardizem) 10 mg 1X ONCE IVP ; Start 06/13/17 at 08:15; Stop at 08:16; Status Cancel Diltiazem HCl 125 mg/Dextrose 125 ml @ 0 mls/hr 1X ONCE IV Last administered on 06/13/17 08:43; Start 06/13/17 at 08:15; Stop 06/13/17 at 14:48; Status DC Aspirin (Children'S Aspirin) 324 mg 1X ONCE PO Last administered on 06/13/17 08:47; Start 06/13/17 at 08:45; Stop 06/13/17 at 08:46; Status DC Ondansetron HCl (Zofran) 4 mg PRN Q8HRS PRN IV NAUSEA/VOMITING; Start 06/13/17 at 08:45; Stop 06/13/17 at 10:18; Status DC Guaifenesin (Robitussin Dm) 10 ml PRN Q6HRS PRN PO COUGH Last administered on 17:46; Start 06/13/17 at 10:00 Albuterol/ Ipratropium (Duoneb) 3 ml RTQID NEB Last administered on 06/20/17 08:10; Start 06/13/17 at 12:00 Ondansetron HCl (Zofran) 4 mg PRN Q6HRS PRN IV NAUSEA/VOMITING Last administered on 06/13/17 17:45; Start 06/13/17 at 10:30; Stop 06/14/17 at 10:29 ; Status DC Acetaminophen (Tylenol) 500 mg PRN Q6HRS PRN PO MILD PAIN / TEMP Last administered on 06/13/17 16:02; Start 06/13/17 at 10:30 Furosemide (Lasix) 20 mg 1X ONCE IVP Last administered on 06/13/17 11:03; Start 06/13/17 at 10:15; Stop 06/13/17 at 10:22; Status DC Digoxin (Lanoxin) 250 mcg 1X ONCE IV Last administered on 06/13/17 11:03; Start 06/13/17 at 10:30; Stop 06/13/17 at 10:31; Status DC Aspirin (Ecotrin) 81 mg DAILYWBKFT PO Last administered on 06/13/17 11:03; Start 06/13/17 at 12:00 Alprazolam (Xanax) 0.5 mg PRN Q8HRS PRN PO ANXIETY / AGITATION Last administered on 06/13/17 11:47; Start 06/13/17 at 11:45 Info (Do NOT chart on this placeholder) 1 each 1X ONCE MC ; Start 06/13/17 at 13:15; Stop 06/13/17 at 13:16; Status UNV Allopurinol (Zyloprim) 300 mg QODAY PO ; Start 06/14/17 at 09:00 Alprazolam (Xanax) 0.25 mg TID PRN PO ANXIETY / AGITATION; Start 06/13/17 at 14 :15; Status UNV Aspirin (Ecotrin) 81 mg DAILYWBKFT PO ; Start 06/14/17 at 08:00; Status UNV Famotidine (Pepcid) 20 mg DAILY PO ; Start 06/14/17 at 09:00; Stop 06/19/17 at 08:44; Status DC Furosemide (Lasix) 20 mg DAILY PO ; Start 06/14/17 at 09:00; Stop 06/14/17 at 09 :00; Status DC Gabapentin (Neurontin) 100 mg TID PO Last administered on 06/13/17 16:02; Start 06/13/17 at 15:30 Hydroxyurea (Hydrea) 500 mg QODAY PO ; Start 06/14/17 at 09:00 Levothyroxine Sodium (Synthroid) 75 mcg DAILY07 PO ; Start 06/14/17 at 07:00; Stop 06/19/17 at 08:44; Status DC Vitamin D (Vitamin D3) 1,000 unit DAILY PO ; Start 06/14/17 at 09:00 Isosorbide Mononitrate (Imdur) 60 mg DAILY PO ; Start 06/14/17 at 09:00; Stop at 09:00; Status DC Fish Oil (Fish Oil) 1,000 mg QHS PO ; Start 06/13/17 at 21:00 Non-Formulary Medication 100 mg DAILY PO ; Start 06/14/17 at 09:00; Status UNV Metoprolol Tartrate (Lopressor) 50 mg BID PO Last administered on 06/13/17 16: 03; Start 06/13/17 at 16:00; Stop 06/18/17 at 12:50; Status DC Isosorbide Mononitrate (Imdur) 30 mg DAILY PO ; Start 06/14/17 at 09:00; Stop at 09:48; Status DC Labetalol HCl (Normodyne) 20 mg PRN Q2HR PRN IVP HYPERTENSION, SEE COMMENTS Last administered on 06/18/17 11:06; Start 06/13/17 at 17:45 Benzonatate (Tessalon Perle) 100 mg [id number] PO ; Start 06/13/17 at 21:00 Albuterol Sulfate (Ventolin Neb Soln) 2.5 mg PRN Q2HR PRN NEB [id number] Last administered on 06/13/17 20:05; Start 06/13/17 at 18:15 Acetaminophen/ Hydrocodone Bitart (Lortab 5/325) 1 tab PRN Q4HRS PRN PO MODERATE - SEVERE PAIN; Start 06/13/17 at 18:15 Furosemide (Lasix) 20 mg 1X ONCE IVP Last administered on 06/13/17 20:10; Start 06/13/17 at 20:00; Stop 06/13/17 at 20:02; Status DC Lorazepam (Ativan) 1 mg PRN Q4HRS PRN IV ANXIETY / AGITATION Last administered on 06/19/17 20:39; Start 06/13/17 at 20:00 Lorazepam (Ativan) 2 mg PRN Q4HRS PRN IV ANXIETY / AGITATION Last administered on 06/17/17 03:48; Start 06/13/17 at 20:00 Morphine Sulfate 2 mg PRN Q2HR PRN IV SEVERE PAIN Last administered on 23:14; Start 06/14/17 at 04:15 Haloperidol Lactate (Haldol) 5 mg PRN Q6HRS PRN IVP AGITATION Last administered on 06/19/17 00:50; Start 06/14/17 at 04:15; Stop 06/19/17 at 08:44 ; Status DC Methylprednisolone Sodium Succinate (SOLU-Medrol 40MG VIAL) 40 mg Q8HRS IV Last administered on 06/16/17 05:08; Start 06/14/17 at 08:15; Stop 06/16/17 at 14:13; Status DC Budesonide (Pulmicort) 0.5 mg RTBID NEB Last administered on 06/20/17 08:10; Start 06/14/17 at 09:00 Atorvastatin Calcium (Lipitor) 20 mg QHS PO ; Start 06/14/17 at 21:00 Isosorbide Mononitrate (Imdur) 60 mg DAILY PO ; Start 06/16/17 at 09:00; Stop at 09:00; Status DC Amlodipine Besylate (Norvasc) 5 mg DAILY PO ; Start 06/15/17 at 09:45; Stop at 14:52; Status DC Nitroglycerin (Nitro-Bid Oint) 1 inch Q6HRS TP Last administered on 06/15/17 18:05; Start 06/15/17 at 12:00; Stop 06/15/17 at 22:56; Status DC Nicardipine HCl 50 mg/Sodium Chloride 270 ml @ 0 mls/hr CONT PRN IV SEE I/O RECORD Last administered on 06/16/17 08:32; Start 06/15/17 at 19:45; Stop 06/16 at 14:25; Status DC Sodium Chloride 500 ml @ 500 mls/hr 1X ONCE IV Last administered on 11:45; Start 06/16/17 at 11:45; Stop 06/16/17 at 12:44; Status DC Amino Acids/ Glycerin/ Electrolytes 1,000 ml @ 50 mls/hr Q20H IV Last administered on 06/19/17 20:40; Start 06/16/17 at 12:30 Diltiazem HCl 125 mg/Dextrose 125 ml @ 0 mls/hr CONT PRN IV SEE I/O RECORD Last administered on 06/18/17 03:18; Start 06/16/17 at 14:30; Stop 06/19/17 at 08:44; Status DC Aspirin (Aspirin) 150 mg DAILY CA Last administered on 06/20/17 08:59; Start 06/17/17 at 15:45 Potassium Chloride 50 ml @ 25 mls/hr Q2H IV Last administered on 06/17/17 22: 02; Start 06/17/17 at 19:30; Stop 06/17/17 at 23:29; Status DC Bisacodyl (Dulcolax Supp) 10 mg PRN DAILY PRN CA CONSTIPATION Last administered on 06/17/17 19:47; Start 06/17/17 at 19:15 Metoprolol Tartrate (Lopressor) 5 mg Q6HRS IVP Last administered on 06/20/17 05:20; Start 06/18/17 at 13:00 Nitroglycerin (Nitro-Bid Oint) 1 inch Q6HRS TP Last administered on 06/20/17 05:20; Start 06/18/17 at 13:00 Haloperidol Lactate (Haldol) 2 mg PRN Q6HRS PRN IVP AGITATION; Start 06/19/17 at 08:45 Famotidine (Pepcid) 20 mg QHS IVP Last administered on 06/19/17 20:39; Start 06/19/17 at 21:00 Levothyroxine Sodium 40 mcg/ Sodium Chloride 5 ml @ 100 mls/hr DAILY IVP Last administered on 06/20/17 08:56; Start 06/19/17 at 09:00 Info 1 each PRN DAILY PRN MC SEE COMMENTS Last administered on 06/20/17 10:18 ; Start 06/20/17 at 08:30 Sodium Acetate 90 meq/Potassium Chloride 50 meq/ Potassium Phosphate 13.6 mmol/ Magnesium Sulfate 10 meq/ Calcium Gluconate 10 meq/ Multivitamins 10 ml/Chromium / Copper/Manganese/ Seleni/Zn 1 ml/ Total Parenteral Nutrition/Amino Acids/ Dextrose/ Fat Emulsion Intravenous 1,512 ml @ 63 mls/hr TPN CONT IV ; Start at 22:00; Stop 06/21/17 at 21:59 Active Scripts Active Reported Ultra Coq10 (Ubiquinone) 75 Mg Capsule 100 Mg PO DAILY Sunnyside-3 (Sunnyside-3 Fatty Acids) 100 Mg Tab.chew 350 Mg PO HS Isosorbide Mononitrate Er (Isosorbide Mononitrate) 60 Mg Tab.er.24h 1 Tab PO DAILY Vitamin D3 (Cholecalciferol (Vitamin D3)) 1,000 Unit Tab.chew 1,000 Unit PO DAILY Aspir 81 (Aspirin) 81 Mg Tablet.dr 1 Tab PO DAILY Xanax (Alprazolam) 0.25 Mg Tablet 1 Tab PO TID PRN Allopurinol 300 Mg Tablet 1 Tab PO QODAY Pepcid (Famotidine) 20 Mg Tablet 20 Mg PO DAILY Levothyroxine Sodium 75 Mcg Tablet 1 Tab PO DAILY Hydroxyurea 500 Mg Capsule 500 Mg PO QODAY Gabapentin 100 Mg Capsule 100 Mg PO TID Furosemide 20 Mg Tablet 1 Tab PO DAILY Vitals/I & O Vital Sign - Last 24 Hours 06/19/17 06/19/17 06/19/17 06/19/17 11:45 11:51 11:56 15:00 Temp 97.6 97.6 Pulse 81 81 77 Resp 20 B/P (MAP) 187/94 187/94 145/90 (108) Pulse Ox 97 98 O2 Delivery Nasal Cannula Nasal Cannula O2 Flow Rate 2.0 3.0 06/19/17 06/19/17 06/19/17 06/19/17 16:08 18:15 18:16 19:05 Temp 97.8 97.8 Pulse 102 101 77 Resp 20 B/P (MAP) 145/90 145/90 107/50 (69) Pulse Ox 99 99 O2 Delivery Nasal Cannula Nasal Cannula O2 Flow Rate 2.0 3.0 06/19/17 06/19/17 06/19/17 06/20/17 19:30 20:00 23:10 01:37 Temp 97.6 97.6 Pulse 82 82 Resp 18 B/P (MAP) 127/56 (79) 127/56 Pulse Ox 99 99 O2 Delivery Nasal Cannula Nasal Cannula Nasal Cannula O2 Flow Rate 2.0 2.0 3.0 06/20/17 06/20/17 06/20/17 06/20/17 01:37 03:44 05:20 05:20 Temp 97.8 97.8 Pulse 82 78 78 78 Resp 20 B/P (MAP) 127/56 104/55 (71) 104/55 104/55 Pulse Ox 96 O2 Delivery Nasal Cannula O2 Flow Rate 3.0 06/20/17 06/20/17 06/20/17 06/20/17 07:18 08:00 08:13 08:15 Temp 98.0 98.0 Pulse 76 Resp 20 B/P (MAP) 115/62 (79) Pulse Ox 96 97 97 O2 Delivery Nasal Cannula Nasal Cannula Nasal Cannula Nasal Cannula O2 Flow Rate 3.0 2.0 2.0 2.0 06/20/17 10:19 Temp 97.8 97.8 Pulse 64 Resp 20 B/P (MAP) 96/42 (60) Pulse Ox 98 O2 Delivery Nasal Cannula O2 Flow Rate 3.0 DA DESAI MD Jun 20, 2017 11:04
[2017-06-20 14:38] VITALS: BP 138/65
--- NOTE | 2017-06-20 14:38 | RAD ---
CHLOE, 06/20/2017: History: Constipation Comparison is made to a study from 06/16/2017. There is a moderate amount of gas in large and small bowel extending down through the rectal level. Similar findings were present on the previous study. There are small scattered collections of stool in the colon. There is no evidence of organomegaly. Extensive right calcific plaquing is present. An internal fixation device is again noted at the left hip. IMPRESSION: Nonspecific abdominal gas pattern.
--- NOTE | 2017-06-20 14:52 | PDOC2 ---
PALLIATIVE CARE Palliative Care Note Palliative Care Patient remains weak, lethargic. Swallow evaluation completed; NPO --at risk for aspiration Daughter at bedside. Patient remains on PPN WBC 18 trending down. Will continue to follow and support. Likely will meet early next week if not improving. AMINAH VELAZQUEZ Jun 20, 2017 14:52
[2017-06-20] MEDS: AMINO AC 3%/ELECTROLYTE/GLYCER 1,000 ML IV SCH (17:21)
[2017-06-20 19:00] VITALS: BP 164/70
[2017-06-20] MEDS: MORPHINE SULFATE 2 MG/ML DISP.SYRIN. IV PRN (19:18)
[2017-06-20] MEDS: FAMOTIDINE 20 MG/2 ML VIAL IVP SCH (20:58)
[2017-06-20] MEDS: ATORVASTATIN CALCIUM 20 MG TABLET PO SCH (21:00)
[2017-06-20] MEDS: OMEGA-3 FATTY ACIDS/FISH OIL 1,000 MG CAPSULE. PO SCH (21:00)
[2017-06-20] MEDS ORDERED: TOTAL PARENTERAL NUTRITION 1,402.4987 ML, AMINO ACIDS 10 % 60 GM, DEXTROSE 70 % IN WATE... IV SCH ×10 (22:00)
[2017-06-20 23:11] VITALS: BP 142/65
[2017-06-21 03:00] VITALS: BP 110/55
[2017-06-21] MEDS: NITROGLYCERIN OINT 1 GM PACKET. TP SCH ×3 (05:02→18:16)
[2017-06-21] MEDS: METOPROLOL TARTRATE 5 MG/5 ML VIAL. IVP SCH ×3 (05:02→18:15)
[2017-06-21] MEDS: MORPHINE SULFATE 2 MG/ML DISP.SYRIN. IV PRN ×2 (05:03→21:18)
[2017-06-21 05:13] LABS: BASO % 0 % (0-3); EOS % 8 % (0-3); HEMATOCRIT 34.6 % (36.0-47.0); HEMOGLOBIN 11.6 g/dL (12.0-15.5); LYMPH # 1.8 x10^3/uL (1.0-4.8); LYMPH % 11 % (24-48); MEAN CORPUSCULAR HEMOGLOBIN 34 pg (25-35); MEAN CORPUSCULAR HGB CONC 34 g/dL (31-37); MEAN CORPUSCULAR VOLUME 100 fL (79-100); MONO % 13 % (0-9); NEUT % 69 % (31-73); PLATELET COUNT 194 x10^3/uL (140-400); RED BLOOD COUNT 3.46 x10^6/uL (3.50-5.40); WHITE BLOOD COUNT 16.8 x10^3/uL (4.0-11.0)
[2017-06-21 05:29] LABS: CALCIUM 9.2 mg/dL (8.5-10.1); CREATININE 0.7 mg/dL (0.6-1.0); GFR 79.2; POTASSIUM 4.2 mmol/L (3.5-5.1)
[2017-06-21 05:31] LABS: MAGNESIUM 2.3 mg/dL (1.8-2.4); PHOSPHORUS 2.3 mg/dL (2.6-4.7)
[2017-06-21 07:00] VITALS: BP 128/56
[2017-06-21] MEDS: IPRATRPIUM/ALBUTEROL 0.5/2.5MG 3 ML NEBU. NEB SCH ×4 (07:35→19:57)
[2017-06-21] MEDS: BUDESONIDE 0.5 MG/2 ML NEBU. NEB SCH ×2 (07:35→19:57)
[2017-06-21] MEDS: ASPIRIN ENTERIC COATED 81 MG TABLET.DR. PO SCH (08:00)
[2017-06-21] MEDS: GABAPENTIN 100 MG CAPSULE. PO SCH ×3 (09:00→21:00)
[2017-06-21] MEDS: CHOLECALCIFEROL (VITAMIN D3) 1,000 UNIT TABLET PO SCH (09:00)
[2017-06-21] MEDS: BENZONATATE 100 MG CAPSULE. PO SCH ×3 (09:00→21:00)
--- NOTE | 2017-06-21 09:12 | PDOC ---
PULMONARY PROGRESS NOTES Subjective very tired, answers some Qs. on 02, no pain, no sob Vitals Vital Signs Date Time Temp Pulse Resp B/P (MAP) Pulse Ox O2 Delivery O2 Flow Rate FiO2 06/21/17 07:35 95 Room Air 06/21/17 07:00 98.1 79 17 128/56 (80) 3.0 98.1 Comments ros, as mentioned as above, discussed w rn, other sys otherwise neg General: Alert HEENT: Other (nc at perrl, bipap mask on, neck, no lap, thyromegaly) Lungs: Other (decrease bs) Cardiovascular: S1, S2 Abdomen: Soft, Non-tender, Other (no mass) Neuro Exam: Alert Extremities: No Edema Skin: Warm Labs Laboratory Tests Test 06/19/17 11:15 06/20/17 05:30 06/21/17 04:36 Urine Collection Type Unknown Urine Color Yellow Urine Clarity Clear Urine pH 6.0 Urine Specific Jbphh 1.020 Urine Protein 30 mg/dL (NEG-TRACE) Urine Glucose (UA) Negative mg/dL (NEG) Urine Ketones (Stick) Negative mg/dL (NEG) Urine Blood Moderate (NEG) Urine Nitrite Negative (NEG) Urine Bilirubin Negative (NEG) Urine Urobilinogen Dipstick 1.0 mg/dL (0.2 mg/dL) Urine Leukocyte Esterase Small (NEG) Urine RBC >40 /HPF (0-2) Urine WBC 11-20 /HPF (0-4) Urine Bacteria Many /HPF (0-FEW) Urine Hyaline Casts Few /HPF Urine Granular Casts Occasional /HPF Urine Mucus Slight /LPF White Blood Count 18.4 x10^3/uL (4.0-11.0) 16.8 x10^3/uL (4.0-11.0) Red Blood Count 3.53 x10^6/uL (3.50-5.40) 3.46 x10^6/uL (3.50-5.40) Hemoglobin 11.8 g/dL (12.0-15.5) 11.6 g/dL (12.0-15.5) Hematocrit 35.0 % (36.0-47.0) 34.6 % (36.0-47.0) Mean Corpuscular Volume 99 fL (79-100) 100 fL (79-100) Mean Corpuscular Hemoglobin 33 pg (25-35) 34 pg (25-35) Mean Corpuscular Hemoglobin Concent 34 g/dL (31-37) 34 g/dL (31-37) Red Cell Distribution Width 15.9 % (11.5-14.5) 16.0 % (11.5-14.5) Platelet Count 214 x10^3/uL (140-400) 194 x10^3/uL (140-400) Neutrophils (%) (Auto) 78 % (31-73) 69 % (31-73) Lymphocytes (%) (Auto) 8 % (24-48) 11 % (24-48) Monocytes (%) (Auto) 9 % (0-9) 13 % (0-9) Eosinophils (%) (Auto) 5 % (0-3) 8 % (0-3) Basophils (%) (Auto) 0 % (0-3) 0 % (0-3) Neutrophils # (Auto) 14.4 x10^3uL (1.8-7.7) 11.6 x10^3uL (1.8-7.7) Lymphocytes # (Auto) 1.5 x10^3/uL (1.0-4.8) 1.8 x10^3/uL (1.0-4.8) Monocytes # (Auto) 1.6 x10^3/uL (0.0-1.1) 2.1 x10^3/uL (0.0-1.1) Eosinophils # (Auto) 0.9 x10^3/uL (0.0-0.7) 1.3 x10^3/uL (0.0-0.7) Basophils # (Auto) 0.1 x10^3/uL (0.0-0.2) 0.0 x10^3/uL (0.0-0.2) Sodium Level 142 mmol/L (136-145) 141 mmol/L (136-145) Potassium Level 4.1 mmol/L (3.5-5.1) 4.2 mmol/L (3.5-5.1) Chloride Level 109 mmol/L (98-107) 108 mmol/L (98-107) Carbon Dioxide Level 26 mmol/L (21-32) 26 mmol/L (21-32) Anion Gap 7 (6-14) 7 (6-14) Blood Urea Nitrogen 36 mg/dL (7-20) 31 mg/dL (7-20) Creatinine 0.7 mg/dL (0.6-1.0) 0.7 mg/dL (0.6-1.0) Estimated GFR (Cockcroft-Gault) 79.2 79.2 Glucose Level 103 mg/dL (70-99) 143 mg/dL (70-99) Calcium Level 9.4 mg/dL (8.5-10.1) 9.2 mg/dL (8.5-10.1) Phosphorus Level 2.3 mg/dL (2.6-4.7) Magnesium Level 2.3 mg/dL (1.8-2.4) Laboratory Tests Test 06/21/17 04:36 White Blood Count 16.8 x10^3/uL (4.0-11.0) Red Blood Count 3.46 x10^6/uL (3.50-5.40) Hemoglobin 11.6 g/dL (12.0-15.5) Hematocrit 34.6 % (36.0-47.0) Mean Corpuscular Volume 100 fL (79-100) Mean Corpuscular Hemoglobin 34 pg (25-35) Mean Corpuscular Hemoglobin Concent 34 g/dL (31-37) Red Cell Distribution Width 16.0 % (11.5-14.5) Platelet Count 194 x10^3/uL (140-400) Neutrophils (%) (Auto) 69 % (31-73) Lymphocytes (%) (Auto) 11 % (24-48) Monocytes (%) (Auto) 13 % (0-9) Eosinophils (%) (Auto) 8 % (0-3) Basophils (%) (Auto) 0 % (0-3) Neutrophils # (Auto) 11.6 x10^3uL (1.8-7.7) Lymphocytes # (Auto) 1.8 x10^3/uL (1.0-4.8) Monocytes # (Auto) 2.1 x10^3/uL (0.0-1.1) Eosinophils # (Auto) 1.3 x10^3/uL (0.0-0.7) Basophils # (Auto) 0.0 x10^3/uL (0.0-0.2) Sodium Level 141 mmol/L (136-145) Potassium Level 4.2 mmol/L (3.5-5.1) Chloride Level 108 mmol/L (98-107) Carbon Dioxide Level 26 mmol/L (21-32) Anion Gap 7 (6-14) Blood Urea Nitrogen 31 mg/dL (7-20) Creatinine 0.7 mg/dL (0.6-1.0) Estimated GFR (Cockcroft-Gault) 79.2 Glucose Level 143 mg/dL (70-99) Calcium Level 9.2 mg/dL (8.5-10.1) Phosphorus Level 2.3 mg/dL (2.6-4.7) Magnesium Level 2.3 mg/dL (1.8-2.4) Medications Active Scripts Medications Dose Route/Sig Max Daily Dose Days Date Category Ultra Coq10 (Ubiquinone) 75 Mg Capsule 100 Mg PO DAILY 06/13/17 Reported [place]-3 ([place]-3 Fatty Acids) 100 Mg Tab.chew 350 Mg PO HS 06/13/17 Reported Isosorbide Mononitrate Er (Isosorbide Mononitrate) 60 Mg Tab.er.24h 1 Tab PO DAILY 06/13/17 Reported Vitamin D3 (Cholecalciferol (Vitamin D3)) 1,000 Unit Tab.chew 1,000 Unit PO DAILY 06/13/17 Reported Aspir 81 (Aspirin) 81 Mg Tablet.dr 1 Tab PO DAILY 06/13/17 Reported Xanax (Alprazolam) 0.25 Mg Tablet 1 Tab PO TID PRN 06/13/17 Reported Allopurinol 300 Mg Tablet 1 Tab PO QODAY 06/13/17 Reported Pepcid (Famotidine) 20 Mg Tablet 20 Mg PO DAILY 06/13/17 Reported Levothyroxine Sodium 75 Mcg Tablet 1 Tab PO DAILY 06/13/17 Reported Hydroxyurea 500 Mg Capsule 500 Mg PO QODAY 06/13/17 Reported Gabapentin 100 Mg Capsule 100 Mg PO TID 06/13/17 Reported Furosemide 20 Mg Tablet 1 Tab PO DAILY 06/13/17 Reported Comments cxr reviewed, atelectasis Impression . 1. Acute hypercapnic respiratory failure, multifactorial. 2. Acute exacerbation of chronic obstructive pulmonary disease 3. Acute nonspecific bronchitis. 4. New onset atrial fibrillation with rapid ventricular response, 5. Coronary artery disease. 6. Hyperthyroidism. 7. Generalized anxiety. 8. Suspect silent aspiration leading to cough. 10. delirium ,improving 11. Dysphagia Plan . 1. off steroids 2. nasal canula, 02 titration 3. Minimize sedatives and narcotics, avoid over sedation 4. TPN . continue f/u with speech 6. cont bronchodilators. 7. cxr 06/19 with improving left basal atelectasis 8. pt/ot discussed w JODIE SOUTH MD Jun 21, 2017 09:12
[2017-06-21] MEDS: NORMAL SALINE IVP SCH (09:14)
[2017-06-21] MEDS: LEVOTHYROXINE SODIUM IVP SCH (09:14)
[2017-06-21] MEDS ORDERED: BISACODYL 10 MG SUPP.RECT. PR PRN (10:15)
[2017-06-21] MEDS ORDERED: SODIUM PHOSPHATE 20 MMOL in IV DEXTROSE 5% 250 ML IV ONE (10:30)
[2017-06-21] MEDS ORDERED: ACETAMINOPHEN 500 MG TABLET PO PRN (11:30)
[2017-06-21] MEDS: CIPROFLOXACIN 200MG PREMIX 100 ML IV SCH ×2 (12:08→21:17)
--- NOTE | 2017-06-21 13:17 | PDOC ---
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 HTN UNCOntrolled Hx elevated uric acid Hypothryodism Anxiety NOS HLD leukocytosis, reactive to solumedrol? 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 removed boland poor prognosis gi ppx dvt ppx check head CT neg. add stool softner SP replete GABY add cipro for possible UTI for now History of Present Illness History of Present Illness pt is very confused and somelent, slightly better, follow my commands by squeeze my hand very gently, not answer questions well. failed swallow study 06/20, npo on TPN now on NC2L ROS: no fever, chills or chest pain wbc slightly better, + ucx, boland removed Vitals Vitals Vital Signs Date Time Temp Pulse Resp B/P (MAP) Pulse Ox O2 Delivery O2 Flow Rate FiO2 06/21/17 12:11 84 189/68 06/21/17 12:09 Room Air 06/21/17 11:11 2.0 06/21/17 11:00 96.8 18 99 96.8 Physical Exam Physical Exam [email or web address] General: No acute distress, mild distress Heart: Regular rate Lungs: Other (decrease bs) Abdomen: Normal bowel sounds Extremities: No clubbing, No cyanosis, No edema, Normal pulses, No tenderness/ swelling Skin: No rashes, No breakdown, No significant lesion Labs LABS Laboratory Tests Test 06/21/17 04:36 White Blood Count 16.8 x10^3/uL (4.0-11.0) Red Blood Count 3.46 x10^6/uL (3.50-5.40) Hemoglobin 11.6 g/dL (12.0-15.5) Hematocrit 34.6 % (36.0-47.0) Mean Corpuscular Volume 100 fL (79-100) Mean Corpuscular Hemoglobin 34 pg (25-35) Mean Corpuscular Hemoglobin Concent 34 g/dL (31-37) Red Cell Distribution Width 16.0 % (11.5-14.5) Platelet Count 194 x10^3/uL (140-400) Neutrophils (%) (Auto) 69 % (31-73) Lymphocytes (%) (Auto) 11 % (24-48) Monocytes (%) (Auto) 13 % (0-9) Eosinophils (%) (Auto) 8 % (0-3) Basophils (%) (Auto) 0 % (0-3) Neutrophils # (Auto) 11.6 x10^3uL (1.8-7.7) Lymphocytes # (Auto) 1.8 x10^3/uL (1.0-4.8) Monocytes # (Auto) 2.1 x10^3/uL (0.0-1.1) Eosinophils # (Auto) 1.3 x10^3/uL (0.0-0.7) Basophils # (Auto) 0.0 x10^3/uL (0.0-0.2) Sodium Level 141 mmol/L (136-145) Potassium Level 4.2 mmol/L (3.5-5.1) Chloride Level 108 mmol/L (98-107) Carbon Dioxide Level 26 mmol/L (21-32) Anion Gap 7 (6-14) Blood Urea Nitrogen 31 mg/dL (7-20) Creatinine 0.7 mg/dL (0.6-1.0) Estimated GFR (Cockcroft-Gault) 79.2 Glucose Level 143 mg/dL (70-99) Calcium Level 9.2 mg/dL (8.5-10.1) Phosphorus Level 2.3 mg/dL (2.6-4.7) Magnesium Level 2.3 mg/dL (1.8-2.4) Assessment and Plan Assessmemt and Plan Problems Medical Problems: (1) Atrial fibrillation with RVR Status: Acute Problems: Comment Review of Relevant I have reviewed the following items viktor (where applicable) has been applied. Labs Laboratory Tests Test 06/20/17 05:30 06/21/17 04:36 White Blood Count 18.4 x10^3/uL (4.0-11.0) 16.8 x10^3/uL (4.0-11.0) Red Blood Count 3.53 x10^6/uL (3.50-5.40) 3.46 x10^6/uL (3.50-5.40) Hemoglobin 11.8 g/dL (12.0-15.5) 11.6 g/dL (12.0-15.5) Hematocrit 35.0 % (36.0-47.0) 34.6 % (36.0-47.0) Mean Corpuscular Volume 99 fL (79-100) 100 fL (79-100) Mean Corpuscular Hemoglobin 33 pg (25-35) 34 pg (25-35) Mean Corpuscular Hemoglobin Concent 34 g/dL (31-37) 34 g/dL (31-37) Red Cell Distribution Width 15.9 % (11.5-14.5) 16.0 % (11.5-14.5) Platelet Count 214 x10^3/uL (140-400) 194 x10^3/uL (140-400) Neutrophils (%) (Auto) 78 % (31-73) 69 % (31-73) Lymphocytes (%) (Auto) 8 % (24-48) 11 % (24-48) Monocytes (%) (Auto) 9 % (0-9) 13 % (0-9) Eosinophils (%) (Auto) 5 % (0-3) 8 % (0-3) Basophils (%) (Auto) 0 % (0-3) 0 % (0-3) Neutrophils # (Auto) 14.4 x10^3uL (1.8-7.7) 11.6 x10^3uL (1.8-7.7) Lymphocytes # (Auto) 1.5 x10^3/uL (1.0-4.8) 1.8 x10^3/uL (1.0-4.8) Monocytes # (Auto) 1.6 x10^3/uL (0.0-1.1) 2.1 x10^3/uL (0.0-1.1) Eosinophils # (Auto) 0.9 x10^3/uL (0.0-0.7) 1.3 x10^3/uL (0.0-0.7) Basophils # (Auto) 0.1 x10^3/uL (0.0-0.2) 0.0 x10^3/uL (0.0-0.2) Sodium Level 142 mmol/L (136-145) 141 mmol/L (136-145) Potassium Level 4.1 mmol/L (3.5-5.1) 4.2 mmol/L (3.5-5.1) Chloride Level 109 mmol/L (98-107) 108 mmol/L (98-107) Carbon Dioxide Level 26 mmol/L (21-32) 26 mmol/L (21-32) Anion Gap 7 (6-14) 7 (6-14) Blood Urea Nitrogen 36 mg/dL (7-20) 31 mg/dL (7-20) Creatinine 0.7 mg/dL (0.6-1.0) 0.7 mg/dL (0.6-1.0) Estimated GFR (Cockcroft-Gault) 79.2 79.2 Glucose Level 103 mg/dL (70-99) 143 mg/dL (70-99) Calcium Level 9.4 mg/dL (8.5-10.1) 9.2 mg/dL (8.5-10.1) Phosphorus Level 2.3 mg/dL (2.6-4.7) Magnesium Level 2.3 mg/dL (1.8-2.4) Laboratory Tests Test 06/21/17 04:36 White Blood Count 16.8 x10^3/uL (4.0-11.0) Red Blood Count 3.46 x10^6/uL (3.50-5.40) Hemoglobin 11.6 g/dL (12.0-15.5) Hematocrit 34.6 % (36.0-47.0) Mean Corpuscular Volume 100 fL (79-100) Mean Corpuscular Hemoglobin 34 pg (25-35) Mean Corpuscular Hemoglobin Concent 34 g/dL (31-37) Red Cell Distribution Width 16.0 % (11.5-14.5) Platelet Count 194 x10^3/uL (140-400) Neutrophils (%) (Auto) 69 % (31-73) Lymphocytes (%) (Auto) 11 % (24-48) Monocytes (%) (Auto) 13 % (0-9) Eosinophils (%) (Auto) 8 % (0-3) Basophils (%) (Auto) 0 % (0-3) Neutrophils # (Auto) 11.6 x10^3uL (1.8-7.7) Lymphocytes # (Auto) 1.8 x10^3/uL (1.0-4.8) Monocytes # (Auto) 2.1 x10^3/uL (0.0-1.1) Eosinophils # (Auto) 1.3 x10^3/uL (0.0-0.7) Basophils # (Auto) 0.0 x10^3/uL (0.0-0.2) Sodium Level 141 mmol/L (136-145) Potassium Level 4.2 mmol/L (3.5-5.1) Chloride Level 108 mmol/L (98-107) Carbon Dioxide Level 26 mmol/L (21-32) Anion Gap 7 (6-14) Blood Urea Nitrogen 31 mg/dL (7-20) Creatinine 0.7 mg/dL (0.6-1.0) Estimated GFR (Cockcroft-Gault) 79.2 Glucose Level 143 mg/dL (70-99) Calcium Level 9.2 mg/dL (8.5-10.1) Phosphorus Level 2.3 mg/dL (2.6-4.7) Magnesium Level 2.3 mg/dL (1.8-2.4) Microbiology 06/19/17 Blood Culture - Preliminary, Resulted NO GROWTH AFTER 2 DAYS 06/19/17 Urine Culture - Preliminary, Resulted 06/19/17 Urine Culture Result 1 (RAFIQ) - Preliminary, Resulted Medications Current Medications Albuterol/ Ipratropium (Duoneb) 3 ml STK-MED ONCE .ROUTE ; Start 06/13/17 at 08: 12; Stop 06/13/17 at 08:13; Status DC Albuterol/ Ipratropium (Duoneb) 3 ml 1X ONCE NEB Last administered on t 08:15; Start 06/13/17 at 08:15; Stop 06/13/17 at 08:20; Status DC Methylprednisolone Sodium Succinate (SOLU-Medrol 125MG VIAL) 125 mg 1X ONCE IV Last administered on 06/13/17 08:22; Start 06/13/17 at 08:15; Stop 06/13/17 at 08:20; Status DC Diltiazem HCl (Cardizem) 10 mg 1X ONCE IVP Last administered on 06/13/17 08: 31; Start 06/13/17 at 08:15; Stop 06/13/17 at 08:29; Status DC Diltiazem HCl (Cardizem) 10 mg 1X ONCE IVP ; Start 06/13/17 at 08:15; Stop at 08:16; Status Cancel Diltiazem HCl 125 mg/Dextrose 125 ml @ 0 mls/hr 1X ONCE IV Last administered on 06/13/17 08:43; Start 06/13/17 at 08:15; Stop 06/13/17 at 14:48; Status DC Aspirin (Children'S Aspirin) 324 mg 1X ONCE PO Last administered on 06/13/17 08:47; Start 06/13/17 at 08:45; Stop 06/13/17 at 08:46; Status DC Ondansetron HCl (Zofran) 4 mg PRN Q8HRS PRN IV NAUSEA/VOMITING; Start 06/13/17 at 08:45; Stop 06/13/17 at 10:18; Status DC Guaifenesin (Robitussin Dm) 10 ml PRN Q6HRS PRN PO COUGH Last administered on 17:46; Start 06/13/17 at 10:00 Albuterol/ Ipratropium (Duoneb) 3 ml RTQID NEB Last administered on 06/21/17 12:07; Start 06/13/17 at 12:00 Ondansetron HCl (Zofran) 4 mg PRN Q6HRS PRN IV NAUSEA/VOMITING Last administered on 06/13/17 17:45; Start 06/13/17 at 10:30; Stop 06/14/17 at 10:29 ; Status DC Acetaminophen (Tylenol) 500 mg PRN Q6HRS PRN PO MILD PAIN / TEMP Last administered on 06/13/17 16:02; Start 06/13/17 at 10:30; Stop 06/21/17 at 11:22 ; Status DC Furosemide (Lasix) 20 mg 1X ONCE IVP Last administered on 06/13/17 11:03; Start 06/13/17 at 10:15; Stop 06/13/17 at 10:22; Status DC Digoxin (Lanoxin) 250 mcg 1X ONCE IV Last administered on 06/13/17 11:03; Start 06/13/17 at 10:30; Stop 06/13/17 at 10:31; Status DC Aspirin (Ecotrin) 81 mg DAILYWBKFT PO Last administered on 06/13/17 11:03; Start 06/13/17 at 12:00; Stop 06/21/17 at 10:05; Status DC Alprazolam (Xanax) 0.5 mg PRN Q8HRS PRN PO ANXIETY / AGITATION Last administered on 06/13/17 11:47; Start 06/13/17 at 11:45; Stop 06/21/17 at 10:05 ; Status DC Info (Do NOT chart on this placeholder) 1 each 1X ONCE MC ; Start 06/13/17 at 13:15; Stop 06/13/17 at 13:16; Status UNV Allopurinol (Zyloprim) 300 mg QODAY PO ; Start 06/14/17 at 09:00 Alprazolam (Xanax) 0.25 mg TID PRN PO ANXIETY / AGITATION; Start 06/13/17 at 14 :15; Status UNV Aspirin (Ecotrin) 81 mg DAILYWBKFT PO ; Start 06/14/17 at 08:00; Status UNV Famotidine (Pepcid) 20 mg DAILY PO ; Start 06/14/17 at 09:00; Stop 06/19/17 at 08:44; Status DC Furosemide (Lasix) 20 mg DAILY PO ; Start 06/14/17 at 09:00; Stop 06/14/17 at 09 :00; Status DC Gabapentin (Neurontin) 100 mg TID PO Last administered on 06/13/17 16:02; Start 06/13/17 at 15:30 Hydroxyurea (Hydrea) 500 mg QODAY PO ; Start 06/14/17 at 09:00 Levothyroxine Sodium (Synthroid) 75 mcg DAILY07 PO ; Start 06/14/17 at 07:00; Stop 06/19/17 at 08:44; Status DC Vitamin D (Vitamin D3) 1,000 unit DAILY PO ; Start 06/14/17 at 09:00 Isosorbide Mononitrate (Imdur) 60 mg DAILY PO ; Start 06/14/17 at 09:00; Stop at 09:00; Status DC Fish Oil (Fish Oil) 1,000 mg QHS PO ; Start 06/13/17 at 21:00 Non-Formulary Medication 100 mg DAILY PO ; Start 06/14/17 at 09:00; Status UNV Metoprolol Tartrate (Lopressor) 50 mg BID PO Last administered on 06/13/17 16: 03; Start 06/13/17 at 16:00; Stop 06/18/17 at 12:50; Status DC Isosorbide Mononitrate (Imdur) 30 mg DAILY PO ; Start 06/14/17 at 09:00; Stop at 09:48; Status DC Labetalol HCl (Normodyne) 20 mg PRN Q2HR PRN IVP HYPERTENSION, SEE COMMENTS Last administered on 06/18/17 11:06; Start 06/13/17 at 17:45 Benzonatate (Tessalon Perle) 100 mg [id number] PO ; Start 06/13/17 at 21:00 Albuterol Sulfate (Ventolin Neb Soln) 2.5 mg PRN Q2HR PRN NEB [id number] Last administered on 06/13/17 20:05; Start 06/13/17 at 18:15 Acetaminophen/ Hydrocodone Bitart (Lortab 5/325) 1 tab PRN Q4HRS PRN PO MODERATE - SEVERE PAIN; Start 06/13/17 at 18:15 Furosemide (Lasix) 20 mg 1X ONCE IVP Last administered on 06/13/17 20:10; Start 06/13/17 at 20:00; Stop 06/13/17 at 20:02; Status DC Lorazepam (Ativan) 1 mg PRN Q4HRS PRN IV ANXIETY / AGITATION Last administered on 06/21/17 02:32; Start 06/13/17 at 20:00 Lorazepam (Ativan) 2 mg PRN Q4HRS PRN IV ANXIETY / AGITATION Last administered on 06/17/17 03:48; Start 06/13/17 at 20:00 Morphine Sulfate 2 mg PRN Q2HR PRN IV SEVERE PAIN Last administered on 05:03; Start 06/14/17 at 04:15 Haloperidol Lactate (Haldol) 5 mg PRN Q6HRS PRN IVP AGITATION Last administered on 06/19/17 00:50; Start 06/14/17 at 04:15; Stop 06/19/17 at 08:44 ; Status DC Methylprednisolone Sodium Succinate (SOLU-Medrol 40MG VIAL) 40 mg Q8HRS IV Last administered on 06/16/17 05:08; Start 06/14/17 at 08:15; Stop 06/16/17 at 14:13; Status DC Budesonide (Pulmicort) 0.5 mg RTBID NEB Last administered on 06/21/17 07:35; Start 06/14/17 at 09:00 Atorvastatin Calcium (Lipitor) 20 mg QHS PO ; Start 06/14/17 at 21:00 Isosorbide Mononitrate (Imdur) 60 mg DAILY PO ; Start 06/16/17 at 09:00; Stop at 09:00; Status DC Amlodipine Besylate (Norvasc) 5 mg DAILY PO ; Start 06/15/17 at 09:45; Stop at 14:52; Status DC Nitroglycerin (Nitro-Bid Oint) 1 inch Q6HRS TP Last administered on 06/15/17 18:05; Start 06/15/17 at 12:00; Stop 06/15/17 at 22:56; Status DC Nicardipine HCl 50 mg/Sodium Chloride 270 ml @ 0 mls/hr CONT PRN IV SEE I/O RECORD Last administered on 06/16/17 08:32; Start 06/15/17 at 19:45; Stop 06/16 at 14:25; Status DC Sodium Chloride 500 ml @ 500 mls/hr 1X ONCE IV Last administered on 11:45; Start 06/16/17 at 11:45; Stop 06/16/17 at 12:44; Status DC Amino Acids/ Glycerin/ Electrolytes 1,000 ml @ 50 mls/hr Q20H IV Last administered on 06/20/17 17:21; Start 06/16/17 at 12:30; Stop 06/21/17 at 09:47 ; Status DC Diltiazem HCl 125 mg/Dextrose 125 ml @ 0 mls/hr CONT PRN IV SEE I/O RECORD Last administered on 06/18/17 03:18; Start 06/16/17 at 14:30; Stop 06/19/17 at 08:44; Status DC Aspirin (Aspirin) 150 mg DAILY [place] Last administered on 06/20/17 08:59; Start 06/17/17 at 15:45 Potassium Chloride 50 ml @ 25 mls/hr Q2H IV Last administered on 06/17/17 22: 02; Start 06/17/17 at 19:30; Stop 06/17/17 at 23:29; Status DC Bisacodyl (Dulcolax Supp) 10 mg PRN DAILY PRN [place] CONSTIPATION Last administered on 06/17/17 19:47; Start 06/17/17 at 19:15; Stop 06/21/17 at 11:23 ; Status DC Metoprolol Tartrate (Lopressor) 5 mg Q6HRS IVP Last administered on 06/21/17 12:10; Start 06/18/17 at 13:00 Nitroglycerin (Nitro-Bid Oint) 1 inch Q6HRS TP Last administered on 06/21/17 12:11; Start 06/18/17 at 13:00 Haloperidol Lactate (Haldol) 2 mg PRN Q6HRS PRN IVP AGITATION; Start 06/19/17 at 08:45 Famotidine (Pepcid) 20 mg QHS IVP Last administered on 06/20/17 20:58; Start 06/19/17 at 21:00 Levothyroxine Sodium 40 mcg/ Sodium Chloride 5 ml @ 100 mls/hr DAILY IVP Last administered on 06/21/17 09:14; Start 06/19/17 at 09:00 Info 1 each PRN DAILY PRN MC SEE COMMENTS Last administered on 06/20/17 10:18 ; Start 06/20/17 at 08:30 Sodium Acetate 90 meq/Potassium Chloride 50 meq/ Potassium Phosphate 13.6 mmol/ Magnesium Sulfate 10 meq/ Calcium Gluconate 10 meq/ Multivitamins 10 ml/Chromium / Copper/Manganese/ Seleni/Zn 1 ml/ Total Parenteral Nutrition/Amino Acids/ Dextrose/ Fat Emulsion Intravenous 1,512 ml @ 63 mls/hr TPN CONT IV Last administered on 06/20/17 20:58; Start 06/20/17 at 22:00; Stop 06/21/17 at 21:59 Sodium Acetate 90 meq/Potassium Chloride 50 meq/ Potassium Phosphate 13.6 mmol/ Magnesium Sulfate 10 meq/ Calcium Gluconate 10 meq/ Multivitamins 10 ml/Chromium / Copper/Manganese/ Seleni/Zn 1 ml/ Total Parenteral Nutrition/Amino Acids/ Dextrose/ Fat Emulsion Intravenous 1,512 ml @ 63 mls/hr TPN CONT IV ; Start at 22:00; Stop 06/22/17 at 21:59 Bisacodyl (Dulcolax Supp) 10 mg PRN DAILY PRN [place] CONSTIPATION; Start 06/21/17 at 10:15 Ciprofloxacin/ Dextrose 100 ml @ 100 mls/hr Q12HR IV Last administered on 06/21 12:08; Start 06/21/17 at 11:00 Sodium Phosphate 20 mmol/Dextrose 256.6667 ml @ 64.167 m... 1X ONCE IV Last administered on 06/21/17 12:09; Start 06/21/17 at 10:30; Stop 06/21/17 at 14:29 Acetaminophen (Tylenol) 500 mg PRN Q6HRS PRN PO MILD PAIN / TEMP; Start at 11:30 Active Scripts Active Reported Ultra Coq10 (Ubiquinone) 75 Mg Capsule 100 Mg PO DAILY [place]-3 ([place]-3 Fatty Acids) 100 Mg Tab.chew 350 Mg PO HS Isosorbide Mononitrate Er (Isosorbide Mononitrate) 60 Mg Tab.er.24h 1 Tab PO DAILY Vitamin D3 (Cholecalciferol (Vitamin D3)) 1,000 Unit Tab.chew 1,000 Unit PO DAILY Aspir 81 (Aspirin) 81 Mg Tablet.dr 1 Tab PO DAILY Xanax (Alprazolam) 0.25 Mg Tablet 1 Tab PO TID PRN Allopurinol 300 Mg Tablet 1 Tab PO QODAY Pepcid (Famotidine) 20 Mg Tablet 20 Mg PO DAILY Levothyroxine Sodium 75 Mcg Tablet 1 Tab PO DAILY Hydroxyurea 500 Mg Capsule 500 Mg PO QODAY Gabapentin 100 Mg Capsule 100 Mg PO TID Furosemide 20 Mg Tablet 1 Tab PO DAILY Vitals/I & O Vital Sign - Last 24 Hours 06/20/17 06/20/17 06/20/17 06/20/17 13:40 13:41 14:38 16:42 Temp 97.3 97.3 Pulse 66 66 71 Resp 20 B/P (MAP) 124/53 124/53 138/65 (89) Pulse Ox 97 O2 Delivery Nasal Cannula Nasal Cannula O2 Flow Rate 3.0 2.0 06/20/17 06/20/17 06/20/17 06/20/17 17:23 17:27 19:00 19:18 Temp 98.6 98.6 Pulse 77 77 71 Resp 20 20 B/P (MAP) 155/68 155/68 164/70 (101) Pulse Ox 99 100 O2 Delivery Nasal Cannula Nasal Cannula O2 Flow Rate 2.0 2.0 06/20/17 06/20/17 06/20/17 06/20/17 19:25 19:48 19:57 23:11 Temp 97.9 97.9 Pulse 77 Resp 18 B/P (MAP) 142/65 (90) Pulse Ox 100 98 O2 Delivery Nasal Cannula Nasal Cannula Nasal Cannula O2 Flow Rate 2.0 2.0 2.0 2.0 06/20/17 06/20/17 06/21/17 06/21/17 23:21 23:21 03:00 05:02 Temp 97.3 97.3 Pulse 77 77 86 86 Resp 18 B/P (MAP) 142/65 142/65 110/55 (73) 110/55 Pulse Ox 97 O2 Delivery Room Air 06/21/17 06/21/17 06/21/17 06/21/17 05:02 05:03 05:33 07:00 Temp 98.1 98.1 Pulse 86 79 Resp 18 20 17 B/P (MAP) 110/55 128/56 (80) Pulse Ox 97 O2 Delivery Room Air Room Air Nasal Cannula O2 Flow Rate 3.0 06/21/17 06/21/17 06/21/17 06/21/17 07:35 11:00 11:11 12:09 Temp 96.8 96.8 Pulse 93 Resp 18 Pulse Ox 95 99 O2 Delivery Room Air Nasal Cannula Nasal Cannula Room Air O2 Flow Rate 3.0 2.0 06/21/17 06/21/17 12:10 12:11 Pulse 83 84 B/P (MAP) 189/68 DA DESAI MD Jun 21, 2017 13:17
[2017-06-21 13:22] VITALS: BP 129/58
[2017-06-21] MEDS: ASPIRIN 300 MG SUPP.RECT PR SCH (14:26)
[2017-06-21 15:22] VITALS: BP 129/58
[2017-06-21 19:50] VITALS: BP 82/44
[2017-06-21] MEDS: OMEGA-3 FATTY ACIDS/FISH OIL 1,000 MG CAPSULE. PO SCH (21:00)
[2017-06-21] MEDS: ATORVASTATIN CALCIUM 20 MG TABLET PO SCH (21:00)
[2017-06-21] MEDS: FAMOTIDINE 20 MG/2 ML VIAL IVP SCH (21:17)
[2017-06-21] MEDS ORDERED: TOTAL PARENTERAL NUTRITION 1,402.4987 ML, AMINO ACIDS 10 % 60 GM, DEXTROSE 70 % IN WATE... IV SCH ×10 (22:00)
[2017-06-21 22:02] VITALS: BP 118/58
[2017-06-22] MEDS: NITROGLYCERIN OINT 1 GM PACKET. TP SCH ×5 (01:14→23:10)
[2017-06-22] MEDS: METOPROLOL TARTRATE 5 MG/5 ML VIAL. IVP SCH ×5 (01:15→23:09)
[2017-06-22 03:46] VITALS: BP 128/58
[2017-06-22 06:43] LABS: CALCIUM 8.8 mg/dL (8.5-10.1); CREATININE 0.7 mg/dL (0.6-1.0); GFR 79.2; POTASSIUM 4.3 mmol/L (3.5-5.1)
[2017-06-22 07:00] VITALS: BP 144/65
--- NOTE | 2017-06-22 08:43 | PDOC ---
PULMONARY PROGRESS NOTES Subjective more alert, sob better, no cough, has back pain Vitals Vital Signs Date Time Temp Pulse Resp B/P (MAP) Pulse Ox O2 Delivery O2 Flow Rate FiO2 06/22/17 07:00 97.8 72 19 144/65 (91) 96 Nasal Cannula 3.0 97.8 Comments ros, as mentioned as above, discussed w rn, other sys otherwise neg General: Alert HEENT: Other (nc at perrl, bipap mask on, neck, no lap, thyromegaly) Lungs: Other (decrease bs) Cardiovascular: S1, S2 Abdomen: Soft, Non-tender, Other (no mass) Neuro Exam: Alert Extremities: No Edema Skin: Warm Labs Laboratory Tests Test 06/21/17 04:36 06/22/17 06:00 White Blood Count 16.8 x10^3/uL (4.0-11.0) Red Blood Count 3.46 x10^6/uL (3.50-5.40) Hemoglobin 11.6 g/dL (12.0-15.5) Hematocrit 34.6 % (36.0-47.0) Mean Corpuscular Volume 100 fL (79-100) Mean Corpuscular Hemoglobin 34 pg (25-35) Mean Corpuscular Hemoglobin Concent 34 g/dL (31-37) Red Cell Distribution Width 16.0 % (11.5-14.5) Platelet Count 194 x10^3/uL (140-400) Neutrophils (%) (Auto) 69 % (31-73) Lymphocytes (%) (Auto) 11 % (24-48) Monocytes (%) (Auto) 13 % (0-9) Eosinophils (%) (Auto) 8 % (0-3) Basophils (%) (Auto) 0 % (0-3) Neutrophils # (Auto) 11.6 x10^3uL (1.8-7.7) Lymphocytes # (Auto) 1.8 x10^3/uL (1.0-4.8) Monocytes # (Auto) 2.1 x10^3/uL (0.0-1.1) Eosinophils # (Auto) 1.3 x10^3/uL (0.0-0.7) Basophils # (Auto) 0.0 x10^3/uL (0.0-0.2) Sodium Level 141 mmol/L (136-145) 139 mmol/L (136-145) Potassium Level 4.2 mmol/L (3.5-5.1) 4.3 mmol/L (3.5-5.1) Chloride Level 108 mmol/L (98-107) 105 mmol/L (98-107) Carbon Dioxide Level 26 mmol/L (21-32) 28 mmol/L (21-32) Anion Gap 7 (6-14) 6 (6-14) Blood Urea Nitrogen 31 mg/dL (7-20) 28 mg/dL (7-20) Creatinine 0.7 mg/dL (0.6-1.0) 0.7 mg/dL (0.6-1.0) Estimated GFR (Cockcroft-Gault) 79.2 79.2 Glucose Level 143 mg/dL (70-99) 151 mg/dL (70-99) Calcium Level 9.2 mg/dL (8.5-10.1) 8.8 mg/dL (8.5-10.1) Phosphorus Level 2.3 mg/dL (2.6-4.7) Magnesium Level 2.3 mg/dL (1.8-2.4) Laboratory Tests Test 06/22/17 06:00 Sodium Level 139 mmol/L (136-145) Potassium Level 4.3 mmol/L (3.5-5.1) Chloride Level 105 mmol/L (98-107) Carbon Dioxide Level 28 mmol/L (21-32) Anion Gap 6 (6-14) Blood Urea Nitrogen 28 mg/dL (7-20) Creatinine 0.7 mg/dL (0.6-1.0) Estimated GFR (Cockcroft-Gault) 79.2 Glucose Level 151 mg/dL (70-99) Calcium Level 8.8 mg/dL (8.5-10.1) Medications Active Scripts Medications Dose Route/Sig Max Daily Dose Days Date Category Ultra Coq10 (Ubiquinone) 75 Mg Capsule 100 Mg PO DAILY 06/13/17 Reported [place]-3 ([place]-3 Fatty Acids) 100 Mg Tab.chew 350 Mg PO HS 06/13/17 Reported Isosorbide Mononitrate Er (Isosorbide Mononitrate) 60 Mg Tab.er.24h 1 Tab PO DAILY 06/13/17 Reported Vitamin D3 (Cholecalciferol (Vitamin D3)) 1,000 Unit Tab.chew 1,000 Unit PO DAILY 06/13/17 Reported Aspir 81 (Aspirin) 81 Mg Tablet.dr 1 Tab PO DAILY 06/13/17 Reported Xanax (Alprazolam) 0.25 Mg Tablet 1 Tab PO TID PRN 06/13/17 Reported Allopurinol 300 Mg Tablet 1 Tab PO QODAY 06/13/17 Reported Pepcid (Famotidine) 20 Mg Tablet 20 Mg PO DAILY 06/13/17 Reported Levothyroxine Sodium 75 Mcg Tablet 1 Tab PO DAILY 06/13/17 Reported Hydroxyurea 500 Mg Capsule 500 Mg PO QODAY 06/13/17 Reported Gabapentin 100 Mg Capsule 100 Mg PO TID 06/13/17 Reported Furosemide 20 Mg Tablet 1 Tab PO DAILY 06/13/17 Reported Comments cxr reviewed, atelectasis Impression . 1. Acute hypercapnic respiratory failure, multifactorial. 2. Acute exacerbation of chronic obstructive pulmonary disease 3. Acute nonspecific bronchitis. 4. New onset atrial fibrillation with rapid ventricular response, 5. Coronary artery disease. 6. Hyperthyroidism. 7. Generalized anxiety. 8. Suspect silent aspiration leading to cough. 10. delirium ,improving 11. Dysphagia Plan . 1. off steroids 2. nasal canula, 02 titration 3. Minimize sedatives and narcotics, avoid over sedation 4. TPN . continue f/u with speech 6. cont bronchodilators. 7. cxr 06/19 with improving left basal atelectasis 8. pt/ot discussed w JODIE SOUTH MD Jun 22, 2017 08:43
[2017-06-22] MEDS: BENZONATATE 100 MG CAPSULE. PO SCH ×3 (09:00→21:00)
[2017-06-22] MEDS: ALLOPURINOL 300 MG TABLET. PO SCH (09:00)
[2017-06-22] MEDS: CIPROFLOXACIN 200MG PREMIX 100 ML IV SCH (09:00)
[2017-06-22] MEDS: GABAPENTIN 100 MG CAPSULE. PO SCH ×3 (09:00→21:00)
[2017-06-22] MEDS: HYDROXYUREA 500 MG CAPSULE PO SCH (09:00)
[2017-06-22] MEDS: CHOLECALCIFEROL (VITAMIN D3) 1,000 UNIT TABLET PO SCH (09:00)
[2017-06-22] MEDS: IPRATRPIUM/ALBUTEROL 0.5/2.5MG 3 ML NEBU. NEB SCH ×4 (09:04→19:44)
[2017-06-22] MEDS: BUDESONIDE 0.5 MG/2 ML NEBU. NEB SCH ×2 (09:04→19:44)
[2017-06-22 10:25] LABS: BASO # 0.1 x10^3/uL (0.0-0.2); BASO % 1 % (0-3); EOS % 5 % (0-3); HEMATOCRIT 32.8 % (36.0-47.0); LYMPH # 1.7 x10^3/uL (1.0-4.8); LYMPH % 11 % (24-48); MEAN CORPUSCULAR HEMOGLOBIN 33 pg (25-35); MEAN CORPUSCULAR HGB CONC 34 g/dL (31-37); MEAN CORPUSCULAR VOLUME 100 fL (79-100); MONO % 13 % (0-9); NEUT % 71 % (31-73); PLATELET COUNT 228 x10^3/uL (140-400); RED BLOOD COUNT 3.29 x10^6/uL (3.50-5.40); RED CELL DISTRIBUTION WIDTH 16.1 % (11.5-14.5); WHITE BLOOD COUNT 16.4 x10^3/uL (4.0-11.0)
[2017-06-22] MEDS: NORMAL SALINE IVP SCH (10:38)
[2017-06-22] MEDS: LEVOTHYROXINE SODIUM IVP SCH (10:38)
[2017-06-22] MEDS: TPN PER PHARMACY MC PRN (10:41)
[2017-06-22 11:00] VITALS: BP 147/84
[2017-06-22] MEDS ORDERED: VANCOMYCIN 1 GM in IV NORMAL SALINE 250ML 250 ML IV SCH (11:15)
[2017-06-22 11:41] LABS: PLT ESTIMATE ADEQUATE (ADEQUATE)
[2017-06-22 11:42] LABS: ANISOCYTOSIS PRESENT; SMUDGE CELLS PRESENT
[2017-06-22] MEDS ORDERED: VANCOMYCIN 1.25 GM in IV NORMAL SALINE 250ML 250 ML IV ONE (12:30)
--- NOTE | 2017-06-22 14:16 | PDOC ---
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 HTN UNCOntrolled Hx elevated uric acid Hypothryodism Anxiety NOS HLD leukocytosis, reactive to solumedrol? 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 removed boland poor prognosis gi ppx dvt ppx check head CT neg. add stool softner SP replete GABY dc cipro, add vanco lidoderm patch for back pain History of Present Illness History of Present Illness pt is very confused and somelent, slightly better, follow my commands by squeeze my hand very gently, not answer questions well. aaox1 to person failed swallow study 06/20, npo on TPN now on NC2L ROS: no fever, chills or chest pain wbc better, + ucx, boland removed Vitals Vitals Vital Signs Date Time Temp Pulse Resp B/P (MAP) Pulse Ox O2 Delivery O2 Flow Rate FiO2 06/22/17 12:02 98 Room Air 06/22/17 11:00 97.7 93 17 147/84 (105) 3.0 97.7 Physical Exam Physical Exam [email or web address] General: No acute distress, mild distress Heart: Regular rate Lungs: Other (decrease bs) Abdomen: Normal bowel sounds Extremities: No clubbing, No cyanosis, No edema, Normal pulses, No tenderness/ swelling Skin: No rashes, No breakdown, No significant lesion Labs LABS Laboratory Tests Test 06/22/17 06:00 06/22/17 11:51 White Blood Count 16.4 x10^3/uL (4.0-11.0) Red Blood Count 3.29 x10^6/uL (3.50-5.40) Hemoglobin 11.0 g/dL (12.0-15.5) Hematocrit 32.8 % (36.0-47.0) Mean Corpuscular Volume 100 fL (79-100) Mean Corpuscular Hemoglobin 33 pg (25-35) Mean Corpuscular Hemoglobin Concent 34 g/dL (31-37) Red Cell Distribution Width 16.1 % (11.5-14.5) Platelet Count 228 x10^3/uL (140-400) Neutrophils (%) (Auto) 71 % (31-73) Lymphocytes (%) (Auto) 11 % (24-48) Monocytes (%) (Auto) 13 % (0-9) Eosinophils (%) (Auto) 5 % (0-3) Basophils (%) (Auto) 1 % (0-3) Neutrophils # (Auto) 11.6 x10^3uL (1.8-7.7) Lymphocytes # (Auto) 1.7 x10^3/uL (1.0-4.8) Monocytes # (Auto) 2.2 x10^3/uL (0.0-1.1) Eosinophils # (Auto) 0.9 x10^3/uL (0.0-0.7) Basophils # (Auto) 0.1 x10^3/uL (0.0-0.2) Segmented Neutrophils % 77 % (35-66) Lymphocytes % 10 % (24-48) Monocytes % 13 % (0-10) Smudge Cells Present Platelet Estimate Adequate (ADEQUATE) Anisocytosis Present Sodium Level 139 mmol/L (136-145) Potassium Level 4.3 mmol/L (3.5-5.1) Chloride Level 105 mmol/L (98-107) Carbon Dioxide Level 28 mmol/L (21-32) Anion Gap 6 (6-14) Blood Urea Nitrogen 28 mg/dL (7-20) Creatinine 0.7 mg/dL (0.6-1.0) Estimated GFR (Cockcroft-Gault) 79.2 Glucose Level 151 mg/dL (70-99) Calcium Level 8.8 mg/dL (8.5-10.1) Glucose (Fingerstick) 150 mg/dL (70-99) Assessment and Plan Assessmemt and Plan Problems Medical Problems: (1) Atrial fibrillation with RVR Status: Acute Problems: Comment Review of Relevant I have reviewed the following items viktor (where applicable) has been applied. Labs Laboratory Tests Test 06/21/17 04:36 06/22/17 06:00 06/22/17 11:51 White Blood Count 16.8 x10^3/uL (4.0-11.0) 16.4 x10^3/uL (4.0-11.0) Red Blood Count 3.46 x10^6/uL (3.50-5.40) 3.29 x10^6/uL (3.50-5.40) Hemoglobin 11.6 g/dL (12.0-15.5) 11.0 g/dL (12.0-15.5) Hematocrit 34.6 % (36.0-47.0) 32.8 % (36.0-47.0) Mean Corpuscular Volume 100 fL (79-100) 100 fL (79-100) Mean Corpuscular Hemoglobin 34 pg (25-35) 33 pg (25-35) Mean Corpuscular Hemoglobin Concent 34 g/dL (31-37) 34 g/dL (31-37) Red Cell Distribution Width 16.0 % (11.5-14.5) 16.1 % (11.5-14.5) Platelet Count 194 x10^3/uL (140-400) 228 x10^3/uL (140-400) Neutrophils (%) (Auto) 69 % (31-73) 71 % (31-73) Lymphocytes (%) (Auto) 11 % (24-48) 11 % (24-48) Monocytes (%) (Auto) 13 % (0-9) 13 % (0-9) Eosinophils (%) (Auto) 8 % (0-3) 5 % (0-3) Basophils (%) (Auto) 0 % (0-3) 1 % (0-3) Neutrophils # (Auto) 11.6 x10^3uL (1.8-7.7) 11.6 x10^3uL (1.8-7.7) Lymphocytes # (Auto) 1.8 x10^3/uL (1.0-4.8) 1.7 x10^3/uL (1.0-4.8) Monocytes # (Auto) 2.1 x10^3/uL (0.0-1.1) 2.2 x10^3/uL (0.0-1.1) Eosinophils # (Auto) 1.3 x10^3/uL (0.0-0.7) 0.9 x10^3/uL (0.0-0.7) Basophils # (Auto) 0.0 x10^3/uL (0.0-0.2) 0.1 x10^3/uL (0.0-0.2) Sodium Level 141 mmol/L (136-145) 139 mmol/L (136-145) Potassium Level 4.2 mmol/L (3.5-5.1) 4.3 mmol/L (3.5-5.1) Chloride Level 108 mmol/L (98-107) 105 mmol/L (98-107) Carbon Dioxide Level 26 mmol/L (21-32) 28 mmol/L (21-32) Anion Gap 7 (6-14) 6 (6-14) Blood Urea Nitrogen 31 mg/dL (7-20) 28 mg/dL (7-20) Creatinine 0.7 mg/dL (0.6-1.0) 0.7 mg/dL (0.6-1.0) Estimated GFR (Cockcroft-Gault) 79.2 79.2 Glucose Level 143 mg/dL (70-99) 151 mg/dL (70-99) Calcium Level 9.2 mg/dL (8.5-10.1) 8.8 mg/dL (8.5-10.1) Phosphorus Level 2.3 mg/dL (2.6-4.7) Magnesium Level 2.3 mg/dL (1.8-2.4) Segmented Neutrophils % 77 % (35-66) Lymphocytes % 10 % (24-48) Monocytes % 13 % (0-10) Smudge Cells Present Platelet Estimate Adequate (ADEQUATE) Anisocytosis Present Glucose (Fingerstick) 150 mg/dL (70-99) Laboratory Tests Test 06/22/17 06:00 06/22/17 11:51 White Blood Count 16.4 x10^3/uL (4.0-11.0) Red Blood Count 3.29 x10^6/uL (3.50-5.40) Hemoglobin 11.0 g/dL (12.0-15.5) Hematocrit 32.8 % (36.0-47.0) Mean Corpuscular Volume 100 fL (79-100) Mean Corpuscular Hemoglobin 33 pg (25-35) Mean Corpuscular Hemoglobin Concent 34 g/dL (31-37) Red Cell Distribution Width 16.1 % (11.5-14.5) Platelet Count 228 x10^3/uL (140-400) Neutrophils (%) (Auto) 71 % (31-73) Lymphocytes (%) (Auto) 11 % (24-48) Monocytes (%) (Auto) 13 % (0-9) Eosinophils (%) (Auto) 5 % (0-3) Basophils (%) (Auto) 1 % (0-3) Neutrophils # (Auto) 11.6 x10^3uL (1.8-7.7) Lymphocytes # (Auto) 1.7 x10^3/uL (1.0-4.8) Monocytes # (Auto) 2.2 x10^3/uL (0.0-1.1) Eosinophils # (Auto) 0.9 x10^3/uL (0.0-0.7) Basophils # (Auto) 0.1 x10^3/uL (0.0-0.2) Segmented Neutrophils % 77 % (35-66) Lymphocytes % 10 % (24-48) Monocytes % 13 % (0-10) Smudge Cells Present Platelet Estimate Adequate (ADEQUATE) Anisocytosis Present Sodium Level 139 mmol/L (136-145) Potassium Level 4.3 mmol/L (3.5-5.1) Chloride Level 105 mmol/L (98-107) Carbon Dioxide Level 28 mmol/L (21-32) Anion Gap 6 (6-14) Blood Urea Nitrogen 28 mg/dL (7-20) Creatinine 0.7 mg/dL (0.6-1.0) Estimated GFR (Cockcroft-Gault) 79.2 Glucose Level 151 mg/dL (70-99) Calcium Level 8.8 mg/dL (8.5-10.1) Glucose (Fingerstick) 150 mg/dL (70-99) Microbiology 06/19/17 Blood Culture - Preliminary, Resulted NO GROWTH AFTER 3 DAYS 06/19/17 Urine Culture - Final, Complete 06/19/17 Urine Culture Result 1 (RAFIQ) - Final, Complete 06/19/17 Antimicrobic Susceptibility - Final, Complete Medications Current Medications Albuterol/ Ipratropium (Duoneb) 3 ml STK-MED ONCE .ROUTE ; Start 06/13/17 at 08: 12; Stop 06/13/17 at 08:13; Status DC Albuterol/ Ipratropium (Duoneb) 3 ml 1X ONCE NEB Last administered on 08:15; Start 06/13/17 at 08:15; Stop 06/13/17 at 08:20; Status DC Methylprednisolone Sodium Succinate (SOLU-Medrol 125MG VIAL) 125 mg 1X ONCE IV Last administered on 06/13/17 08:22; Start 06/13/17 at 08:15; Stop 06/13/17 at 08:20; Status DC Diltiazem HCl (Cardizem) 10 mg 1X ONCE IVP Last administered on 06/13/17 08: 31; Start 06/13/17 at 08:15; Stop 06/13/17 at 08:29; Status DC Diltiazem HCl (Cardizem) 10 mg 1X ONCE IVP ; Start 06/13/17 at 08:15; Stop at 08:16; Status Cancel Diltiazem HCl 125 mg/Dextrose 125 ml @ 0 mls/hr 1X ONCE IV Last administered on 06/13/17 08:43; Start 06/13/17 at 08:15; Stop 06/13/17 at 14:48; Status DC Aspirin (Children'S Aspirin) 324 mg 1X ONCE PO Last administered on 06/13/17 08:47; Start 06/13/17 at 08:45; Stop 06/13/17 at 08:46; Status DC Ondansetron HCl (Zofran) 4 mg PRN Q8HRS PRN IV NAUSEA/VOMITING; Start 06/13/17 at 08:45; Stop 06/13/17 at 10:18; Status DC Guaifenesin (Robitussin Dm) 10 ml PRN Q6HRS PRN PO COUGH Last administered on 17:46; Start 06/13/17 at 10:00 Albuterol/ Ipratropium (Duoneb) 3 ml RTQID NEB Last administered on 06/22/17 12:01; Start 06/13/17 at 12:00 Ondansetron HCl (Zofran) 4 mg PRN Q6HRS PRN IV NAUSEA/VOMITING Last administered on 06/13/17 17:45; Start 06/13/17 at 10:30; Stop 06/14/17 at 10:29 ; Status DC Acetaminophen (Tylenol) 500 mg PRN Q6HRS PRN PO MILD PAIN / TEMP Last administered on 06/13/17 16:02; Start 06/13/17 at 10:30; Stop 06/21/17 at 11:22 ; Status DC Furosemide (Lasix) 20 mg 1X ONCE IVP Last administered on 06/13/17 11:03; Start 06/13/17 at 10:15; Stop 06/13/17 at 10:22; Status DC Digoxin (Lanoxin) 250 mcg 1X ONCE IV Last administered on 06/13/17 11:03; Start 06/13/17 at 10:30; Stop 06/13/17 at 10:31; Status DC Aspirin (Ecotrin) 81 mg DAILYWBKFT PO Last administered on 06/13/17 11:03; Start 06/13/17 at 12:00; Stop 06/21/17 at 10:05; Status DC Alprazolam (Xanax) 0.5 mg PRN Q8HRS PRN PO ANXIETY / AGITATION Last administered on 06/13/17 11:47; Start 06/13/17 at 11:45; Stop 06/21/17 at 10:05 ; Status DC Info (Do NOT chart on this placeholder) 1 each 1X ONCE MC ; Start 06/13/17 at 13:15; Stop 06/13/17 at 13:16; Status UNV Influenza Virus Vaccine Quadrival (Fluarix Quad 5955-1360 Syringe) 0.5 ml ONCE ONCE VAX IM ; Start 06/13/17 at 17:00; Stop 06/13/17 at 17:01 Allopurinol (Zyloprim) 300 mg QODAY PO ; Start 06/14/17 at 09:00 Alprazolam (Xanax) 0.25 mg TID PRN PO ANXIETY / AGITATION; Start 06/13/17 at 14 :15; Status UNV Aspirin (Ecotrin) 81 mg DAILYWBKFT PO ; Start 06/14/17 at 08:00; Status UNV Famotidine (Pepcid) 20 mg DAILY PO ; Start 06/14/17 at 09:00; Stop 06/19/17 at 08:44; Status DC Furosemide (Lasix) 20 mg DAILY PO ; Start 06/14/17 at 09:00; Stop 06/14/17 at 09 :00; Status DC Gabapentin (Neurontin) 100 mg TID PO Last administered on 06/13/17 16:02; Start 06/13/17 at 15:30 Hydroxyurea (Hydrea) 500 mg QODAY PO ; Start 06/14/17 at 09:00 Levothyroxine Sodium (Synthroid) 75 mcg DAILY07 PO ; Start 06/14/17 at 07:00; Stop 06/19/17 at 08:44; Status DC Vitamin D (Vitamin D3) 1,000 unit DAILY PO ; Start 06/14/17 at 09:00 Isosorbide Mononitrate (Imdur) 60 mg DAILY PO ; Start 06/14/17 at 09:00; Stop at 09:00; Status DC Fish Oil (Fish Oil) 1,000 mg QHS PO ; Start 06/13/17 at 21:00 Non-Formulary Medication 100 mg DAILY PO ; Start 06/14/17 at 09:00; Status UNV Metoprolol Tartrate (Lopressor) 50 mg BID PO Last administered on 06/13/17 16: 03; Start 06/13/17 at 16:00; Stop 06/18/17 at 12:50; Status DC Isosorbide Mononitrate (Imdur) 30 mg DAILY PO ; Start 06/14/17 at 09:00; Stop at 09:48; Status DC Labetalol HCl (Normodyne) 20 mg PRN Q2HR PRN IVP HYPERTENSION, SEE COMMENTS Last administered on 06/18/17 11:06; Start 06/13/17 at 17:45 Benzonatate (Tessalon Perle) 100 mg [id number] PO ; Start 06/13/17 at 21:00 Albuterol Sulfate (Ventolin Neb Soln) 2.5 mg PRN Q2HR PRN NEB [id number] Last administered on 06/13/17 20:05; Start 06/13/17 at 18:15 Acetaminophen/ Hydrocodone Bitart (Lortab 5/325) 1 tab PRN Q4HRS PRN PO MODERATE - SEVERE PAIN; Start 06/13/17 at 18:15 Furosemide (Lasix) 20 mg 1X ONCE IVP Last administered on 06/13/17 20:10; Start 06/13/17 at 20:00; Stop 06/13/17 at 20:02; Status DC Lorazepam (Ativan) 1 mg PRN Q4HRS PRN IV ANXIETY / AGITATION Last administered on 06/21/17 02:32; Start 06/13/17 at 20:00 Lorazepam (Ativan) 2 mg PRN Q4HRS PRN IV ANXIETY / AGITATION Last administered on 06/17/17 03:48; Start 06/13/17 at 20:00 Morphine Sulfate 2 mg PRN Q2HR PRN IV SEVERE PAIN Last administered on 21:18; Start 06/14/17 at 04:15 Haloperidol Lactate (Haldol) 5 mg PRN Q6HRS PRN IVP AGITATION Last administered on 06/19/17 00:50; Start 06/14/17 at 04:15; Stop 06/19/17 at 08:44 ; Status DC Methylprednisolone Sodium Succinate (SOLU-Medrol 40MG VIAL) 40 mg Q8HRS IV Last administered on 06/16/17 05:08; Start 06/14/17 at 08:15; Stop 06/16/17 at 14:13; Status DC Budesonide (Pulmicort) 0.5 mg RTBID NEB Last administered on 06/22/17 09:04; Start 06/14/17 at 09:00 Atorvastatin Calcium (Lipitor) 20 mg QHS PO ; Start 06/14/17 at 21:00 Isosorbide Mononitrate (Imdur) 60 mg DAILY PO ; Start 06/16/17 at 09:00; Stop at 09:00; Status DC Amlodipine Besylate (Norvasc) 5 mg DAILY PO ; Start 06/15/17 at 09:45; Stop at 14:52; Status DC Nitroglycerin (Nitro-Bid Oint) 1 inch Q6HRS TP Last administered on 06/15/17 18:05; Start 06/15/17 at 12:00; Stop 06/15/17 at 22:56; Status DC Nicardipine HCl 50 mg/Sodium Chloride 270 ml @ 0 mls/hr CONT PRN IV SEE I/O RECORD Last administered on 06/16/17 08:32; Start 06/15/17 at 19:45; Stop 06/16 at 14:25; Status DC Sodium Chloride 500 ml @ 500 mls/hr 1X ONCE IV Last administered on 11:45; Start 06/16/17 at 11:45; Stop 06/16/17 at 12:44; Status DC Amino Acids/ Glycerin/ Electrolytes 1,000 ml @ 50 mls/hr Q20H IV Last administered on 06/20/17 17:21; Start 06/16/17 at 12:30; Stop 06/21/17 at 09:47 ; Status DC Diltiazem HCl 125 mg/Dextrose 125 ml @ 0 mls/hr CONT PRN IV SEE I/O RECORD Last administered on 06/18/17 03:18; Start 06/16/17 at 14:30; Stop 06/19/17 at 08:44; Status DC Aspirin (Aspirin) 150 mg DAILY SC Last administered on 06/21/17 14:26; Start 06/17/17 at 15:45 Potassium Chloride 50 ml @ 25 mls/hr Q2H IV Last administered on 06/17/17 22: 02; Start 06/17/17 at 19:30; Stop 06/17/17 at 23:29; Status DC Bisacodyl (Dulcolax Supp) 10 mg PRN DAILY PRN SC CONSTIPATION Last administered on 06/17/17 19:47; Start 06/17/17 at 19:15; Stop 06/21/17 at 11:23 ; Status DC Metoprolol Tartrate (Lopressor) 5 mg Q6HRS IVP Last administered on 06/22/17 06:03; Start 06/18/17 at 13:00 Nitroglycerin (Nitro-Bid Oint) 1 inch Q6HRS TP Last administered on 06/22/17 06:02; Start 06/18/17 at 13:00 Haloperidol Lactate (Haldol) 2 mg PRN Q6HRS PRN IVP AGITATION; Start 06/19/17 at 08:45 Famotidine (Pepcid) 20 mg QHS IVP Last administered on 06/21/17 21:17; Start 06/19/17 at 21:00 Levothyroxine Sodium 40 mcg/ Sodium Chloride 5 ml @ 100 mls/hr DAILY IVP Last administered on 06/22/17 10:38; Start 06/19/17 at 09:00 Info 1 each PRN DAILY PRN MC SEE COMMENTS Last administered on 06/22/17 10:41 ; Start 06/20/17 at 08:30 Sodium Acetate 90 meq/Potassium Chloride 50 meq/ Potassium Phosphate 13.6 mmol/ Magnesium Sulfate 10 meq/ Calcium Gluconate 10 meq/ Multivitamins 10 ml/Chromium / Copper/Manganese/ Seleni/Zn 1 ml/ Total Parenteral Nutrition/Amino Acids/ Dextrose/ Fat Emulsion Intravenous 1,512 ml @ 63 mls/hr TPN CONT IV Last administered on 06/20/17 20:58; Start 06/20/17 at 22:00; Stop 06/21/17 at 21:59 ; Status DC Sodium Acetate 90 meq/Potassium Chloride 50 meq/ Potassium Phosphate 13.6 mmol/ Magnesium Sulfate 10 meq/ Calcium Gluconate 10 meq/ Multivitamins 10 ml/Chromium / Copper/Manganese/ Seleni/Zn 1 ml/ Total Parenteral Nutrition/Amino Acids/ Dextrose/ Fat Emulsion Intravenous 1,512 ml @ 63 mls/hr TPN CONT IV Last administered on 06/21/17 21:19; Start 06/21/17 at 22:00; Stop 06/22/17 at 21:59 Bisacodyl (Dulcolax Supp) 10 mg PRN DAILY PRN SC CONSTIPATION Last administered on 06/21/17 14:26; Start 06/21/17 at 10:15 Ciprofloxacin/ Dextrose 100 ml @ 100 mls/hr Q12HR IV Last administered on 06/21 21:17; Start 06/21/17 at 11:00; Stop 06/22/17 at 11:11; Status DC Sodium Phosphate 20 mmol/Dextrose 256.6667 ml @ 64.167 m... 1X ONCE IV Last administered on 06/21/17 12:09; Start 06/21/17 at 10:30; Stop 06/21/17 at 14:29 ; Status DC Acetaminophen (Tylenol) 500 mg PRN Q6HRS PRN PO MILD PAIN / TEMP; Start at 11:30 Sodium Acetate 110 meq/Potassium Chloride 50 meq/ Potassium Phosphate 13.6 mmol/ Magnesium Sulfate 10 meq/ Calcium Gluconate 10 meq/ Multivitamins 10 ml/Chromium / Copper/Manganese/ Seleni/Zn 1 ml/ Total Parenteral Nutrition/Amino Acids/ Dextrose/ Fat Emulsion Intravenous 1,512 ml @ 63 mls/hr TPN CONT IV ; Start at 22:00; Stop 06/23/17 at 21:59 Vancomycin HCl 1 gm/Sodium Chloride 250 ml @ 250 mls/hr Q12H IV ; Start at 11:15; Status UNV Vancomycin HCl (Vanco Per Pharmacy) 1 each PRN DAILY PRN MC SEE COMMENTS; Start 06/22/17 at 11:15 Lidocaine (Lidoderm) 1 patch DAILY TD ; Start 06/22/17 at 13:00 Vancomycin HCl 1.25 gm/Sodium Chloride 250 ml @ 166.667 mls/hr 1X ONCE IV ; Start 06/22/17 at 12:30; Stop 06/22/17 at 13:59; Status DC Active Scripts Active Reported Ultra Coq10 (Ubiquinone) 75 Mg Capsule 100 Mg PO DAILY [place]-3 ([place]-3 Fatty Acids) 100 Mg Tab.chew 350 Mg PO HS Isosorbide Mononitrate Er (Isosorbide Mononitrate) 60 Mg Tab.er.24h 1 Tab PO DAILY Vitamin D3 (Cholecalciferol (Vitamin D3)) 1,000 Unit Tab.chew 1,000 Unit PO DAILY Aspir 81 (Aspirin) 81 Mg Tablet.dr 1 Tab PO DAILY Xanax (Alprazolam) 0.25 Mg Tablet 1 Tab PO TID PRN Allopurinol 300 Mg Tablet 1 Tab PO QODAY Pepcid (Famotidine) 20 Mg Tablet 20 Mg PO DAILY Levothyroxine Sodium 75 Mcg Tablet 1 Tab PO DAILY Hydroxyurea 500 Mg Capsule 500 Mg PO QODAY Gabapentin 100 Mg Capsule 100 Mg PO TID Furosemide 20 Mg Tablet 1 Tab PO DAILY Vitals/I & O Vital Sign - Last 24 Hours 06/21/17 06/21/17 06/21/17 06/21/17 15:22 15:38 18:15 18:16 Temp 97.5 97.5 Pulse 74 82 82 Resp 16 B/P (MAP) 129/58 (81) 141/48 141/48 Pulse Ox 96 O2 Delivery Room Air Room Air 06/21/17 06/21/17 06/21/17 06/21/17 19:50 19:58 20:00 20:00 Temp 98.0 98.0 Pulse 65 Resp 16 B/P (MAP) 82/44 (57) Pulse Ox 96 96 96 O2 Delivery Room Air Room Air Room Air Room Air 06/21/17 06/21/17 06/21/17 06/22/17 21:18 21:48 22:02 01:14 Temp 98.3 98.3 Pulse 78 78 Resp 16 B/P (MAP) 118/58 (78) 118/58 Pulse Ox 91 O2 Delivery Room Air Room Air Room Air 06/22/17 06/22/17 06/22/17 06/22/17 01:15 03:46 06:02 06:03 Temp 97.9 97.9 Pulse 78 77 77 77 Resp 16 B/P (MAP) 118/58 128/58 (81) 128/58 128/58 Pulse Ox 94 O2 Delivery Room Air 06/22/17 06/22/17 06/22/17 06/22/17 07:00 08:00 09:07 09:12 Temp 97.8 97.8 Pulse 72 Resp 19 B/P (MAP) 144/65 (91) Pulse Ox 96 96 96 O2 Delivery Nasal Cannula Room Air Room Air Room Air O2 Flow Rate 3.0 06/22/17 06/22/17 11:00 12:02 Temp 97.7 97.7 Pulse 93 Resp 17 B/P (MAP) 147/84 (105) Pulse Ox 98 98 O2 Delivery Nasal Cannula Room Air O2 Flow Rate 3.0 DA DESAI MD Jun 22, 2017 14:16
[2017-06-22 15:00] VITALS: BP 123/56
[2017-06-22] MEDS: VANCOMYCIN PER PHARMACY MC PRN (15:42)
[2017-06-22] MEDS: LIDOCAINE (700MG/PATCH) PATCH. TD SCH (17:47)
[2017-06-22] MEDS: ASPIRIN 300 MG SUPP.RECT PR SCH (17:49)
[2017-06-22 19:52] VITALS: BP 113/53
[2017-06-22] MEDS: MORPHINE SULFATE 2 MG/ML DISP.SYRIN. IV PRN (20:03)
[2017-06-22] MEDS: FAMOTIDINE 20 MG/2 ML VIAL IVP SCH (20:05)
[2017-06-22] MEDS: ATORVASTATIN CALCIUM 20 MG TABLET PO SCH (21:00)
[2017-06-22] MEDS: OMEGA-3 FATTY ACIDS/FISH OIL 1,000 MG CAPSULE. PO SCH (21:00)
[2017-06-22] MEDS ORDERED: AMINO ACIDS IV SCH ×10 (22:00)
[2017-06-22] MEDS ORDERED: DEXTROSE 70% IV SCH ×10 (22:00)
[2017-06-22] MEDS ORDERED: [UNRECOGNIZED DRUG - OTHER] IV SCH ×10 (22:00)
[2017-06-22] MEDS ORDERED: TOTAL PARENTERAL NUTRITION IV SCH ×10 (22:00)
[2017-06-22 23:00] VITALS: BP 138/59
[2017-06-23] MEDS: MORPHINE SULFATE 2 MG/ML DISP.SYRIN. IV PRN (02:35)
[2017-06-23 03:02] VITALS: BP 132/60
[2017-06-23 03:33] LABS: PHOSPHORUS 2.9 mg/dL (2.6-4.7)
[2017-06-23] MEDS: METOPROLOL TARTRATE 5 MG/5 ML VIAL. IVP SCH ×4 (05:03→23:22)
[2017-06-23] MEDS: NITROGLYCERIN OINT 1 GM PACKET. TP SCH ×3 (05:03→17:04)
[2017-06-23 07:00] VITALS: BP 146/64
[2017-06-23] MEDS: BUDESONIDE 0.5 MG/2 ML NEBU. NEB SCH ×2 (07:19→20:06)
[2017-06-23] MEDS: IPRATRPIUM/ALBUTEROL 0.5/2.5MG 3 ML NEBU. NEB SCH ×4 (07:19→20:06)
[2017-06-23] MEDS: CHOLECALCIFEROL (VITAMIN D3) 1,000 UNIT TABLET PO SCH (09:00)
[2017-06-23] MEDS: BENZONATATE 100 MG CAPSULE. PO SCH ×3 (09:00→20:26)
[2017-06-23] MEDS: ASPIRIN 300 MG SUPP.RECT PR SCH (09:00)
[2017-06-23] MEDS: GABAPENTIN 100 MG CAPSULE. PO SCH ×3 (09:00→20:26)
[2017-06-23] MEDS: VANCOMYCIN PER PHARMACY MC PRN (09:18)
[2017-06-23] MEDS: LEVOTHYROXINE SODIUM IVP SCH (10:40)
[2017-06-23] MEDS: NORMAL SALINE IVP SCH (10:40)
[2017-06-23] MEDS: LIDOCAINE (700MG/PATCH) PATCH. TD SCH (10:44)
--- NOTE | 2017-06-23 10:49 | PDOC2 ---
PALLIATIVE CARE Palliative Care Note Palliative Care Patient more alert today. Oriented to person, place. Complains of back discomfort. Hungry. "has never had any problems with swallowing" Informed likely repeat swallow test. TPN continued. W Will need SNU prior to going home Need order for PT/OT AMINAH VELAZQUEZ Jun 23, 2017 10:49
[2017-06-23 11:00] VITALS: BP 120/57
--- NOTE | 2017-06-23 11:13 | PDOC ---
PROGRESS NOTES Chief Complaint Chief Complaint New onset PAfib, now sinus at 70-80s metabolic encephalopathy acute on chronic diastolic CHF ACUte hypoxic resp failure h/o CAD S/P CABG in 1980s and LHC with 3 stents with last PCI 5 yrs ago. HTN UNCOntrolled Hx elevated uric acid Hypothryodism Anxiety NOS HLD leukocytosis, reactive to solumedrol? 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 removed boland poor prognosis gi ppx dvt ppx check head CT neg. add stool softner SP replete GABY dc cipro, add vanco lidoderm patch for back pain pt today is more awake, asked to do swallow eval again. SW consult for possible SNF History of Present Illness History of Present Illness pt is very confused and somelent 3days ago when i first saw her, then slightly better, follow my commands by squeeze my hand very gently, not answer questions well. aaox1 to person 06/23, first time pt is awake , alert and answer my questions ok failed swallow study 06/20, npo on TPN now. FAILED NGT attempt many times in ICU on NC2L ROS: no fever, chills or chest pain wbc better, + ucx, boland removed Vitals Vitals Vital Signs Date Time Temp Pulse Resp B/P (MAP) Pulse Ox O2 Delivery O2 Flow Rate FiO2 06/23/17 07:19 97 Room Air 06/23/17 07:00 97.8 79 18 146/64 (91) 97.8 06/22/17 15:00 2.0 Physical Exam Physical Exam [email or web address] General: No acute distress, mild distress Heart: Regular rate Lungs: Other (decrease bs) Abdomen: Normal bowel sounds Extremities: No clubbing, No cyanosis, No edema, Normal pulses, No tenderness/ swelling Skin: No rashes, No breakdown, No significant lesion Labs LABS Laboratory Tests Test 06/22/17 11:51 06/22/17 17:02 06/23/17 01:04 06/23/17 02:50 Glucose (Fingerstick) 150 mg/dL (70-99) 142 mg/dL (70-99) 126 mg/dL (70-99) Phosphorus Level 2.9 mg/dL (2.6-4.7) Magnesium Level 2.0 mg/dL (1.8-2.4) Assessment and Plan Assessmemt and Plan Problems Medical Problems: (1) Atrial fibrillation with RVR Status: Acute Problems: Comment Review of Relevant I have reviewed the following items viktor (where applicable) has been applied. Labs Laboratory Tests Test 06/22/17 06:00 06/22/17 11:51 06/22/17 17:02 06/23/17 01:04 White Blood Count 16.4 x10^3/uL (4.0-11.0) Red Blood Count 3.29 x10^6/uL (3.50-5.40) Hemoglobin 11.0 g/dL (12.0-15.5) Hematocrit 32.8 % (36.0-47.0) Mean Corpuscular Volume 100 fL (79-100) Mean Corpuscular Hemoglobin 33 pg (25-35) Mean Corpuscular Hemoglobin Concent 34 g/dL (31-37) Red Cell Distribution Width 16.1 % (11.5-14.5) Platelet Count 228 x10^3/uL (140-400) Neutrophils (%) (Auto) 71 % (31-73) Lymphocytes (%) (Auto) 11 % (24-48) Monocytes (%) (Auto) 13 % (0-9) Eosinophils (%) (Auto) 5 % (0-3) Basophils (%) (Auto) 1 % (0-3) Neutrophils # (Auto) 11.6 x10^3uL (1.8-7.7) Lymphocytes # (Auto) 1.7 x10^3/uL (1.0-4.8) Monocytes # (Auto) 2.2 x10^3/uL (0.0-1.1) Eosinophils # (Auto) 0.9 x10^3/uL (0.0-0.7) Basophils # (Auto) 0.1 x10^3/uL (0.0-0.2) Segmented Neutrophils % 77 % (35-66) Lymphocytes % 10 % (24-48) Monocytes % 13 % (0-10) Smudge Cells Present Platelet Estimate Adequate (ADEQUATE) Anisocytosis Present Sodium Level 139 mmol/L (136-145) Potassium Level 4.3 mmol/L (3.5-5.1) Chloride Level 105 mmol/L (98-107) Carbon Dioxide Level 28 mmol/L (21-32) Anion Gap 6 (6-14) Blood Urea Nitrogen 28 mg/dL (7-20) Creatinine 0.7 mg/dL (0.6-1.0) Estimated GFR (Cockcroft-Gault) 79.2 Glucose Level 151 mg/dL (70-99) Calcium Level 8.8 mg/dL (8.5-10.1) Glucose (Fingerstick) 150 mg/dL (70-99) 142 mg/dL (70-99) 126 mg/dL (70-99) Test 06/23/17 02:50 Phosphorus Level 2.9 mg/dL (2.6-4.7) Magnesium Level 2.0 mg/dL (1.8-2.4) Laboratory Tests Test 06/22/17 11:51 06/22/17 17:02 06/23/17 01:04 06/23/17 02:50 Glucose (Fingerstick) 150 mg/dL (70-99) 142 mg/dL (70-99) 126 mg/dL (70-99) Phosphorus Level 2.9 mg/dL (2.6-4.7) Magnesium Level 2.0 mg/dL (1.8-2.4) Microbiology 06/19/17 Blood Culture - Preliminary, Resulted NO GROWTH AFTER 3 DAYS 06/19/17 Urine Culture - Final, Complete 06/19/17 Urine Culture Result 1 (RAFIQ) - Final, Complete 06/19/17 Antimicrobic Susceptibility - Final, Complete Medications Current Medications Albuterol/ Ipratropium (Duoneb) 3 ml STK-MED ONCE .ROUTE ; Start 06/13/17 at 08: 12; Stop 06/13/17 at 08:13; Status DC Albuterol/ Ipratropium (Duoneb) 3 ml 1X ONCE NEB Last administered on t 08:15; Start 06/13/17 at 08:15; Stop 06/13/17 at 08:20; Status DC Methylprednisolone Sodium Succinate (SOLU-Medrol 125MG VIAL) 125 mg 1X ONCE IV Last administered on 06/13/17 08:22; Start 06/13/17 at 08:15; Stop 06/13/17 at 08:20; Status DC Diltiazem HCl (Cardizem) 10 mg 1X ONCE IVP Last administered on 06/13/17 08: 31; Start 06/13/17 at 08:15; Stop 06/13/17 at 08:29; Status DC Diltiazem HCl (Cardizem) 10 mg 1X ONCE IVP ; Start 06/13/17 at 08:15; Stop at 08:16; Status Cancel Diltiazem HCl 125 mg/Dextrose 125 ml @ 0 mls/hr 1X ONCE IV Last administered on 06/13/17 08:43; Start 06/13/17 at 08:15; Stop 06/13/17 at 14:48; Status DC Aspirin (Children'S Aspirin) 324 mg 1X ONCE PO Last administered on 06/13/17 08:47; Start 06/13/17 at 08:45; Stop 06/13/17 at 08:46; Status DC Ondansetron HCl (Zofran) 4 mg PRN Q8HRS PRN IV NAUSEA/VOMITING; Start 06/13/17 at 08:45; Stop 06/13/17 at 10:18; Status DC Guaifenesin (Robitussin Dm) 10 ml PRN Q6HRS PRN PO COUGH Last administered on 17:46; Start 06/13/17 at 10:00 Albuterol/ Ipratropium (Duoneb) 3 ml RTQID NEB Last administered on 06/23/17 07:19; Start 06/13/17 at 12:00 Ondansetron HCl (Zofran) 4 mg PRN Q6HRS PRN IV NAUSEA/VOMITING Last administered on 06/13/17 17:45; Start 06/13/17 at 10:30; Stop 06/14/17 at 10:29 ; Status DC Acetaminophen (Tylenol) 500 mg PRN Q6HRS PRN PO MILD PAIN / TEMP Last administered on 06/13/17 16:02; Start 06/13/17 at 10:30; Stop 06/21/17 at 11:22 ; Status DC Furosemide (Lasix) 20 mg 1X ONCE IVP Last administered on 06/13/17 11:03; Start 06/13/17 at 10:15; Stop 06/13/17 at 10:22; Status DC Digoxin (Lanoxin) 250 mcg 1X ONCE IV Last administered on 06/13/17 11:03; Start 06/13/17 at 10:30; Stop 06/13/17 at 10:31; Status DC Aspirin (Ecotrin) 81 mg DAILYWBKFT PO Last administered on 06/13/17 11:03; Start 06/13/17 at 12:00; Stop 06/21/17 at 10:05; Status DC Alprazolam (Xanax) 0.5 mg PRN Q8HRS PRN PO ANXIETY / AGITATION Last administered on 06/13/17 11:47; Start 06/13/17 at 11:45; Stop 06/21/17 at 10:05 ; Status DC Info (Do NOT chart on this placeholder) 1 each 1X ONCE MC ; Start 06/13/17 at 13:15; Stop 06/13/17 at 13:16; Status UNV Influenza Virus Vaccine Quadrival (Fluarix Quad [id number] Syringe) 0.5 ml ONCE ONCE VAX IM ; Start 06/13/17 at 17:00; Stop 06/13/17 at 17:01 Allopurinol (Zyloprim) 300 mg QODAY PO ; Start 06/14/17 at 09:00 Alprazolam (Xanax) 0.25 mg TID PRN PO ANXIETY / AGITATION; Start 06/13/17 at 14 :15; Status UNV Aspirin (Ecotrin) 81 mg DAILYWBKFT PO ; Start 06/14/17 at 08:00; Status UNV Famotidine (Pepcid) 20 mg DAILY PO ; Start 06/14/17 at 09:00; Stop 06/19/17 at 08:44; Status DC Furosemide (Lasix) 20 mg DAILY PO ; Start 06/14/17 at 09:00; Stop 06/14/17 at 09 :00; Status DC Gabapentin (Neurontin) 100 mg TID PO Last administered on 06/13/17 16:02; Start 06/13/17 at 15:30 Hydroxyurea (Hydrea) 500 mg QODAY PO ; Start 06/14/17 at 09:00 Levothyroxine Sodium (Synthroid) 75 mcg DAILY07 PO ; Start 06/14/17 at 07:00; Stop 06/19/17 at 08:44; Status DC Vitamin D (Vitamin D3) 1,000 unit DAILY PO ; Start 06/14/17 at 09:00 Isosorbide Mononitrate (Imdur) 60 mg DAILY PO ; Start 06/14/17 at 09:00; Stop at 09:00; Status DC Fish Oil (Fish Oil) 1,000 mg QHS PO ; Start 06/13/17 at 21:00 Non-Formulary Medication 100 mg DAILY PO ; Start 06/14/17 at 09:00; Status UNV Metoprolol Tartrate (Lopressor) 50 mg BID PO Last administered on 06/13/17 16: 03; Start 06/13/17 at 16:00; Stop 06/18/17 at 12:50; Status DC Isosorbide Mononitrate (Imdur) 30 mg DAILY PO ; Start 06/14/17 at 09:00; Stop at 09:48; Status DC Labetalol HCl (Normodyne) 20 mg PRN Q2HR PRN IVP HYPERTENSION, SEE COMMENTS Last administered on 06/18/17 11:06; Start 06/13/17 at 17:45 Benzonatate (Tessalon Perle) 100 mg [id number] PO ; Start 06/13/17 at 21:00 Albuterol Sulfate (Ventolin Neb Soln) 2.5 mg PRN Q2HR PRN NEB [id number] Last administered on 06/13/17 20:05; Start 06/13/17 at 18:15 Acetaminophen/ Hydrocodone Bitart (Lortab 5/325) 1 tab PRN Q4HRS PRN PO MODERATE - SEVERE PAIN; Start 06/13/17 at 18:15 Furosemide (Lasix) 20 mg 1X ONCE IVP Last administered on 06/13/17 20:10; Start 06/13/17 at 20:00; Stop 06/13/17 at 20:02; Status DC Lorazepam (Ativan) 1 mg PRN Q4HRS PRN IV ANXIETY / AGITATION Last administered on 06/21/17 02:32; Start 06/13/17 at 20:00 Lorazepam (Ativan) 2 mg PRN Q4HRS PRN IV ANXIETY / AGITATION Last administered on 06/17/17 03:48; Start 06/13/17 at 20:00 Morphine Sulfate 2 mg PRN Q2HR PRN IV SEVERE PAIN Last administered on 02:35; Start 06/14/17 at 04:15 Haloperidol Lactate (Haldol) 5 mg PRN Q6HRS PRN IVP AGITATION Last administered on 06/19/17 00:50; Start 06/14/17 at 04:15; Stop 06/19/17 at 08:44 ; Status DC Methylprednisolone Sodium Succinate (SOLU-Medrol 40MG VIAL) 40 mg Q8HRS IV Last administered on 06/16/17 05:08; Start 06/14/17 at 08:15; Stop 06/16/17 at 14:13; Status DC Budesonide (Pulmicort) 0.5 mg RTBID NEB Last administered on 06/23/17 07:19; Start 06/14/17 at 09:00 Atorvastatin Calcium (Lipitor) 20 mg QHS PO ; Start 06/14/17 at 21:00 Isosorbide Mononitrate (Imdur) 60 mg DAILY PO ; Start 06/16/17 at 09:00; Stop at 09:00; Status DC Amlodipine Besylate (Norvasc) 5 mg DAILY PO ; Start 06/15/17 at 09:45; Stop at 14:52; Status DC Nitroglycerin (Nitro-Bid Oint) 1 inch Q6HRS TP Last administered on 06/15/17 18:05; Start 06/15/17 at 12:00; Stop 06/15/17 at 22:56; Status DC Nicardipine HCl 50 mg/Sodium Chloride 270 ml @ 0 mls/hr CONT PRN IV SEE I/O RECORD Last administered on 06/16/17 08:32; Start 06/15/17 at 19:45; Stop 06/16 at 14:25; Status DC Sodium Chloride 500 ml @ 500 mls/hr 1X ONCE IV Last administered on 11:45; Start 06/16/17 at 11:45; Stop 06/16/17 at 12:44; Status DC Amino Acids/ Glycerin/ Electrolytes 1,000 ml @ 50 mls/hr Q20H IV Last administered on 06/20/17 17:21; Start 06/16/17 at 12:30; Stop 06/21/17 at 09:47 ; Status DC Diltiazem HCl 125 mg/Dextrose 125 ml @ 0 mls/hr CONT PRN IV SEE I/O RECORD Last administered on 06/18/17 03:18; Start 06/16/17 at 14:30; Stop 06/19/17 at 08:44; Status DC Aspirin (Aspirin) 150 mg DAILY [place] Last administered on 06/22/17 17:49; Start 06/17/17 at 15:45 Potassium Chloride 50 ml @ 25 mls/hr Q2H IV Last administered on 06/17/17 22: 02; Start 06/17/17 at 19:30; Stop 06/17/17 at 23:29; Status DC Bisacodyl (Dulcolax Supp) 10 mg PRN DAILY PRN [place] CONSTIPATION Last administered on 06/17/17 19:47; Start 06/17/17 at 19:15; Stop 06/21/17 at 11:23 ; Status DC Metoprolol Tartrate (Lopressor) 5 mg Q6HRS IVP Last administered on 06/23/17 05:03; Start 06/18/17 at 13:00 Nitroglycerin (Nitro-Bid Oint) 1 inch Q6HRS TP Last administered on 06/23/17 05:03; Start 06/18/17 at 13:00 Haloperidol Lactate (Haldol) 2 mg PRN Q6HRS PRN IVP AGITATION; Start 06/19/17 at 08:45 Famotidine (Pepcid) 20 mg QHS IVP Last administered on 06/22/17 20:05; Start 06/19/17 at 21:00 Levothyroxine Sodium 40 mcg/ Sodium Chloride 5 ml @ 100 mls/hr DAILY IVP Last administered on 06/23/17 10:40; Start 06/19/17 at 09:00 Info 1 each PRN DAILY PRN MC SEE COMMENTS Last administered on 06/22/17 10:41 ; Start 06/20/17 at 08:30 Sodium Acetate 90 meq/Potassium Chloride 50 meq/ Potassium Phosphate 13.6 mmol/ Magnesium Sulfate 10 meq/ Calcium Gluconate 10 meq/ Multivitamins 10 ml/Chromium / Copper/Manganese/ Seleni/Zn 1 ml/ Total Parenteral Nutrition/Amino Acids/ Dextrose/ Fat Emulsion Intravenous 1,512 ml @ 63 mls/hr TPN CONT IV Last administered on 06/20/17 20:58; Start 06/20/17 at 22:00; Stop 06/21/17 at 21:59 ; Status DC Sodium Acetate 90 meq/Potassium Chloride 50 meq/ Potassium Phosphate 13.6 mmol/ Magnesium Sulfate 10 meq/ Calcium Gluconate 10 meq/ Multivitamins 10 ml/Chromium / Copper/Manganese/ Seleni/Zn 1 ml/ Total Parenteral Nutrition/Amino Acids/ Dextrose/ Fat Emulsion Intravenous 1,512 ml @ 63 mls/hr TPN CONT IV Last administered on 06/21/17 21:19; Start 06/21/17 at 22:00; Stop 06/22/17 at 21:59 ; Status DC Bisacodyl (Dulcolax Supp) 10 mg PRN DAILY PRN [place] CONSTIPATION Last administered on 06/21/17 14:26; Start 06/21/17 at 10:15 Ciprofloxacin/ Dextrose 100 ml @ 100 mls/hr Q12HR IV Last administered on 06/21 21:17; Start 06/21/17 at 11:00; Stop 06/22/17 at 11:11; Status DC Sodium Phosphate 20 mmol/Dextrose 256.6667 ml @ 64.167 m... 1X ONCE IV Last administered on 06/21/17 12:09; Start 06/21/17 at 10:30; Stop 06/21/17 at 14:29 ; Status DC Acetaminophen (Tylenol) 500 mg PRN Q6HRS PRN PO MILD PAIN / TEMP; Start at 11:30 Sodium Acetate 110 meq/Potassium Chloride 50 meq/ Potassium Phosphate 13.6 mmol/ Magnesium Sulfate 10 meq/ Calcium Gluconate 10 meq/ Multivitamins 10 ml/Chromium / Copper/Manganese/ Seleni/Zn 1 ml/ Total Parenteral Nutrition/Amino Acids/ Dextrose/ Fat Emulsion Intravenous 1,512 ml @ 63 mls/hr TPN CONT IV Last administered on 06/22/17 22:47; Start 06/22/17 at 22:00; Stop 06/23/17 at 21:59 Vancomycin HCl 1 gm/Sodium Chloride 250 ml @ 250 mls/hr Q12H IV ; Start at 11:15; Status UNV Vancomycin HCl (Vanco Per Pharmacy) 1 each PRN DAILY PRN MC SEE COMMENTS Last administered on 06/23/17 09:18; Start 06/22/17 at 11:15 Lidocaine (Lidoderm) 1 patch DAILY TD Last administered on 06/23/17 10:44; Start 06/22/17 at 13:00 Vancomycin HCl 1.25 gm/Sodium Chloride 250 ml @ 166.667 mls/hr 1X ONCE IV Last administered on 06/22/17 17:50; Start 06/22/17 at 12:30; Stop 06/22/17 at 13:59; Status DC Vancomycin HCl 750 mg/Sodium Chloride 250 ml @ 250 mls/hr Q24H IV ; Start 06/23 at 14:00 Vancomycin HCl 1 each 1X ONCE MC ; Start 06/24/17 at 13:30; Stop 06/24/17 at 13 :31 Active Scripts Active Reported Ultra Coq10 (Ubiquinone) 75 Mg Capsule 100 Mg PO DAILY [place]-3 ([place]-3 Fatty Acids) 100 Mg Tab.chew 350 Mg PO HS Isosorbide Mononitrate Er (Isosorbide Mononitrate) 60 Mg Tab.er.24h 1 Tab PO DAILY Vitamin D3 (Cholecalciferol (Vitamin D3)) 1,000 Unit Tab.chew 1,000 Unit PO DAILY Aspir 81 (Aspirin) 81 Mg Tablet.dr 1 Tab PO DAILY Xanax (Alprazolam) 0.25 Mg Tablet 1 Tab PO TID PRN Allopurinol 300 Mg Tablet 1 Tab PO QODAY Pepcid (Famotidine) 20 Mg Tablet 20 Mg PO DAILY Levothyroxine Sodium 75 Mcg Tablet 1 Tab PO DAILY Hydroxyurea 500 Mg Capsule 500 Mg PO QODAY Gabapentin 100 Mg Capsule 100 Mg PO TID Furosemide 20 Mg Tablet 1 Tab PO DAILY Vitals/I & O Vital Sign - Last 24 Hours 06/22/17 06/22/17 06/22/17 06/22/17 12:02 13:30 15:00 16:12 Temp 98.4 98.4 Pulse 88 87 Resp 17 B/P (MAP) 147/63 123/56 (78) Pulse Ox 98 98 O2 Delivery Room Air Nasal Cannula Room Air O2 Flow Rate 2.0 06/22/17 06/22/17 06/22/17 06/22/17 17:48 17:53 17:53 19:27 Pulse 87 87 87 B/P (MAP) 123/56 136/65 136/67 O2 Delivery Room Air 06/22/17 06/22/17 06/22/17 06/22/17 19:44 19:52 20:03 23:00 Temp 98.1 98.0 98.1 98.0 Pulse 73 65 Resp 16 18 18 B/P (MAP) 113/53 (73) 138/59 (85) Pulse Ox 97 98 97 95 O2 Delivery Room Air Room Air Room Air Room Air 06/22/17 06/22/17 06/23/17 06/23/17 23:09 23:10 02:35 03:02 Pulse 65 65 71 Resp 20 16 B/P (MAP) 138/59 138/59 132/60 (84) Pulse Ox 94 O2 Delivery Room Air Room Air 06/23/17 06/23/17 06/23/17 06/23/17 03:05 05:03 05:03 07:00 Temp 97.8 97.8 Pulse 71 71 79 Resp 18 18 B/P (MAP) 132/60 132/60 146/64 (91) Pulse Ox 95 O2 Delivery Room Air Room Air 06/23/17 07:19 Pulse Ox 97 O2 Delivery Room Air DA DESAI MD Jun 23, 2017 11:13
[2017-06-23] MEDS: TPN PER PHARMACY MC PRN (12:28)
--- NOTE | 2017-06-23 12:53 | PDOC ---
PULMONARY PROGRESS NOTES Subjective PT WITH NO INCREASE SOA HAPPY THAT SHE STARTED TO EAT SOMETHING Vitals Vital Signs Date Time Temp Pulse Resp B/P (MAP) Pulse Ox O2 Delivery O2 Flow Rate FiO2 06/23/17 12:04 95 Room Air 06/23/17 11:00 97.5 75 18 120/57 (78) 97.5 06/22/17 15:00 2.0 General: Alert HEENT: Other (nc at perrl, bipap mask on, neck, no lap, thyromegaly) Lungs: Crackles, Other Cardiovascular: S1, S2 Abdomen: Soft, Non-tender, Other (no mass) Neuro Exam: Alert Extremities: No Edema Skin: Warm Labs Laboratory Tests Test 06/22/17 06:00 06/22/17 11:51 06/22/17 17:02 06/23/17 01:04 White Blood Count 16.4 x10^3/uL (4.0-11.0) Red Blood Count 3.29 x10^6/uL (3.50-5.40) Hemoglobin 11.0 g/dL (12.0-15.5) Hematocrit 32.8 % (36.0-47.0) Mean Corpuscular Volume 100 fL (79-100) Mean Corpuscular Hemoglobin 33 pg (25-35) Mean Corpuscular Hemoglobin Concent 34 g/dL (31-37) Red Cell Distribution Width 16.1 % (11.5-14.5) Platelet Count 228 x10^3/uL (140-400) Neutrophils (%) (Auto) 71 % (31-73) Lymphocytes (%) (Auto) 11 % (24-48) Monocytes (%) (Auto) 13 % (0-9) Eosinophils (%) (Auto) 5 % (0-3) Basophils (%) (Auto) 1 % (0-3) Neutrophils # (Auto) 11.6 x10^3uL (1.8-7.7) Lymphocytes # (Auto) 1.7 x10^3/uL (1.0-4.8) Monocytes # (Auto) 2.2 x10^3/uL (0.0-1.1) Eosinophils # (Auto) 0.9 x10^3/uL (0.0-0.7) Basophils # (Auto) 0.1 x10^3/uL (0.0-0.2) Segmented Neutrophils % 77 % (35-66) Lymphocytes % 10 % (24-48) Monocytes % 13 % (0-10) Smudge Cells Present Platelet Estimate Adequate (ADEQUATE) Anisocytosis Present Sodium Level 139 mmol/L (136-145) Potassium Level 4.3 mmol/L (3.5-5.1) Chloride Level 105 mmol/L (98-107) Carbon Dioxide Level 28 mmol/L (21-32) Anion Gap 6 (6-14) Blood Urea Nitrogen 28 mg/dL (7-20) Creatinine 0.7 mg/dL (0.6-1.0) Estimated GFR (Cockcroft-Gault) 79.2 Glucose Level 151 mg/dL (70-99) Calcium Level 8.8 mg/dL (8.5-10.1) Glucose (Fingerstick) 150 mg/dL (70-99) 142 mg/dL (70-99) 126 mg/dL (70-99) Test 06/23/17 02:50 Phosphorus Level 2.9 mg/dL (2.6-4.7) Magnesium Level 2.0 mg/dL (1.8-2.4) Laboratory Tests Test 06/22/17 17:02 06/23/17 01:04 06/23/17 02:50 Glucose (Fingerstick) 142 mg/dL (70-99) 126 mg/dL (70-99) Phosphorus Level 2.9 mg/dL (2.6-4.7) Magnesium Level 2.0 mg/dL (1.8-2.4) Medications Active Scripts Medications Dose Route/Sig Max Daily Dose Days Date Category Ultra Coq10 (Ubiquinone) 75 Mg Capsule 100 Mg PO DAILY 06/13/17 Reported [place]-3 ([place]-3 Fatty Acids) 100 Mg Tab.chew 350 Mg PO HS 06/13/17 Reported Isosorbide Mononitrate Er (Isosorbide Mononitrate) 60 Mg Tab.er.24h 1 Tab PO DAILY 06/13/17 Reported Vitamin D3 (Cholecalciferol (Vitamin D3)) 1,000 Unit Tab.chew 1,000 Unit PO DAILY 06/13/17 Reported Aspir 81 (Aspirin) 81 Mg Tablet.dr 1 Tab PO DAILY 06/13/17 Reported Xanax (Alprazolam) 0.25 Mg Tablet 1 Tab PO TID PRN 06/13/17 Reported Allopurinol 300 Mg Tablet 1 Tab PO QODAY 06/13/17 Reported Pepcid (Famotidine) 20 Mg Tablet 20 Mg PO DAILY 06/13/17 Reported Levothyroxine Sodium 75 Mcg Tablet 1 Tab PO DAILY 06/13/17 Reported Hydroxyurea 500 Mg Capsule 500 Mg PO QODAY 06/13/17 Reported Gabapentin 100 Mg Capsule 100 Mg PO TID 06/13/17 Reported Furosemide 20 Mg Tablet 1 Tab PO DAILY 06/13/17 Reported Comments cxr reviewed, atelectasis Impression . 1. Acute hypercapnic respiratory failure, multifactorial. 2. Acute exacerbation of chronic obstructive pulmonary disease 3. Acute nonspecific bronchitis. 4. New onset atrial fibrillation with rapid ventricular response, 5. Coronary artery disease. 6. Hyperthyroidism. 7. Generalized anxiety. 8. Suspect silent aspiration leading to cough. 10. delirium ,improving 11. Dysphagia Plan . PT SLOWLY IMPROVING WILL NEED SOME FORM OF REHAB 1. off steroids 2. nasal canula, 02 titration 3. Minimize sedatives and narcotics, avoid over sedation 4. TPN . continue f/u with speech 6. cont bronchodilators. 7. cxr 06/19 with improving left basal atelectasis 8. pt/ot KRISTAL AVILEZ MD Jun 23, 2017 12:53
[2017-06-23] MEDS: VANCOMYCIN 750 MG in IV NORMAL SALINE 250ML 250 ML IV SCH (14:13)
[2017-06-23 15:00] VITALS: BP 121/51
[2017-06-23] MEDS: HYDROcodone/APAP 5/325MG 1 TAB TABLET PO PRN (17:42)
[2017-06-23 19:00] VITALS: BP 135/64
[2017-06-23] MEDS: FAMOTIDINE 20 MG/2 ML VIAL IVP SCH (20:26)
[2017-06-23] MEDS: OMEGA-3 FATTY ACIDS/FISH OIL 1,000 MG CAPSULE. PO SCH (20:26)
[2017-06-23] MEDS: ATORVASTATIN CALCIUM 20 MG TABLET PO SCH (20:26)
[2017-06-23] MEDS ORDERED: DEXTROSE 70% IV SCH ×10 (22:00)
[2017-06-23] MEDS ORDERED: [UNRECOGNIZED DRUG - OTHER] IV SCH ×10 (22:00)
[2017-06-23] MEDS ORDERED: TOTAL PARENTERAL NUTRITION IV SCH ×10 (22:00)
[2017-06-23] MEDS ORDERED: AMINO ACIDS IV SCH ×10 (22:00)
[2017-06-23 23:47] VITALS: BP 185/47
[2017-06-24] VITALS (7 sets, daily range): BP systolic 78–152; BP diastolic 27–84
[2017-06-24] MEDS: NITROGLYCERIN OINT 1 GM PACKET. TP SCH ×4 (00:46→17:42)
[2017-06-24] MEDS: HYDROcodone/APAP 5/325MG 1 TAB TABLET PO PRN ×2 (03:03→10:16)
[2017-06-24 05:56] LABS: BASO # 0.1 x10^3/uL (0.0-0.2); BASO % 1 % (0-3); EOS % 2 % (0-3); HEMATOCRIT 32.6 % (36.0-47.0); LYMPH % 12 % (24-48); MEAN CORPUSCULAR HEMOGLOBIN 34 pg (25-35); MEAN CORPUSCULAR HGB CONC 34 g/dL (31-37); MEAN CORPUSCULAR VOLUME 100 fL (79-100); MONO % 17 % (0-9); NEUT % 68 % (31-73); PLATELET COUNT 250 x10^3/uL (140-400); RED BLOOD COUNT 3.27 x10^6/uL (3.50-5.40); RED CELL DISTRIBUTION WIDTH 16.3 % (11.5-14.5); WHITE BLOOD COUNT 16.3 x10^3/uL (4.0-11.0)
[2017-06-24] MEDS: METOPROLOL TARTRATE 5 MG/5 ML VIAL. IVP SCH ×3 (06:00→17:55)
[2017-06-24 06:12] LABS: CALCIUM 9.1 mg/dL (8.5-10.1); CREATININE 0.8 mg/dL (0.6-1.0); GFR 67.8; POTASSIUM 4.9 mmol/L (3.5-5.1)
[2017-06-24] MEDS: IPRATRPIUM/ALBUTEROL 0.5/2.5MG 3 ML NEBU. NEB SCH ×4 (08:09→20:22)
[2017-06-24] MEDS: BUDESONIDE 0.5 MG/2 ML NEBU. NEB SCH ×2 (08:10→20:22)
[2017-06-24] MEDS: LEVOTHYROXINE SODIUM IVP SCH (09:00)
[2017-06-24] MEDS: NORMAL SALINE IVP SCH (09:00)
[2017-06-24] MEDS: BENZONATATE 100 MG CAPSULE. PO SCH ×3 (10:13→21:07)
[2017-06-24] MEDS: LIDOCAINE (700MG/PATCH) PATCH. TD SCH (10:13)
[2017-06-24] MEDS: CHOLECALCIFEROL (VITAMIN D3) 1,000 UNIT TABLET PO SCH (10:14)
[2017-06-24] MEDS: ALLOPURINOL 300 MG TABLET. PO SCH (10:14)
[2017-06-24] MEDS: GABAPENTIN 100 MG CAPSULE. PO SCH ×3 (10:14→21:07)
[2017-06-24] MEDS: HYDROXYUREA 500 MG CAPSULE PO SCH (10:15)
[2017-06-24] MEDS: ASPIRIN 325 MG TABLET PO SCH (10:16)
--- NOTE | 2017-06-24 13:59 | PDOC ---
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 HTN UNCOntrolled Hx elevated uric acid Hypothryodism Anxiety NOS HLD leukocytosis, reactive to solumedrol? 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 removed boland poor prognosis gi ppx dvt ppx check head CT neg. add stool softner SP replete GABY dc cipro, add vanco lidoderm patch for back pain pt today is more awake, asked to do swallow eval again. SW consult for possible SNF History of Present Illness History of Present Illness Poor PO Still on TPN Needs to be off tPN x 48 hrs before [facility] can accept Family at bedside Ate 25% Stooling NO other med issues On dysphagia 1 with honey thickened Afib now rate controlled PLAN: dc TPN PPN Nutrition making some more additions SNU in 48 hrs Dw family and RN Rey Vitals Vitals Vital Signs Date Time Temp Pulse Resp B/P (MAP) Pulse Ox O2 Delivery O2 Flow Rate FiO2 06/24/17 12:02 Room Air 06/24/17 12:00 96 103/50 06/24/17 11:16 16 97 2.0 06/24/17 11:00 97.8 97.8 Physical Exam Physical Exam [email or web address] General: Alert, Cooperative, No acute distress, mild distress Heart: Regular rate Lungs: Clear, Crackles, Other Abdomen: Normal bowel sounds Extremities: No clubbing, No cyanosis, No edema, Normal pulses, No tenderness/ swelling Skin: No rashes, No breakdown, No significant lesion Labs LABS Laboratory Tests Test 06/24/17 05:45 06/24/17 06:00 White Blood Count 16.3 x10^3/uL (4.0-11.0) Red Blood Count 3.27 x10^6/uL (3.50-5.40) Hemoglobin 11.0 g/dL (12.0-15.5) Hematocrit 32.6 % (36.0-47.0) Mean Corpuscular Volume 100 fL (79-100) Mean Corpuscular Hemoglobin 34 pg (25-35) Mean Corpuscular Hemoglobin Concent 34 g/dL (31-37) Red Cell Distribution Width 16.3 % (11.5-14.5) Platelet Count 250 x10^3/uL (140-400) Neutrophils (%) (Auto) 68 % (31-73) Lymphocytes (%) (Auto) 12 % (24-48) Monocytes (%) (Auto) 17 % (0-9) Eosinophils (%) (Auto) 2 % (0-3) Basophils (%) (Auto) 1 % (0-3) Neutrophils # (Auto) 11.1 x10^3uL (1.8-7.7) Lymphocytes # (Auto) 2.0 x10^3/uL (1.0-4.8) Monocytes # (Auto) 2.8 x10^3/uL (0.0-1.1) Eosinophils # (Auto) 0.4 x10^3/uL (0.0-0.7) Basophils # (Auto) 0.1 x10^3/uL (0.0-0.2) Sodium Level 139 mmol/L (136-145) Potassium Level 4.9 mmol/L (3.5-5.1) Chloride Level 103 mmol/L (98-107) Carbon Dioxide Level 30 mmol/L (21-32) Anion Gap 6 (6-14) Blood Urea Nitrogen 29 mg/dL (7-20) Creatinine 0.8 mg/dL (0.6-1.0) Estimated GFR (Cockcroft-Gault) 67.8 Glucose Level 77 mg/dL (70-99) Calcium Level 9.1 mg/dL (8.5-10.1) Review of Systems Review of Systems denies 14 pt Assessment and Plan Assessmemt and Plan Problems Medical Problems: (1) Atrial fibrillation with RVR Status: Acute Problems: Comment Review of Relevant I have reviewed the following items viktor (where applicable) has been applied. Labs Laboratory Tests Test 06/22/17 17:02 06/23/17 01:04 06/23/17 02:50 06/24/17 05:45 Glucose (Fingerstick) 142 mg/dL (70-99) 126 mg/dL (70-99) Phosphorus Level 2.9 mg/dL (2.6-4.7) Magnesium Level 2.0 mg/dL (1.8-2.4) White Blood Count 16.3 x10^3/uL (4.0-11.0) Red Blood Count 3.27 x10^6/uL (3.50-5.40) Hemoglobin 11.0 g/dL (12.0-15.5) Hematocrit 32.6 % (36.0-47.0) Mean Corpuscular Volume 100 fL (79-100) Mean Corpuscular Hemoglobin 34 pg (25-35) Mean Corpuscular Hemoglobin Concent 34 g/dL (31-37) Red Cell Distribution Width 16.3 % (11.5-14.5) Platelet Count 250 x10^3/uL (140-400) Neutrophils (%) (Auto) 68 % (31-73) Lymphocytes (%) (Auto) 12 % (24-48) Monocytes (%) (Auto) 17 % (0-9) Eosinophils (%) (Auto) 2 % (0-3) Basophils (%) (Auto) 1 % (0-3) Neutrophils # (Auto) 11.1 x10^3uL (1.8-7.7) Lymphocytes # (Auto) 2.0 x10^3/uL (1.0-4.8) Monocytes # (Auto) 2.8 x10^3/uL (0.0-1.1) Eosinophils # (Auto) 0.4 x10^3/uL (0.0-0.7) Basophils # (Auto) 0.1 x10^3/uL (0.0-0.2) Test 06/24/17 06:00 Sodium Level 139 mmol/L (136-145) Potassium Level 4.9 mmol/L (3.5-5.1) Chloride Level 103 mmol/L (98-107) Carbon Dioxide Level 30 mmol/L (21-32) Anion Gap 6 (6-14) Blood Urea Nitrogen 29 mg/dL (7-20) Creatinine 0.8 mg/dL (0.6-1.0) Estimated GFR (Cockcroft-Gault) 67.8 Glucose Level 77 mg/dL (70-99) Calcium Level 9.1 mg/dL (8.5-10.1) Laboratory Tests Test 06/24/17 05:45 06/24/17 06:00 White Blood Count 16.3 x10^3/uL (4.0-11.0) Red Blood Count 3.27 x10^6/uL (3.50-5.40) Hemoglobin 11.0 g/dL (12.0-15.5) Hematocrit 32.6 % (36.0-47.0) Mean Corpuscular Volume 100 fL (79-100) Mean Corpuscular Hemoglobin 34 pg (25-35) Mean Corpuscular Hemoglobin Concent 34 g/dL (31-37) Red Cell Distribution Width 16.3 % (11.5-14.5) Platelet Count 250 x10^3/uL (140-400) Neutrophils (%) (Auto) 68 % (31-73) Lymphocytes (%) (Auto) 12 % (24-48) Monocytes (%) (Auto) 17 % (0-9) Eosinophils (%) (Auto) 2 % (0-3) Basophils (%) (Auto) 1 % (0-3) Neutrophils # (Auto) 11.1 x10^3uL (1.8-7.7) Lymphocytes # (Auto) 2.0 x10^3/uL (1.0-4.8) Monocytes # (Auto) 2.8 x10^3/uL (0.0-1.1) Eosinophils # (Auto) 0.4 x10^3/uL (0.0-0.7) Basophils # (Auto) 0.1 x10^3/uL (0.0-0.2) Sodium Level 139 mmol/L (136-145) Potassium Level 4.9 mmol/L (3.5-5.1) Chloride Level 103 mmol/L (98-107) Carbon Dioxide Level 30 mmol/L (21-32) Anion Gap 6 (6-14) Blood Urea Nitrogen 29 mg/dL (7-20) Creatinine 0.8 mg/dL (0.6-1.0) Estimated GFR (Cockcroft-Gault) 67.8 Glucose Level 77 mg/dL (70-99) Calcium Level 9.1 mg/dL (8.5-10.1) Microbiology 06/19/17 Blood Culture - Final, Complete NO GROWTH AFTER 5 DAYS 06/19/17 Urine Culture - Final, Complete 06/19/17 Urine Culture Result 1 (RAFIQ) - Final, Complete 06/19/17 Antimicrobic Susceptibility - Final, Complete Medications Current Medications Albuterol/ Ipratropium (Duoneb) 3 ml STK-MED ONCE .ROUTE ; Start 06/13/17 at 08: 12; Stop 06/13/17 at 08:13; Status DC Albuterol/ Ipratropium (Duoneb) 3 ml 1X ONCE NEB Last administered on 08:15; Start 06/13/17 at 08:15; Stop 06/13/17 at 08:20; Status DC Methylprednisolone Sodium Succinate (SOLU-Medrol 125MG VIAL) 125 mg 1X ONCE IV Last administered on 06/13/17 08:22; Start 06/13/17 at 08:15; Stop 06/13/17 at 08:20; Status DC Diltiazem HCl (Cardizem) 10 mg 1X ONCE IVP Last administered on 06/13/17 08: 31; Start 06/13/17 at 08:15; Stop 06/13/17 at 08:29; Status DC Diltiazem HCl (Cardizem) 10 mg 1X ONCE IVP ; Start 06/13/17 at 08:15; Stop at 08:16; Status Cancel Diltiazem HCl 125 mg/Dextrose 125 ml @ 0 mls/hr 1X ONCE IV Last administered on 06/13/17 08:43; Start 06/13/17 at 08:15; Stop 06/13/17 at 14:48; Status DC Aspirin (Children'S Aspirin) 324 mg 1X ONCE PO Last administered on 06/13/17 08:47; Start 06/13/17 at 08:45; Stop 06/13/17 at 08:46; Status DC Ondansetron HCl (Zofran) 4 mg PRN Q8HRS PRN IV NAUSEA/VOMITING; Start 06/13/17 at 08:45; Stop 06/13/17 at 10:18; Status DC Guaifenesin (Robitussin Dm) 10 ml PRN Q6HRS PRN PO COUGH Last administered on 17:46; Start 06/13/17 at 10:00 Albuterol/ Ipratropium (Duoneb) 3 ml RTQID NEB Last administered on 06/24/17 12:01; Start 06/13/17 at 12:00 Ondansetron HCl (Zofran) 4 mg PRN Q6HRS PRN IV NAUSEA/VOMITING Last administered on 06/13/17 17:45; Start 06/13/17 at 10:30; Stop 06/14/17 at 10:29 ; Status DC Acetaminophen (Tylenol) 500 mg PRN Q6HRS PRN PO MILD PAIN / TEMP Last administered on 06/13/17 16:02; Start 06/13/17 at 10:30; Stop 06/21/17 at 11:22 ; Status DC Furosemide (Lasix) 20 mg 1X ONCE IVP Last administered on 06/13/17 11:03; Start 06/13/17 at 10:15; Stop 06/13/17 at 10:22; Status DC Digoxin (Lanoxin) 250 mcg 1X ONCE IV Last administered on 06/13/17 11:03; Start 06/13/17 at 10:30; Stop 06/13/17 at 10:31; Status DC Aspirin (Ecotrin) 81 mg DAILYWBKFT PO Last administered on 06/13/17 11:03; Start 06/13/17 at 12:00; Stop 06/21/17 at 10:05; Status DC Alprazolam (Xanax) 0.5 mg PRN Q8HRS PRN PO ANXIETY / AGITATION Last administered on 06/13/17 11:47; Start 06/13/17 at 11:45; Stop 06/21/17 at 10:05 ; Status DC Info (Do NOT chart on this placeholder) 1 each 1X ONCE MC ; Start 06/13/17 at 13:15; Stop 06/13/17 at 13:16; Status UNV Influenza Virus Vaccine Quadrival (Fluarix Quad [id number] Syringe) 0.5 ml ONCE ONCE VAX IM ; Start 06/13/17 at 17:00; Stop 06/13/17 at 17:01 Allopurinol (Zyloprim) 300 mg QODAY PO Last administered on 06/24/17 10:14; Start 06/14/17 at 09:00 Alprazolam (Xanax) 0.25 mg TID PRN PO ANXIETY / AGITATION; Start 06/13/17 at 14 :15; Status UNV Aspirin (Ecotrin) 81 mg DAILYWBKFT PO ; Start 06/14/17 at 08:00; Status UNV Famotidine (Pepcid) 20 mg DAILY PO ; Start 06/14/17 at 09:00; Stop 06/19/17 at 08:44; Status DC Furosemide (Lasix) 20 mg DAILY PO ; Start 06/14/17 at 09:00; Stop 06/14/17 at 09 :00; Status DC Gabapentin (Neurontin) 100 mg TID PO Last administered on 06/24/17 10:14; Start 06/13/17 at 15:30 Hydroxyurea (Hydrea) 500 mg QODAY PO Last administered on 06/24/17 10:15; Start 06/14/17 at 09:00 Levothyroxine Sodium (Synthroid) 75 mcg DAILY07 PO ; Start 06/14/17 at 07:00; Stop 06/19/17 at 08:44; Status DC Vitamin D (Vitamin D3) 1,000 unit DAILY PO Last administered on 06/24/17 10:14 ; Start 06/14/17 at 09:00 Isosorbide Mononitrate (Imdur) 60 mg DAILY PO ; Start 06/14/17 at 09:00; Stop at 09:00; Status DC Fish Oil (Fish Oil) 1,000 mg QHS PO ; Start 06/13/17 at 21:00 Non-Formulary Medication 100 mg DAILY PO ; Start 06/14/17 at 09:00; Status UNV Metoprolol Tartrate (Lopressor) 50 mg BID PO Last administered on 06/13/17 16: 03; Start 06/13/17 at 16:00; Stop 06/18/17 at 12:50; Status DC Isosorbide Mononitrate (Imdur) 30 mg DAILY PO ; Start 06/14/17 at 09:00; Stop at 09:48; Status DC Labetalol HCl (Normodyne) 20 mg PRN Q2HR PRN IVP HYPERTENSION, SEE COMMENTS Last administered on 06/18/17 11:06; Start 06/13/17 at 17:45 Benzonatate (Tessalon Perle) 100 mg [id number] PO Last administered on 06/24/17 10 :13; Start 06/13/17 at 21:00 Albuterol Sulfate (Ventolin Neb Soln) 2.5 mg PRN Q2HR PRN NEB [id number] Last administered on 06/13/17 20:05; Start 06/13/17 at 18:15 Acetaminophen/ Hydrocodone Bitart (Lortab 5/325) 1 tab PRN Q4HRS PRN PO MODERATE - SEVERE PAIN Last administered on 06/24/17 10:16; Start 06/13/17 at 18:15 Furosemide (Lasix) 20 mg 1X ONCE IVP Last administered on 06/13/17 20:10; Start 06/13/17 at 20:00; Stop 06/13/17 at 20:02; Status DC Lorazepam (Ativan) 1 mg PRN Q4HRS PRN IV ANXIETY / AGITATION Last administered on 06/21/17 02:32; Start 06/13/17 at 20:00 Lorazepam (Ativan) 2 mg PRN Q4HRS PRN IV ANXIETY / AGITATION Last administered on 06/17/17 03:48; Start 06/13/17 at 20:00 Morphine Sulfate 2 mg PRN Q2HR PRN IV SEVERE PAIN Last administered on 02:35; Start 06/14/17 at 04:15 Haloperidol Lactate (Haldol) 5 mg PRN Q6HRS PRN IVP AGITATION Last administered on 06/19/17 00:50; Start 06/14/17 at 04:15; Stop 06/19/17 at 08:44 ; Status DC Methylprednisolone Sodium Succinate (SOLU-Medrol 40MG VIAL) 40 mg Q8HRS IV Last administered on 06/16/17 05:08; Start 06/14/17 at 08:15; Stop 06/16/17 at 14:13; Status DC Budesonide (Pulmicort) 0.5 mg RTBID NEB Last administered on 06/24/17 08:10; Start 06/14/17 at 09:00 Atorvastatin Calcium (Lipitor) 20 mg QHS PO Last administered on 06/23/17 20: 26; Start 06/14/17 at 21:00 Isosorbide Mononitrate (Imdur) 60 mg DAILY PO ; Start 06/16/17 at 09:00; Stop at 09:00; Status DC Amlodipine Besylate (Norvasc) 5 mg DAILY PO ; Start 06/15/17 at 09:45; Stop at 14:52; Status DC Nitroglycerin (Nitro-Bid Oint) 1 inch Q6HRS TP Last administered on 06/15/17 18:05; Start 06/15/17 at 12:00; Stop 06/15/17 at 22:56; Status DC Nicardipine HCl 50 mg/Sodium Chloride 270 ml @ 0 mls/hr CONT PRN IV SEE I/O RECORD Last administered on 06/16/17 08:32; Start 06/15/17 at 19:45; Stop 06/16 at 14:25; Status DC Sodium Chloride 500 ml @ 500 mls/hr 1X ONCE IV Last administered on 11:45; Start 06/16/17 at 11:45; Stop 06/16/17 at 12:44; Status DC Amino Acids/ Glycerin/ Electrolytes 1,000 ml @ 50 mls/hr Q20H IV Last administered on 06/20/17 17:21; Start 06/16/17 at 12:30; Stop 06/21/17 at 09:47 ; Status DC Diltiazem HCl 125 mg/Dextrose 125 ml @ 0 mls/hr CONT PRN IV SEE I/O RECORD Last administered on 06/18/17 03:18; Start 06/16/17 at 14:30; Stop 06/19/17 at 08:44; Status DC Aspirin (Aspirin) 150 mg DAILY PA Last administered on 06/22/17 17:49; Start 06/17/17 at 15:45; Stop 06/24/17 at 09:40; Status DC Potassium Chloride 50 ml @ 25 mls/hr Q2H IV Last administered on 06/17/17 22: 02; Start 06/17/17 at 19:30; Stop 06/17/17 at 23:29; Status DC Bisacodyl (Dulcolax Supp) 10 mg PRN DAILY PRN PA CONSTIPATION Last administered on 06/17/17 19:47; Start 06/17/17 at 19:15; Stop 06/21/17 at 11:23 ; Status DC Metoprolol Tartrate (Lopressor) 5 mg Q6HRS IVP Last administered on 06/23/17 23:22; Start 06/18/17 at 13:00 Nitroglycerin (Nitro-Bid Oint) 1 inch Q6HRS TP Last administered on 06/24/17 06:04; Start 06/18/17 at 13:00 Haloperidol Lactate (Haldol) 2 mg PRN Q6HRS PRN IVP AGITATION; Start 06/19/17 at 08:45 Famotidine (Pepcid) 20 mg QHS IVP Last administered on 06/23/17 20:26; Start 06/19/17 at 21:00 Levothyroxine Sodium 40 mcg/ Sodium Chloride 5 ml @ 100 mls/hr DAILY IVP Last administered on 06/24/17 09:00; Start 06/19/17 at 09:00; Stop 06/24/17 at 09:27 ; Status DC Info 1 each PRN DAILY PRN MC SEE COMMENTS Last administered on 06/23/17 12:28 ; Start 06/20/17 at 08:30 Sodium Acetate 90 meq/Potassium Chloride 50 meq/ Potassium Phosphate 13.6 mmol/ Magnesium Sulfate 10 meq/ Calcium Gluconate 10 meq/ Multivitamins 10 ml/Chromium / Copper/Manganese/ Seleni/Zn 1 ml/ Total Parenteral Nutrition/Amino Acids/ Dextrose/ Fat Emulsion Intravenous 1,512 ml @ 63 mls/hr TPN CONT IV Last administered on 06/20/17 20:58; Start 06/20/17 at 22:00; Stop 06/21/17 at 21:59 ; Status DC Sodium Acetate 90 meq/Potassium Chloride 50 meq/ Potassium Phosphate 13.6 mmol/ Magnesium Sulfate 10 meq/ Calcium Gluconate 10 meq/ Multivitamins 10 ml/Chromium / Copper/Manganese/ Seleni/Zn 1 ml/ Total Parenteral Nutrition/Amino Acids/ Dextrose/ Fat Emulsion Intravenous 1,512 ml @ 63 mls/hr TPN CONT IV Last administered on 06/21/17 21:19; Start 06/21/17 at 22:00; Stop 06/22/17 at 21:59 ; Status DC Bisacodyl (Dulcolax Supp) 10 mg PRN DAILY PRN PA CONSTIPATION Last administered on 06/21/17 14:26; Start 06/21/17 at 10:15 Ciprofloxacin/ Dextrose 100 ml @ 100 mls/hr Q12HR IV Last administered on 06/21 21:17; Start 06/21/17 at 11:00; Stop 06/22/17 at 11:11; Status DC Sodium Phosphate 20 mmol/Dextrose 256.6667 ml @ 64.167 m... 1X ONCE IV Last administered on 06/21/17 12:09; Start 06/21/17 at 10:30; Stop 06/21/17 at 14:29 ; Status DC Acetaminophen (Tylenol) 500 mg PRN Q6HRS PRN PO MILD PAIN / TEMP; Start at 11:30 Sodium Acetate 110 meq/Potassium Chloride 50 meq/ Potassium Phosphate 13.6 mmol/ Magnesium Sulfate 10 meq/ Calcium Gluconate 10 meq/ Multivitamins 10 ml/Chromium / Copper/Manganese/ Seleni/Zn 1 ml/ Total Parenteral Nutrition/Amino Acids/ Dextrose/ Fat Emulsion Intravenous 1,512 ml @ 63 mls/hr TPN CONT IV Last administered on 06/22/17 22:47; Start 06/22/17 at 22:00; Stop 06/23/17 at 21:59 ; Status DC Vancomycin HCl 1 gm/Sodium Chloride 250 ml @ 250 mls/hr Q12H IV ; Start at 11:15; Status UNV Vancomycin HCl (Vanco Per Pharmacy) 1 each PRN DAILY PRN MC SEE COMMENTS Last administered on 06/23/17 09:18; Start 06/22/17 at 11:15 Lidocaine (Lidoderm) 1 patch DAILY TD Last administered on 06/24/17 10:13; Start 06/22/17 at 13:00 Vancomycin HCl 1.25 gm/Sodium Chloride 250 ml @ 166.667 mls/hr 1X ONCE IV Last administered on 06/22/17 17:50; Start 06/22/17 at 12:30; Stop 06/22/17 at 13:59; Status DC Vancomycin HCl 750 mg/Sodium Chloride 250 ml @ 250 mls/hr Q24H IV Last administered on 06/23/17 14:13; Start 06/23/17 at 14:00 Vancomycin HCl 1 each 1X ONCE MC ; Start 06/24/17 at 13:30; Stop 06/24/17 at 13 :31; Status DC Sodium Acetate 110 meq/Potassium Chloride 50 meq/ Potassium Phosphate 13.6 mmol/ Magnesium Sulfate 10 meq/ Calcium Gluconate 10 meq/ Multivitamins 10 ml/Chromium / Copper/Manganese/ Seleni/Zn 1 ml/ Total Parenteral Nutrition/Amino Acids/ Dextrose/ Fat Emulsion Intravenous 1,512 ml @ 63 mls/hr TPN CONT IV Last administered on 06/23/17 23:20; Start 06/23/17 at 22:00; Stop 06/24/17 at 21:59 Levothyroxine Sodium (Synthroid) 88 mcg DAILY07 PO ; Start 06/25/17 at 07:00 Aspirin (Pari Aspirin) 325 mg DAILYWBKFT PO Last administered on 06/24/17 10: 16; Start 06/24/17 at 10:00 Active Scripts Active Reported Ultra Coq10 (Ubiquinone) 75 Mg Capsule 100 Mg PO DAILY Mayodan-3 (Mayodan-3 Fatty Acids) 100 Mg Tab.chew 350 Mg PO HS Isosorbide Mononitrate Er (Isosorbide Mononitrate) 60 Mg Tab.er.24h 1 Tab PO DAILY Vitamin D3 (Cholecalciferol (Vitamin D3)) 1,000 Unit Tab.chew 1,000 Unit PO DAILY Aspir 81 (Aspirin) 81 Mg Tablet.dr 1 Tab PO DAILY Xanax (Alprazolam) 0.25 Mg Tablet 1 Tab PO TID PRN Allopurinol 300 Mg Tablet 1 Tab PO QODAY Pepcid (Famotidine) 20 Mg Tablet 20 Mg PO DAILY Levothyroxine Sodium 75 Mcg Tablet 1 Tab PO DAILY Hydroxyurea 500 Mg Capsule 500 Mg PO QODAY Gabapentin 100 Mg Capsule 100 Mg PO TID Furosemide 20 Mg Tablet 1 Tab PO DAILY Vitals/I & O Vital Sign - Last 24 Hours 06/23/17 06/23/17 06/23/17 06/23/17 15:00 15:52 17:42 17:42 Temp 97.8 97.8 Pulse 89 95 Resp 18 B/P (MAP) 121/51 (74) 121/51 Pulse Ox 96 O2 Delivery Room Air Room Air Room Air 06/23/17 06/23/17 06/23/17 06/23/17 19:00 20:00 20:06 20:08 Temp 96.6 96.6 Pulse 80 Resp 16 B/P (MAP) 135/64 (87) Pulse Ox 97 97 97 O2 Delivery Room Air Room Air Room Air Room Air 06/23/17 06/23/17 06/24/17 06/24/17 23:22 23:47 00:46 03:03 Temp 97.7 97.7 Pulse 79 79 79 Resp 20 B/P (MAP) 185/47 185/47 (93) 129/58 Pulse Ox 98 O2 Delivery Room Air Room Air 06/24/17 06/24/17 06/24/17 06/24/17 03:03 06:00 06:04 07:00 Temp 98.3 98.3 Pulse 72 75 75 78 Resp 15 16 B/P (MAP) 151/27 (68) 103/44 103/44 99/43 (61) Pulse Ox 97 97 O2 Delivery Room Air Room Air 06/24/17 06/24/17 06/24/17 06/24/17 08:00 08:11 08:14 10:16 Resp 16 Pulse Ox 99 99 99 O2 Delivery Room Air Room Air Room Air Room Air O2 Flow Rate 2.0 06/24/17 06/24/17 06/24/17 06/24/17 11:00 11:16 12:00 12:02 Temp 97.8 97.8 Pulse 96 96 Resp 16 16 B/P (MAP) 103/50 (67) 103/50 Pulse Ox 97 97 O2 Delivery Room Air Room Air Room Air O2 Flow Rate 2.0 REESE ZEPEDA MD Jun 24, 2017 13:59
[2017-06-24] MEDS: TPN PER PHARMACY MC PRN (14:55)
[2017-06-24] MEDS: VANCOMYCIN PER PHARMACY MC PRN (14:58)
[2017-06-24] MEDS: VANCOMYCIN 750 MG in IV NORMAL SALINE 250ML 250 ML IV SCH (15:31)
--- NOTE | 2017-06-24 15:33 | PDOC ---
PULMONARY PROGRESS NOTES Subjective PT WITH NO INCREASE SOA HAPPY THAT SHE STARTED TO EAT SOMETHING Vitals Vital Signs Date Time Temp Pulse Resp B/P (MAP) Pulse Ox O2 Delivery O2 Flow Rate FiO2 06/24/17 12:02 Room Air 06/24/17 12:00 96 103/50 06/24/17 11:16 16 97 2.0 06/24/17 11:00 97.8 97.8 General: Alert HEENT: Other (nc at perrl, bipap mask on, neck, no lap, thyromegaly) Lungs: Clear, Crackles, Other Cardiovascular: S1, S2 Abdomen: Soft, Non-tender, Other (no mass) Neuro Exam: Alert Extremities: No Edema Skin: Warm Labs Laboratory Tests Test 06/22/17 17:02 06/23/17 01:04 06/23/17 02:50 06/24/17 05:45 Glucose (Fingerstick) 142 mg/dL (70-99) 126 mg/dL (70-99) Phosphorus Level 2.9 mg/dL (2.6-4.7) Magnesium Level 2.0 mg/dL (1.8-2.4) White Blood Count 16.3 x10^3/uL (4.0-11.0) Red Blood Count 3.27 x10^6/uL (3.50-5.40) Hemoglobin 11.0 g/dL (12.0-15.5) Hematocrit 32.6 % (36.0-47.0) Mean Corpuscular Volume 100 fL (79-100) Mean Corpuscular Hemoglobin 34 pg (25-35) Mean Corpuscular Hemoglobin Concent 34 g/dL (31-37) Red Cell Distribution Width 16.3 % (11.5-14.5) Platelet Count 250 x10^3/uL (140-400) Neutrophils (%) (Auto) 68 % (31-73) Lymphocytes (%) (Auto) 12 % (24-48) Monocytes (%) (Auto) 17 % (0-9) Eosinophils (%) (Auto) 2 % (0-3) Basophils (%) (Auto) 1 % (0-3) Neutrophils # (Auto) 11.1 x10^3uL (1.8-7.7) Lymphocytes # (Auto) 2.0 x10^3/uL (1.0-4.8) Monocytes # (Auto) 2.8 x10^3/uL (0.0-1.1) Eosinophils # (Auto) 0.4 x10^3/uL (0.0-0.7) Basophils # (Auto) 0.1 x10^3/uL (0.0-0.2) Test 06/24/17 06:00 06/24/17 13:55 Sodium Level 139 mmol/L (136-145) Potassium Level 4.9 mmol/L (3.5-5.1) Chloride Level 103 mmol/L (98-107) Carbon Dioxide Level 30 mmol/L (21-32) Anion Gap 6 (6-14) Blood Urea Nitrogen 29 mg/dL (7-20) Creatinine 0.8 mg/dL (0.6-1.0) Estimated GFR (Cockcroft-Gault) 67.8 Glucose Level 77 mg/dL (70-99) Calcium Level 9.1 mg/dL (8.5-10.1) Vancomycin Level Trough 10.1 mcg/mL (10.0-20.0) Vancomycin Last Dose Date 06/23/17 Vancomycin Last Dose Time 1400 Laboratory Tests Test 06/24/17 05:45 06/24/17 06:00 06/24/17 13:55 White Blood Count 16.3 x10^3/uL (4.0-11.0) Red Blood Count 3.27 x10^6/uL (3.50-5.40) Hemoglobin 11.0 g/dL (12.0-15.5) Hematocrit 32.6 % (36.0-47.0) Mean Corpuscular Volume 100 fL (79-100) Mean Corpuscular Hemoglobin 34 pg (25-35) Mean Corpuscular Hemoglobin Concent 34 g/dL (31-37) Red Cell Distribution Width 16.3 % (11.5-14.5) Platelet Count 250 x10^3/uL (140-400) Neutrophils (%) (Auto) 68 % (31-73) Lymphocytes (%) (Auto) 12 % (24-48) Monocytes (%) (Auto) 17 % (0-9) Eosinophils (%) (Auto) 2 % (0-3) Basophils (%) (Auto) 1 % (0-3) Neutrophils # (Auto) 11.1 x10^3uL (1.8-7.7) Lymphocytes # (Auto) 2.0 x10^3/uL (1.0-4.8) Monocytes # (Auto) 2.8 x10^3/uL (0.0-1.1) Eosinophils # (Auto) 0.4 x10^3/uL (0.0-0.7) Basophils # (Auto) 0.1 x10^3/uL (0.0-0.2) Sodium Level 139 mmol/L (136-145) Potassium Level 4.9 mmol/L (3.5-5.1) Chloride Level 103 mmol/L (98-107) Carbon Dioxide Level 30 mmol/L (21-32) Anion Gap 6 (6-14) Blood Urea Nitrogen 29 mg/dL (7-20) Creatinine 0.8 mg/dL (0.6-1.0) Estimated GFR (Cockcroft-Gault) 67.8 Glucose Level 77 mg/dL (70-99) Calcium Level 9.1 mg/dL (8.5-10.1) Vancomycin Level Trough 10.1 mcg/mL (10.0-20.0) Vancomycin Last Dose Date 06/23/17 Vancomycin Last Dose Time 1400 Medications Active Scripts Medications Dose Route/Sig Max Daily Dose Days Date Category Ultra Coq10 (Ubiquinone) 75 Mg Capsule 100 Mg PO DAILY 06/13/17 Reported [place]-3 ([place]-3 Fatty Acids) 100 Mg Tab.chew 350 Mg PO HS 06/13/17 Reported Isosorbide Mononitrate Er (Isosorbide Mononitrate) 60 Mg Tab.er.24h 1 Tab PO DAILY 06/13/17 Reported Vitamin D3 (Cholecalciferol (Vitamin D3)) 1,000 Unit Tab.chew 1,000 Unit PO DAILY 06/13/17 Reported Aspir 81 (Aspirin) 81 Mg Tablet.dr 1 Tab PO DAILY 06/13/17 Reported Xanax (Alprazolam) 0.25 Mg Tablet 1 Tab PO TID PRN 06/13/17 Reported Allopurinol 300 Mg Tablet 1 Tab PO QODAY 06/13/17 Reported Pepcid (Famotidine) 20 Mg Tablet 20 Mg PO DAILY 06/13/17 Reported Levothyroxine Sodium 75 Mcg Tablet 1 Tab PO DAILY 06/13/17 Reported Hydroxyurea 500 Mg Capsule 500 Mg PO QODAY 06/13/17 Reported Gabapentin 100 Mg Capsule 100 Mg PO TID 06/13/17 Reported Furosemide 20 Mg Tablet 1 Tab PO DAILY 06/13/17 Reported Comments cxr reviewed, atelectasis Impression . 1. Acute hypercapnic respiratory failure, multifactorial. 2. Acute exacerbation of chronic obstructive pulmonary disease 3. Acute nonspecific bronchitis. 4. New onset atrial fibrillation with rapid ventricular response, 5. Coronary artery disease. 6. Hyperthyroidism. 7. Generalized anxiety. 8. Suspect silent aspiration leading to cough. 10. delirium ,improving 11. Dysphagia Plan . PT SLOWLY IMPROVING WILL NEED SOME FORM OF REHAB TRANSFER OK BY KRISTAL BREEN MD Jun 24, 2017 15:33
[2017-06-24] MEDS: ATORVASTATIN CALCIUM 20 MG TABLET PO SCH (21:07)
[2017-06-24] MEDS: OMEGA-3 FATTY ACIDS/FISH OIL 1,000 MG CAPSULE. PO SCH (21:08)
[2017-06-24] MEDS: FAMOTIDINE 20 MG/2 ML VIAL IVP SCH (21:09)
[2017-06-24] MEDS ORDERED: TOTAL PARENTERAL NUTRITION IV SCH ×10 (22:00)
[2017-06-24] MEDS ORDERED: [UNRECOGNIZED DRUG - OTHER] IV SCH ×10 (22:00)
[2017-06-24] MEDS ORDERED: AMINO ACIDS IV SCH ×10 (22:00)
[2017-06-24] MEDS ORDERED: DEXTROSE 70% IV SCH ×10 (22:00)
[2017-06-25 03:05] VITALS: BP 101/49
[2017-06-25] MEDS: NITROGLYCERIN OINT 1 GM PACKET. TP SCH ×2 (06:00)
[2017-06-25] MEDS: METOPROLOL TARTRATE 5 MG/5 ML VIAL. IVP SCH ×2 (06:00→06:56)
[2017-06-25] MEDS: AMINO AC 3%/ELECTROLYTE/GLYCER 1,000 ML IV SCH ×2 (06:47→19:03)
[2017-06-25 07:00] VITALS: BP 153/62
[2017-06-25 07:00] LABS: ALBUMIN 2.2 g/dL (3.4-5.0); ALBUMIN/GLOBULIN RATIO 0.6 (1.0-1.7); CREATININE 0.8 mg/dL (0.6-1.0); GFR 67.8; POTASSIUM 4.7 mmol/L (3.5-5.1); TOTAL BILIRUBIN 0.9 mg/dL (0.2-1.0); TOTAL PROTEIN 5.6 g/dL (6.4-8.2)
[2017-06-25] MEDS: BUDESONIDE 0.5 MG/2 ML NEBU. NEB SCH ×2 (07:52→19:38)
[2017-06-25] MEDS: IPRATRPIUM/ALBUTEROL 0.5/2.5MG 3 ML NEBU. NEB SCH ×4 (07:52→19:38)
[2017-06-25] MEDS: CHOLECALCIFEROL (VITAMIN D3) 1,000 UNIT TABLET PO SCH (09:03)
[2017-06-25] MEDS: BENZONATATE 100 MG CAPSULE. PO SCH ×3 (09:03→20:53)
[2017-06-25] MEDS: GABAPENTIN 100 MG CAPSULE. PO SCH ×3 (09:03→20:53)
[2017-06-25] MEDS: HYDROcodone/APAP 5/325MG 1 TAB TABLET PO PRN ×3 (09:15→19:00)
[2017-06-25] MEDS: LIDOCAINE (700MG/PATCH) PATCH. TD SCH (09:17)
[2017-06-25] MEDS: ASPIRIN 325 MG TABLET PO SCH (09:19)
[2017-06-25] MEDS: LEVOTHYROXINE 88 MCG TABLET PO SCH (09:19)
--- NOTE | 2017-06-25 10:07 | PDOC ---
PULMONARY PROGRESS NOTES Subjective PT WITH NO INCREASE SOA HAPPY THAT SHE STARTED TO EAT SOMETHING Vitals Vital Signs Date Time Temp Pulse Resp B/P (MAP) Pulse Ox O2 Delivery O2 Flow Rate FiO2 06/25/17 09:15 18 99 Room Air 06/25/17 07:00 98.3 87 153/62 (92) 98.3 06/24/17 11:16 2.0 General: Alert HEENT: Other (nc at perrl, bipap mask on, neck, no lap, thyromegaly) Lungs: Clear, Crackles, Other Cardiovascular: S1, S2 Abdomen: Soft, Non-tender, Other (no mass) Neuro Exam: Alert Extremities: No Edema Skin: Warm Labs Laboratory Tests Test 06/24/17 05:45 06/24/17 06:00 06/24/17 13:55 06/25/17 06:20 White Blood Count 16.3 x10^3/uL (4.0-11.0) Red Blood Count 3.27 x10^6/uL (3.50-5.40) Hemoglobin 11.0 g/dL (12.0-15.5) Hematocrit 32.6 % (36.0-47.0) Mean Corpuscular Volume 100 fL (79-100) Mean Corpuscular Hemoglobin 34 pg (25-35) Mean Corpuscular Hemoglobin Concent 34 g/dL (31-37) Red Cell Distribution Width 16.3 % (11.5-14.5) Platelet Count 250 x10^3/uL (140-400) Neutrophils (%) (Auto) 68 % (31-73) Lymphocytes (%) (Auto) 12 % (24-48) Monocytes (%) (Auto) 17 % (0-9) Eosinophils (%) (Auto) 2 % (0-3) Basophils (%) (Auto) 1 % (0-3) Neutrophils # (Auto) 11.1 x10^3uL (1.8-7.7) Lymphocytes # (Auto) 2.0 x10^3/uL (1.0-4.8) Monocytes # (Auto) 2.8 x10^3/uL (0.0-1.1) Eosinophils # (Auto) 0.4 x10^3/uL (0.0-0.7) Basophils # (Auto) 0.1 x10^3/uL (0.0-0.2) Sodium Level 139 mmol/L (136-145) 138 mmol/L (136-145) Potassium Level 4.9 mmol/L (3.5-5.1) 4.7 mmol/L (3.5-5.1) Chloride Level 103 mmol/L (98-107) 103 mmol/L (98-107) Carbon Dioxide Level 30 mmol/L (21-32) 32 mmol/L (21-32) Anion Gap 6 (6-14) 3 (6-14) Blood Urea Nitrogen 29 mg/dL (7-20) 30 mg/dL (7-20) Creatinine 0.8 mg/dL (0.6-1.0) 0.8 mg/dL (0.6-1.0) Estimated GFR (Cockcroft-Gault) 67.8 67.8 Glucose Level 77 mg/dL (70-99) 114 mg/dL (70-99) Calcium Level 9.1 mg/dL (8.5-10.1) 9.0 mg/dL (8.5-10.1) Vancomycin Level Trough 10.1 mcg/mL (10.0-20.0) Vancomycin Last Dose Date 06/23/17 Vancomycin Last Dose Time 1400 BUN/Creatinine Ratio 38 (6-20) Total Bilirubin 0.9 mg/dL (0.2-1.0) Aspartate Amino Transf (AST/SGOT) 37 U/L (15-37) Alanine Aminotransferase (ALT/SGPT) 65 U/L (14-59) Alkaline Phosphatase 103 U/L (46-116) Total Protein 5.6 g/dL (6.4-8.2) Albumin 2.2 g/dL (3.4-5.0) Albumin/Globulin Ratio 0.6 (1.0-1.7) Laboratory Tests Test 06/24/17 13:55 06/25/17 06:20 Vancomycin Level Trough 10.1 mcg/mL (10.0-20.0) Vancomycin Last Dose Date 06/23/17 Vancomycin Last Dose Time 1400 Sodium Level 138 mmol/L (136-145) Potassium Level 4.7 mmol/L (3.5-5.1) Chloride Level 103 mmol/L (98-107) Carbon Dioxide Level 32 mmol/L (21-32) Anion Gap 3 (6-14) Blood Urea Nitrogen 30 mg/dL (7-20) Creatinine 0.8 mg/dL (0.6-1.0) Estimated GFR (Cockcroft-Gault) 67.8 BUN/Creatinine Ratio 38 (6-20) Glucose Level 114 mg/dL (70-99) Calcium Level 9.0 mg/dL (8.5-10.1) Total Bilirubin 0.9 mg/dL (0.2-1.0) Aspartate Amino Transf (AST/SGOT) 37 U/L (15-37) Alanine Aminotransferase (ALT/SGPT) 65 U/L (14-59) Alkaline Phosphatase 103 U/L (46-116) Total Protein 5.6 g/dL (6.4-8.2) Albumin 2.2 g/dL (3.4-5.0) Albumin/Globulin Ratio 0.6 (1.0-1.7) Medications Active Scripts Medications Dose Route/Sig Max Daily Dose Days Date Category Ultra Coq10 (Ubiquinone) 75 Mg Capsule 100 Mg PO DAILY 06/13/17 Reported Mckinney-3 (Mckinney-3 Fatty Acids) 100 Mg Tab.chew 350 Mg PO HS 06/13/17 Reported Isosorbide Mononitrate Er (Isosorbide Mononitrate) 60 Mg Tab.er.24h 1 Tab PO DAILY 06/13/17 Reported Vitamin D3 (Cholecalciferol (Vitamin D3)) 1,000 Unit Tab.chew 1,000 Unit PO DAILY 06/13/17 Reported Aspir 81 (Aspirin) 81 Mg Tablet.dr 1 Tab PO DAILY 06/13/17 Reported Xanax (Alprazolam) 0.25 Mg Tablet 1 Tab PO TID PRN 06/13/17 Reported Allopurinol 300 Mg Tablet 1 Tab PO QODAY 06/13/17 Reported Pepcid (Famotidine) 20 Mg Tablet 20 Mg PO DAILY 06/13/17 Reported Levothyroxine Sodium 75 Mcg Tablet 1 Tab PO DAILY 06/13/17 Reported Hydroxyurea 500 Mg Capsule 500 Mg PO QODAY 06/13/17 Reported Gabapentin 100 Mg Capsule 100 Mg PO TID 06/13/17 Reported Furosemide 20 Mg Tablet 1 Tab PO DAILY 06/13/17 Reported Comments cxr reviewed, atelectasis Impression . 1. Acute hypercapnic respiratory failure, multifactorial. 2. Acute exacerbation of chronic obstructive pulmonary disease 3. Acute nonspecific bronchitis. 4. New onset atrial fibrillation with rapid ventricular response, 5. Coronary artery disease. 6. Hyperthyroidism. 7. Generalized anxiety. 8. Suspect silent aspiration leading to cough. 10. delirium ,improving 11. Dysphagia Plan . PT SLOWLY IMPROVING WILL NEED SOME FORM OF REHAB TRANSFER OK BY KRISTAL BREEN MD Jun 25, 2017 10:06
--- NOTE | 2017-06-25 10:58 | PDOC ---
CARDIO Progress Notes Date and Time Date of Service 06/25/2017 Time of Evaluation 1100 Subjective Subjective: No Chest Pain, No shortness of breath, No Palpitations, No Dizziness, Other Vitals Vitals Vital Signs Date Time Temp Pulse Resp B/P (MAP) Pulse Ox O2 Delivery O2 Flow Rate FiO2 06/25/17 09:15 18 99 Room Air 06/25/17 07:00 98.3 87 153/62 (92) 98.3 06/24/17 11:16 2.0 Weight Weight [ ] Laboratory Labs Laboratory Tests Test 06/24/17 13:55 06/25/17 06:20 Vancomycin Level Trough 10.1 mcg/mL (10.0-20.0) Vancomycin Last Dose Date 06/23/17 Vancomycin Last Dose Time 1400 Sodium Level 138 mmol/L (136-145) Potassium Level 4.7 mmol/L (3.5-5.1) Chloride Level 103 mmol/L (98-107) Carbon Dioxide Level 32 mmol/L (21-32) Anion Gap 3 (6-14) Blood Urea Nitrogen 30 mg/dL (7-20) Creatinine 0.8 mg/dL (0.6-1.0) Estimated GFR (Cockcroft-Gault) 67.8 BUN/Creatinine Ratio 38 (6-20) Glucose Level 114 mg/dL (70-99) Calcium Level 9.0 mg/dL (8.5-10.1) Total Bilirubin 0.9 mg/dL (0.2-1.0) Aspartate Amino Transf (AST/SGOT) 37 U/L (15-37) Alanine Aminotransferase (ALT/SGPT) 65 U/L (14-59) Alkaline Phosphatase 103 U/L (46-116) Total Protein 5.6 g/dL (6.4-8.2) Albumin 2.2 g/dL (3.4-5.0) Albumin/Globulin Ratio 0.6 (1.0-1.7) Microbiology Micro Microbiology 06/19/17 Blood Culture - Final, Complete NO GROWTH AFTER 5 DAYS 06/19/17 Urine Culture - Final, Complete 06/19/17 Urine Culture Result 1 (RAFIQ) - Final, Complete 06/19/17 Antimicrobic Susceptibility - Final, Complete Physical Exam HEENT: Neck Supple W Full Motion Chest: Symmetric LUNGS: Other (diminished bases) Heart: S1S2, RRR (SR) Abdomen: Soft N/T Extremities: No Edema, No Calf Tenderness Neurology: alert, oriented, follow commands, other (calm) Assessment Assessment 1. PAFIB RVR: new onset. Remains SR has not any AFIB recurrence since ICU. 2. Acute on chronic diastolic CHF: compensated 3. Acute respiratory failure: resolved 4. CAD: CABG in 1980s and [facility] with 3 stents with last PCI 5 yrs ago. 5. HTN: low BP readings at times, accuracy in question. Otherwise adequate 6. HLP 8. Hypothyroidism: TSH on goal 9. Generalized anxiety disorder Recommendations 1. Bipap PRN 2. Pt is now swallowing, will switch IV lopressor to PO. DC NTG paste. 3. Likely not a candidate for NOAC/OAC, will maintain ASA for stroke prevention and will reeval for further NOAC/OAC use per AFIB burden via event monitor 4. MPI today if pt and family agrees 5. Continue with secondary prevention 6. Possible SNU tomorrow. YESSI WISE APRN Jun 25, 2017 10:58
[2017-06-25 11:00] VITALS: BP 149/42
--- NOTE | 2017-06-25 11:33 | PDOC ---
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 HTN UNCOntrolled Hx elevated uric acid Hypothryodism Anxiety NOS HLD leukocytosis, reactive to solumedrol? 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 removed boland poor prognosis gi ppx dvt ppx check head CT neg. add stool softner SP replete GABY dc cipro, add vanco lidoderm patch for back pain pt today is more awake, asked to do swallow eval again. SW consult for possible SNF History of Present Illness History of Present Illness Poor PO Off tPN since yesterday - Needs to be off tPN x 48 hrs before [facility] can accept Family at bedside Ate 25% Stooling NO other med issues On dysphagia 1 with honey thickened Afib now rate controlled PPN started to augment PO PLAN: cont PPN CArds planning MPI today? Nutrition making some more additions SNU plans tu Dw family and RN Vitals Vitals Vital Signs Date Time Temp Pulse Resp B/P (MAP) Pulse Ox O2 Delivery O2 Flow Rate FiO2 06/25/17 10:15 18 98 Room Air 06/25/17 07:00 98.3 87 153/62 (92) 98.3 06/24/17 11:16 2.0 Physical Exam Physical Exam [email or web address] General: Alert, Cooperative, No acute distress, mild distress Heart: Regular rate Lungs: Clear, Crackles, Other Abdomen: Normal bowel sounds Extremities: No clubbing, No cyanosis, No edema, Normal pulses, No tenderness/ swelling Skin: No rashes, No breakdown, No significant lesion Labs LABS Laboratory Tests Test 06/24/17 13:55 06/25/17 06:20 Vancomycin Level Trough 10.1 mcg/mL (10.0-20.0) Vancomycin Last Dose Date 06/23/17 Vancomycin Last Dose Time 1400 Sodium Level 138 mmol/L (136-145) Potassium Level 4.7 mmol/L (3.5-5.1) Chloride Level 103 mmol/L (98-107) Carbon Dioxide Level 32 mmol/L (21-32) Anion Gap 3 (6-14) Blood Urea Nitrogen 30 mg/dL (7-20) Creatinine 0.8 mg/dL (0.6-1.0) Estimated GFR (Cockcroft-Gault) 67.8 BUN/Creatinine Ratio 38 (6-20) Glucose Level 114 mg/dL (70-99) Calcium Level 9.0 mg/dL (8.5-10.1) Total Bilirubin 0.9 mg/dL (0.2-1.0) Aspartate Amino Transf (AST/SGOT) 37 U/L (15-37) Alanine Aminotransferase (ALT/SGPT) 65 U/L (14-59) Alkaline Phosphatase 103 U/L (46-116) Total Protein 5.6 g/dL (6.4-8.2) Albumin 2.2 g/dL (3.4-5.0) Albumin/Globulin Ratio 0.6 (1.0-1.7) Review of Systems Review of Systems denies 14 pt Assessment and Plan Assessmemt and Plan Problems Medical Problems: (1) Atrial fibrillation with RVR Status: Acute Problems: Comment Review of Relevant I have reviewed the following items viktor (where applicable) has been applied. Labs Laboratory Tests Test 06/24/17 05:45 06/24/17 06:00 06/24/17 13:55 06/25/17 06:20 White Blood Count 16.3 x10^3/uL (4.0-11.0) Red Blood Count 3.27 x10^6/uL (3.50-5.40) Hemoglobin 11.0 g/dL (12.0-15.5) Hematocrit 32.6 % (36.0-47.0) Mean Corpuscular Volume 100 fL (79-100) Mean Corpuscular Hemoglobin 34 pg (25-35) Mean Corpuscular Hemoglobin Concent 34 g/dL (31-37) Red Cell Distribution Width 16.3 % (11.5-14.5) Platelet Count 250 x10^3/uL (140-400) Neutrophils (%) (Auto) 68 % (31-73) Lymphocytes (%) (Auto) 12 % (24-48) Monocytes (%) (Auto) 17 % (0-9) Eosinophils (%) (Auto) 2 % (0-3) Basophils (%) (Auto) 1 % (0-3) Neutrophils # (Auto) 11.1 x10^3uL (1.8-7.7) Lymphocytes # (Auto) 2.0 x10^3/uL (1.0-4.8) Monocytes # (Auto) 2.8 x10^3/uL (0.0-1.1) Eosinophils # (Auto) 0.4 x10^3/uL (0.0-0.7) Basophils # (Auto) 0.1 x10^3/uL (0.0-0.2) Sodium Level 139 mmol/L (136-145) 138 mmol/L (136-145) Potassium Level 4.9 mmol/L (3.5-5.1) 4.7 mmol/L (3.5-5.1) Chloride Level 103 mmol/L (98-107) 103 mmol/L (98-107) Carbon Dioxide Level 30 mmol/L (21-32) 32 mmol/L (21-32) Anion Gap 6 (6-14) 3 (6-14) Blood Urea Nitrogen 29 mg/dL (7-20) 30 mg/dL (7-20) Creatinine 0.8 mg/dL (0.6-1.0) 0.8 mg/dL (0.6-1.0) Estimated GFR (Cockcroft-Gault) 67.8 67.8 Glucose Level 77 mg/dL (70-99) 114 mg/dL (70-99) Calcium Level 9.1 mg/dL (8.5-10.1) 9.0 mg/dL (8.5-10.1) Vancomycin Level Trough 10.1 mcg/mL (10.0-20.0) Vancomycin Last Dose Date 06/23/17 Vancomycin Last Dose Time 1400 BUN/Creatinine Ratio 38 (6-20) Total Bilirubin 0.9 mg/dL (0.2-1.0) Aspartate Amino Transf (AST/SGOT) 37 U/L (15-37) Alanine Aminotransferase (ALT/SGPT) 65 U/L (14-59) Alkaline Phosphatase 103 U/L (46-116) Total Protein 5.6 g/dL (6.4-8.2) Albumin 2.2 g/dL (3.4-5.0) Albumin/Globulin Ratio 0.6 (1.0-1.7) Laboratory Tests Test 06/24/17 13:55 06/25/17 06:20 Vancomycin Level Trough 10.1 mcg/mL (10.0-20.0) Vancomycin Last Dose Date 06/23/17 Vancomycin Last Dose Time 1400 Sodium Level 138 mmol/L (136-145) Potassium Level 4.7 mmol/L (3.5-5.1) Chloride Level 103 mmol/L (98-107) Carbon Dioxide Level 32 mmol/L (21-32) Anion Gap 3 (6-14) Blood Urea Nitrogen 30 mg/dL (7-20) Creatinine 0.8 mg/dL (0.6-1.0) Estimated GFR (Cockcroft-Gault) 67.8 BUN/Creatinine Ratio 38 (6-20) Glucose Level 114 mg/dL (70-99) Calcium Level 9.0 mg/dL (8.5-10.1) Total Bilirubin 0.9 mg/dL (0.2-1.0) Aspartate Amino Transf (AST/SGOT) 37 U/L (15-37) Alanine Aminotransferase (ALT/SGPT) 65 U/L (14-59) Alkaline Phosphatase 103 U/L (46-116) Total Protein 5.6 g/dL (6.4-8.2) Albumin 2.2 g/dL (3.4-5.0) Albumin/Globulin Ratio 0.6 (1.0-1.7) Microbiology 06/19/17 Blood Culture - Final, Complete NO GROWTH AFTER 5 DAYS 06/19/17 Urine Culture - Final, Complete 06/19/17 Urine Culture Result 1 (RAFIQ) - Final, Complete 06/19/17 Antimicrobic Susceptibility - Final, Complete Medications Current Medications Albuterol/ Ipratropium (Duoneb) 3 ml STK-MED ONCE .ROUTE ; Start 06/13/17 at 08: 12; Stop 06/13/17 at 08:13; Status DC Albuterol/ Ipratropium (Duoneb) 3 ml 1X ONCE NEB Last administered on 08:15; Start 06/13/17 at 08:15; Stop 06/13/17 at 08:20; Status DC Methylprednisolone Sodium Succinate (SOLU-Medrol 125MG VIAL) 125 mg 1X ONCE IV Last administered on 06/13/17 08:22; Start 06/13/17 at 08:15; Stop 06/13/17 at 08:20; Status DC Diltiazem HCl (Cardizem) 10 mg 1X ONCE IVP Last administered on 06/13/17 08: 31; Start 06/13/17 at 08:15; Stop 06/13/17 at 08:29; Status DC Diltiazem HCl (Cardizem) 10 mg 1X ONCE IVP ; Start 06/13/17 at 08:15; Stop at 08:16; Status Cancel Diltiazem HCl 125 mg/Dextrose 125 ml @ 0 mls/hr 1X ONCE IV Last administered on 06/13/17 08:43; Start 06/13/17 at 08:15; Stop 06/13/17 at 14:48; Status DC Aspirin (Children'S Aspirin) 324 mg 1X ONCE PO Last administered on 06/13/17 08:47; Start 06/13/17 at 08:45; Stop 06/13/17 at 08:46; Status DC Ondansetron HCl (Zofran) 4 mg PRN Q8HRS PRN IV NAUSEA/VOMITING; Start 06/13/17 at 08:45; Stop 06/13/17 at 10:18; Status DC Guaifenesin (Robitussin Dm) 10 ml PRN Q6HRS PRN PO COUGH Last administered on 17:46; Start 06/13/17 at 10:00 Albuterol/ Ipratropium (Duoneb) 3 ml RTQID NEB Last administered on 06/25/17 07:52; Start 06/13/17 at 12:00 Ondansetron HCl (Zofran) 4 mg PRN Q6HRS PRN IV NAUSEA/VOMITING Last administered on 06/13/17 17:45; Start 06/13/17 at 10:30; Stop 06/14/17 at 10:29 ; Status DC Acetaminophen (Tylenol) 500 mg PRN Q6HRS PRN PO MILD PAIN / TEMP Last administered on 06/13/17 16:02; Start 06/13/17 at 10:30; Stop 06/21/17 at 11:22 ; Status DC Furosemide (Lasix) 20 mg 1X ONCE IVP Last administered on 06/13/17 11:03; Start 06/13/17 at 10:15; Stop 06/13/17 at 10:22; Status DC Digoxin (Lanoxin) 250 mcg 1X ONCE IV Last administered on 06/13/17 11:03; Start 06/13/17 at 10:30; Stop 06/13/17 at 10:31; Status DC Aspirin (Ecotrin) 81 mg DAILYWBKFT PO Last administered on 06/13/17 11:03; Start 06/13/17 at 12:00; Stop 06/21/17 at 10:05; Status DC Alprazolam (Xanax) 0.5 mg PRN Q8HRS PRN PO ANXIETY / AGITATION Last administered on 06/13/17 11:47; Start 06/13/17 at 11:45; Stop 06/21/17 at 10:05 ; Status DC Info (Do NOT chart on this placeholder) 1 each 1X ONCE MC ; Start 06/13/17 at 13:15; Stop 06/13/17 at 13:16; Status UNV Influenza Virus Vaccine Quadrival (Fluarix Quad [id number] Syringe) 0.5 ml ONCE ONCE VAX IM ; Start 06/13/17 at 17:00; Stop 06/13/17 at 17:01 Allopurinol (Zyloprim) 300 mg QODAY PO Last administered on 06/24/17 10:14; Start 06/14/17 at 09:00 Alprazolam (Xanax) 0.25 mg TID PRN PO ANXIETY / AGITATION; Start 06/13/17 at 14 :15; Status UNV Aspirin (Ecotrin) 81 mg DAILYWBKFT PO ; Start 06/14/17 at 08:00; Status UNV Famotidine (Pepcid) 20 mg DAILY PO ; Start 06/14/17 at 09:00; Stop 06/19/17 at 08:44; Status DC Furosemide (Lasix) 20 mg DAILY PO ; Start 06/14/17 at 09:00; Stop 06/14/17 at 09 :00; Status DC Gabapentin (Neurontin) 100 mg TID PO Last administered on 06/25/17 09:03; Start 06/13/17 at 15:30 Hydroxyurea (Hydrea) 500 mg QODAY PO Last administered on 06/24/17 10:15; Start 06/14/17 at 09:00 Levothyroxine Sodium (Synthroid) 75 mcg DAILY07 PO ; Start 06/14/17 at 07:00; Stop 06/19/17 at 08:44; Status DC Vitamin D (Vitamin D3) 1,000 unit DAILY PO Last administered on 06/25/17 09:03 ; Start 06/14/17 at 09:00 Isosorbide Mononitrate (Imdur) 60 mg DAILY PO ; Start 06/14/17 at 09:00; Stop at 09:00; Status DC Fish Oil (Fish Oil) 1,000 mg QHS PO Last administered on 06/24/17 21:08; Start 06/13/17 at 21:00 Non-Formulary Medication 100 mg DAILY PO ; Start 06/14/17 at 09:00; Status UNV Metoprolol Tartrate (Lopressor) 50 mg BID PO Last administered on 06/13/17 16: 03; Start 06/13/17 at 16:00; Stop 06/18/17 at 12:50; Status DC Isosorbide Mononitrate (Imdur) 30 mg DAILY PO ; Start 06/14/17 at 09:00; Stop at 09:48; Status DC Labetalol HCl (Normodyne) 20 mg PRN Q2HR PRN IVP HYPERTENSION, SEE COMMENTS Last administered on 06/18/17 11:06; Start 06/13/17 at 17:45 Benzonatate (Tessalon Perle) 100 mg [id number] PO Last administered on 06/25/17 09 :03; Start 06/13/17 at 21:00 Albuterol Sulfate (Ventolin Neb Soln) 2.5 mg PRN Q2HR PRN NEB [id number] Last administered on 06/13/17 20:05; Start 06/13/17 at 18:15 Acetaminophen/ Hydrocodone Bitart (Lortab 5/325) 1 tab PRN Q4HRS PRN PO MODERATE - SEVERE PAIN Last administered on 06/25/17 09:15; Start 06/13/17 at 18:15 Furosemide (Lasix) 20 mg 1X ONCE IVP Last administered on 06/13/17 20:10; Start 06/13/17 at 20:00; Stop 06/13/17 at 20:02; Status DC Lorazepam (Ativan) 1 mg PRN Q4HRS PRN IV ANXIETY / AGITATION Last administered on 06/21/17 02:32; Start 06/13/17 at 20:00 Lorazepam (Ativan) 2 mg PRN Q4HRS PRN IV ANXIETY / AGITATION Last administered on 06/17/17 03:48; Start 06/13/17 at 20:00 Morphine Sulfate 2 mg PRN Q2HR PRN IV SEVERE PAIN Last administered on 02:35; Start 06/14/17 at 04:15 Haloperidol Lactate (Haldol) 5 mg PRN Q6HRS PRN IVP AGITATION Last administered on 06/19/17 00:50; Start 06/14/17 at 04:15; Stop 06/19/17 at 08:44 ; Status DC Methylprednisolone Sodium Succinate (SOLU-Medrol 40MG VIAL) 40 mg Q8HRS IV Last administered on 06/16/17 05:08; Start 06/14/17 at 08:15; Stop 06/16/17 at 14:13; Status DC Budesonide (Pulmicort) 0.5 mg RTBID NEB Last administered on 06/25/17 07:52; Start 06/14/17 at 09:00 Atorvastatin Calcium (Lipitor) 20 mg QHS PO Last administered on 06/24/17 21: 07; Start 06/14/17 at 21:00 Isosorbide Mononitrate (Imdur) 60 mg DAILY PO ; Start 06/16/17 at 09:00; Stop at 09:00; Status DC Amlodipine Besylate (Norvasc) 5 mg DAILY PO ; Start 06/15/17 at 09:45; Stop at 14:52; Status DC Nitroglycerin (Nitro-Bid Oint) 1 inch Q6HRS TP Last administered on 06/15/17 18:05; Start 06/15/17 at 12:00; Stop 06/15/17 at 22:56; Status DC Nicardipine HCl 50 mg/Sodium Chloride 270 ml @ 0 mls/hr CONT PRN IV SEE I/O RECORD Last administered on 06/16/17 08:32; Start 06/15/17 at 19:45; Stop 06/16 at 14:25; Status DC Sodium Chloride 500 ml @ 500 mls/hr 1X ONCE IV Last administered on 11:45; Start 06/16/17 at 11:45; Stop 06/16/17 at 12:44; Status DC Amino Acids/ Glycerin/ Electrolytes 1,000 ml @ 50 mls/hr Q20H IV Last administered on 06/20/17 17:21; Start 06/16/17 at 12:30; Stop 06/21/17 at 09:47 ; Status DC Diltiazem HCl 125 mg/Dextrose 125 ml @ 0 mls/hr CONT PRN IV SEE I/O RECORD Last administered on 06/18/17 03:18; Start 06/16/17 at 14:30; Stop 06/19/17 at 08:44; Status DC Aspirin (Aspirin) 150 mg DAILY DC Last administered on 06/22/17 17:49; Start 06/17/17 at 15:45; Stop 06/24/17 at 09:40; Status DC Potassium Chloride 50 ml @ 25 mls/hr Q2H IV Last administered on 06/17/17 22: 02; Start 06/17/17 at 19:30; Stop 06/17/17 at 23:29; Status DC Bisacodyl (Dulcolax Supp) 10 mg PRN DAILY PRN DC CONSTIPATION Last administered on 06/17/17 19:47; Start 06/17/17 at 19:15; Stop 06/21/17 at 11:23 ; Status DC Metoprolol Tartrate (Lopressor) 5 mg Q6HRS IVP Last administered on 06/25/17 06:56; Start 06/18/17 at 13:00; Stop 06/25/17 at 10:55; Status DC Nitroglycerin (Nitro-Bid Oint) 1 inch Q6HRS TP Last administered on 06/24/17 06:04; Start 06/18/17 at 13:00; Stop 06/25/17 at 10:55; Status DC Haloperidol Lactate (Haldol) 2 mg PRN Q6HRS PRN IVP AGITATION; Start 06/19/17 at 08:45 Famotidine (Pepcid) 20 mg QHS IVP Last administered on 06/24/17 21:09; Start 06/19/17 at 21:00 Levothyroxine Sodium 40 mcg/ Sodium Chloride 5 ml @ 100 mls/hr DAILY IVP Last administered on 06/24/17 09:00; Start 06/19/17 at 09:00; Stop 06/24/17 at 09:27 ; Status DC Info 1 each PRN DAILY PRN MC SEE COMMENTS Last administered on 06/24/17 14:55 ; Start 06/20/17 at 08:30; Stop 06/25/17 at 05:01; Status DC Sodium Acetate 90 meq/Potassium Chloride 50 meq/ Potassium Phosphate 13.6 mmol/ Magnesium Sulfate 10 meq/ Calcium Gluconate 10 meq/ Multivitamins 10 ml/Chromium / Copper/Manganese/ Seleni/Zn 1 ml/ Total Parenteral Nutrition/Amino Acids/ Dextrose/ Fat Emulsion Intravenous 1,512 ml @ 63 mls/hr TPN CONT IV Last administered on 06/20/17 20:58; Start 06/20/17 at 22:00; Stop 06/21/17 at 21:59 ; Status DC Sodium Acetate 90 meq/Potassium Chloride 50 meq/ Potassium Phosphate 13.6 mmol/ Magnesium Sulfate 10 meq/ Calcium Gluconate 10 meq/ Multivitamins 10 ml/Chromium / Copper/Manganese/ Seleni/Zn 1 ml/ Total Parenteral Nutrition/Amino Acids/ Dextrose/ Fat Emulsion Intravenous 1,512 ml @ 63 mls/hr TPN CONT IV Last administered on 06/21/17 21:19; Start 06/21/17 at 22:00; Stop 06/22/17 at 21:59 ; Status DC Bisacodyl (Dulcolax Supp) 10 mg PRN DAILY PRN DC CONSTIPATION Last administered on 06/21/17 14:26; Start 06/21/17 at 10:15 Ciprofloxacin/ Dextrose 100 ml @ 100 mls/hr Q12HR IV Last administered on 06/21 21:17; Start 06/21/17 at 11:00; Stop 06/22/17 at 11:11; Status DC Sodium Phosphate 20 mmol/Dextrose 256.6667 ml @ 64.167 m... 1X ONCE IV Last administered on 06/21/17 12:09; Start 06/21/17 at 10:30; Stop 06/21/17 at 14:29 ; Status DC Acetaminophen (Tylenol) 500 mg PRN Q6HRS PRN PO MILD PAIN / TEMP; Start at 11:30 Sodium Acetate 110 meq/Potassium Chloride 50 meq/ Potassium Phosphate 13.6 mmol/ Magnesium Sulfate 10 meq/ Calcium Gluconate 10 meq/ Multivitamins 10 ml/Chromium / Copper/Manganese/ Seleni/Zn 1 ml/ Total Parenteral Nutrition/Amino Acids/ Dextrose/ Fat Emulsion Intravenous 1,512 ml @ 63 mls/hr TPN CONT IV Last administered on 06/22/17 22:47; Start 06/22/17 at 22:00; Stop 06/23/17 at 21:59 ; Status DC Vancomycin HCl 1 gm/Sodium Chloride 250 ml @ 250 mls/hr Q12H IV ; Start at 11:15; Status UNV Vancomycin HCl (Vanco Per Pharmacy) 1 each PRN DAILY PRN MC SEE COMMENTS Last administered on 06/24/17 14:58; Start 06/22/17 at 11:15 Lidocaine (Lidoderm) 1 patch DAILY TD Last administered on 06/25/17 09:17; Start 06/22/17 at 13:00 Vancomycin HCl 1.25 gm/Sodium Chloride 250 ml @ 166.667 mls/hr 1X ONCE IV Last administered on 06/22/17 17:50; Start 06/22/17 at 12:30; Stop 06/22/17 at 13:59; Status DC Vancomycin HCl 750 mg/Sodium Chloride 250 ml @ 250 mls/hr Q24H IV Last administered on 06/24/17 15:31; Start 06/23/17 at 14:00 Vancomycin HCl 1 each 1X ONCE MC ; Start 06/24/17 at 13:30; Stop 06/24/17 at 13 :31; Status DC Sodium Acetate 110 meq/Potassium Chloride 50 meq/ Potassium Phosphate 13.6 mmol/ Magnesium Sulfate 10 meq/ Calcium Gluconate 10 meq/ Multivitamins 10 ml/Chromium / Copper/Manganese/ Seleni/Zn 1 ml/ Total Parenteral Nutrition/Amino Acids/ Dextrose/ Fat Emulsion Intravenous 1,512 ml @ 63 mls/hr TPN CONT IV Last administered on 06/23/17 23:20; Start 06/23/17 at 22:00; Stop 06/24/17 at 21:59 ; Status DC Levothyroxine Sodium (Synthroid) 88 mcg DAILY07 PO Last administered on 09:19; Start 06/25/17 at 07:00 Aspirin (Pari Aspirin) 325 mg DAILYWBKFT PO Last administered on 06/25/17 09: 19; Start 06/24/17 at 10:00 Sodium Acetate 110 meq/Potassium Chloride 25 meq/ Potassium Phosphate 13.6 mmol/ Magnesium Sulfate 10 meq/ Calcium Gluconate 10 meq/ Multivitamins 10 ml/Chromium / Copper/Manganese/ Seleni/Zn 1 ml/ Total Parenteral Nutrition/Amino Acids/ Dextrose/ Fat Emulsion Intravenous 1,512 ml @ 63 mls/hr TPN CONT IV Last administered on 06/24/17 22:43; Start 06/24/17 at 22:00; Stop 06/25/17 at 05:01 ; Status DC Amino Acids/ Glycerin/ Electrolytes 1,000 ml @ 80 mls/hr [id number] IV Last administered on 06/25/17 06:47; Start 06/25/17 at 05:15 Metoprolol Tartrate (Lopressor) 25 mg Q6HRS PO ; Start 06/25/17 at 12:00 Active Scripts Active Reported Ultra Coq10 (Ubiquinone) 75 Mg Capsule 100 Mg PO DAILY [place]-3 ([place]-3 Fatty Acids) 100 Mg Tab.chew 350 Mg PO HS Isosorbide Mononitrate Er (Isosorbide Mononitrate) 60 Mg Tab.er.24h 1 Tab PO DAILY Vitamin D3 (Cholecalciferol (Vitamin D3)) 1,000 Unit Tab.chew 1,000 Unit PO DAILY Aspir 81 (Aspirin) 81 Mg Tablet.dr 1 Tab PO DAILY Xanax (Alprazolam) 0.25 Mg Tablet 1 Tab PO TID PRN Allopurinol 300 Mg Tablet 1 Tab PO QODAY Pepcid (Famotidine) 20 Mg Tablet 20 Mg PO DAILY Levothyroxine Sodium 75 Mcg Tablet 1 Tab PO DAILY Hydroxyurea 500 Mg Capsule 500 Mg PO QODAY Gabapentin 100 Mg Capsule 100 Mg PO TID Furosemide 20 Mg Tablet 1 Tab PO DAILY Vitals/I & O Vital Sign - Last 24 Hours 06/24/17 06/24/17 06/24/17 06/24/17 12:00 12:00 12:02 15:00 Temp 98.0 98.0 Pulse 96 96 89 Resp 18 B/P (MAP) 103/50 103/50 130/58 (82) Pulse Ox 99 O2 Delivery Room Air Room Air 06/24/17 06/24/17 06/24/17 06/24/17 16:07 17:42 17:55 19:15 Temp 97.6 97.6 Pulse 89 89 68 Resp 20 B/P (MAP) 130/58 130/58 152/84 (106) Pulse Ox 98 O2 Delivery Room Air Room Air 06/24/17 06/24/17 06/24/17 06/24/17 19:40 20:24 20:24 23:00 Temp 97.6 97.6 Pulse 83 Resp 18 B/P (MAP) 78/44 (55) Pulse Ox 97 97 99 O2 Delivery Room Air Room Air Room Air Room Air 06/24/17 06/25/17 06/25/17 06/25/17 23:45 03:05 06:56 07:00 Temp 98.0 98.3 98.0 98.3 Pulse 81 73 87 Resp 20 20 B/P (MAP) 80/43 (55) 101/49 (66) 130/60 153/62 (92) Pulse Ox 98 99 O2 Delivery Room Air Room Air 06/25/17 06/25/17 09:15 10:15 Resp 18 18 Pulse Ox 99 98 O2 Delivery Room Air Room Air REESE ZEPEDA MD Jun 25, 2017 11:33
[2017-06-25] MEDS: VANCOMYCIN PER PHARMACY MC PRN (12:42)
[2017-06-25] MEDS: METOPROLOL TART IMMED RELEASE 25 MG TABLET. PO SCH ×2 (13:38→19:01)
[2017-06-25 15:00] VITALS: BP 141/48
[2017-06-25] MEDS: VANCOMYCIN 750 MG in IV NORMAL SALINE 250ML 250 ML IV SCH (16:58)
[2017-06-25 19:37] VITALS: BP 104/49
[2017-06-25] MEDS: ATORVASTATIN CALCIUM 20 MG TABLET PO SCH (20:53)
[2017-06-25] MEDS: OMEGA-3 FATTY ACIDS/FISH OIL 1,000 MG CAPSULE. PO SCH (20:54)
[2017-06-25] MEDS ORDERED: FAMOTIDINE 20 MG TABLET. PO SCH (21:00)
[2017-06-25 22:27] VITALS: BP 141/38
[2017-06-26] MEDS: METOPROLOL TART IMMED RELEASE 25 MG TABLET. PO SCH ×2 (00:06→06:22)
[2017-06-26 05:44] LABS: MAGNESIUM 2.2 mg/dL (1.8-2.4); PHOSPHORUS 3.2 mg/dL (2.6-4.7)
[2017-06-26] MEDS: LEVOTHYROXINE 88 MCG TABLET PO SCH (06:18)
[2017-06-26 06:22] VITALS: BP 105/50
[2017-06-26] MEDS: AMINO AC 3%/ELECTROLYTE/GLYCER 1,000 ML IV SCH (06:22)
[2017-06-26] MEDS: IPRATRPIUM/ALBUTEROL 0.5/2.5MG 3 ML NEBU. NEB SCH ×2 (07:34→11:33)
[2017-06-26] MEDS: BUDESONIDE 0.5 MG/2 ML NEBU. NEB SCH (07:34)
[2017-06-26] MEDS: CHOLECALCIFEROL (VITAMIN D3) 1,000 UNIT TABLET PO SCH (08:08)
[2017-06-26] MEDS: LIDOCAINE (700MG/PATCH) PATCH. TD SCH (08:08)
[2017-06-26] MEDS: ASPIRIN 325 MG TABLET PO SCH (08:08)
[2017-06-26 08:09] VITALS: BP 95/50
[2017-06-26] MEDS: ALLOPURINOL 300 MG TABLET. PO SCH (08:09)
[2017-06-26] MEDS: BENZONATATE 100 MG CAPSULE. PO SCH ×2 (08:09→14:00)
[2017-06-26] MEDS: GABAPENTIN 100 MG CAPSULE. PO SCH ×2 (08:09→14:00)
[2017-06-26] MEDS: HYDROXYUREA 500 MG CAPSULE PO SCH (08:12)
--- NOTE | 2017-06-26 09:31 | PDOC ---
PULMONARY PROGRESS NOTES Subjective PT WITH NO INCREASE SOA HAPPY THAT SHE STARTED TO EAT SOMETHING Vitals Vital Signs Date Time Temp Pulse Resp B/P (MAP) Pulse Ox O2 Delivery O2 Flow Rate FiO2 06/26/17 08:09 98.1 63 19 95/50 (65) 97 Room Air 98.1 06/25/17 19:00 2.0 General: Alert HEENT: Other (nc at perrl, bipap mask on, neck, no lap, thyromegaly) Lungs: Clear, Crackles, Other Cardiovascular: S1, S2 Abdomen: Soft, Non-tender, Other (no mass) Neuro Exam: Alert Extremities: No Edema Skin: Warm Labs Laboratory Tests Test 06/24/17 13:55 06/25/17 06:20 06/26/17 05:00 Vancomycin Level Trough 10.1 mcg/mL (10.0-20.0) Vancomycin Last Dose Date 06/23/17 Vancomycin Last Dose Time 1400 Sodium Level 138 mmol/L (136-145) Potassium Level 4.7 mmol/L (3.5-5.1) Chloride Level 103 mmol/L (98-107) Carbon Dioxide Level 32 mmol/L (21-32) Anion Gap 3 (6-14) Blood Urea Nitrogen 30 mg/dL (7-20) Creatinine 0.8 mg/dL (0.6-1.0) Estimated GFR (Cockcroft-Gault) 67.8 BUN/Creatinine Ratio 38 (6-20) Glucose Level 114 mg/dL (70-99) Calcium Level 9.0 mg/dL (8.5-10.1) Total Bilirubin 0.9 mg/dL (0.2-1.0) Aspartate Amino Transf (AST/SGOT) 37 U/L (15-37) Alanine Aminotransferase (ALT/SGPT) 65 U/L (14-59) Alkaline Phosphatase 103 U/L (46-116) Total Protein 5.6 g/dL (6.4-8.2) Albumin 2.2 g/dL (3.4-5.0) Albumin/Globulin Ratio 0.6 (1.0-1.7) Phosphorus Level 3.2 mg/dL (2.6-4.7) Magnesium Level 2.2 mg/dL (1.8-2.4) Laboratory Tests Test 06/26/17 05:00 Phosphorus Level 3.2 mg/dL (2.6-4.7) Magnesium Level 2.2 mg/dL (1.8-2.4) Medications Active Scripts Medications Dose Route/Sig Max Daily Dose Days Date Category Ultra Coq10 (Ubiquinone) 75 Mg Capsule 100 Mg PO DAILY 06/13/17 Reported [place]-3 ([place]-3 Fatty Acids) 100 Mg Tab.chew 350 Mg PO HS 06/13/17 Reported Isosorbide Mononitrate Er (Isosorbide Mononitrate) 60 Mg Tab.er.24h 1 Tab PO DAILY 06/13/17 Reported Vitamin D3 (Cholecalciferol (Vitamin D3)) 1,000 Unit Tab.chew 1,000 Unit PO DAILY 06/13/17 Reported Aspir 81 (Aspirin) 81 Mg Tablet.dr 1 Tab PO DAILY 06/13/17 Reported Xanax (Alprazolam) 0.25 Mg Tablet 1 Tab PO TID PRN 06/13/17 Reported Allopurinol 300 Mg Tablet 1 Tab PO QODAY 06/13/17 Reported Pepcid (Famotidine) 20 Mg Tablet 20 Mg PO DAILY 06/13/17 Reported Levothyroxine Sodium 75 Mcg Tablet 1 Tab PO DAILY 06/13/17 Reported Hydroxyurea 500 Mg Capsule 500 Mg PO QODAY 06/13/17 Reported Gabapentin 100 Mg Capsule 100 Mg PO TID 06/13/17 Reported Furosemide 20 Mg Tablet 1 Tab PO DAILY 06/13/17 Reported Comments cxr reviewed, atelectasis Impression . 1. Acute hypercapnic respiratory failure, multifactorial. 2. Acute exacerbation of chronic obstructive pulmonary disease 3. Acute nonspecific bronchitis. 4. New onset atrial fibrillation with rapid ventricular response, 5. Coronary artery disease. 6. Hyperthyroidism. 7. Generalized anxiety. 8. Suspect silent aspiration leading to cough. 10. delirium ,improving 11. Dysphagia Plan . PT SLOWLY IMPROVING WILL NEED SOME FORM OF REHAB TRANSFER OK BY KRISTAL BREEN MD Jun 26, 2017 09:31
[2017-06-26] MEDS: VANCOMYCIN PER PHARMACY MC PRN (09:59)
[2017-06-26 11:00] VITALS: BP 140/89
[2017-06-26] MEDS ORDERED: NITR100C PO (11:44)
--- NOTE | 2017-06-26 11:50 | PDOC3 ---
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 HTN [facility] Hx elevated uric acid Hypothryodism Anxiety NOS HLD leukocytosis, reactive to solumedrol? 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 possible uti with boland hypophosphatemia back pain, OA, positional Final Diagnosis Problems Medical Problems: (1) Atrial fibrillation with RVR Status: Acute Brief Hospital Course Allergies Allergies Coded Allergies Type Severity Reaction Last Updated Verified Penicillins Allergy Intermediate 06/13/17 Yes Sulfa (Sulfonamide Antibiotics) Allergy Intermediate 06/13/17 Yes amoxicillin Allergy Intermediate 06/13/17 Yes clopidogrel Allergy Intermediate 06/13/17 Yes pantoprazole Allergy Intermediate 06/13/17 Yes I S O L A T I O N *CONTACT* Allergy Unknown 06/16/17 Yes Vital Signs Vital Signs Date Time Temp Pulse Resp B/P (MAP) Pulse Ox O2 Delivery O2 Flow Rate FiO2 06/26/17 11:35 Room Air 06/26/17 08:10 2.0 06/26/17 08:09 98.1 63 19 95/50 (65) 97 98.1 Lab Results Laboratory Tests Test 06/24/17 13:55 06/25/17 06:20 06/26/17 05:00 Vancomycin Level Trough 10.1 mcg/mL (10.0-20.0) Vancomycin Last Dose Date 06/23/17 Vancomycin Last Dose Time 1400 Sodium Level 138 mmol/L (136-145) Potassium Level 4.7 mmol/L (3.5-5.1) Chloride Level 103 mmol/L (98-107) Carbon Dioxide Level 32 mmol/L (21-32) Anion Gap 3 (6-14) Blood Urea Nitrogen 30 mg/dL (7-20) Creatinine 0.8 mg/dL (0.6-1.0) Estimated GFR (Cockcroft-Gault) 67.8 BUN/Creatinine Ratio 38 (6-20) Glucose Level 114 mg/dL (70-99) Calcium Level 9.0 mg/dL (8.5-10.1) Total Bilirubin 0.9 mg/dL (0.2-1.0) Aspartate Amino Transf (AST/SGOT) 37 U/L (15-37) Alanine Aminotransferase (ALT/SGPT) 65 U/L (14-59) Alkaline Phosphatase 103 U/L (46-116) Total Protein 5.6 g/dL (6.4-8.2) Albumin 2.2 g/dL (3.4-5.0) Albumin/Globulin Ratio 0.6 (1.0-1.7) Phosphorus Level 3.2 mg/dL (2.6-4.7) Magnesium Level 2.2 mg/dL (1.8-2.4) Laboratory Tests Test 06/26/17 05:00 Phosphorus Level 3.2 mg/dL (2.6-4.7) Magnesium Level 2.2 mg/dL (1.8-2.4) Brief Hospital Course Ms. Hamilton is a 86 old [sex] who presented with paroxysmal Afib in RVR, managed that. BUt incidental UTI that is E feacalis, resistant to some, sensitive to some, I dcd on PO nitrofurantoin which is of course sensitive to it. Course remarkable for dec PO, FTT sxs, needed TPN, Eventaully needed SNU, family agreed to SNU, so now off to SNU off tPN/PPN, Dtr refused marinol as "another pill to take". Seen and examined Med list done Cards held off imdur, xanax etc ON metoprolol now 50BID Time 34mins Discharge Information Condition at Discharge: Improved, Stable Disposition/Orders: Other (snu) Scheduled Allopurinol (Allopurinol), 1 TAB PO QODAY, (Reported) Aspirin (Aspir 81), 1 TAB PO DAILY, (Reported) Cholecalciferol (Vitamin D3) (Vitamin D3), 1,000 UNIT PO DAILY, (Reported) Famotidine (Pepcid), 20 MG PO DAILY, (Reported) Furosemide (Furosemide), 1 TAB PO DAILY, (Reported) Gabapentin (Gabapentin), 100 MG PO TID, (Reported) Hydroxyurea (Hydroxyurea), 500 MG PO QODAY, (Reported) Isosorbide Mononitrate (Isosorbide Mononitrate Er), 1 TAB PO DAILY, (Reported) Levothyroxine Sodium (Levothyroxine Sodium), 1 TAB PO DAILY, (Reported) [place]-3 Fatty Acids ([place]-3), 350 MG PO HS, (Reported) Ubiquinone (Ultra Coq10), 100 MG PO DAILY, (Reported) Scheduled PRN Alprazolam (Xanax), 1 TAB PO TID PRN for ANXIETY / AGITATION, (Reported) REESE ZEPEDA MD Jun 26, 2017 11:50
--- NOTE | 2017-06-26 12:03 | PDOC ---
CARDIO Progress Notes Date and Time Date of Service 06/26/2017 Time of Evaluation 1050 Subjective Subjective: No Chest Pain, No shortness of breath, No Palpitations, No Dizziness, Other (sitting up, feels comfortbale but cold) Vitals Vitals Vital Signs Date Time Temp Pulse Resp B/P (MAP) Pulse Ox O2 Delivery O2 Flow Rate FiO2 06/26/17 11:35 Room Air 06/26/17 08:10 2.0 06/26/17 08:09 98.1 63 19 95/50 (65) 97 98.1 Weight Weight [ ] Laboratory Labs Laboratory Tests Test 06/26/17 05:00 Phosphorus Level 3.2 mg/dL (2.6-4.7) Magnesium Level 2.2 mg/dL (1.8-2.4) Microbiology Micro Microbiology 06/19/17 Blood Culture - Final, Complete NO GROWTH AFTER 5 DAYS 06/19/17 Urine Culture - Final, Complete 06/19/17 Urine Culture Result 1 (RAFIQ) - Final, Complete 06/19/17 Antimicrobic Susceptibility - Final, Complete Physical Exam HEENT: Neck Supple W Full Motion Chest: Symmetric LUNGS: Clear to Auscultation Heart: S1S2, RRR (SR) Abdomen: Soft N/T Extremities: No Edema, No Calf Tenderness Neurology: alert, oriented, follow commands Assessment Assessment 1. PAFIB RVR: new onset. Remains SR has not any AFIB recurrence since ICU. 2. Acute on chronic diastolic CHF: compensated 3. Acute respiratory failure: resolved 4. CAD: CABG in 1980s and [facility] with 3 stents with last PCI 5 yrs ago. 5. HTN: controlled 6. HLP 8. Hypothyroidism: TSH on goal 9. Generalized anxiety disorder Recommendations 1. Place on toprol XL 75 mg daily, continue with ASA for stroke prevention. 2. Significant discussion with daughter and would not like any further cardiac testing and stay with conservative measures. 3. Also discussed ASA vs NOAC and daughter would like to continue with ASA. Per our discussion pt is to follow up with [facility] cardiology as an outpt. 4. Continue with secondary prevention 5. OK to DC to SNU per cardiac standpoint. YESSI WISE APRN Jun 26, 2017 12:03
[2017-06-26] MEDS: VANCOMYCIN 750 MG in IV NORMAL SALINE 250ML 250 ML IV SCH (14:00)
[2017-06-27] MEDS ORDERED: METOPROLOL SUCC 24HR ER 25 MG TAB.ER.24H. PO SCH (09:00)
== END 2017-06-26 14:26 | DRG 291 ==
LOC: ER 07:33 → 2 SOUTH 08:30 → 1 WEST ICU 19:40 → 2 SOUTH 06-18 15:25
PROVIDERS: ADMIT Internal Medicine; ATTEND Internal Medicine
PROC: 5A09457 Assistance with Respiratory Ventilation, 24-96 Consecutive Hours, Continuous Positive Airway Pressure (ICD-10-PCS; 2017-06-13)
PROC: 02HV33Z Insertion of Infusion Device into Superior Vena Cava, Percutaneous Approach (ICD-10-PCS; principal; 2017-06-15)
DX: I50.33 Acute on chronic diastolic (congestive) heart failure (principal); J96.21 Acute and chronic respiratory failure with hypoxia; G93.41 Metabolic encephalopathy; J44.0 Chronic obstructive pulmonary disease with (acute) lower respiratory infection; R13.10 Dysphagia, unspecified; J44.1 Chronic obstructive pulmonary disease with (acute) exacerbation; J96.22 Acute and chronic respiratory failure with hypercapnia; I13.0 Hypertensive heart and chronic kidney disease with heart failure and stage 1 through stage 4 chronic kidney disease, or unspecified chronic kidney disease; N39.0 Urinary tract infection, site not specified; I48.0 Paroxysmal atrial fibrillation; E83.39 Other disorders of phosphorus metabolism; E03.9 Hypothyroidism, unspecified; E78.5 Hyperlipidemia, unspecified; Z88.8 Allergy status to other drugs, medicaments and biological substances; F41.1 Generalized anxiety disorder; I25.10 Atherosclerotic heart disease of native coronary artery without angina pectoris; K59.00 Constipation, unspecified; M19.90 Unspecified osteoarthritis, unspecified site; M54.9 Dorsalgia, unspecified; D72.829 Elevated white blood cell count, unspecified; R62.7 Adult failure to thrive; Z96.651 Presence of right artificial knee joint; Z51.5 Encounter for palliative care; Z66 Do not resuscitate; Z79.82 Long term (current) use of aspirin; Z82.49 Family history of ischemic heart disease and other diseases of the circulatory system; Z87.01 Personal history of pneumonia (recurrent); Z95.1 Presence of aortocoronary bypass graft; Z90.11 Acquired absence of right breast and nipple; Z88.6 Allergy status to analgesic agent; Z88.1 Allergy status to other antibiotic agents; Z88.0 Allergy status to penicillin; Z88.2 Allergy status to sulfonamides; Z95.5 Presence of coronary angioplasty implant and graft; J20.9 Acute bronchitis, unspecified
CPT/HCPCS: 31720; 36415; 36569; 36600; 70450; 71010; 74000; 80048; 80053; 80061; 80076; 80202; 81001; 82553; 82805; 82962; 83605; 83690; 83735; 83880; 84100; 84443; 84484; 85007; 85025; 85610; 87040; 87086; 87186; 87641; 93005; 93306; 94250; 94640; 94660; 94760; 96365; 96375; J0610; J0744; J1160; J1630; J2060; J2270; J2405; J2920; J2930; J3370; J3475; J3480; J3490; J7040; J7050; J7613; J7620; J7626; S0028; 92526; 92610; 97110; 97116; 97530; 97535; 99291-25; J7030